=== PATIENT | male | born 1950 | race Two or more races ===

== ENCOUNTER → 2022-12-27 | Outpatient (CLI) | payer OTHER ==
[2022-12-27 08:06] LABS: Albumin 3.9 g/dL (3.4-5.0); Potassium 4.4 mmol/L (3.5-5.1)
[2022-12-27 08:13] LABS: BUN/Creatinine Ratio 20.1 (10.0-20.0); Bilirubin, Total 0.5 mg/dL (0.2-1.0); Calcium 9.5 mg/dL (8.5-10.1); Total Protein 7.1 g/dL (6.4-8.2)
== END | disposition home or self-care (01) ==
LOC: LAB 06:37
PROVIDERS: ATTEND Student in an Organized Health Care Education/Training Program
DX: Z12.11 Encounter for screening for malignant neoplasm of colon (principal); E78.5 Hyperlipidemia, unspecified; I25.810 Atherosclerosis of coronary artery bypass graft(s) without angina pectoris
CPT/HCPCS: 36415; 80053; 80061

== ENCOUNTER → 2023-02-28 | Outpatient (CLI) | payer OTHER | END | disposition home or self-care (01) | LOC: XYW 10:49 | PROVIDERS: ATTEND Internal Medicine | DX: R07.89 Other chest pain (principal); I25.810 Atherosclerosis of coronary artery bypass graft(s) without angina pectoris | CPT/HCPCS: 93017; 93350 ==

== ENCOUNTER → 2024-02-18 | Outpatient (CLI) | payer OTHER ==
[~2024-02-18] MED LIST: ASPI-543 PO; CHOL100079 OR; ECHICAP PO; EZET10TA22 PO; METO25TA5 PO; SIMV20TA20 PO
[2024-02-18 08:27] LABS: Triglycerides 73 mg/dL (< 150)
[2024-02-18 08:28] LABS: LDL Cholesterol 74 mg/dL (< 100)
[2024-02-18 08:29] LABS: HDL Cholesterol 47 mg/dL (40-59)
[2024-02-18 08:30] LABS: Cholesterol 135 mg/dL (< 200)
== END | disposition home or self-care (01) ==
LOC: LAB 06:30
PROVIDERS: ATTEND Student in an Organized Health Care Education/Training Program
DX: Z12.11 Encounter for screening for malignant neoplasm of colon (principal); E78.5 Hyperlipidemia, unspecified
CPT/HCPCS: 36415; 80061; 82274

== ENCOUNTER → 2024-06-12 | Outpatient (CLI) | payer OTHER ==
[2024-06-13 11:07] LABS: PSA Free 1.49 ng/mL; Prostate Specific Antigen 4.1 ng/mL (0.0-4.0)
== END | disposition home or self-care (01) ==
LOC: LAB 05:56
PROVIDERS: ATTEND Urology
DX: R30.0 Dysuria (principal); N40.0 Benign prostatic hyperplasia without lower urinary tract symptoms
CPT/HCPCS: 84153; 84154

== ENCOUNTER 2024-09-09 01:03 | Inpatient (IN) | payer OTHER ==
[~2024-09-09] VITALS: Ht 182.9 cm; Wt 98.7 kg
--- NOTE | 2024-09-09 01:33 | ED.PDOC ---
History of Present Illness HPI Comments 73 y/o M, with a Hx of ASA use, BPH, 2CABG, CAD, HLD, HTN, and kidney stones, is BIBA for c/o non-radiating, mid-abdominal pain, nausea, vomiting, and constipation, today. Per EMS report, patient endorses on sudden and unprovoked onset of symptoms 2x hours prior to ED arrival, this morning. He comments on pa in being an 8/10 in severity and felling similar to when he had kidney stones in the past, producing "yellow" bile vomitus, and having a "constant urge" to defecate and requiring to strain to produce small stool amounts and is unable to pass gas, currently. Patient was noted to have been found with a blood glucose of 182, with all remaining vitals stable and within normal limits, and was given 1g Tylenol and 4mg Zofran en route, with positive improvement. Upon arrival to ED, patient's pain is stated to have improved to a 4/10 severity and his nauseousness subsiding. Patient reports no further relevant or pertinent information, such as recent spoiled food intake or injuries, at time of assessment. He denies having any hematemesis, diarrhea, urinary symptoms, fever, chills, or other associated symptoms or modifiers at this time. Chief Complaint: Abdominal Pain Time Seen by MD: 01:20 Primary Care Provider: Unk Reviewed Notes: Nurses Notes, Heater Installer Notes, Medications, Allergies Allergies: Uncoded Allergies: Atrovastatin (Allergy, Unknown, 09/09/24) Home Meds Reported Medications Echinacea-Goldenseal (Echinacea/Rogers Seal) Gld Seal Cap, 1 SEAL PO DAILY for SUPPLEMENT, CAP 11/19/23 Cholecalciferol (VITAMIN D3) 1,000 Unit Chw, 1000 UNIT OR DAILY, TAB.CHEW 11/19/23 Simvastatin (Simvastatin) 20 Mg Tab, 20 MG PO DAILY for dyslipidemia for 30 Days 11/19/23 Metoprolol Tartrate (Metoprolol Tartrate) 25 Mg Tab, 25 MG PO BID for htn for 30 Days, MG 11/19/23 Ezetimibe (Zetia) 10 Mg Tab, 1 TAB PO DAILY for HIGH CHOLESTEROL, #30 TAB 5 Refills 11/19/23 Aspirin (Aspir-Low) 81 Mg Tab, 81 MG PO DAILY for S/P CABG X2, MG 11/19/23 Information Source: Patient, Emergency Med Personnel Mode of Arrival: EMS Severity: Moderate Timing: Hours Duration: Since onset Prehospital treatment: 12 Lead EKG, [employer] 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, Other (1g Tylenol, 4mg Zofran) Past Medical History PAST MEDICAL HISTORY: CAD, High Lipids, HTN, Kidney Stones Past Medical History (Other): ASA use, BPH Surgical History: CABG (2x) Family History Family History: Unknown Social History Smoker: Non-Smoker Alcohol: Denies ETOH Use Drugs: Denies Drug Use Lives In: Home Gastrointestinal: reports: abdominal pain, constipated, nausea, vomiting All Other Systems: Reviewed and Negative (negative unless otherwise stated above or in HPI) Physical Exam General Appearance: No Apparent Distress, Normal HEENT: Normal ENT Inspection, Pharynx Normal, TMs Normal Neck: Full Range of Motion, Non-Tender, Normal, Normal Inspection Respiratory: Chest Non-Tender, Lungs Clear, No Accessory Muscle Use, No Respiratory Distress, Normal Breath Sounds Cardiovascular: No Edema, No JVD, No Murmur, No Gallop, Normal Peripheral Pulses, Regular Rate/Rhythm Breast Exam: Deferred Gastrointestinal: No Organomegaly, No Pulsatile Mass, Normal Bowel Sounds, Soft, Tenderness (abdomen diffusely firm and tender ) Genitalia: Deferred Pelvic: Deferred Rectal: Deferred Extremities: No calf tenderness, Normal capillary refill, Normal inspection, Normal range of motion, Non-tender, No pedal edema Musculoskeletal : Apperance: Normal Neurologic: Alert, nicu rn II-XII nml as Tested, No Motor Deficits, Normal Affect, Normal Mood, No Sensory Deficits Cerebellar Function: Normal Reflexes: Normal Skin: Dry, Normal Color, Warm Lymphatic: No Adenopathy Was a procedure done? Was a procedure done?: No EKG EKG : Pulse Rate (adult): 63 [place]: Normal Cardiac Rhythm: NSR Block: None Hypertrophy: None ST: Normal Differential Dx Considerations may include: gastritis, gastroenteritis, constipation, bowel obstruction, spoiled food, viral syndrome, nephrolithiasis, acute abdomen X-Ray, Labs, Meds, VS Vital Signs Date Time Temp Pulse Resp B/P (MAP) Pulse Ox O2 Delivery O2 Flow Rate FiO2 09/09/24 04:41 73 16 158/79 09/09/24 04:29 Nasal Cannula* 2 28 09/09/24 04:27 98.9 73 16 158/79 (105) 94 98.9 09/09/24 01:33 63 09/09/24 01:16 63 09/09/24 01:13 98.0 67 20 163/80 (107) 98 Lab Test 09/09/24 01:45 Range/Units White Blood Count 13.7 H 4.4-10.8 10^3/uL Red Blood Count 5.01 4.5-5.90 10^6/uL Hemoglobin 15.0 13.5-17.5 g/dL Hematocrit 44.9 41.0-53.0 % Mean Corpuscular Volume 89.6 80.0-100.0 fL Mean Corpuscular Hemoglobin 29.9 28.0-32.0 pg Mean Corpuscular Hemoglobin Concent 33.4 32.0-36.0 g/dL Red Cell Distribution Width 13.8 11.8-14.3 % Platelet Count 207 140-450 10^3/uL Mean Platelet Volume 7.8 6.9-10.8 fL Neutrophils (%) (Auto) 79.9 37.0-80.0 % Lymphocytes (%) (Auto) 14.8 10.0-50.0 % Monocytes (%) (Auto) 4.7 0.0-12.0 % Eosinophils (%) (Auto) 0.2 0.0-7.0 % Basophils (%) (Auto) 0.4 0.0-2.0 % Neutrophils # (Auto) 11.0 H 1.6-8.6 10 ^3/uL Lymphocytes # (Auto) 2.0 0.4-5.4 10 ^3/uL Monocytes # (Auto) 0.6 0-1.3 10 ^3/uL Eosinophils # (Auto) 0 0-0.8 10 ^3/uL Basophils # (Auto) 0.1 0-0.2 10 ^3/uL Nucleated Red Blood Cells 0.1 % Sodium Level 142 136-145 mmol/L Potassium Level 3.9 3.5-5.1 mmol/L Chloride Level 109 H 98-107 mmol/L Carbon Dioxide Level 24 20-31 mmol/L Anion Gap 9 5-15 Blood Urea Nitrogen 26 H 9-23 mg/dL Creatinine 1.82 H 0.700-1.30 mg/dL Glomerular Filtration Rate Calc 38 >90 mL/min BUN/Creatinine Ratio 14.3 10.0-20.0 Serum Glucose 153 H 74-106 mg/dL Calcium Level 10.1 8.7-10.4 mg/dL Total Bilirubin 0.4 0.2-1.0 mg/dL Aspartate Amino Transferase (AST) 24 13-40 U/L Alanine Aminotransferase (ALT) 26 7-40 U/L Alkaline Phosphatase 64 46-116 U/L Troponin I High Sensitivity 3 L </=54 ng/L Total Protein 6.5 5.7-8.2 g/dL Albumin 4.2 3.2-4.8 g/dL Current Medications Medications (Trade) Dose Ordered Sig/Dionte Route Start Time Stop Time Status Last Admin Sodium Chloride 1,000 ml @ 1,000 mls/hr Q1H ONCE IV 09/09/24 01:30 09/09/24 02:29 DC 09/09/24 04:28 Ondansetron HCl (Zofran) 4 mg ONCE ONCE IV 09/09/24 01:30 09/09/24 01:31 DC 09/09/24 04:35 Morphine Sulfate 4 mg ONCE ONCE IV 09/09/24 01:30 09/09/24 01:31 DC 09/09/24 04:41 [place] [id number] Ph: [phone] DIAGNOSTIC IMAGING Diagnostic Imaging Report : [id number] Signed PATIENT: ABBY HOLT ACCT: [id number] UNIT: [id number] : 1950 LOC: ER ROOM / BED: / AGE / SEX: 73 / M ADM STATUS: REG ER SERVICE 0 ORDERING PHYSICIAN: LAKSHMI SAM MD PROCEDURE(s): CXRP - CHEST PORTABLE REASON: abdominal pain ORDER NUMBER(s): [id number], ACCESSION NUMBER(s): [id number] CHEST RADIOGRAPH Indication: abdominal pain Technique: Single frontal view of the chest was obtained Comparison: None FINDINGS: Lines and Tubes: None Lungs: There is an opacity in the periphery of the right upper lung zone. Pleura: No effusion. No pneumothorax. Cardiomediastinal contours: Unremarkable Bones: No acute osseous abnormality. IMPRESSION: 1. Peripheral opacity in the right upper lung zone may represent atelectasis or could be infectious or inflammatory in etiology. Noncontrast chest CT alena mmended for further evaluation and to exclude other etiologies such as mass. ATED BY: DEE ROBERTS MD DICTATED DATE/TIME: 09/09/24432 SIGNED BY: DEE ROBERTS MD SIGNED DATE/TIME: 09/09/24432 CC: Time of 1ST Reevaluation: 01:50 Reevaluation 1ST: Unchanged Patient Education/Counseling: Diagnosis, Treatment Family Education/Counseling: No Family Present Additional Information The following tests were ordered, and results were reviewed by me: CT abdomen and pelvis w/o contrast, CXR, troponin, CBC, CMP Additional Information was gathered from interviewing the following independent historians: EMT I reviewed and agreed with the following test results read by other providers: CT abdomen and pelvis w/o contrast, CXR I discussed treatment and results with medical personnel Departure 1 Departure Time of Disposition: 05:13 (Patient presented with abdominal pain that was concerning for possible appendicits, gastritis, cholecystitis, colitis, gastroenteritis, sbo, or orther possible surgical emergency. Data: 1. I ordered and reviewed the result of at least 3 labs including a CBC, BMP, and Urinalysis. 2. I independently interpreted the following tests: CT Abdoment and Pelvis is concerning for larger obstructing right ureteral stone .Risk:This patient has a high risk of morbidity due to further diagnostic testing or treatment and may suffer from an acute abdominal process disorder. Workup reveals large obstructing right ureteral stone and patient should be admitted for further workup. and possible expert consultation. Patient also has what may be concerning for a mass on his chest x-ray. We will the patient and they workup.) Impression: Primary Impression: Ureteral stone with hydronephrosis Additional Impressions: Lung field abnormal finding on examination Abdominal pain Qualified Codes: R10.31 - Right lower quadrant pain Disposition: ADMITTED INPATIENT Admit to: Med Surg Condition: Serious Critical Care Note Critical Care Time?: Yes Critical care comment: Intractable abdominal pain Authorized and Performed by: Lakshmi Sam MD Total critical care time: Approximately 35 minutes Due to a high probability of clinically significant, life threatening deterioration, the patient required my highest level of preparedness to intervene emergently and I personally spent this critical care time directly and personally managing the patient. This critical care time included obtaining a history; examining the patient; pulse oximetry; ordering and review of studies; arranging urgent treatment with development of a management plan; evaluation of patient's response to treatment; frequent reassessment; and, discussions with other providers. This critical care time was performed to assess and manage the high probability of imminent, life-threatening deterioration that could result in multi-organ failure. It was exclusive of separately billable procedures and treating other patients and teaching time. Please see my other sections and the rest of the note for further information on patient assessment and treatment. Stability Stability form required: No Heart Score Heart Score: Heart Score Response (Comments) Value History N/A 0 EKG N/A 0 Age N/A 0 Risk Factors N/A 0 Troponin N/A 0 Total 0 I personally scribed for LAKSHMI SAM MD ([email or web address]) on 09/09/24 at 01:33. Electronically submitted by Joey Palafox ([email or web address]). I personally scribed for LAKSHMI SAM MD ([email or web address]) on 09/09/24 at 01:35. Electronically submitted by Joey Palafox ([email or web address]). I personally scribed for LAKSHMI SAM MD ([email or web address]) on 09/09/24 at 04:50. Electronically submitted by Joey Palafox ([email or web address]). LAKSHMI SAM MD Sep 09, 2024 01:33
[2024-09-09 02:01] LABS: Basophils # (auto) 0.1 10 ^3/uL (0-0.2); Basophils % (auto) 0.4 % (0.0-2.0); Eosinophils # (auto) 0 10 ^3/uL (0-0.8); Eosinophils % (auto) 0.2 % (0.0-7.0); Hematocrit 44.9 % (41.0-53.0); Lymphocytes % (auto) 14.8 % (10.0-50.0); Mean Corpuscular Hemoglobin 29.9 pg (28.0-32.0); Mean Corpuscular Hgb Conc. 33.4 g/dL (32.0-36.0); Mean Corpuscular Volume 89.6 fL (80.0-100.0); Monocytes # (auto) 0.6 10 ^3/uL (0-1.3); Monocytes % (auto) 4.7 % (0.0-12.0); Neutrophils % (auto) 79.9 % (37.0-80.0); Nucleated Red Blood Cells % 0.1 %; Platelet Count (auto) 207 10^3/uL (140-450); Red Blood Cells 5.01 10^6/uL (4.5-5.90); Red Cell Distribution Width 13.8 % (11.8-14.3); White Blood Cell 13.7 10^3/uL (4.4-10.8)
[2024-09-09 02:18] LABS: Alanine Aminotransferase 26 U/L (7-40); Albumin 4.2 g/dL (3.2-4.8); Alkaline Phosphatase 64 U/L (46-116); Anion Gap 9 (5-15); Aspartate Aminotransferase 24 U/L (13-40); BUN/Creatinine Ratio 14.3 (10.0-20.0); Calcium 10.1 mg/dL (8.7-10.4); Carbon Dioxide 24 mmol/L (20-31); Potassium 3.9 mmol/L (3.5-5.1); Sodium 142 mmol/L (136-145)
[2024-09-09 02:19] LABS: Bilirubin, Total 0.4 mg/dL (0.2-1.0); Total Protein 6.5 g/dL (5.7-8.2)
[2024-09-09 02:42] LABS: Blood Urea Nitrogen 26 mg/dL (9-23); Chloride 109 mmol/L (98-107); Glucose 153 mg/dL (74-106)
[2024-09-09] MEDS: IOHEXOL 300 MG/ML 100ML BOTTLE IJ ONE (03:05)
[2024-09-09] MEDS: SODIUM CHLORIDE 0.9% 1,000 ML IV ONE (04:28)
[2024-09-09] MEDS: ONDANSETRON HCL 4 MG/2 ML VIAL IV ONE (04:35)
--- NOTE | 2024-09-09 04:35 | DVH ---
CHEST RADIOGRAPH Indication: abdominal pain Technique: Single frontal view of the chest was obtained Comparison: None FINDINGS: Lines and Tubes: None Lungs: There is an opacity in the periphery of the right upper lung zone. Pleura: No effusion. No pneumothorax. Cardiomediastinal contours: Unremarkable Bones: No acute osseous abnormality. IMPRESSION: 1. Peripheral opacity in the right upper lung zone may represent atelectasis or could be infectious o r inflammatory in etiology. Noncontrast chest CT recommended for further evaluation and to exclude ot her etiologies such as mass.
[2024-09-09] MEDS: MORPHINE SULFATE 4 MG/ML SYR/VIAL IV ONE (04:41)
--- NOTE | 2024-09-09 05:00 | DVH ---
Exam: CT CT AB PEL WITH IV CON ONLY History: abdominal pain Comparison Study: None available at time of dictation. Technique: Multidetector spiral CT of the abdomen was performed from lung bases to pubic symphysis. Axial imaging was performed with intravenous contrast following the uneventful administration of 100 ml Omnipaque 350. Coronal and sagittal multiplanar reformats were obtained from the axial data set b y the technologist. Radiation Dose : 1. Abdomen/Pelvis: CTDIvol 18.6 mGy, DLP 969.3 mGy*cm. Findings: Lung Bases: Lung bases are clear. Visualized portions of the heart and pericardium are unremarkable. Liver: The liver is normal in size. There is a 1.5 cm heterogeneously enhancing mass in the inferior right hepatic lobe. Gallbladder and Biliary Tree: The gallbladder is unremarkable. No intrahepatic or extrahepatic bilia ry ductal dilatation. Spleen: Unremarkable Pancreas: The pancreas enhances normally and there are no focal lesions. The main pancreatic duct i s not dilated Adrenal Glands: Unremarkable Kidneys: Mild right hydroureteronephrosis to the level of an obstructive 9 mm calculus at the right u reterovesical junction. There is right perinephric fat stranding. There is a right cortical renal cys t measuring 2.2 cm. The left kidney is unremarkable. GI tract: There is a cystic lesion in the gastric antrum measuring 2.5 cm. There is a hiatal hernia. No evidence of small bowel wall thickening or abnormal dilatation to suggest bowel obstruction. Sigmo id diverticulosis without acute diverticulitis. No findings to suggest acute appendicitis in the righ t lower quadrant. Peritoneum/mesentery/retroperitoneum. No evidence of free intraperitoneal air. No ascites. No evidenc e of suspicious lymphadenopathy. Abdominal Wall: Unremarkable. Vasculature: Abdominal aorta and main branches are unremarkable. Normal vascular enhancement. Urinary Bladder: Grossly unremarkable for degree of distention. Pelvic Organs: Enlarged prostate measuring 6.4 cm in maximum transverse dimension. Musculoskeletal: No aggressive focal bony lesions, acute fractures or dislocation. IMPRESSION: 1. Right hydroureteronephrosis to the level of an obstructive 9 mm calculus at the right ureterovesic al junction. 2. 2.5 cm cystic lesion in the gastric antrum. Endoscopy is recommended for further evaluation. 3. Prostatomegaly. 4. Sigmoid diverticulosis without acute diverticulitis.
[2024-09-09] MEDS: KETOROLAC TROMETH 30 MG/ML 1ML VIAL IV ONE (05:26)
[2024-09-09] MEDS: TAMSULOSIN HYDROCHLORIDE 0.4 MG CAP PO ONE (05:31)
--- NOTE | 2024-09-09 06:40 | ECG ---
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
[2024-09-09] MEDS ORDERED: NITROGLYCERIN 0.4 MG SL TAB SL PRN (06:45)
[2024-09-09] MEDS ORDERED: MORPHINE SULFATE INJ 2 MG/ml SYRG IV PRN ×2 (06:45)
[2024-09-09] MEDS ORDERED: ONDANSETRON HCL 4 MG/2 ML VIAL IV PRN (06:45)
[2024-09-09] MEDS ORDERED: ACETAMINOPHEN 325 MG TAB PO PRN (06:45)
[2024-09-09] MEDS ORDERED: HYDROcodone-ACET 5/325MG TAB PO PRN (06:45)
[2024-09-09] MEDS: SODIUM CHLORIDE 0.9% 1,000 ML IV SCH (06:45)
--- NOTE | 2024-09-09 06:55 | DVHHP2 ---
History of Present Illness Reason for Visit: Right lower quadrant abdominal pain History of Present Illness Bridger Boykin is a 73-year-old male with past medical history of tonsillectomy, CAD status post CABG x2 couple years back in [facility] (2 grafts 1 cortes to LAD and 2nd saphenous vein graft to obtuse marginal branch) and hyperlipidemia who presents to the ED with nausea, vomiting, and abdominal pain intermittent his 6/10 pain. Patient reported bile like color emesis. Patient states that he saw his urologist and was supposed to have a cystoscopy but was supposed to get a risk stratification score from Cardiology. Patient denies any ingestion of spoiled food, recent sick contacts, chest pain, shortness of breath, diarrhea, fever, chills, lightheadedness, weakness, dizziness, dysuria, hematuria, and back pain. Cardiovascular: CAD, hyperipidemia Past Surgical History: CABG, Tonsillectomy Family History: Cancer, Other (Both parents father had heart disease and mom had maxillofacial cancer) Smoke: No ALCOHOL: none Drugs: None Lives: with Family Domestic Violence: Neg Review of Systems Constitutional: No: Fever, Chills, Sweats, Weakness, Malaise, Other Eyes: No: Pain, Vision change, Conjunctivae inflammation, Eyelid inflammation, Other, Redness ENT: No: Ear pain, Ear discharge, Nose pain, Nose discharge, Nose congestion, Mouth pain, Mouth swelling, Throat pain, Throat swelling, Other Respiratory: No: Cough, Dry, Shortness of breath, SOB with excertion, Wheezing, Hemoptysis, Pleuritic Pain, Sputum, Wheezing, Other Cardiovascular: No: Chest Pain, Palpitations, Orthopnea, Paroxysmal Noc. Dyspnea, Edema, Lt Headedness, Other Gastrointestinal: Nausea, Vomiting, Abdominal Pain; No: Diarrhea, Constipation, Melena, Hematochezia, Other Genitourinary: No Dysuria, No Frequency, No Incontinence, No Hematuria, No Retention, No Other Musculoskeletal: No: other, neck pain, shoulder pain, arm pain, back pain, hand pain, leg pain, foot pain Skin: No: Rash, Lesions, Jaundice, Bruising, Other Neurological: No: Weakness, Numbness, Incoordination, Change in speech, Confusion, Seizures, Other Allergies: Uncoded Allergies: Atrovastatin (Allergy, Unknown, 09/09/24) Medications Current Medications Medications Dose Ordered Sig/Dionte Route Start Time Stop Time Status Last Admin Dose Admin Ceftriaxone Sodium 50 ml @ 100 mls/hr DAILY@09 IV 09/09/24 09:00 UNV Sodium Chloride 1,000 ml @ 100 mls/hr Q10H IV 09/09/24 06:45 UNV Acetaminophen/ Hydrocodone Bitart 1 tab Q4HP PRN PO 09/09/24 06:45 UNV Ondansetron HCl 4 mg Q4HP PRN IV 09/09/24 06:45 UNV Acetaminophen 650 mg Q6HP PRN PO 09/09/24 06:45 UNV Morphine Sulfate 2 mg Q4HPRN PRN IV 09/09/24 06:45 UNV Nitroglycerin 0.4 mg Q5MINP PRN SL 09/09/24 06:45 UNV Morphine Sulfate 2 mg Q30M PRN IV 09/09/24 06:45 UNV Finasteride 5 mg DAILY PO 09/09/24 10:00 UNV Tamsulosin HCl 0.4 mg QPM PO 09/09/24 18:00 UNV Exam Vital Signs Vital Signs Date Time Temp Pulse Resp B/P (MAP) Pulse Ox O2 Delivery O2 Flow Rate FiO2 09/09/24 05:26 69 18 144/72 09/09/24 05:25 98.1 98 98.1 09/09/24 04:29 Nasal Cannula* 2 28 General Appearance: Alert, Oriented X3, Cooperative, No acute distress HEENT: Atraumatic, PERRLA, EOMI, Mucous membr. moist/pink Respiratory: Clear to auscultation, Normal air movement Cardiovascular: Regular rate, Normal S1, Normal S2 Abdominal: Soft, No hepatospenomegaly, No masses Extremities: No clubbing, No cyanosis, No edema, Normal pulses, No tenderness/swelling Skin: No rashes, No breakdown, No significant lesion Neuro: Normal gait, Normal speech, Normal tone, Sensation intact Psych/Mental Status: Mental status NL, Mood NL Labs/Xrays Labs Test 09/09/24 04:15 09/09/24 01:45 Range/Units White Blood Count 13.7 H 4.4-10.8 10^3/uL Red Blood Count 5.01 4.5-5.90 10^6/uL Hemoglobin 15.0 13.5-17.5 g/dL Hematocrit 44.9 41.0-53.0 % Mean Corpuscular Volume 89.6 80.0-100.0 fL Mean Corpuscular Hemoglobin 29.9 28.0-32.0 pg Mean Corpuscular Hemoglobin Concent 33.4 32.0-36.0 g/dL Red Cell Distribution Width 13.8 11.8-14.3 % Platelet Count 207 140-450 10^3/uL Mean Platelet Volume 7.8 6.9-10.8 fL Neutrophils (%) (Auto) 79.9 37.0-80.0 % Lymphocytes (%) (Auto) 14.8 10.0-50.0 % Monocytes (%) (Auto) 4.7 0.0-12.0 % Eosinophils (%) (Auto) 0.2 0.0-7.0 % Basophils (%) (Auto) 0.4 0.0-2.0 % Neutrophils # (Auto) 11.0 H 1.6-8.6 10 ^3/uL Lymphocytes # (Auto) 2.0 0.4-5.4 10 ^3/uL Monocytes # (Auto) 0.6 0-1.3 10 ^3/uL Eosinophils # (Auto) 0 0-0.8 10 ^3/uL Basophils # (Auto) 0.1 0-0.2 10 ^3/uL Nucleated Red Blood Cells 0.1 % Sodium Level 142 136-145 mmol/L Potassium Level 3.9 3.5-5.1 mmol/L Chloride Level 109 H 98-107 mmol/L Carbon Dioxide Level 24 20-31 mmol/L Anion Gap 9 5-15 Blood Urea Nitrogen 26 H 9-23 mg/dL Creatinine 1.82 H 0.700-1.30 mg/dL Glomerular Filtration Rate Calc 38 >90 mL/min BUN/Creatinine Ratio 14.3 10.0-20.0 Serum Glucose 153 H 74-106 mg/dL Calcium Level 10.1 8.7-10.4 mg/dL Total Bilirubin 0.4 0.2-1.0 mg/dL Aspartate Amino Transferase (AST) 24 13-40 U/L Alanine Aminotransferase (ALT) 26 7-40 U/L Alkaline Phosphatase 64 46-116 U/L Troponin I High Sensitivity 3 L </=54 ng/L Total Protein 6.5 5.7-8.2 g/dL Albumin 4.2 3.2-4.8 g/dL CHEST RADIOGRAPH Indication: abdominal pain Technique: Single frontal view of the chest was obtained Comparison: None FINDINGS: Lines and Tubes: None Lungs: There is an opacity in the periphery of the right upper lung zone. Pleura: No effusion. No pneumothorax. Cardiomediastinal contours: Unremarkable Bones: No acute osseous abnormality. IMPRESSION: 1. Peripheral opacity in the right upper lung zone may represent atelectasis or could be infectious or inflammatory in etiology. Noncontrast chest CT recommended for further evaluation and to exclude other etiologies such as mass. Exam: CT CT AB PEL WITH IV CON ONLY History: abdominal pain Comparison Study: None available at time of dictation. Technique: Multidetector spiral CT of the abdomen was performed from lung bases to pubic symphysis. Axial imaging was performed with intravenous contrast following the uneventful administration of 100 ml Omnipaque 350. Coronal and sagittal multiplanar reformats were obtained from the axial data set by the technologist. Radiation Dose : 1. Abdomen/Pelvis: CTDIvol 18.6 mGy, DLP 969.3 mGy*cm. Findings: Lung Bases: Lung bases are clear. Visualized portions of the heart and pericardium are unremarkable. Liver: The liver is normal in size. There is a 1.5 cm heterogeneously enhancing mass in the inferior right hepatic lobe. Gallbladder and Biliary Tree: The gallbladder is unremarkable. No intrahepatic or extrahepatic biliary ductal dilatation. Spleen: Unremarkable Pancreas: The pancreas enhances normally and there are no focal lesions. The main pancreatic duct is not dilated Adrenal Glands: Unremarkable Kidneys: Mild right hydroureteronephrosis to the level of an obstructive 9 mm calculus at the right ureterovesical junction. There is right perinephric fat stranding. There is a right cortical renal cyst measuring 2.2 cm. The left kidney is unremarkable. GI tract: There is a cystic lesion in the gastric antrum measuring 2.5 cm. There is a hiatal hernia. No evidence of small bowel wall thickening or abnormal dilatation to suggest bowel obstruction. Sigmoid diverticulosis without acute diverticulitis. No findings to suggest acute appendicitis in the right lower quadrant. Peritoneum/mesentery/retroperitoneum. No evidence of free intraperitoneal air. No ascites. No evidence of suspicious lymphadenopathy. Abdominal Wall: Unremarkable. Vasculature: Abdominal aorta and main branches are unremarkable. Normal vascular enhancement. Urinary Bladder: Grossly unremarkable for degree of distention. Pelvic Organs: Enlarged prostate measuring 6.4 cm in maximum transverse dimen goran. Musculoskeletal: No aggressive focal bony lesions, acute fractures or dislocation. IMPRESSION: 1. Right hydroureteronephrosis to the level of an obstructive 9 mm calculus at the right ureterovesical junction. 2. 2.5 cm cystic lesion in the gastric antrum. Endoscopy is recommended for further evaluation. 3. Prostatomegaly. 4. Sigmoid diverticulosis without acute diverticulitis. Assessment/Plan Assessment/Plan Assessment/Plan: Intractable abdominal pain Right hydroureteral nephrosis to the level of an obstructive 9 mm calculus at the right ureterovesical junction Leukocytosis likely due to right hydro ureteral nephrosis ALEXUS Prostatomegaly Flomax given ED Pain management NS 1 L given ED Urology consult EKG Antiemetics Chest x-ray Labs CT abdomen and pelvis Troponin negative CT chest Finasteride IV antibiotics-ceftriaxone A.m. labs Rounding team to Consider Nephro consult if creatinine does not improve UA Antiemetics Pain management Hyperglycemia Hemoglobin A1c ISS and Accu-Cheks Sigmoid diverticulosis without acute diverticulitis 2.5 cm cystic lesion in the gastric antrum Follow up outpatient with PCP FEN/PPX NPO IV fluids DVT prophylaxis not indicated patient ambulating PUD prophylaxis-Protonix Home medications reconciled Discussed plan of care with patient and nurse Admit to med surge Plan discussed with: Patient My Orders Orders - GADIEL LIEBERMAN APPRAISAL TECHNICIAN Procedure Category Date Status Time Ceftriaxone 1gm/50ml PHA 09/09/24 Logged D5w (Rocephin) 09:00 Ceftriaxone 1gm/50ml PHA 09/09/24 Logged D5w (Rocephin) 06:45 Admit ADMIT 09/09/24 Transmitted 06:43 Allergies SHAYY 09/09/24 In Process 06:43 Code Status CODE 09/09/24 Transmitted 06:43 Sodium Chloride 0.9% PHA 09/09/24 Logged 06:45 Hydrocodone-Acet PHA 09/09/24 Logged 5/325mg Tab (Chavies 06:45 Ondansetron Hcl PHA 09/09/24 Logged (Zofran) 06:45 Complete Blood Count LAB 09/10/24 Verified 04:00 Comprehensive LAB 09/10/24 Verified Metabolic Panel 04:00 Cardiac DIET 09/09/24 Transmitted Diet-2gna,Lofat,Lochol Breakfast Acetaminophen Tablet PHA 09/09/24 Logged (Tylenol Tablet) 06:45 Morphine Sulfate [facility] 09/09/24 Logged Injection 06:45 Nitroglycerin [facility] 09/09/24 Logged Sublingual (Ntrostat 06:45 Morphine Sulfate PHA 09/09/24 Logged Injection 06:45 Stat Ekg For Chest [facility] 09/09/24 In Process Pain 06:43 Notify Of Changes [facility] 09/09/24 In Process From Base 06:43 Physician Practice Administrator For [facility] 09/09/24 In Process 24 Hours 06:43 Emergency Dysrhythmia [facility] 09/09/24 In Process Protocol 06:43 Rhythm Strips Once [facility] 09/09/24 In Process Every Shift 06:43 Oxygen By Nasal RT 09/09/24 Transmitted Cannula 06:43 Finasteride Tablet [facility] 09/09/24 Logged (Proscar Tablet) 10:00 Tamsulosin [facility] 09/09/24 Logged Hydrochloride (Flomax) 18:00 Hemoglobin A1c LAB 09/09/24 In Process 06:48 Date of Service: Sep 09, 2024 Billing Provider: GADIEL LIEBERMAN Common Visit Codes: [id number] INP/OBS CARE (HIGH) GADIEL LIEBERMAN Sep 09, 2024 06:55
[2024-09-09 07:40] VITALS: RESP 16; O2SAT 94
[2024-09-09] MEDS: cefTRIAXone 1GM/50ML D5W 50 ML IV ONE (07:58)
[2024-09-09] MEDS ORDERED: DEXTROSE (50%) 50ML SYRG IV PRN (08:45)
--- NOTE | 2024-09-09 09:39 | DVH ---
Procedure: CT CHEST WITHOUT CONTRAST Reason for study/Clinical History: r/o mass Comparison Study: Chest radiograph performed earlier same date. Exam Date: 09/09/2024 08:48 AM TECHNIQUE: Multidetector CT of the chest was performed from the lung apices to the upper abdomen with out the use of intravenous contract. Axial, coronal and sagittal multiplanar reformats were performed . Radiation Dose Information: CT Dose: CTDI volume is 10.28 mGy. Dose-length product is 402.83 mGy*cm The dose indicators for CT are the volume Computed Tomography (CT) Dose Index (CTDIvol) and the Dose Length Product (DLP), and are measured in units of mGy and mGy-cm, respectively. These indicators are not patient dose, but values generated from the CT scanner acquisition factors. The report includes radiation exposure data for exposures received during this examination. FINDINGS: Lower neck: Normal thyroid. Lungs: Ill-defined infiltrates in the periphery of the right upper lobe corresponding to the opacity on chest radiograph performed earlier same date. There is another focal opacity in the posterior righ t upper lobe. Opacities noted in the right middle lobe. No suspicious pulmonary nodule or mass. Trachea and central airways: Patent. Pleura: No pericardial effusion. No pneumothorax. Mediastinum: Hiatal hernia. No suspicious lymphadenopathy. Heart/Vascular Structures: Normal heart size. Coronary artery calcifications. No pericardial effusion . Normal caliber thoracic aorta and main pulmonary artery. Musculoskeletal: No acute osseous abnormality. Soft tissues: Normal. Upper abdomen: Limited portions of the upper abdomen are unremarkable. IMPRESSION: 1. Right upper, middle and lower lobe opacities which may be infectious or inflammatory in etiology. 2. Coronary artery calcifications. 3. Hiatal hernia. Radiation optimization: All CT scans at this facility use at least one of these dose optimization kyree hniques: automated exposure control mA and/or kV adjustment per patient size (includes targeted exam s where dose is matched to clinical indication) or iterative reconstruction.
[2024-09-09] MEDS: FINASTERIDE 5 MG TAB PO SCH (10:31)
[2024-09-09] MEDS: InsuLIN REG 1unit/0.01ml Soln (100units/ml) SC SCH (12:00)
[2024-09-09] MEDS: ACCU-CHEK COMFORT CURVE STRIP VI SCH (12:05)
--- NOTE | 2024-09-09 15:18 | DVHINCON2 ---
Date of service: Sep 09, 2024 Referring Physician ER/Hospitalist History of Present Illness 73-year-old male known to urology clinic for history of BPH and bladder stone. He underwent a office cystoscopy on 06/26/2024 with findings of trilobar hyperplasia and bladder calculi. He was to undergo cystoscopy with laser lithotripsy of the bladder stone which is currently pending scheduling. He is admitted to [facility] with abdominal pain and moderate to severe right hydronephrosis secondary to a 9 mm right distal UVJ stone. His creatinine is elevated at 1.8. He is latest PSA was 4.1. He remains on Flomax and finasteride therapy for his BPH Patient has significant past medical/surgical history of tonsillectomy, CAD status post CABG x2 couple years back in [facility] (2 grafts 1 cortes to LAD and 2nd saphenous vein graft to obtuse marginal branch) and hyperlipidemia who presents to the ED with nausea, vomiting, and abdominal pain intermittent his 6/10 pain. Patient reported bile like color emesis. Patient states that he saw his urologist and was supposed to have a cystoscopy but was supposed to get a risk stratification score from Cardiology. Patient denies any ingestion of sp oiled food, recent sick contacts, chest pain, shortness of breath, diarrhea, fever, chills, lightheadedness, weakness, dizziness, dysuria, hematuria, and back pain. Past Medical History CAD, hyperipidemia Past Surgical History CABG, Tonsillectomy Cystoscopy Allergies: Uncoded Allergies: Atrovastatin (Allergy, Unknown, 09/09/24) Home Meds Reported Medications Echinacea-Goldenseal (Echinacea/Rogers Seal) Gld Seal Cap, 1 SEAL PO DAILY for SUPPLEMENT, CAP 11/19/23 Cholecalciferol (VITAMIN D3) 1,000 Unit Chw, 1000 UNIT OR DAILY, TAB.CHEW 11/19/23 Simvastatin (Simvastatin) 20 Mg Tab, 20 MG PO DAILY for dyslipidemia for 30 Days 11/19/23 Metoprolol Tartrate (Metoprolol Tartrate) 25 Mg Tab, 25 MG PO BID for htn for 30 Days, MG 11/19/23 Ezetimibe (Zetia) 10 Mg Tab, 1 TAB PO DAILY for HIGH CHOLESTEROL, #30 TAB 5 Refills 11/19/23 Aspirin (Aspir-Low) 81 Mg Tab, 81 MG PO DAILY for S/P CABG X2, MG 4/1/24 Current Medications Current Medications Medications (Trade) Dose Ordered Sig/Dionte Route PRN Reason Start Time Stop Time Status Last Admin Ceftriaxone Sodium 50 ml @ 100 mls/hr DAILY@09 IV 09/10/24 09:00 Sodium Chloride 1,000 ml @ 100 mls/hr Q10H IV 09/09/24 06:45 Acetaminophen/ Hydrocodone Bitart ([place] 5/325MG Tab) 1 tab Q4HP PRN PO MODERATE PAIN (4-6 PAIN SCALE) 09/09/24 06:45 Ondansetron HCl (Zofran) 4 mg Q4HP PRN IV NAUSEA / VOMITING 09/09/24 06:45 Acetaminophen (Tylenol Tablet) 650 mg Q6HP PRN PO PAIN SCALE 1-3 OR TEMP>100.4 09/09/24 06:45 Morphine Sulfate 2 mg Q4HPRN PRN IV SEVERE PAIN (7-10 PAIN SCALE) 09/09/24 06:45 Nitroglycerin (Ntrostat Sublingual) 0.4 mg Q5MINP PRN SL FOR CHEST PAIN 09/09/24 06:45 Morphine Sulfate 2 mg Q30M PRN IV FOR CHEST PAIN 09/09/24 06:45 Finasteride (Proscar Tablet) 5 mg DAILY PO 09/09/24 10:00 09/09/24 10:31 Tamsulosin HCl (Flomax) 0.4 mg QPM PO 09/09/24 18:00 Diagnostic Test (Pha) (Accu-Chek Comfort Curve T) 1 strip Q6HR 09/09/24 12:00 09/09/24 12:05 Insulin Human Regular (InsuLIN R) Q6HR SC 09/09/24 12:00 Dextrose 50 ml UD PRN IV Blood Sugar LESS THAN 60 09/09/24 08:45 Review of Systems Constitutional: No: Fever, Chills, Sweats, Weakness, Malaise, Other Eyes: No: Pain, Vision change, Conjunctivae inflammation, Eyelid inflammation, Other, Redness ENT: No: Ear pain, Ear discharge, Nose pain, Nose discharge, Nose congestion, Mouth pain, Mouth swelling, Throat pain, Throat swelling, Other Respiratory: No: Cough, Dry, Shortness of breath, SOB with excertion, Wheezing, Hemoptysis, Pleuritic Pain, Sputum, Wheezing, Other Cardiovascular: No: Chest Pain, Palpitations, Orthopnea, Paroxysmal Noc. Dyspnea, Edema, Lt Headedness, Other Gastrointestinal: Nausea, Vomiting, Abdominal Pain; No: Diarrhea, Constipation, Melena, Hematochezia, Other Genitourinary: No Dysuria, No Frequency, No Incontinence, No Hematuria, No Retention, No Other Musculoskeletal: No: other, neck pain, shoulder pain, arm pain, back pain, hand pain, leg pain, foot pain Skin: No: Rash, Lesions, Jaundice, Bruising, Other Neurological: No: Weakness, Numbness, Incoordination, Change in speech, Confusion, Seizures, Other Allergies: Uncoded Allergies: Atrovastatin (Allergy, Unknown, 09/09/24) Medications Current Medications Medications Dose Ordered Sig/Dionte Route Start Time Stop Time Status Last Admin Dose Admin Ceftriaxone Sodium 50 ml @ 100 mls/hr DAILY@09 IV 09/09/24 09:00 UNV Sodium Chloride 1,000 ml @ 100 mls/hr Q10H IV 09/09/24 06:45 UNV Acetaminophen/ Hydrocodone Bitart 1 tab Q4HP PRN PO 09/09/24 06:45 UNV Ondansetron HCl 4 mg Q4HP PRN IV 09/09/24 06:45 UNV Acetaminophen 650 mg Q6HP PRN PO 09/09/24 06:45 UNV Morphine Sulfate 2 mg Q4HPRN PRN IV 09/09/24 06:45 UNV Nitroglycerin 0.4 mg Q5MINP PRN SL 09/09/24 06:45 UNV Morphine Sulfate 2 mg Q30M PRN IV 09/09/24 06:45 UNV Finasteride 5 mg DAILY PO 09/09/24 10:00 UNV Tamsulosin HCl 0.4 mg QPM PO 09/09/24 18:00 UNV Vital Signs Vital Signs Date Time Temp Pulse Resp B/P (MAP) Pulse Ox O2 Delivery O2 Flow Rate FiO2 09/09/24 12:10 97.9 85 15 124/71 (88) 97 97.9 09/09/24 07:40 Room Air* 0 21 Physical Exam Vital Signs Date Time Temp Pulse Resp B/P (MAP) Pulse Ox O2 Delivery O2 Flow Rate FiO2 09/09/24 05:26 69 18 144/72 09/09/24 05:25 98.1 98 98.1 09/09/24 04:29 Nasal Cannula* 2 28 General Appearance: Alert, Oriented X3, Cooperative, No acute distress HEENT: Atraumatic, PERRLA, EOMI, Mucous membr. moist/pink Respiratory: Clear to auscultation, Normal air movement Cardiovascular: Regular rate, Normal S1, Normal S2 Abdominal: Soft, No hepatospenomegaly, No masses Extremities: No clubbing, No cyanosis, No edema, Normal pulses, No tenderness/swelling Skin: No rashes, No breakdown, No significant lesion Neuro: Normal gait, Normal speech, Normal tone, Sensation intact Psych/Mental Status: Mental status NL, Mood NL Labs/Diagnostic Data Labs Test 09/09/24 12:04 09/09/24 04:15 09/09/24 01:45 Range/Units POC Glucose 119 H 70-106 mg/dl Hemoglobin A1c 6.2 H <5.7 % A1C White Blood Count 13.7 H 4.4-10.8 10^3/uL Red Blood Count 5.01 4.5-5.90 10^6/uL Hemoglobin 15.0 13.5-17.5 g/dL Hematocrit 44.9 41.0-53.0 % Mean Corpuscular Volume 89.6 80.0-100.0 fL Mean Corpuscular Hemoglobin 29.9 28.0-32.0 pg Mean Corpuscular Hemoglobin Concent 33.4 32.0-36.0 g/dL Red Cell Distribution Width 13.8 11.8-14.3 % Platelet Count 207 140-450 10^3/uL Mean Platelet Volume 7.8 6.9-10.8 fL Neutrophils (%) (Auto) 79.9 37.0-80.0 % Lymphocytes (%) (Auto) 14.8 10.0-50.0 % Monocytes (%) (Auto) 4.7 0.0-12.0 % Eosinophils (%) (Auto) 0.2 0.0-7.0 % Basophils (%) (Auto) 0.4 0.0-2.0 % Neutrophils # (Auto) 11.0 H 1.6-8.6 10 ^3/uL Lymphocytes # (Auto) 2.0 0.4-5.4 10 ^3/uL Monocytes # (Auto) 0.6 0-1.3 10 ^3/uL Eosinophils # (Auto) 0 0-0.8 10 ^3/uL Basophils # (Auto) 0.1 0-0.2 10 ^3/uL Nucleated Red Blood Cells 0.1 % Sodium Level 142 136-145 mmol/L Potassium Level 3.9 3.5-5.1 mmol/L Chloride Level 109 H 98-107 mmol/L Carbon Dioxide Level 24 20-31 mmol/L Anion Gap 9 5-15 Blood Urea Nitrogen 26 H 9-23 mg/dL Creatinine 1.82 H 0.700-1.30 mg/dL Glomerular Filtration Rate Calc 38 >90 mL/min BUN/Creatinine Ratio 14.3 10.0-20.0 Serum Glucose 153 H 74-106 mg/dL Calcium Level 10.1 8.7-10.4 mg/dL Total Bilirubin 0.4 0.2-1.0 mg/dL Aspartate Amino Transferase (AST) 24 13-40 U/L Alanine Aminotransferase (ALT) 26 7-40 U/L Alkaline Phosphatase 64 46-116 U/L Troponin I High Sensitivity 3 L </=54 ng/L Total Protein 6.5 5.7-8.2 g/dL Albumin 4.2 3.2-4.8 g/dL PATIENT: ABBY HOLT ACCT: [id number] UNIT: [id number] : 1950 LOC: ER ROOM / BED: / AGE / SEX: 73 / M ADM STATUS: REG ER SERVICE 0121 ORDERING PHYSICIAN: LAKSHMI SAM MD PROCEDURE(s): ABPLIV - CT AB PEL WITH IV CON ONLY REASON: abdominal pain ORDER NUMBER(s): [id number], ACCESSION NUMBER(s): [id number] Exam: CT CT AB PEL WITH IV CON ONLY History: abdominal pain Comparison Study: None available at time of dictation. Technique: Multidetector spiral CT of the abdomen was performed from lung bases to pubic symphysis. Axial imaging was performed with intravenous contrast following the uneventful administration of 100 ml Omnipaque 350. Coronal and sagittal multiplanar reformats were obtained from the axial data set by the technologist. Radiation Dose : 1. Abdomen/Pelvis: CTDIvol 18.6 mGy, DLP 969.3 mGy*cm. Findings: Lung Bases: Lung bases are clear. Visualized portions of the heart and pericardium are unremarkable. Liver: The liver is normal in size. There is a 1.5 cm heterogeneously enhancing mass in the inferior right hepatic lobe. Gallbladder and Biliary Tree: The gallbladder is unremarkable. No intrahepatic or extrahepatic biliary ductal dilatation. Spleen: Unremarkable Pancreas: The pancreas enhances normally and there are no focal lesions. The main pancreatic duct is not dilated Adrenal Glands: Unremarkable Kidneys: Mild right hydroureteronephrosis to the level of an obstructive 9 mm calculus at the right ureterovesical junction. There is right perinephric fat stranding. There is a right cortical renal cyst measuring 2.2 cm. The left kidney is unremarkable. GI tract: There is a cystic lesion in the gastric antrum measuring 2.5 cm. There is a hiatal hernia. No evidence of small bowel wall thickening or abnormal dilatation to suggest bowel obstruction. Sigmoid diverticulosis without acute diverticulitis. No findings to suggest acute appendicitis in the right lower quadrant. Peritoneum/mesentery/retroperitoneum. No evidence of free intraperitoneal air. No ascites. No evidence of suspicious lymphadenopathy. Abdominal Wall: Unremarkable. Vasculature: Abdominal aorta and main branches are unremarkable. Normal vascular enhancement. Urinary Bladder: Grossly unremarkable for degree of distention. Pelvic Organs: Enlarged prostate measuring 6.4 cm in maximum transverse dimension. Musculoskeletal: No aggressive focal bony lesions, acute fractures or dislocation. IMPRESSION: 1. Right hydroureteronephrosis to the level of an obstructive 9 mm calculus at the right ureterovesical junction. 2. 2.5 cm cystic lesion in the gastric antrum. Endoscopy is recommended for further evaluation. 3. Prostatomegaly. 4. Sigmoid diverticulosis without acute diverticulitis. ATED BY: DEE ROBERTS MD DICTATED DATE/TIME: 09/09/24456 SIGNED BY: DEE ROBERTS MD SIGNED DATE/TIME: 09/09/24456 CC: Assessment Right hydronephrosis Right distal UVJ stone, 9 mm Prostatomegaly History of bladder stone Plan/Recommendation Right PNT placement per IR on this admission Patient also known to have bladder stone on prior cystoscopy on 06/26/24 Outpatient cystoscopy with laser lithotripsy of bladder stone and right URSLL TBA pending cardiac clearance Plan discussed with: Patient, Spouse, Other SUSANNAH ORONA MD Sep 09, 2024 15:18
[2024-09-09 15:29] VITALS: BP 113/74; PULSE 73; RESP 18; TEMP 97.4; O2SAT 94; O2SAT 95
[2024-09-09 17:00] VITALS: BP 113/74; PULSE 73; RESP 18; TEMP 97.4; O2SAT 94
[2024-09-09 17:51] LABS: Urine Bacteria None Seen /hpf (None Seen)
[2024-09-09] MEDS: TAMSULOSIN HYDROCHLORIDE 0.4 MG CAP PO SCH (18:00)
[2024-09-09 18:22] LABS: Creatinine, Urine 170.16 mg/dL (30.0-125.0)
[2024-09-09 18:26] LABS: Urine Blood 2+ /uL (Negative); Urine Clarity Clear (Clear); Urine Color Light-Yellow (Yellow); Urine Mucus FEW (None Seen); Urine Protein, UAD TRACE (Negative); Urine Specific Gravity 1.034 (1.001-1.035); Urine Squamous Epithelial Cell None Seen /hpf (<5); Urine Urobilinogen Normal (Negative); Urine WBC 3 /HPF (0-3); Urine pH 5.5 (5.0-9.0)
[2024-09-09 20:00] VITALS: PULSE 73; RESP 18; O2SAT 93
[2024-09-09 21:00] VITALS: BP 132/60; PULSE 73; RESP 17; TEMP 97.2; O2SAT 93
[2024-09-10 05:00] VITALS: BP 138/72; PULSE 68; RESP 18; TEMP 98.2; O2SAT 95
[2024-09-10 06:52] LABS: Alanine Aminotransferase 20 U/L (7-40); Albumin 3.9 g/dL (3.2-4.8); Alkaline Phosphatase 55 U/L (46-116); Anion Gap 8 (5-15); Aspartate Aminotransferase 21 U/L (13-40); BUN/Creatinine Ratio 11.4 (10.0-20.0); Blood Urea Nitrogen 15 mg/dL (9-23); Calcium 9.6 mg/dL (8.7-10.4); Carbon Dioxide 26 mmol/L (20-31); Glucose 102 mg/dL (74-106); Potassium 3.7 mmol/L (3.5-5.1); Sodium 144 mmol/L (136-145)
[2024-09-10 06:53] LABS: Bilirubin, Total 0.6 mg/dL (0.2-1.0); Partial Thromboplastin Time 30.8 SEC (24.5-34.5); Prothrombin Time 10.6 sec (9.3-11.8); Total Protein 6.3 g/dL (5.7-8.2)
[2024-09-10 06:58] LABS: Basophils # (auto) 0 10 ^3/uL (0-0.2); Basophils % (auto) 0.3 % (0.0-2.0); Eosinophils # (auto) 0 10 ^3/uL (0-0.8); Eosinophils % (auto) 0.5 % (0.0-7.0); Hematocrit 45.2 % (41.0-53.0); Hemoglobin 14.9 g/dL (13.5-17.5); Lymphocytes # (auto) 1.5 10 ^3/uL (0.4-5.4); Lymphocytes % (auto) 21.6 % (10.0-50.0); Mean Corpuscular Hemoglobin 29.4 pg (28.0-32.0); Mean Corpuscular Hgb Conc. 32.9 g/dL (32.0-36.0); Mean Corpuscular Volume 89.4 fL (80.0-100.0); Monocytes # (auto) 0.5 10 ^3/uL (0-1.3); Monocytes % (auto) 7.1 % (0.0-12.0); Neutrophils # (auto) 4.8 10 ^3/uL (1.6-8.6); Neutrophils % (auto) 70.5 % (37.0-80.0); Nucleated Red Blood Cells % 0.2 %; Platelet Count (auto) 189 10^3/uL (140-450); Red Blood Cells 5.06 10^6/uL (4.5-5.90); White Blood Cell 6.8 10^3/uL (4.4-10.8)
[2024-09-10 07:04] LABS: Chloride 110 mmol/L (98-107)
[2024-09-10] MEDS: cefTRIAXone 1GM/50ML D5W 50 ML IV SCH (08:25)
[2024-09-10 09:00] VITALS: BP 161/79; PULSE 73; RESP 18; TEMP 98.1; O2SAT 93
[2024-09-10] MEDS ORDERED: ISOS1TAB28 PO (10:13)
[2024-09-10] MEDS ORDERED: TAMS0.4C39 PO (10:15)
[2024-09-10 13:00] VITALS: BP 144/68; PULSE 75; RESP 18; TEMP 97.6; O2SAT 95
--- NOTE | 2024-09-10 14:32 | DVHPN2 ---
Subjective Seen and examined at bedside, spouse at bedside. Cardiac clearance. Changes from previous H/P or p: No Changes Eyes: No Pain, No Vision change, No Conjunctivae inflammation, No Eyelid inflammation, No Other, No Redness ENT: No Ear pain, No Ear discharge, No Nose pain, No Nose discharge, No Nose congestion, No Mouth pain, No Mouth swelling, No Throat pain, No Throat swelling, No Other Cardiovascular: No Chest Pain, No Palpitations, No Orthopnea, No Paroxysmal Noc. Dyspnea, No Edema, No Lt Headedness, No Other Respiratory: No Cough, No Dry, No Shortness of breath, No SOB with excertion, No Wheezing, No Hemoptysis, No Pleuritic Pain, No Sputum, No Other Gastrointestinal: No Nausea, No Vomiting, No Abdominal Pain, No Diarrhea, No Constipation, No Melena, No Hematochezia, No Other Genitourinary: No Dysuria, No Frequency, No Incontinence, No Hematuria, No Retention, No Other Musculoskeletal: No other, No neck pain, No shoulder pain, No arm pain, No back pain, No hand pain, No leg pain, No foot pain Skin: No Rash, No Lesions, No Jaundice, No Bruising, No Other Objective Vitals Vital Signs Date Time Temp Pulse Resp B/P (MAP) Pulse Ox O2 Delivery O2 Flow Rate FiO2 09/10/24 13:00 97.6 75 18 144/68 (93) 95 97.6 09/10/24 08:20 Room Air* 0 21 Intake/Output Intake and Output 09/10/24 07:00 Intake Total 150 ml Output Total 380 ml Balance -230 ml Intake Oral 100 ml IV Total 50 ml Output Urine Total 380 ml # Voids 1 Exam Gen: in bed NAD Cvs: N S1/S2, RRR Resp: BLAE Abd: Soft, NT, BS+ Eligibility Technician: AAO x 4 Medications Current Medications Medications Dose Ordered Sig/Dionte Route Start Time Stop Time Status Last Admin Dose Admin Ceftriaxone Sodium 50 ml @ 100 mls/hr DAILY@09 IV 09/10/24 09:00 09/10/24 08:25 100 MLS/HR Sodium Chloride 1,000 ml @ 100 mls/hr Q10H IV 09/09/24 06:45 09/10/24 14:00 100 MLS/HR Acetaminophen/ Hydrocodone Bitart 1 tab Q4HP PRN PO 09/09/24 06:45 Ondansetron HCl 4 mg Q4HP PRN IV 09/09/24 06:45 Acetaminophen 650 mg Q6HP PRN PO 09/09/24 06:45 Morphine Sulfate 2 mg Q4HPRN PRN IV 09/09/24 06:45 Nitroglycerin 0.4 mg Q5MINP PRN SL 09/09/24 06:45 Morphine Sulfate 2 mg Q30M PRN IV 09/09/24 06:45 Finasteride 5 mg DAILY PO 09/09/24 10:00 09/10/24 10:08 5 MG Tamsulosin HCl 0.4 mg QPM PO 09/09/24 18:00 Diagnostic Test (Pha) 1 strip Q6HR 09/09/24 12:00 09/10/24 12:00 1 STRIP Insulin Human Regular Q6HR SC 09/09/24 12:00 Dextrose 50 ml UD PRN IV 09/09/24 08:45 Laboratory Results Laboratory Tests 09/10/24 06:00 Chemistry Test 09/10/24 06:00 Albumin 3.9 g/dL (3.2-4.8) Calcium Level 9.6 mg/dL (8.7-10.4) Total Protein 6.3 g/dL (5.7-8.2) Coagulation Test 09/10/24 06:00 Prothrombin Time 10.6 sec (9.3-11.8) Prothrombin Time INR 1.00 (0.9-1.15) Activated Partial Thromboplast Time 30.8 SEC (24.5-34.5) LFT Test 09/10/24 06:00 Alanine Aminotransferase (ALT) 20 U/L (7-40) Alkaline Phosphatase 55 U/L (46-116) Aspartate Amino Transferase (AST) 21 U/L (13-40) Total Bilirubin 0.6 mg/dL (0.2-1.0) Urinalysis Test 09/09/24 17:30 Urine Color Light-yellow (Yellow) Urine Clarity Clear (Clear) Urine pH 5.5 (5.0-9.0) Urine Specific [place] 1.034 (1.001-1.035) Urine Protein Trace (Negative) H Urine Ketones Trace (Negative) Urine Blood 2+ /uL (Negative) H Urine Nitrite Negative (Negative) Urine Bilirubin Negative (Negative) Urine Urobilinogen Normal mg/dL (Negative) Urine Leukocyte Esterase Negative /uL (Negative) Urine RBC 20 /hpf (0 - 3) Urine Microscopic WBC 3 /HPF (0-3) Urine Squamous Epithelial Cells None seen /hpf (<5) Urine Bacteria None seen /hpf (None Seen) Urine Mucus Few (None Seen) Urine Osmolality 688 mOsm/kg Urine Creatinine 170.16 mg/dL (30.0-125.0) H Urine Sodium 72 mmol/L (40-220) Urine Glucose Normal mg/dL (Normal) Assessment/Plan Assessment/Plan # ALEXUS due to Obstructive Uropathy? - IVF - Monitor # Right hydroureteral nephrosis to the level of an obstructive 9 mm calculus at the right ureterovesical junction Leukocytosis likely due to right hydro ureteral nephrosis - Abx # Sigmoid diverticulosis without acute diverticulitis # 2.5 cm cystic lesion in the gastric antrum - GI Consult for EGD FEN/PPX NPO IV fluids DVT prophylaxis not indicated patient ambulating PUD prophylaxis-Protonix Plan discussed with: Patient My Orders Orders - CADENCE TSAI MD Procedure Category Date Status Time * Gi Dvh Cloth Presser CONS 09/09/24 Transmitted 17:14 Cardiac DIET 09/10/24 Transmitted Diet-2gna,Lofat,Lochol Breakfast Date of Service: Sep 10, 2024 Billing Provider: CADENCE TSAI MD Common Visit Codes: [id number] INP/OBS CARE(HIGH) CADENCE TSAI MD Sep 10, 2024 14:32
--- NOTE | 2024-09-10 16:21 | DVHINCON2 ---
Date Seen: Sep 10, 2024 Referring Physician MD Jackie Reason for Consultation Cardiac risk stratification History of Present Illness This is a pleasant 73-year-old man who presented to the emergency room via EMS with a chief complaint of abdominal pain. Localizes his abdominal pain to the mid-umbilical area and associated with nausea, vomiting, and constipation. He has been diagnosed with right hydronephrosis associated with a right distal UVJ stone of 9 mm. Cardiology consulted for cardiac risk stratification prior to surgical intervention. The patient denies any chest pain, palpitations, diaphoresis, dizziness, or syncopal events. Reports mild shortness of breath secondary to congestion he developed a couple of weeks ago. Denies exertional angina or dyspnea on exertion. He is able to ambulate without restrictions. A 12 lead electrocardiogram revealed a sinus rhythm with an associated first- degree AV block. Troponin level is negative. Significant medical history includes coronary artery disease status post double-vessel CABG including 2 grafts: 1st HOGAN to the LAD and 2nd SVG to obtuse marginal branch on ASA at [facility] in [place] [facility] on 2019, hypertension, dyslipidemia, and benign prostatic hyperplasia. Past Medical History Past medical history reviewed. No other significant than mentioned above. Past Surgical History Double vessel CABG, 2019 Tonsillectomy Family History: FH: bladder cancer G8 FATHER, Onset:Unknown FH: throat cancer G8 MOTHER, Onset:60 years & older Pacemaker G8 FATHER Family History Family history reviewed. Social History Denies the use of illicit drugs, alcohol, or tobacco use. Allergies: Uncoded Allergies: Atrovastatin (Allergy, Unknown, 09/09/24) Home Meds Reported Medications Tamsulosin Hcl (Tamsulosin Hcl) 0.4 Mg Cap, 0.4 MG PO QPM for 30 Days, MG 09/10/24 Isosorbide Mononitrate (Isosorbide Mononitrate Er) 30 Mg Tab, 30 MG PO DAILY for 30 Days, MG 09/10/24 Echinacea-Goldenseal (Echinacea/Rogers Seal) Gld Seal Cap, 1 SEAL PO DAILY for SUPPLEMENT, CAP 11/19/23 Cholecalciferol (VITAMIN D3) 1,000 Unit Chw, 1000 UNIT OR DAILY, TAB.CHEW 11/19/23 Simvastatin (Simvastatin) 20 Mg Tab, 20 MG PO DAILY for dyslipidemia for 30 Days 11/19/23 Metoprolol Tartrate (Metoprolol Tartrate) 25 Mg Tab, 25 MG PO BID for htn for 30 Days, MG 11/19/23 Ezetimibe (Zetia) 10 Mg Tab, 1 TAB PO DAILY for HIGH CHOLESTEROL, #30 TAB 5 Refills 11/19/23 Aspirin (Aspir-Low) 81 Mg Tab, 81 MG PO DAILY for S/P CABG X2, MG 11/19/23 Home Meds Home medications reviewed. Current Medications Current Medications Medications (Trade) Dose Ordered Sig/Dionte Route PRN Reason Start Time Stop Time Status Last Admin Ceftriaxone Sodium 50 ml @ 100 mls/hr DAILY@09 IV 09/10/24 09:00 09/10/24 08:25 Tamsulosin HCl (Flomax) 0.4 mg QPM PO 09/09/24 18:00 Review of Systems Constitutional: No symptom reported Ears, Nose, & Throat: No symptom reported Eyes: No symptom reported Neurological: No symptoms reported Pulmonary/Respiratory: No symptom reported Cardiovascular: No symptom reported Gastrointestinal: Abdominal pain Genitourinary: No symptom reported Musculoskeletal: No symptom reported Skin: No symptom reported Psychiatric: No symptom reported Endocrine: No symptom reported Hemotologic/Lymphatic: No symptom reported Vital Signs Vital Signs Date Time Temp Pulse Resp B/P (MAP) Pulse Ox O2 Delivery O2 Flow Rate FiO2 09/10/24 13:00 97.6 75 18 144/68 (93) 95 97.6 09/10/24 08:20 Room Air* 0 21 Physical Exam General Appearance: Cooperative. Well developed. Well nourished. In no acute distress Head Exam: Normal inspection Neck Exam: Normal inspection. Non-tender. Normal alignment Pulmonary/Respiratory: Chest non-tender. Clear bilateral breath sounds Cardiovascular/Chest: Regular rate and rhythm. S1, S2. Sinus rhythm with a associated first-degree AV block. No murmurs. No JVD. Peripheral Pulses: 2+ Radial (R). 2+ Radial (L). 2+ Pedal (R). 2+ Pedal (L) Abdominal Exam: Normal bowel sounds. Soft. Tender. Ankle Exam: Negative ankle edema Lower extremities: Negative lower extremity edema Neuro/Mental Status: A&O x4. Coherent Thoughts/Psych: Normal thought pattern. Appropriate mood and affect. Good judgement and insight Appearance: In no acute distress Skin Exam: Normal inspection. Normal color. Warm. Dry Labs/Diagnostic Data Labs Test 09/10/24 06:00 09/09/24 18:47 09/09/24 17:30 09/09/24 04:15 Range/Units White Blood Count 6.8 # 4.4-10.8 10^3/uL Red Blood Count 5.06 4.5-5.90 10^6/uL Hemoglobin 14.9 13.5-17.5 g/dL Hematocrit 45.2 41.0-53.0 % Mean Corpuscular Volume 89.4 80.0-100.0 fL Mean Corpuscular Hemoglobin 29.4 28.0-32.0 pg Mean Corpuscular Hemoglobin Concent 32.9 32.0-36.0 g/dL Red Cell Distribution Width 14.0 11.8-14.3 % Platelet Count 189 140-450 10^3/uL Mean Platelet Volume 8.0 6.9-10.8 fL Neutrophils (%) (Auto) 70.5 37.0-80.0 % Lymphocytes (%) (Auto) 21.6 10.0-50.0 % Monocytes (%) (Auto) 7.1 0.0-12.0 % Eosinophils (%) (Auto) 0.5 0.0-7.0 % Basophils (%) (Auto) 0.3 0.0-2.0 % Neutrophils # (Auto) 4.8 1.6-8.6 10 ^3/uL Lymphocytes # (Auto) 1.5 0.4-5.4 10 ^3/uL Monocytes # (Auto) 0.5 0-1.3 10 ^3/uL Eosinophils # (Auto) 0 0-0.8 10 ^3/uL Basophils # (Auto) 0 0-0.2 10 ^3/uL Nucleated Red Blood Cells 0.2 % Prothrombin Time 10.6 9.3-11.8 sec Prothrombin Time INR 1.00 0.9-1.15 Activated Partial Thromboplast Time 30.8 24.5-34.5 SEC Sodium Level 144 136-145 mmol/L Potassium Level 3.7 3.5-5.1 mmol/L Chloride Level 110 H 98-107 mmol/L Carbon Dioxide Level 26 20-31 mmol/L Anion Gap 8 5-15 Blood Urea Nitrogen 15 # 9-23 mg/dL Creatinine 1.32 H 0.700-1.30 mg/dL Glomerular Filtration Rate Calc 56 >90 mL/min BUN/Creatinine Ratio 11.4 10.0-20.0 Serum Glucose 102 74-106 mg/dL Calcium Level 9.6 8.7-10.4 mg/dL Total Bilirubin 0.6 0.2-1.0 mg/dL Aspartate Amino Transferase (AST) 21 13-40 U/L Alanine Aminotransferase (ALT) 20 7-40 U/L Alkaline Phosphatase 55 46-116 U/L Total Protein 6.3 5.7-8.2 g/dL Albumin 3.9 3.2-4.8 g/dL POC Glucose 100 70-106 mg/dl Urine Color Light-yellow Yellow Urine Clarity Clear Clear Urine pH 5.5 5.0-9.0 Urine Specific [place] 1.034 1.001-1.035 Urine Protein Trace H Negative Urine Ketones Trace Negative Urine Blood 2+ H Negative /uL Urine Nitrite Negative Negative Urine Bilirubin Negative Negative Urine Urobilinogen Normal Negative mg/dL Urine Leukocyte Esterase Negative Negative /uL Urine RBC 20 0 - 3 /hpf Urine Microscopic WBC 3 0-3 /HPF Urine Squamous Epithelial Cells None seen <5 /hpf Urine Bacteria None seen None Seen /hpf Urine Mucus Few None Seen Urine Osmolality 688 mOsm/kg Urine Creatinine 170.16 H 30.0-125.0 mg/dL Urine Sodium 72 40-220 mmol/L Urine Glucose Normal Normal mg/dL Hemoglobin A1c 6.2 H <5.7 % A1C Test 09/09/24 01:45 Range/Units Troponin I High Sensitivity 3 L </=54 ng/L Assessment Preprocedural cardiovascular examination Right hydronephrosis with distal UVJ stone of 9 mm Coronary artery disease status post double-vessel CABG (2019) on ASA Hypertension Dyslipidemia BPH Plan/Recommendation (Dr. Lassiter) Revised cardiac risk index (Guilherme criteria): 6.0% 30-day risk of , CT or cardiac arrest. Patient has no underlying history of congestive heart failure and has an optimal functional capacity. He has a history of CAD with no active symptoms and a 12-lead electrocardiogram without evidence of ischemia. In the setting of an unremarkable transthoracic echocardiogram, per Cardiology standpoint, the patient is at an acceptable-risk for moderate-risk surgery. Resume ASA therapy within 24 hours if low postprocedural bleeding risk. Follow- up with Dr. Mckeon as scheduled in the outpatient setting. There is no additional cardiac workup indicated prior to surgery. Thank you for allowing us to care for this patient. This medical document was created using an electronic medical record system with voice recognition software and computerized dictation system. Although this document has been carefully reviewed, there might still be some phonetic and typographical errors. Occasional wrong-word or ``sound-alike substitutions may have occurred due to the inherent limitations of voice recognition software. These areas are purely typographical due to imperfections of the software programs and do not reflect any compromise in the patient's medical care. Please read the chart carefully and recognize, using context, where these substitutions have occurred. Plan discussed with: Patient, Other NYHA Physical activity limitations: NA Date of Service: Sep 10, 2024 Billing Provider: SHILA LASSITER MD Cardiology Common Codes: [id number] INP/OBS CARE (High) ADAM STOVER MILK DRIVER Sep 10, 2024 16:21
[2024-09-10 16:37] VITALS: BP 156/80; PULSE 74; RESP 18; TEMP 98.1; O2SAT 95
--- NOTE | 2024-09-10 19:13 | DVHSR ---
APPROVED REPORT EXAM: Two-dimensional and M-mode echocardiogram with Doppler and color Doppler. Blood Pressure: 144/68 mmHg INDICATION Pre-Op Surgery/Intervention CABG: RISK FACTORS Height: 6', Weight: 191 DIMENSIONS LVDd4.6 (3.8-5.7cm)LA (2D)4.1 (1.9-4.0cm)Aortic Root3.8 (2.0-3.7cm) LVDs3.2 (2.5-4.0cm)LA (MM) (1.9-4.0cm)Aortic Cusp Exc1.8 (1.5-2.0cm) EF (%) 58.0 (55-70%)Rt. Atrium4.1 (1.9-4.0cm)Asc. Aorta cm IVSd1.1 (0.7-1.1cm)RV (D) (1.8-2.4cm) PWd1.1 (0.7-1.1cm) Mitral Valve MitralMitral Stenosis E wave1.00m/sMV Mean GR.mmHg A wave0.60m/sMV Peak GR.mmHg E/A ratio1.72D MVAcm2 Aortic Valve Aortic ValveAortic Stenosis V10.90m/Reynaldo Mean GR.3mmHg V21.10m/Reynaldo Peak GR.5mmHg LVOT Diameter2.2 (1.8-2.4cm)Doppler AVA3.11cm2 AI P 1/2 Fzsa381.57ms Pulmonic Valve V20.50m/s Tricuspid Valve TR Velocity2.30m/s [id number] LEFT VENTRICLE The left ventricle is of normal size. Wall thickness is normal. Ejection fraction is normal and is estimated at 60%. There is no regional wall motion abnormalities. There is grade 2 diastolic dysfun ction. E to E prime ratio is in the indeterminate range. RIGHT VENTRICLE The right ventricle is of normal size. Systolic function is normal. ATRIA Both atria are mildly dilated in size. Intra-atrial septum is not well visualized. MITRAL VALVE There is mild prolapse of the posterior mitral valve leaflet. There is mild mitral regurgitation. PULMONIC VALVE Likely normal. TRICUSPID VALVE Normal structure and function. There is mild tricuspid regurgitation. PA systolic pressure is estim ated at 30-35 mm Hg. AORTIC VALVE The valve is trileaflet in morphology. Leaflets are sclerotic. No significant stenosis. There is t race regurgitation. GREAT VESSELS The aortic root measures 3.8 cm at the sinuses of Valsalva. Proximal ascending aorta is not visualiz ed. PERICARDIAL EFFUSION No significant pericardial effusion. IVC is not visualized. Conclusion Normal left ventricular size and systolic function. Ejection fraction is estimated at 60%. Normal right ventricular size and systolic function. Grade II diastolic dysfunction. Mild biatrial enlargement. No hemodynamically significant valvular disease. PA systolic pressure is estimated at 30-35 mm Hg.
[2024-09-10 20:00] VITALS: PULSE 74; RESP 18; O2SAT 92
[2024-09-10 21:00] VITALS: BP 139/66; PULSE 74; RESP 18; TEMP 98.2; O2SAT 92
--- NOTE | 2024-09-10 22:45 | DVHINCON2 ---
Date of service: Sep 10, [address] Mejia Reason for Consultation Abnormal finding GI tract imaging possible gastric mass History of Present Illness Bridger Boykin is a 73-year-old male with past medical history of tonsillectomy, CAD status post CABG x2 couple years back in [facility] (2 grafts 1 cortes to LAD and 2nd saphenous vein graft to obtuse marginal branch) and hyperlipidemia who presents to the ED with nausea, vomiting, and abdominal pain intermittent his 6/10 pain. Patient reported bile like color emesis. Patient states that he saw his urologist and was supposed to have a cystoscopy but was supposed to get a risk stratification score from Cardiology. Patient denies any ingestion of spoiled food, recent sick contacts, chest pain, shortness of breath, diarrhea, fever, chills, lightheadedness, weakness, dizziness, dysuria, hematuria, and back pain. Past Medical History Cardiovascular: CAD, hyperipidemia Past Surgical History Past Surgical History: CABG, Tonsillectomy Family History: FH: bladder cancer G8 FATHER, Onset:Unknown FH: throat cancer G8 MOTHER, Onset:60 years & older Pacemaker G8 FATHER Allergies: Uncoded Allergies: Atrovastatin (Allergy, Unknown, 09/09/24) Home Meds Reported Medications Tamsulosin Hcl (Tamsulosin Hcl) 0.4 Mg Cap, 0.4 MG PO QPM for 30 Days, MG 09/10/24 Isosorbide Mononitrate (Isosorbide Mononitrate Er) 30 Mg Tab, 30 MG PO DAILY for 30 Days, MG 09/10/24 Echinacea-Goldenseal (Echinacea/Rogers Seal) Gld Seal Cap, 1 SEAL PO DAILY for SUPPLEMENT, CAP 11/19/23 Cholecalciferol (VITAMIN D3) 1,000 Unit Chw, 1000 UNIT OR DAILY, TAB.CHEW 11/19/23 Simvastatin (Simvastatin) 20 Mg Tab, 20 MG PO DAILY for dyslipidemia for 30 Days 11/19/23 Metoprolol Tartrate (Metoprolol Tartrate) 25 Mg Tab, 25 MG PO BID for htn for 30 Days, MG 11/19/23 Ezetimibe (Zetia) 10 Mg Tab, 1 TAB PO DAILY for HIGH CHOLESTEROL, #30 TAB 5 Refills 11/19/23 Aspirin (Aspir-Low) 81 Mg Tab, 81 MG PO DAILY for S/P CABG X2, MG 11/19/23 Current Medications Current Medications Medications (Trade) Dose Ordered Sig/Dionte Route PRN Reason Start Time Stop Time Status Last Admin Ceftriaxone Sodium 50 ml @ 100 mls/hr DAILY@09 IV 09/10/24 09:00 09/10/24 08:25 Vital Signs Vital Signs Date Time Temp Pulse Resp B/P (MAP) Pulse Ox O2 Delivery O2 Flow Rate FiO2 09/10/24 16:37 98.1 74 18 156/80 (105) 95 98.1 09/10/24 08:20 Room Air* 0 21 Physical Exam General Appearance: Alert, Oriented X3, Cooperative, No acute distress HEENT: Atraumatic, PERRLA, EOMI, Mucous membr. moist/pink Respiratory: Clear to auscultation, Normal air movement Cardiovascular: Regular rate, Normal S1, Normal S2 Abdominal: Soft, No hepatospenomegaly, No masses Extremities: No clubbing, No cyanosis, No edema, Normal pulses, No tenderness/swelling Skin: No rashes, No breakdown, No significant lesion Neuro: Normal gait, Normal speech, Normal tone, Sensation intact Psych/Mental Status: Mental status NL, Mood NL Labs/Diagnostic Data Labs Test 09/10/24 06:00 09/09/24 18:47 09/09/24 17:30 09/09/24 04:15 Range/Units White Blood Count 6.8 # 4.4-10.8 10^3/uL Red Blood Count 5.06 4.5-5.90 10^6/uL Hemoglobin 14.9 13.5-17.5 g/dL Hematocrit 45.2 41.0-53.0 % Mean Corpuscular Volume 89.4 80.0-100.0 fL Mean Corpuscular Hemoglobin 29.4 28.0-32.0 pg Mean Corpuscular Hemoglobin Concent 32.9 32.0-36.0 g/dL Red Cell Distribution Width 14.0 11.8-14.3 % Platelet Count 189 140-450 10^3/uL Mean Platelet Volume 8.0 6.9-10.8 fL Neutrophils (%) (Auto) 70.5 37.0-80.0 % Lymphocytes (%) (Auto) 21.6 10.0-50.0 % Monocytes (%) (Auto) 7.1 0.0-12.0 % Eosinophils (%) (Auto) 0.5 0.0-7.0 % Basophils (%) (Auto) 0.3 0.0-2.0 % Neutrophils # (Auto) 4.8 1.6-8.6 10 ^3/uL Lymphocytes # (Auto) 1.5 0.4-5.4 10 ^3/uL Monocytes # (Auto) 0.5 0-1.3 10 ^3/uL Eosinophils # (Auto) 0 0-0.8 10 ^3/uL Basophils # (Auto) 0 0-0.2 10 ^3/uL Nucleated Red Blood Cells 0.2 % Prothrombin Time 10.6 9.3-11.8 sec Prothrombin Time INR 1.00 0.9-1.15 Activated Partial Thromboplast Time 30.8 24.5-34.5 SEC Sodium Level 144 136-145 mmol/L Potassium Level 3.7 3.5-5.1 mmol/L Chloride Level 110 H 98-107 mmol/L Carbon Dioxide Level 26 20-31 mmol/L Anion Gap 8 5-15 Blood Urea Nitrogen 15 # 9-23 mg/dL Creatinine 1.32 H 0.700-1.30 mg/dL Glomerular Filtration Rate Calc 56 >90 mL/min BUN/Creatinine Ratio 11.4 10.0-20.0 Serum Glucose 102 74-106 mg/dL Calcium Level 9.6 8.7-10.4 mg/dL Total Bilirubin 0.6 0.2-1.0 mg/dL Aspartate Amino Transferase (AST) 21 13-40 U/L Alanine Aminotransferase (ALT) 20 7-40 U/L Alkaline Phosphatase 55 46-116 U/L Total Protein 6.3 5.7-8.2 g/dL Albumin 3.9 3.2-4.8 g/dL POC Glucose 100 70-106 mg/dl Urine Color Light-yellow Yellow Urine Clarity Clear Clear Urine pH 5.5 5.0-9.0 Urine Specific [place] 1.034 1.001-1.035 Urine Protein Trace H Negative Urine Ketones Trace Negative Urine Blood 2+ H Negative /uL Urine Nitrite Negative Negative Urine Bilirubin Negative Negative Urine Urobilinogen Normal Negative mg/dL Urine Leukocyte Esterase Negative Negative /uL Urine RBC 20 0 - 3 /hpf Urine Microscopic WBC 3 0-3 /HPF Urine Squamous Epithelial Cells None seen <5 /hpf Urine Bacteria None seen None Seen /hpf Urine Mucus Few None Seen Urine Osmolality 688 mOsm/kg Urine Creatinine 170.16 H 30.0-125.0 mg/dL Urine Sodium 72 40-220 mmol/L Urine Glucose Normal Normal mg/dL Hemoglobin A1c 6.2 H <5.7 % A1C Test 09/09/24 01:45 Range/Units Troponin I High Sensitivity 3 L </=54 ng/L CT SCAN ABD PELVIS IMPRESSION: 1. Right hydroureteronephrosis to the level of an obstructive 9 mm calculus at the right ureterovesical junction. 2. 2.5 cm cystic lesion in the gastric antrum. Endoscopy is recommended for fur ther evaluation. 3. Prostatomegaly. 4. Sigmoid diverticulosis without acute diverticulitis. Problems(with codes): (1) Nausea & vomiting (2) Abnormal finding on GI tract imaging (3) Abdominal pain Plan/Recommendation Plan Upon my initial discussion the patient stated that he had a bad heart and should not get any surgical procedure He refused an endoscopy and stated he did not need it He was waiting for cardiac clearance so he could proceed with a his cystoscopy w/u However after being explained that there was an abnormal finding in the CT abdomen suggestive possible cystic mass in the stomach antrum Therefore the patient will be scheduled for an EGD on 09/12/2024 after obtaining cardiac clearance In the meantime continue diet as tolerated I will follow this patient with you closely Protonix 40 mg p.o. daily Zofran as needed for nausea vomiting Plan discussed with: Patient, Other (Dr. Mejia) MAX DANIEL MD Sep 10, 2024 22:45
[2024-09-11] VITALS (10 sets, daily range): BP systolic 117–157; BP diastolic 58–82; PULSE 55–75; RESP 12–18; TEMP 97.2–97.9; O2SAT 92–97
[2024-09-11] MEDS: ISOSORBIDE MONONITRATE ER 60 MG TAB PO SCH (09:39)
[2024-09-11] MEDS: EZETIMIBE 10 MG TAB PO SCH (09:40)
[2024-09-11] MEDS: METOPROLOL TARTRATE 25 MG TAB PO SCH (09:40)
[2024-09-11] MEDS: fentaNYL CITRATE 100 MCG/2 ML VL ONE (13:02)
[2024-09-11] MEDS: LIDOCAINE 2%HCL (LOCAL ANESTH.) INJ 20ML MDV ONE (13:02)
[2024-09-11] MEDS: MIDAZOLAM HCL 2MG/2ML 2ml VIAL (1mg/ml) ONE (13:02)
--- NOTE | 2024-09-11 13:07 | DVHPN2 ---
Progress Note Objective vital signs Vital Sign Date Time Temp Pulse Resp B/P (MAP) Pulse Ox O2 Delivery O2 Flow Rate FiO2 09/11/24 09:40 67 143/75 09/11/24 09:00 97.9 18 93 97.9 09/11/24 08:13 Room Air* 0 21 Total Intake and Output 09/10/24 09/10/24 09/11/24 15:00 23:00 07:00 Intake Total 1550 ml 1200 ml Output Total 850 ml Balance 1550 ml 350 ml medications Current Medications Medications Dose Ordered Sig/Dionte Route Start Time Stop Time Status Last Admin Dose Admin Ceftriaxone Sodium 50 ml @ 100 mls/hr DAILY@09 IV 09/10/24 09:00 09/11/24 08:17 100 MLS/HR Sodium Chloride 1,000 ml @ 100 mls/hr Q10H IV 09/09/24 06:45 09/11/24 07:39 100 MLS/HR Acetaminophen/ Hydrocodone Bitart 1 tab Q4HP PRN PO 09/09/24 06:45 Ondansetron HCl 4 mg Q4HP PRN IV 09/09/24 06:45 Acetaminophen 650 mg Q6HP PRN PO 09/09/24 06:45 Morphine Sulfate 2 mg Q4HPRN PRN IV 09/09/24 06:45 Nitroglycerin 0.4 mg Q5MINP PRN SL 09/09/24 06:45 Morphine Sulfate 2 mg Q30M PRN IV 09/09/24 06:45 Finasteride 5 mg DAILY PO 09/09/24 10:00 09/11/24 09:41 5 MG Tamsulosin HCl 0.4 mg QPM PO 09/09/24 18:00 09/10/24 17:40 0.4 MG Diagnostic Test (Pha) 1 strip Q6HR 09/09/24 12:00 09/10/24 12:00 1 STRIP Insulin Human Regular Q6HR SC 09/09/24 12:00 Dextrose 50 ml UD PRN IV 09/09/24 08:45 EZETIMIBE 10 mg DAILY PO 09/11/24 10:00 09/11/24 09:40 10 MG Isosorbide Mononitrate 30 mg DAILY PO 09/11/24 10:00 09/11/24 09:39 30 MG Metoprolol Tartrate 25 mg BID PO 09/11/24 10:00 09/11/24 09:40 25 MG laboratory and microbiology Laboratory Tests 09/10/24 06:00 Test 09/10/24 06:00 Range/Units Serum Glucose 102 74-106 mg/dL RAEANN IBARRA RESIDENT Sep 11, 2024 13:06
--- NOTE | 2024-09-11 14:17 | DVH ---
XY PERCUTANEOUS NEPHROSTOMY, HISTORY: Obstructive right ureteral kidney stone. PROCEDURE: Informed consent was obtained. The patient was placed on the fluoroscopic table in a prone position and IV sedation administered. The right flank was prepped with chlorhexidine which was allo wed to dry and draped in the usual sterile fashion. Time out was performed. and the soft tissues infi ltrated with 1% lidocaine local anesthetic. Utilizing ultrasound guidance, a 21 gauge Accu Stick need le was advanced from a posterolateral approach into an lower pole calyx, and a small amount of contra st was injected under fluoroscopy to confirm positioning. Over a mandril wire, exchange was made to a non-vascular access set, through which was advanced an 0.035 wire. Following serial dilation, an 8.5 [place] multipurpose nephrostomy catheter was placed with tip pigtailed within the renal pelvis. Posi tion was confirmed with antegrade nephrostogram. The catheter was secured in place and connected to g ravity drainage. A sterile dressing was applied. No immediate complication was identified. DAP 223 FLUOROSCOPY TIME: 2.9 minutes. CONTRAST USED: 15 mL . SEDATION: Dr. Renny Arndt was personally responsible for the administration of moderate sedation during the procedure performed, including the use of an independent trained observer who had no other duties during the procedure. The drugs utilized were IV fentanyl and versed (see nursing log for details). The total time of supervision by the attending physician was approximately 45 minutes. FINDINGS: Mildly dilated right renal collecting system involving the calyces/renal pelvis/ureter to t he level of the distal ureter . New 8.5 [place]ian nephrostomy tube via a posterior lower pole calyceal access, with loop coiled within the renal pelvis. IMPRESSION: Mild right hydronephrosis due to obstructive distal ureter stone, status post placement of 8.5 Fren[place] h right percutaneous nephrostomy catheter. PLAN: Routine catheter care.
--- NOTE | 2024-09-11 14:25 | DVH ---
XY PERCUTANEOUS NEPHROSTOMY, HISTORY: Obstructive right ureteral kidney stone. PROCEDURE: Informed consent was obtained. The patient was placed on the fluoroscopic table in a prone position and IV sedation administered. The right flank was prepped with chlorhexidine which was allo wed to dry and draped in the usual sterile fashion. Time out was performed. and the soft tissues infi ltrated with 1% lidocaine local anesthetic. Utilizing ultrasound guidance, a 21 gauge Accu Stick need le was advanced from a posterolateral approach into an lower pole calyx, and a small amount of contra st was injected under fluoroscopy to confirm positioning. Over a mandril wire, exchange was made to a non-vascular access set, through which was advanced an 0.035 wire. Following serial dilation, an 8.5 [place] multipurpose nephrostomy catheter was placed with tip pigtailed within the renal pelvis. Posi tion was confirmed with antegrade nephrostogram. The catheter was secured in place and connected to g ravity drainage. A sterile dressing was applied. No immediate complication was identified. DAP 223 FLUOROSCOPY TIME: 2.9 minutes. CONTRAST USED: 15 mL . SEDATION: Dr. Renny Arndt was personally responsible for the administration of moderate sedation during the procedure performed, including the use of an independent trained observer who had no other duties during the procedure. The drugs utilized were IV fentanyl and versed (see nursing log for details). The total time of supervision by the attending physician was approximately 45 minutes. FINDINGS: Mildly dilated right renal collecting system involving the calyces/renal pelvis/ureter to t he level of the distal ureter . New 8.5 [place] nephrostomy tube via a posterior lower pole calyceal a ccess, with loop coiled within the renal pelvis. IMPRESSION: Mild right hydronephrosis due to obstructive distal ureter stone, status post placement of 8.5 [place] right percutaneous nephrostomy catheter. PLAN: Routine catheter care.
--- NOTE | 2024-09-11 15:08 | DVHPN2 ---
Subjective s/p Nephrostomy tube. For EGD in AM. Keep NPO after midnight Changes from previous H/P or p: No Changes Eyes: No Pain, No Vision change, No Conjunctivae inflammation, No Eyelid inflammation, No Other, No Redness ENT: No Ear pain, No Ear discharge, No Nose pain, No Nose discharge, No Nose congestion, No Mouth pain, No Mouth swelling, No Throat pain, No Throat swelling, No Other Cardiovascular: No Chest Pain, No Palpitations, No Orthopnea, No Paroxysmal Noc. Dyspnea, No Edema, No Lt Headedness, No Other Respiratory: No Cough, No Dry, No Shortness of breath, No SOB with excertion, No Wheezing, No Hemoptysis, No Pleuritic Pain, No Sputum, No Other Gastrointestinal: No Nausea, No Vomiting, No Abdominal Pain, No Diarrhea, No Constipation, No Melena, No Hematochezia, No Other Genitourinary: No Dysuria, No Frequency, No Incontinence, No Hematuria, No Retention, No Other Musculoskeletal: No other, No neck pain, No shoulder pain, No arm pain, No back pain, No hand pain, No leg pain, No foot pain Skin: No Rash, No Lesions, No Jaundice, No Bruising, No Other Objective Vitals Vital Signs Date Time Temp Pulse Resp B/P (MAP) Pulse Ox O2 Delivery O2 Flow Rate FiO2 09/11/24 14:23 60 14 125/66 (85) 92 09/11/24 09:00 97.9 97.9 09/11/24 08:13 Room Air* 0 21 Intake/Output Intake and Output 09/11/24 07:00 Intake Total 2750 ml Output Total 850 ml Balance 1900 ml Intake Oral 800 ml IV Total 1950 ml Output Urine Total 850 ml # Voids 3 Exam Gen: in bed NAD Cvs: N S1/S2, RRR Resp: BLAE Abd: Soft, NT, BS+ Beef Killer: AAO x 4 Medications Current Medications Medications Dose Ordered Sig/Dionte Route Start Time Stop Time Status Last Admin Dose Admin Ceftriaxone Sodium 50 ml @ 100 mls/hr DAILY@09 IV 09/10/24 09:00 09/11/24 08:17 100 MLS/HR Sodium Chloride 1,000 ml @ 100 mls/hr Q10H IV 09/09/24 06:45 09/11/24 07:39 100 MLS/HR Acetaminophen/ Hydrocodone Bitart 1 tab Q4HP PRN PO 09/09/24 06:45 Ondansetron HCl 4 mg Q4HP PRN IV 09/09/24 06:45 Acetaminophen 650 mg Q6HP PRN PO 09/09/24 06:45 Morphine Sulfate 2 mg Q4HPRN PRN IV 09/09/24 06:45 Nitroglycerin 0.4 mg Q5MINP PRN SL 09/09/24 06:45 Morphine Sulfate 2 mg Q30M PRN IV 09/09/24 06:45 Finasteride 5 mg DAILY PO 09/09/24 10:00 09/11/24 09:41 5 MG Tamsulosin HCl 0.4 mg QPM PO 09/09/24 18:00 09/10/24 17:40 0.4 MG Diagnostic Test (Pha) 1 strip Q6HR 09/09/24 12:00 09/10/24 12:00 1 STRIP Insulin Human Regular Q6HR SC 09/09/24 12:00 Dextrose 50 ml UD PRN IV 09/09/24 08:45 EZETIMIBE 10 mg DAILY PO 09/11/24 10:00 09/11/24 09:40 10 MG Isosorbide Mononitrate 30 mg DAILY PO 09/11/24 10:00 09/11/24 09:39 30 MG Metoprolol Tartrate 25 mg BID PO 09/11/24 10:00 09/11/24 09:40 25 MG Laboratory Results Laboratory Tests 09/10/24 06:00 Urinalysis Test 09/09/24 17:30 Urine Color Light-yellow (Yellow) Urine Clarity Clear (Clear) Urine pH 5.5 (5.0-9.0) Urine Specific [place] 1.034 (1.001-1.035) Urine Protein Trace (Negative) H Urine Ketones Trace (Negative) Urine Blood 2+ /uL (Negative) H Urine Nitrite Negative (Negative) Urine Bilirubin Negative (Negative) Urine Urobilinogen Normal mg/dL (Negative) Urine Leukocyte Esterase Negative /uL (Negative) Urine RBC 20 /hpf (0 - 3) Urine Microscopic WBC 3 /HPF (0-3) Urine Squamous Epithelial Cells None seen /hpf (<5) Urine Bacteria None seen /hpf (None Seen) Urine Mucus Few (None Seen) Urine Osmolality 688 mOsm/kg Urine Creatinine 170.16 mg/dL (30.0-125.0) H Urine Sodium 72 mmol/L (40-220) Urine Glucose Normal mg/dL (Normal) Assessment/Plan Assessment/Plan # ALEXUS due to Obstructive Uropathy? - IVF - Monitor # Right hydroureteral nephrosis to the level of an obstructive 9 mm calculus at the right ureterovesical junction Leukocytosis likely due to right hydro ureteral nephrosis - Abx - s/p Nephrostomy # Sigmoid diverticulosis without acute diverticulitis # 2.5 cm cystic lesion in the gastric antrum - GI Consult for EGD tomorrow SUNDAY FEN/PPX NPO IV fluids DVT prophylaxis not indicated patient ambulating PUD prophylaxis-Protonix Plan discussed with: Other My Orders Orders - CADENCE TSAI MD Procedure Category Date Status Time Ezetimibe (Zetia) PHA 09/11/24 In Process 10:00 Isosorbide PHA 09/11/24 In Process Mononitrate Tablet 10:00 Metoprolol Tartrate PHA 09/11/24 In Process Tablet (Lopressor Ta 10:00 Basic Metabolic Panel LAB 09/12/24 Verified 04:00 Complete Blood Count LAB 09/12/24 Verified 04:00 Partial LAB 09/12/24 Verified Thromboplastin Time 04:00 Prothrombin Time W/ LAB 09/12/24 Verified INR 04:00 Date of Service: Sep 11, 2024 Billing Provider: CADENCE TSAI MD Common Visit Codes: [id number] INP/OBS CARE(LOW) CADENCE TSAI MD Sep 11, 2024 15:08
[2024-09-11] MEDS: LACTULOSE 20Gm/30ML SOLN PO ONE (17:23)
--- NOTE | 2024-09-11 21:40 | DVHPN2 ---
Progress Note - Dictate Date Seen: Sep 11, 2024 Medical Necessity Reason Pt with a Central, PICC or Fol: No Subjective No new complaints Pt underwent R nephrostomy tube placement today Patient is acceptable moderate risk as per Cardiology vital signs Vital Sign Date Time Temp Pulse Resp B/P (MAP) Pulse Ox O2 Delivery O2 Flow Rate FiO2 09/11/24 16:44 97.2 57 18 125/63 (83) 97 97.2 09/11/24 08:13 Room Air* 0 21 Total Intake and Output 09/10/24 09/10/24 09/11/24 14:59 22:59 06:59 Intake Total 1550 ml 1200 ml Output Total 850 ml Balance 1550 ml 350 ml medications Current Medications Medications Dose Ordered Sig/Dionte Route Start Time Stop Time Status Last Admin Dose Admin Ceftriaxone Sodium 50 ml @ 100 mls/hr DAILY@09 IV 09/10/24 09:00 09/11/24 08:17 100 MLS/HR Sodium Chloride 1,000 ml @ 100 mls/hr Q10H IV 09/09/24 06:45 09/11/24 07:39 100 MLS/HR Acetaminophen/ Hydrocodone Bitart 1 tab Q4HP PRN PO 09/09/24 06:45 Ondansetron HCl 4 mg Q4HP PRN IV 09/09/24 06:45 Acetaminophen 650 mg Q6HP PRN PO 09/09/24 06:45 Morphine Sulfate 2 mg Q4HPRN PRN IV 09/09/24 06:45 Nitroglycerin 0.4 mg Q5MINP PRN SL 09/09/24 06:45 Morphine Sulfate 2 mg Q30M PRN IV 09/09/24 06:45 Finasteride 5 mg DAILY PO 09/09/24 10:00 09/11/24 09:41 5 MG Tamsulosin HCl 0.4 mg QPM PO 09/09/24 18:00 09/11/24 17:22 0.4 MG Diagnostic Test (Pha) 1 strip Q6HR 09/09/24 12:00 09/10/24 12:00 1 STRIP Insulin Human Regular Q6HR SC 09/09/24 12:00 Dextrose 50 ml UD PRN IV 09/09/24 08:45 EZETIMIBE 10 mg DAILY PO 09/11/24 10:00 09/11/24 09:40 10 MG Isosorbide Mononitrate 30 mg DAILY PO 09/11/24 10:00 09/11/24 09:39 30 MG Metoprolol Tartrate 25 mg BID PO 09/11/24 10:00 09/11/24 09:40 25 MG objective General Appearance: Alert, Oriented X3, Cooperative, No acute distress HEENT: Atraumatic, PERRLA, EOMI, Mucous membr. moist/pink Respiratory: Clear to auscultation, Normal air movement Cardiovascular: Regular rate, Normal S1, Normal S2 Abdominal: Soft, No hepatospenomegaly, No masses Extremities: No clubbing, No cyanosis, No edema, Normal pulses, No tenderness/swelling Skin: No rashes, No breakdown, No significant lesion Neuro: Normal gait, Normal speech, Normal tone, Sensation intact Psych/Mental Status: Mental status NL, Mood NL laboratory and microbiology Laboratory Tests 09/10/24 06:00 Test 09/10/24 06:00 Range/Units Serum Glucose 102 74-106 mg/dL Problems(with codes): (1) Nausea & vomiting (2) Abnormal finding on GI tract imaging (3) Ureteral stone with hydronephrosis (4) Abdominal pain Prognosis Plan Patient will be kept NPO after midnight Get consent for upper endoscopy with possible biopsy and I will tentatively plan for 09/12/2024 Plan discussed with: Patient, Other (Dr Mejia) MAX DANIEL MD Sep 11, 2024 21:40
[2024-09-12] VITALS (9 sets, daily range): BP systolic 117–152; BP diastolic 58–73; PULSE 55–70; RESP 14–20; TEMP 97.3–98; O2SAT 92–100
[2024-09-12 06:20] LABS: Basophils # (auto) 0 10 ^3/uL (0-0.2); Basophils % (auto) 0.5 % (0.0-2.0); Eosinophils # (auto) 0 10 ^3/uL (0-0.8); Eosinophils % (auto) 0.6 % (0.0-7.0); Hematocrit 42.8 % (41.0-53.0); Hemoglobin 14.6 g/dL (13.5-17.5); Lymphocytes # (auto) 1.6 10 ^3/uL (0.4-5.4); Lymphocytes % (auto) 21.8 % (10.0-50.0); Mean Corpuscular Hemoglobin 30.4 pg (28.0-32.0); Mean Corpuscular Hgb Conc. 34.1 g/dL (32.0-36.0); Monocytes # (auto) 0.5 10 ^3/uL (0-1.3); Monocytes % (auto) 6.3 % (0.0-12.0); Neutrophils # (auto) 5.4 10 ^3/uL (1.6-8.6); Neutrophils % (auto) 70.8 % (37.0-80.0); Nucleated Red Blood Cells % 0.2 %; Platelet Count (auto) 197 10^3/uL (140-450); Red Blood Cells 4.81 10^6/uL (4.5-5.90); Red Cell Distribution Width 13.5 % (11.8-14.3); White Blood Cell 7.6 10^3/uL (4.4-10.8)
[2024-09-12 06:37] LABS: Anion Gap 7 (5-15); Carbon Dioxide 24 mmol/L (20-31); Potassium 4.1 mmol/L (3.5-5.1); Sodium 141 mmol/L (136-145)
[2024-09-12 06:38] LABS: Calcium 9.6 mg/dL (8.7-10.4); INR 1.02 (0.9-1.15); Partial Thromboplastin Time 30.9 SEC (24.5-34.5); Prothrombin Time 10.8 sec (9.3-11.8)
[2024-09-12 06:40] LABS: Chloride 110 mmol/L (98-107)
[2024-09-12 06:43] LABS: BUN/Creatinine Ratio 12.6 (10.0-20.0); Blood Urea Nitrogen 15 mg/dL (9-23); Glucose 92 mg/dL (74-106)
[2024-09-12] MEDS ORDERED: PHENYLEPHRINE HCL 10 MG/ML VL ONE (09:07)
[2024-09-12] MEDS ORDERED: EPINEPHrine HCL 1 MG/1 ML AMP ONE (09:07)
[2024-09-12] MEDS ORDERED: PROPOFOL 10 MG/ML 20 ML IV ONE (09:07)
[2024-09-12] MEDS ORDERED: LIDOCAINE 1% INJ PF 5ML AMP ONE (09:17)
[2024-09-12] MEDS ORDERED: ONDANSETRON HCL 4 MG/2 ML VIAL ONE (09:26)
--- NOTE | 2024-09-12 10:23 | DVHOP2 ---
Operative Report DATE OF OPERATION: 09/12/24 PROCEDURE: Upper Endoscopy with biopsy. PREOPERATIVE INDICATION: The patient is a 73 -year-old male undergoing endoscopy for abnormal finding GI tract imaging nausea vomiting POSTOPERATIVE DIAGNOSES: 1. 2 cm sliding-type hiatal hernia with slightly irregular squamocolumnar ju nction minimal grade a erosive esophagitis 2. Mild antral gastritis and duodenitis of the duodenal bulb 3. There was no evidence of a gastric antral mass and it was otherwise normal examination up to the 3rd part of the duodenum PROCEDURE PERFORMED BY: Max Phillips GI NURSE: Nick SCOPE: Olympus videoendoscope. ASA CLASS: 3. PREOPERATIVE MEDICATIONS: Mac sedation, Dr. Tristan PROCEDURE IN DETAIL: After obtaining an informed consent, the patient was placed on left lateral decubitus position. The patient was then sedated with the above medications. A bite block was placed between his teeth. The endoscope was then passed through the oropharynx, into the esophagus, and through the stomach and pylorus up to the second and third part of the duodenum. The endoscope was then withdrawn. The 2nd and 3rd part of the duodenum were normal. The duodenal bulb showed mild duodenitis. Duodenal biopsies were obtained The pre-pyloric area antrum and distal body showed minimal gastritis with some hyperemia erythema. After careful evaluation there was no evidence of gastric mass or cystic lesion On retroflexion the fundus cardia and angularis were normal. Gastric biopsies were obtained The endoscope was then withdrawn into the distal esophagus. Patient had a 2 cm sliding-type hiatal hernia He had a slightly irregular squamocolumnar junction minimal grade a erosive esophagitis. The remaining distal and proximal esophagus and oropharynx were unremarkable The patient tolerated the procedure well without difficulty. COMPLICATIONS : None SPECIMENS: Duodenal biopsies Gastric biopsies DISPOSITION: Transfer back to the floor Stable PLAN: 1. Await for biopsy result 2. Will place pt on Protonix 40 mg p.o. daily 3. Carafate 1 g p.o. q.h.s. 4. Resume GI soft diet advance as tolerated 5. Outpatient follow up with me in 4-6 weeks or as needed MAX PHILLIPS MD Sep 12, 2024 10:23
--- NOTE | 2024-09-12 13:15 | DVHPN2 ---
Reviewed: Care Plan, H&P, Labs, Medications, Previous Orders, Radiology Changes from previous H/P or p: No Changes Eyes: No Pain, No Vision change, No Conjunctivae inflammation, No Eyelid inflammation, No Other, No Redness ENT: No Ear pain, No Ear discharge, No Nose pain, No Nose discharge, No Nose congestion, No Mouth pain, No Mouth swelling, No Throat pain, No Throat swelling, No Other Cardiovascular: No Chest Pain, No Palpitations, No Orthopnea, No Paroxysmal Noc. Dyspnea, No Edema, No Lt Headedness, No Other Respiratory: No Cough, No Dry, No Shortness of breath, No SOB with excertion, No Wheezing, No Hemoptysis, No Pleuritic Pain, No Sputum, No Other Gastrointestinal: No Nausea, No Vomiting, No Abdominal Pain, No Diarrhea, No Constipation, No Melena, No Hematochezia, No Other Genitourinary: No Dysuria, No Frequency, No Incontinence, No Hematuria, No Retention, No Other Musculoskeletal: No other, No neck pain, No shoulder pain, No arm pain, No back pain, No hand pain, No leg pain, No foot pain Skin: No Rash, No Lesions, No Jaundice, No Bruising, No Other Objective Vitals Vital Signs Date Time Temp Pulse Resp B/P (MAP) Pulse Ox O2 Delivery O2 Flow Rate FiO2 09/12/24 11:10 61 152/71 09/12/24 11:02 97.3 18 93 97.3 09/12/24 09:28 Mask 6.0 98 Intake/Output Intake and Output 09/12/24 07:00 Intake Total 650 ml Output Total 325 ml Balance 325 ml Intake Oral 150 ml IV Total 500 ml Output Urine Total 300 ml Drainage Total 25 ml # Voids 5 # Bowel Movements 2 Medications Current Medications Medications Dose Ordered Sig/Dionte Route Start Time Stop Time Status Last Admin Dose Admin Ceftriaxone Sodium 50 ml @ 100 mls/hr DAILY@09 IV 09/10/24 09:00 09/11/24 08:17 100 MLS/HR Sodium Chloride 1,000 ml @ 100 mls/hr Q10H IV 09/09/24 06:45 09/12/24 00:09 100 MLS/HR Acetaminophen/ Hydrocodone Bitart 1 tab Q4HP PRN PO 09/09/24 06:45 Ondansetron HCl 4 mg Q4HP PRN IV 09/09/24 06:45 Acetaminophen 650 mg Q6HP PRN PO 09/09/24 06:45 Morphine Sulfate 2 mg Q4HPRN PRN IV 09/09/24 06:45 Nitroglycerin 0.4 mg Q5MINP PRN SL 09/09/24 06:45 Morphine Sulfate 2 mg Q30M PRN IV 09/09/24 06:45 Finasteride 5 mg DAILY PO 09/09/24 10:00 09/12/24 11:12 5 MG Tamsulosin HCl 0.4 mg QPM PO 09/09/24 18:00 09/11/24 17:22 0.4 MG Diagnostic Test (Pha) 1 strip Q6HR 09/09/24 12:00 09/10/24 12:00 1 STRIP Insulin Human Regular Q6HR SC 09/09/24 12:00 Dextrose 50 ml UD PRN IV 09/09/24 08:45 EZETIMIBE 10 mg DAILY PO 09/11/24 10:00 09/12/24 11:08 10 MG Isosorbide Mononitrate 30 mg DAILY PO 09/11/24 10:00 09/12/24 11:10 30 MG Metoprolol Tartrate 25 mg BID PO 09/11/24 10:00 09/12/24 11:10 25 MG Laboratory Results Laboratory Tests 09/12/24 05:29 Chemistry Test 09/12/24 05:29 Calcium Level 9.6 mg/dL (8.7-10.4) Coagulation Test 09/12/24 05:29 Prothrombin Time 10.8 sec (9.3-11.8) Prothrombin Time INR 1.02 (0.9-1.15) Activated Partial Thromboplast Time 30.9 SEC (24.5-34.5) Urinalysis Test 09/09/24 17:30 Urine Color Light-yellow (Yellow) Urine Clarity Clear (Clear) Urine pH 5.5 (5.0-9.0) Urine Specific [place] 1.034 (1.001-1.035) Urine Protein Trace (Negative) H Urine Ketones Trace (Negative) Urine Blood 2+ /uL (Negative) H Urine Nitrite Negative (Negative) Urine Bilirubin Negative (Negative) Urine Urobilinogen Normal mg/dL (Negative) Urine Leukocyte Esterase Negative /uL (Negative) Urine RBC 20 /hpf (0 - 3) Urine Microscopic WBC 3 /HPF (0-3) Urine Squamous Epithelial Cells None seen /hpf (<5) Urine Bacteria None seen /hpf (None Seen) Urine Mucus Few (None Seen) Urine Osmolality 688 mOsm/kg Urine Creatinine 170.16 mg/dL (30.0-125.0) H Urine Sodium 72 mmol/L (40-220) Urine Glucose Normal mg/dL (Normal) Labs and/or images reviewed: Labs reviewed by me, Image(s) reviewed by me Assessment/Plan Assessment/Plan ALEXUS Obstructive uropathy Hypotension Right hydroureteronephrosis secondary to 9 mm calculus at right UVJ status post nephrostomy Sigmoid diverticulosis without diverticulitis: Rocephin Mild Gastritis and duodenitis in the antrum by EGD by Dr. Simone Phillips Right Nephrostomy tube not draining we will have Radiology review Plan discussed with: Patient Date of Service: Sep 12, 2024 Billing Provider: KESHA ROSENTHAL MD Common Visit Codes: [id number] INP/OBS CARE(HIGH) KESHA ROSENTHAL MD Sep 12, 2024 13:15
--- NOTE | 2024-09-12 14:18 | DVH ---
CT CT AB PEL WO CON-NO ORAL OR IV INDICATION: NEPHROSTOMY TUBE PLACEMENT EXAM DATE: 09/12/2024 01:23 PM COMPARISON: 09/09 RADIATION DOSE: CTDIvol: 11 mGy, DLP: 526 mGy*cm PROCEDURE: Helical CT images were obtained of the abdomen and pelvis without IV contrast Sagittal an d coronal reconstructions are provided. ORAL CONTRAST: None. ADDITIONAL IMAGES / REFORMATS: None All CT scans at this medical facility are performed using dose modulation techniques as appropriate t o a performed exam including the following: Automated exposure control was utilized; adjustment of th e MA and/or KV according to patient size; and use of iterative reconstruction technique. FINDINGS: LUNG BASE: Normal. LIVER: Normal. GALLBLADDER AND BILIARY TREE: No calcified gallstones. Normal caliber wall. No intra- or extrahepatic biliary ductal dilation. PANCREAS: Normal. SPLEEN: Normal. BOWEL: Moderate colonic diverticulosis. Normal appendix. ADRENALS: Normal. KIDNEYS AND URETER: Right percutaneous nephrostomy tube in appropriate position. Contrast retained in a cyst which was injected during the procedure. No hydronephrosis or hematoma seen. Stable 1.1 [address] di stal right ureteral kidney stone. BLADDER: Normal. REPRODUCTIVE ORGANS: Normal. LYMPH NODES:No lymphadenopathy. PERITONEUM: No ascites or free air. No other fluid collection. VESSELS: Scattered atherosclerotic calcifications are noted. RETROPERITONEUM: Normal. ABDOMINAL WALL: Normal. BONES: Scattered osseous degenerative changes are noted. IMPRESSION: Right percutaneous nephrostomy tube in appropriate position. Contrast retained in a cyst which was in jected during the procedure. No hydronephrosis or hematoma seen. Stable 1.1 cm distal right ureteral kidney stone. Moderate colonic diverticulosis. Normal appendix.
[2024-09-13] VITALS (8 sets, daily range): BP systolic 108–153; BP diastolic 59–84; PULSE 60–70; RESP 17–19; TEMP 97.7–98.1; O2SAT 92–95
--- NOTE | 2024-09-13 10:02 | DVHPN2 ---
Reviewed: Care Plan, H&P, Labs, Medications, Previous Orders, Radiology Changes from previous H/P or p: No Changes Eyes: No Pain, No Vision change, No Conjunctivae inflammation, No Eyelid inflammation, No Other, No Redness ENT: No Ear pain, No Ear discharge, No Nose pain, No Nose discharge, No Nose congestion, No Mouth pain, No Mouth swelling, No Throat pain, No Throat swelling, No Other Cardiovascular: No Chest Pain, No Palpitations, No Orthopnea, No Paroxysmal Noc. Dyspnea, No Edema, No Lt Headedness, No Other Respiratory: No Cough, No Dry, No Shortness of breath, No SOB with excertion, No Wheezing, No Hemoptysis, No Pleuritic Pain, No Sputum, No Other Gastrointestinal: No Nausea, No Vomiting, No Abdominal Pain, No Diarrhea, No Constipation, No Melena, No Hematochezia, No Other Genitourinary: No Dysuria, No Frequency, No Incontinence, No Hematuria, No Retention, No Other Musculoskeletal: No other, No neck pain, No shoulder pain, No arm pain, No back pain, No hand pain, No leg pain, No foot pain Skin: No Rash, No Lesions, No Jaundice, No Bruising, No Other Objective Vitals Vital Signs Date Time Temp Pulse Resp B/P (MAP) Pulse Ox O2 Delivery O2 Flow Rate FiO2 09/13/24 08:56 70 148/78 09/13/24 08:20 98.1 19 95 98.1 09/12/24 20:00 Nasal Cannula* 2 28 Intake/Output Intake and Output 09/13/24 07:00 Intake Total 1550 ml Output Total 880 ml Balance 670 ml Intake Oral 500 ml IV Total 1050 ml Output Urine Total 755 ml Drainage Total 125 ml # Bowel Movements 3 Medications Current Medications Medications Dose Ordered Sig/Dionte Route Start Time Stop Time Status Last Admin Dose Admin Ceftriaxone Sodium 50 ml @ 100 mls/hr DAILY@09 IV 09/10/24 09:00 09/13/24 08:55 100 MLS/HR Sodium Chloride 1,000 ml @ 100 mls/hr Q10H IV 09/09/24 06:45 09/13/24 03:53 100 MLS/HR Acetaminophen/ Hydrocodone Bitart 1 tab Q4HP PRN PO 09/09/24 06:45 Ondansetron HCl 4 mg Q4HP PRN IV 09/09/24 06:45 Acetaminophen 650 mg Q6HP PRN PO 09/09/24 06:45 Morphine Sulfate 2 mg Q4HPRN PRN IV 09/09/24 06:45 Nitroglycerin 0.4 mg Q5MINP PRN SL 09/09/24 06:45 Morphine Sulfate 2 mg Q30M PRN IV 09/09/24 06:45 Finasteride 5 mg DAILY PO 09/09/24 10:00 09/13/24 08:56 5 MG Tamsulosin HCl 0.4 mg QPM PO 09/09/24 18:00 09/12/24 17:48 0.4 MG Diagnostic Test (Pha) 1 strip Q6HR 09/09/24 12:00 09/10/24 12:00 1 STRIP Insulin Human Regular Q6HR SC 09/09/24 12:00 Dextrose 50 ml UD PRN IV 09/09/24 08:45 EZETIMIBE 10 mg DAILY PO 09/11/24 10:00 09/13/24 08:57 10 MG Isosorbide Mononitrate 30 mg DAILY PO 09/11/24 10:00 09/13/24 08:56 30 MG Metoprolol Tartrate 25 mg BID PO 09/11/24 10:00 09/13/24 08:56 25 MG Laboratory Results Laboratory Tests 09/12/24 05:29 Urinalysis Test 09/09/24 17:30 Urine Color Light-yellow (Yellow) Urine Clarity Clear (Clear) Urine pH 5.5 (5.0-9.0) Urine Specific [place] 1.034 (1.001-1.035) Urine Protein Trace (Negative) H Urine Ketones Trace (Negative) Urine Blood 2+ /uL (Negative) H Urine Nitrite Negative (Negative) Urine Bilirubin Negative (Negative) Urine Urobilinogen Normal mg/dL (Negative) Urine Leukocyte Esterase Negative /uL (Negative) Urine RBC 20 /hpf (0 - 3) Urine Microscopic WBC 3 /HPF (0-3) Urine Squamous Epithelial Cells None seen /hpf (<5) Urine Bacteria None seen /hpf (None Seen) Urine Mucus Few (None Seen) Urine Osmolality 688 mOsm/kg Urine Creatinine 170.16 mg/dL (30.0-125.0) H Urine Sodium 72 mmol/L (40-220) Urine Glucose Normal mg/dL (Normal) Labs and/or images reviewed: Labs reviewed by me, Image(s) reviewed by me Assessment/Plan Assessment/Plan ALEXUS Obstructive uropathy Hypotension Right hydroureteronephrosis secondary to 9 mm calculus at right UVJ , right nephrostomy tube in place and urine draining; per patient has appointment with Urology Dr. Vanegas next Sunday for ESWL Sigmoid diverticulosis without diverticulitis: Rocephin Mild Gastritis and duodenitis in the antrum by EGD by Dr. Simone Phillips Right Nephrostomy tube not draining we will have Radiology review Plan discussed with: Patient Date of Service: Sep 13, 2024 Billing Provider: KESHA ROSENTHAL MD Common Visit Codes: [id number] INP/OBS CARE(HIGH) KESHA ROSENTHAL MD Sep 13, 2024 10:02
[2024-09-14 01:00] VITALS: BP 126/72; PULSE 72; RESP 17; TEMP 98.2; O2SAT 92
[2024-09-14 05:00] VITALS: BP 111/66; PULSE 66; RESP 17; TEMP 97.7; O2SAT 96
[2024-09-14 08:00] VITALS: PULSE 72; RESP 18; O2SAT 93
--- NOTE | 2024-09-14 11:33 | DVHPN2 ---
Reviewed: Care Plan, H&P, Labs, Medications, Previous Orders, Radiology Changes from previous H/P or p: No Changes Eyes: No Pain, No Vision change, No Conjunctivae inflammation, No Eyelid inflammation, No Other, No Redness ENT: No Ear pain, No Ear discharge, No Nose pain, No Nose discharge, No Nose congestion, No Mouth pain, No Mouth swelling, No Throat pain, No Throat swelling, No Other Cardiovascular: No Chest Pain, No Palpitations, No Orthopnea, No Paroxysmal Noc. Dyspnea, No Edema, No Lt Headedness, No Other Respiratory: No Cough, No Dry, No Shortness of breath, No SOB with excertion, No Wheezing, No Hemoptysis, No Pleuritic Pain, No Sputum, No Other Gastrointestinal: No Nausea, No Vomiting, No Abdominal Pain, No Diarrhea, No Constipation, No Melena, No Hematochezia, No Other Genitourinary: No Dysuria, No Frequency, No Incontinence, No Hematuria, No Retention, No Other Musculoskeletal: No other, No neck pain, No shoulder pain, No arm pain, No back pain, No hand pain, No leg pain, No foot pain Skin: No Rash, No Lesions, No Jaundice, No Bruising, No Other Objective Vitals Vital Signs Date Time Temp Pulse Resp B/P (MAP) Pulse Ox O2 Delivery O2 Flow Rate FiO2 09/14/24 09:02 72 140/69 09/14/24 08:00 18 93 Room Air* 0 21 09/14/24 05:00 97.7 97.7 Intake/Output Intake and Output 09/14/24 07:00 Intake Total 1276 ml Output Total 1410 ml Balance -134 ml Intake Oral 1226 ml IV Total 50 ml Output Urine Total 1410 ml # Bowel Movements 2 Medications Current Medications Medications Dose Ordered Sig/Dionte Route Start Time Stop Time Status Last Admin Dose Admin Ceftriaxone Sodium 50 ml @ 100 mls/hr DAILY@09 IV 09/10/24 09:00 09/13/24 08:55 100 MLS/HR Sodium Chloride 1,000 ml @ 100 mls/hr Q10H IV 09/09/24 06:45 09/13/24 17:05 100 MLS/HR Acetaminophen/ Hydrocodone Bitart 1 tab Q4HP PRN PO 09/09/24 06:45 Ondansetron HCl 4 mg Q4HP PRN IV 09/09/24 06:45 Acetaminophen 650 mg Q6HP PRN PO 09/09/24 06:45 Morphine Sulfate 2 mg Q4HPRN PRN IV 09/09/24 06:45 Nitroglycerin 0.4 mg Q5MINP PRN SL 09/09/24 06:45 Morphine Sulfate 2 mg Q30M PRN IV 09/09/24 06:45 Finasteride 5 mg DAILY PO 09/09/24 10:00 09/14/24 09:01 5 MG Tamsulosin HCl 0.4 mg QPM PO 09/09/24 18:00 09/13/24 17:04 0.4 MG Diagnostic Test (Pha) 1 strip Q6HR 09/09/24 12:00 09/10/24 12:00 1 STRIP Insulin Human Regular Q6HR SC 09/09/24 12:00 Dextrose 50 ml UD PRN IV 09/09/24 08:45 EZETIMIBE 10 mg DAILY PO 09/11/24 10:00 09/14/24 09:01 10 MG Isosorbide Mononitrate 30 mg DAILY PO 09/11/24 10:00 09/14/24 09:01 30 MG Metoprolol Tartrate 25 mg BID PO 09/11/24 10:00 09/14/24 09:02 25 MG Laboratory Results Laboratory Tests 09/12/24 05:29 Urinalysis Test 09/09/24 17:30 Urine Color Light-yellow (Yellow) Urine Clarity Clear (Clear) Urine pH 5.5 (5.0-9.0) Urine Specific [place] 1.034 (1.001-1.035) Urine Protein Trace (Negative) H Urine Ketones Trace (Negative) Urine Blood 2+ /uL (Negative) H Urine Nitrite Negative (Negative) Urine Bilirubin Negative (Negative) Urine Urobilinogen Normal mg/dL (Negative) Urine Leukocyte Esterase Negative /uL (Negative) Urine RBC 20 /hpf (0 - 3) Urine Microscopic WBC 3 /HPF (0-3) Urine Squamous Epithelial Cells None seen /hpf (<5) Urine Bacteria None seen /hpf (None Seen) Urine Mucus Few (None Seen) Urine Osmolality 688 mOsm/kg Urine Creatinine 170.16 mg/dL (30.0-125.0) H Urine Sodium 72 mmol/L (40-220) Urine Glucose Normal mg/dL (Normal) Labs and/or images reviewed: Labs reviewed by me, Image(s) reviewed by me Assessment/Plan Assessment/Plan ALEXUS Obstructive uropathy Hypotension Right hydroureteronephrosis secondary to 9 mm calculus at right UVJ , right nephrostomy tube in place and urine draining; per patient has appointment with Urology Dr. Vanegas next Sunday for ESWL Sigmoid diverticulosis without diverticulitis: Rocephin Mild Gastritis and duodenitis in the antrum by EGD by Dr. Simone Phillips Plan discussed with: Patient Date of Service: Sep 14, 2024 Billing Provider: KESHA ROSENTHAL MD Common Visit Codes: [id number] INP/OBS CARE(HIGH) KESHA ROSENTHAL MD Sep 14, 2024 11:33
[2024-09-14] MEDS ORDERED: HYDR-4902 PO (11:34)
[2024-09-14] MEDS ORDERED: CIPR-173 PO (11:34)
--- NOTE | 2024-09-14 11:39 | DVHDS2 ---
Discharge Summary Date of Admission Sep 09, 2024 at 06:43 Date of Discharge: Sep 14, 2024 Admitting Diagnosis Right flank pain Wounds: Nephrostomy tube placement Labs/Diagnostic Data: Laboratory Results Test 09/12/24 05:29 09/10/24 06:00 09/09/24 18:47 09/09/24 17:30 White Blood Count 7.6 10^3/uL (4.4-10.8) Red Blood Count 4.81 10^6/uL (4.5-5.90) Hemoglobin 14.6 g/dL (13.5-17.5) Hematocrit 42.8 % (41.0-53.0) Mean Corpuscular Volume 89.0 fL (80.0-100.0) Mean Corpuscular Hemoglobin 30.4 pg (28.0-32.0) Mean Corpuscular Hemoglobin Concent 34.1 g/dL (32.0-36.0) Red Cell Distribution Width 13.5 % (11.8-14.3) Platelet Count 197 10^3/uL (140-450) Mean Platelet Volume 7.9 fL (6.9-10.8) Neutrophils (%) (Auto) 70.8 % (37.0-80.0) Lymphocytes (%) (Auto) 21.8 % (10.0-50.0) Monocytes (%) (Auto) 6.3 % (0.0-12.0) Eosinophils (%) (Auto) 0.6 % (0.0-7.0) Basophils (%) (Auto) 0.5 % (0.0-2.0) Neutrophils # (Auto) 5.4 10 ^3/uL (1.6-8.6) Lymphocytes # (Auto) 1.6 10 ^3/uL (0.4-5.4) Monocytes # (Auto) 0.5 10 ^3/uL (0-1.3) Eosinophils # (Auto) 0 10 ^3/uL (0-0.8) Basophils # (Auto) 0 10 ^3/uL (0-0.2) Nucleated Red Blood Cells 0.2 % Prothrombin Time 10.8 sec (9.3-11.8) Prothrombin Time INR 1.02 (0.9-1.15) Activated Partial Thromboplast Time 30.9 SEC (24.5-34.5) Sodium Level 141 mmol/L (136-145) Potassium Level 4.1 mmol/L (3.5-5.1) Chloride Level 110 mmol/L (98-107) Carbon Dioxide Level 24 mmol/L (20-31) Anion Gap 7 (5-15) Blood Urea Nitrogen 15 mg/dL (9-23) Creatinine 1.19 mg/dL (0.700-1.30) Glomerular Filtration Rate Calc 64 mL/min (>90) BUN/Creatinine Ratio 12.6 (10.0-20.0) Serum Glucose 92 mg/dL (74-106) Calcium Level 9.6 mg/dL (8.7-10.4) Total Bilirubin 0.6 mg/dL (0.2-1.0) Aspartate Amino Transferase (AST) 21 U/L (13-40) Alanine Aminotransferase (ALT) 20 U/L (7-40) Alkaline Phosphatase 55 U/L (46-116) Total Protein 6.3 g/dL (5.7-8.2) Albumin 3.9 g/dL (3.2-4.8) POC Glucose 100 mg/dl (70-106) Urine Color Light-yellow (Yellow) Urine Clarity Clear (Clear) Urine pH 5.5 (5.0-9.0) Urine Specific [place] 1.034 (1.001-1.035) Urine Protein Trace (Negative) Urine Ketones Trace (Negative) Urine Blood 2+ /uL (Negative) Urine Nitrite Negative (Negative) Urine Bilirubin Negative (Negative) Urine Urobilinogen Normal mg/dL (Negative) Urine Leukocyte Esterase Negative /uL (Negative) Urine RBC 20 /hpf (0 - 3) Urine Microscopic WBC 3 /HPF (0-3) Urine Squamous Epithelial Cells None seen /hpf (<5) Urine Bacteria None seen /hpf (None Seen) Urine Mucus Few (None Seen) Urine Osmolality 688 mOsm/kg Urine Creatinine 170.16 mg/dL (30.0-125.0) Urine Sodium 72 mmol/L (40-220) Urine Glucose Normal mg/dL (Normal) Test 09/09/24 04:15 09/09/24 01:45 Hemoglobin A1c 6.2 % A1C (<5.7) Troponin I High Sensitivity 3 ng/L (</=54) Other Laboratory Tests 09/12/24 05:29 Brief Hx & Hospital Course: Male with a history of hypertension history of diverticulosis came in for right flank pain found to have 9 mm calculus at right UVJ junction with the hydronephrosis right nephrostomy tube was placed by the Radiology urology Dr. Yun advised outpatient lithotripsy. EGD by Dr. Phillips showed mild duodenitis and gastritis. Discharged home on Cipro and Milo he will follow up with Urology for ESWL. Right nephrostomy tube draining well. With at the bedside at the time of discharge. Consults/Reason for consult Radiology Urology Operations or Procedures Radiology for nephrostomy tube placement Condition at Discharge: Fair Final Diagnosis/Problems List ALEXUS Obstructive uropathy Hypotension Right hydroureteronephrosis secondary to 9 mm calculus at right UVJ , right nephrostomy tube in place and urine draining; per patient has appointment with Urology Dr. Vanegas next Sunday for ESWL Sigmoid diverticulosis without diverticulitis: Rocephin Mild Gastritis and duodenitis in the antrum by EGD by Dr. Simone Phillips Discharge Disposition: Home Discharge Instruct/Medications Diet: Cardiac 2g Na,low cholest Activity: Light activity Follow Up/Referral: Follow up with your Primary DrSoraya In one week Resume all previous home medications Follow up with the Urology Dr. Vanegas for treatment of the kidney stones Medications: Cipro Milo Transmitted to pharmacy 35 (Time Taken For discharge summary 35 minutes) Discharge Statement: "Patient was advised to return to the ER or call 911 if any headaches, dizziness, shortness of breath, chest pain, abdominal pain, bleeding, fevers, or worsening of medical condition. Patient was counseled about treatment plan, medications, possible side effects, patientverbalized understanding. All questions were answered to the best of my ability. This discharge took greater then 30 minutes in planning, reviewing documentation, counseling the patient, and discussing with other team members." ASSESSMENT ASSESSMENT Hospital Course Improved Assessment ALEXUS Obstructive uropathy Hypotension Right hydroureteronephrosis secondary to 9 mm calculus at right UVJ , right nephrostomy tube in place and urine draining; per patient has appointment with Urology Dr. Vanegas next Sunday for ESWL Sigmoid diverticulosis without diverticulitis: Rocephin Mild Gastritis and duodenitis in the antrum by EGD by Dr. Simone Phillips Date of Service: Sep 14, 2024 Billing Provider: KESHA ROSENTHAL MD Common Visit Codes: [id number]/[id number] DISCH DAY >30min KESHA ROSENTHAL MD Sep 14, 2024 11:39
[2024-09-14 13:00] VITALS: BP 122/72; PULSE 67; RESP 18; TEMP 97.8; O2SAT 96
--- NOTE | 2024-09-14 21:53 | DVHPN2 ---
Progress Note - Dictate Date Seen: Sep 14, 2024 (Late entryTime of visit 2:00 p.m.) Medical Necessity Reason Pt with a Central, PICC or Fol: No Subjective No new complaints, patient tolerating a carb controlled diet Endoscopy had shown small hiatal hernia mild gastritis and there was no gastric mass Pt underwent R nephrostomy tube placement and it is draining 50 mL of some dark- colored fluid vital signs Vital Sign Date Time Temp Pulse Resp B/P (MAP) Pulse Ox O2 Delivery O2 Flow Rate FiO2 09/14/24 13:00 97.8 67 18 122/72 (89) 96 97.8 09/14/24 08:00 Room Air* 0 21 Total Intake and Output 09/13/24 09/13/24 09/14/24 15:00 23:00 07:00 Intake Total 50 ml 526 ml 700 ml Output Total 310 ml 1100 ml Balance 50 ml 216 ml -400 ml objective General Appearance: Alert, Oriented X3, Cooperative, No acute distress HEENT: Atraumatic, PERRLA, EOMI, Mucous membr. moist/pink Respiratory: Clear to auscultation, Normal air movement Cardiovascular: Regular rate, Normal S1, Normal S2 Abdominal: Soft, No hepatospenomegaly, No masses Extremities: No clubbing, No cyanosis, No edema, Normal pulses, No tenderness/swelling Skin: No rashes, No breakdown, No significant lesion Neuro: Normal gait, Normal speech, Normal tone, Sensation intact Psych/Mental Status: Mental status NL, Mood NL laboratory and microbiology Laboratory Tests 09/12/24 05:29 Test 09/12/24 05:29 Range/Units Serum Glucose 92 74-106 mg/dL Problems(with codes): (1) Abnormal finding on GI tract imaging (2) Nausea & vomiting (3) Ureteral stone with hydronephrosis (4) Abdominal pain Prognosis Plan Discharge planning is in progress Continue Protonix 40 mg p.o. daily Carafate 1 g p.o. q.h.s. Outpatient follow up with GI Services for ongoing management and Consider elective colonoscopy once he is medically stabilized and is Urological issues are resolved Once again thank you for allowing me to participate in the care of this patient Plan discussed with: Patient MAX DANIEL MD Sep 14, 2024 21:53
[2024-09-18] MEDS ORDERED: FINA5TAB4 PO (08:51)
== END 2024-09-14 14:35 | disposition home or self-care (01) | DRG 380 ==
LOC: EDBD 01:03 → ER 01:03 → OVERFLOW 06:43 → WEST WING 15:15
PROVIDERS: ADMIT Family Medicine; ATTEND Family Medicine
PROC: 0T9330Z Drainage of Right Kidney Pelvis with Drainage Device, Percutaneous Approach (ICD-10-PCS; 2024-09-11)
PROC: 0DB68ZX Excision of Stomach, Via Natural or Artificial Opening Endoscopic, Diagnostic (ICD-10-PCS; 2024-09-12)
PROC: 0DB98ZX Excision of Duodenum, Via Natural or Artificial Opening Endoscopic, Diagnostic (ICD-10-PCS; principal; 2024-09-12 09:13)
DX: K22.10 Ulcer of esophagus without bleeding (principal); N17.0 Acute kidney failure with tubular necrosis; N13.2 Hydronephrosis with renal and ureteral calculous obstruction; K29.70 Gastritis, unspecified, without bleeding; K29.80 Duodenitis without bleeding; K57.30 Diverticulosis of large intestine without perforation or abscess without bleeding; N40.0 Benign prostatic hyperplasia without lower urinary tract symptoms; D72.829 Elevated white blood cell count, unspecified; I10 Essential (primary) hypertension; K44.9 Diaphragmatic hernia without obstruction or gangrene; I44.0 Atrioventricular block, first degree; I95.9 Hypotension, unspecified; K59.00 Constipation, unspecified; E78.5 Hyperlipidemia, unspecified; I25.10 Atherosclerotic heart disease of native coronary artery without angina pectoris; Z87.442 Personal history of urinary calculi; Z95.1 Presence of aortocoronary bypass graft; Z82.49 Family history of ischemic heart disease and other diseases of the circulatory system; Z80.8 Family history of malignant neoplasm of other organs or systems; Z80.52 Family history of malignant neoplasm of bladder; Z79.82 Long term (current) use of aspirin; Z79.899 Other long term (current) drug therapy; Z88.8 Allergy status to other drugs, medicaments and biological substances
CPT/HCPCS: 36415; 50432; 71045; 71250; 74176; 74177; 74425; 76942; 80048; 80053; 81001; 82570; 82962; 83036; 83935; 84300; 84484; 85025; 85610; 85730; 93005; 93306; 96361; 96374; 96375; 99152; 99291; G0378; J0171; J2250; J2405; J2704

== ENCOUNTER → 2024-09-25 | Day surgery (SDC) | payer OTHER ==
[2024-09-18 10:32] LABS: Basophils # (auto) 0 10 ^3/uL (0-0.2); Basophils % (auto) 0.6 % (0.0-2.0); Eosinophils # (auto) 0.1 10 ^3/uL (0-0.8); Hematocrit 44.1 % (41.0-53.0); Hemoglobin 14.6 g/dL (13.5-17.5); Lymphocytes # (auto) 2.1 10 ^3/uL (0.4-5.4); Lymphocytes % (auto) 33.8 % (10.0-50.0); Mean Corpuscular Hemoglobin 29.8 pg (28.0-32.0); Mean Corpuscular Hgb Conc. 33.1 g/dL (32.0-36.0); Mean Corpuscular Volume 89.8 fL (80.0-100.0); Monocytes # (auto) 0.4 10 ^3/uL (0-1.3); Monocytes % (auto) 6.8 % (0.0-12.0); Neutrophils # (auto) 3.6 10 ^3/uL (1.6-8.6); Neutrophils % (auto) 57.8 % (37.0-80.0); Nucleated Red Blood Cells % 0.1 %; Platelet Count (auto) 250 10^3/uL (140-450); Red Blood Cells 4.91 10^6/uL (4.5-5.90); Red Cell Distribution Width 13.6 % (11.8-14.3); White Blood Cell 6.3 10^3/uL (4.4-10.8)
[2024-09-18 10:46] LABS: INR 1.01 (0.9-1.15); Partial Thromboplastin Time 31.2 SEC (24.5-34.5); Prothrombin Time 10.7 sec (9.3-11.8)
[2024-09-18 10:48] LABS: Alanine Aminotransferase 33 U/L (7-40); Albumin 4.5 g/dL (3.2-4.8); Alkaline Phosphatase 60 U/L (46-116); Anion Gap 6 (5-15); Aspartate Aminotransferase 25 U/L (13-40); BUN/Creatinine Ratio 11.6 (10.0-20.0); Bilirubin, Total 0.7 mg/dL (0.2-1.0); Blood Urea Nitrogen 15 mg/dL (9-23); Calcium 9.5 mg/dL (8.7-10.4); Carbon Dioxide 27 mmol/L (20-31); Chloride 107 mmol/L (98-107); Cholesterol 130 mg/dL (< 200); HDL Cholesterol 44 mg/dL (40-59); LDL Cholesterol 75 mg/dL (< 100); Potassium 4.1 mmol/L (3.5-5.1); Sodium 140 mmol/L (136-145); Total Protein 6.9 g/dL (5.7-8.2); Triglycerides 106 mg/dL (< 150)
[2024-09-18 10:50] LABS: Glucose 109 mg/dL (74-106)
[2024-09-18 10:59] LABS: Urine Bacteria None Seen /hpf (None Seen); Urine Blood 3+ /uL (Negative); Urine Clarity Ex.Turbid (Clear); Urine Color Brown (Yellow); Urine Mucus FEW (None Seen); Urine Protein, UAD 2+ (Negative); Urine Specific Gravity 1.025 (1.001-1.035); Urine Squamous Epithelial Cell None Seen /hpf (<5); Urine Urobilinogen Normal (Negative); Urine WBC 55 /HPF (0-3); Urine pH 5.5 (5.0-9.0)
[~2024-09-25] VITALS: Ht 182.9 cm; Wt 83.9 kg
[~2024-09-25] MED LIST changes: -CHOL100079 OR; +CIPR-173 PO; +DexAMETHasone SOD PHOS 10MG/1ML VIAL INJ ONE; -ECHICAP PO; +ETOMIDATE (2MG/ML) 20ML VIAL IV ONE; +FINA5TAB4 PO; +HYDR-4902 PO; +IOHEXOL 300 MG/ML 100ML BOTTLE IJ ONE; +ISOS1TAB28 PO; +MEPERIDINE HCL (25 MG/ML) 1ML VIAL ONE; +MIDAZOLAM HCL 2MG/2ML 2ml VIAL (1mg/ml) ONE; +PROPOFOL 10 MG/ML 20 ML IV ONE; +TAMS0.4C39 PO; +ceFAZolin 2 GM/D5W100ml 100 ML IV ONE; +fentaNYL CITRATE 100 MCG/2 ML VL ONE
[2024-09-25 12:05] VITALS: PULSE 57; RESP 10; TEMP 97.6; O2SAT 98
--- NOTE | 2024-09-25 12:29 | DVHOP2 ---
Operative Report - 2 Report Details Date: 09/25/24 Preop Diagnosis: Right percutaneous nephrostomy tube in-situ Large right distal ureteral calculus Suspected bladder calculus BPH Postop Diagnosis: Large median lobe prostate obstructing the view of the bilateral ureteric orifices Surgeon: Susannah Orona Anesthesiologist: Cori Anesthesia: General Consent: The patient was informed of the risks and benefits of the procedure. These include but are not limited to complications of anesthesia, postoperative infection, incomplete relief of symptoms, recurrence of symptoms, damage to bl ood vessels, nerves and tendons, deep venous thrombosis, pulmonary embolism and possible need for repeat surgery in the future. Indications for Surgery: Patient was previously seen as an inpatient consultation for right UVJ stone measuring 9-10 mm causing hydronephrosis. He underwent inpatient right percutaneous nephrostomy tube on recent hospitalization. He presents to undergo cysto litholapaxy and right ureteroscopic laser lithotripsy Name of Procedure Performed Cystoscopy Right antegrade nephrostogram Procedure Details Procedure Details: Patient was taken to the operating room and underwent general anesthesia. He was placed in dorsal lithotomy position with the area of the genitalia prepped and draped in usual sterile manner. Twenty-one [place] rigid cystoscope was assembled then used to access the urethra in the bladder. Due to the large median lobe obstruction, I could not identified either of the ureteric orifices. Small bladder calculi were seen but no large bladder stone was noted. On fluoroscopy, right nephrostogram was performed demonstrating a large obstructing distal ureteral calculus. Contrast did not readily flow into the bladder. Procedure was aborted because the ureteric orifice could not be identified. This patient will require a transurethral resection of the median lobe prostate with subsequent ureteroscopic laser lithotripsy. Specimen: None Condition Fair Disposition Home SUSANNAH ORONA MD Sep 25, 2024 12:29
--- NOTE | 2024-09-25 12:30 | DVHDS2 ---
New Physician D'charge PN Admitting Diagnosis Admitting Diagnosis Right percutaneous nephrostomy tube in-situ Large right distal ureteral calculus Suspected bladder calculus BPH Discharge Diagnosis Large median lobe prostate obstructing the view of the bilateral ureteric orifices Operations or Procedures Cystoscopy Right antegrade nephrostogram Reason(s) For Hospitalization Surgery Hospital Course Patient was taken to the operating room and underwent general anesthesia. He was placed in dorsal lithotomy position with the area of the genitalia prepped and draped in usual sterile manner. Twenty-one [place] rigid cystoscope was assembled then used to access the urethra in the bladder. Due to the large median lobe obstruction, I could not identified either of the ureteric orifices. Small bladder calculi were seen but no large bladder stone was noted. On fluoroscopy, right nephrostogram was performed demonstrating a large obstructing distal ureteral calculus. Contrast did not readily flow into the bladder. Procedure was aborted because the ureteric orifice could not be identified. This patient will require a transurethral resection of the median lobe prostate with subsequent ureteroscopic laser lithotripsy. Treatment Plan Discharge Condition of Discharge Fair Disposition Home Discharge Instructions Diet: Regular Activity: Light activity Medications: Given Follow Up Care Follow Up/Referral: Follow up as outpatient to schedule patient for trans urethral resection of the median lobe prostate and right ureteroscopic laser lithotripsy Discharge Statement: "Patient was advised to return to the ER or call 911 if any headaches, dizziness, shortness of breath, chest pain, abdominal pain, bleeding, fevers, or worsening of medical condition. Patient was counseled about treatment plan, medications, possible side effects, patientverbalized understanding. All questions were answered to the best of my ability. This discharge took greater then 30 minutes in planning, reviewing documentation, counseling the patient, and discussing with other team members." SUSANNAH ORONA MD Sep 25, 2024 12:30
[2024-09-25 12:55] VITALS: BP 126/67; PULSE 68; RESP 15; O2SAT 95
--- NOTE | 2024-09-25 13:11 | DVH ---
C-ARM FLUOROSCOPY: PROCEDURE: cysoscopy , right nephrostogram FLUOROSCOPY TIME: 66.2 sec DAP: 16.3 mgy FINDINGS: Spot intraoperative C arm radiographs demonstrating cystoscopy IMPRESSION: Please refer to surgical report for detailed findings.
== END | disposition home or self-care (01) ==
LOC: SUR 08:06
PROVIDERS: ATTEND Urology
DX: N13.2 Hydronephrosis with renal and ureteral calculous obstruction (principal); N21.0 Calculus in bladder; E78.5 Hyperlipidemia, unspecified; N40.1 Benign prostatic hyperplasia with lower urinary tract symptoms; N13.8 Other obstructive and reflux uropathy; I10 Essential (primary) hypertension; I25.10 Atherosclerotic heart disease of native coronary artery without angina pectoris; Z95.1 Presence of aortocoronary bypass graft; Z79.899 Other long term (current) drug therapy; Z98.890 Other specified postprocedural states; Z87.442 Personal history of urinary calculi; Z88.8 Allergy status to other drugs, medicaments and biological substances
CPT/HCPCS: 36415; 50431; 52000; 74018; 80053; 80061; 81001; 85025; 85610; 85730; 87086; C1769; J1100; J2175; J2250; J2371; J2405; J2704; J3010; J7030; 76000

== ENCOUNTER 2024-09-26 10:57 | Inpatient (IN) | payer OTHER ==
[~2024-09-26] VITALS: Ht 182.9 cm; Wt 86.8 kg
[~2024-09-26 10:57] MED LIST changes: -DexAMETHasone SOD PHOS 10MG/1ML VIAL INJ ONE; -ETOMIDATE (2MG/ML) 20ML VIAL IV ONE; -IOHEXOL 300 MG/ML 100ML BOTTLE IJ ONE; -MEPERIDINE HCL (25 MG/ML) 1ML VIAL ONE; -MIDAZOLAM HCL 2MG/2ML 2ml VIAL (1mg/ml) ONE; -PROPOFOL 10 MG/ML 20 ML IV ONE; -ceFAZolin 2 GM/D5W100ml 100 ML IV ONE; -fentaNYL CITRATE 100 MCG/2 ML VL ONE
--- NOTE | 2024-09-26 11:34 | ED.PDOC ---
General HPI Comments 73 year old male presents to the ED with chief complaint of hematuria. Patient reports that he had undergone lithotripsy yesterday by Dr. Zapata, however, the procedure could not be completed and had to be ended early, so he had gone home the same day. Patient relays that after arriving home, he begun to experience hematuria with associated dysuria, Patient states he called Dr. Zapata today regarding the symptoms and was advised to come into the ED for further evaluation. Patient notes that he currently has a nephrostomy tube on the right kidney due to a previous kidney stone. Patient denies any flank pain, fever, chills, inability to void, dizziness, abdominal pain, or N/V. Time Seen by MD: 11:31 Primary Care Provider: Unk Reviewed notes: Nurses Notes, Medications, Allergies Allergies: Uncoded Allergies: Atrovastatin (Allergy, Unknown, 09/09/24) Home Meds Active Scripts Hydrocodone-Acetaminophen (Hydrocodone Bitartrate/AC 5-325 mg) 1 Tab Tab, 1 TAB PO QID PRN, #30 TAB Prov:KESHA ROSENTHAL MD 09/14/24 Ciprofloxacin Hcl (Cipro) 500 Mg Tab, 1 TAB PO BID, #20 TAB Prov:KESHA ROSENTHAL MD 09/14/24 Reported Medications Finasteride (Finasteride) 5 Mg Tab, 5 MG PO DAILY, TAB 09/18/24 Tamsulosin Hcl (Tamsulosin Hcl) 0.4 Mg Cap, 0.4 MG PO QPM for 30 Days, MG 09/10/24 Isosorbide Mononitrate (Isosorbide Mononitrate Er) 30 Mg Tab, 30 MG PO DAILY for 30 Days, MG 09/10/24 Simvastatin (Simvastatin) 20 Mg Tab, 20 MG PO DAILY for dyslipidemia for 30 Days 11/19/23 Metoprolol Tartrate (Metoprolol Tartrate) 25 Mg Tab, 25 MG PO BID for htn for 30 Days, MG 11/19/23 Ezetimibe (Zetia) 10 Mg Tab, 1 TAB PO DAILY for HIGH CHOLESTEROL, #30 TAB 5 Refills 11/19/23 Aspirin (Aspir-Low) 81 Mg Tab, 81 MG PO DAILY for S/P CABG X2, MG 11/19/23 Information Source: Patient Mode of Arrival: Ambulatory Severity: Moderate Inability to void: None Timing: Days Duration: Since onset Prehospital treatment: None Onset: Spontaneous, Other (After surgery) Symptoms: Dysuria, Hematuria History of: BPH, Kidney stone, Recent post-op Location: None Penile discharge: None Modifying factors: None associated signs and symptoms: Dysuria, Hematuria Past Medical History PAST MEDICAL HISTORY: CAD, High Lipids, HTN, Kidney Stones, [place] Past Medical History (Other): BPH Surgical History: CABG, Tonsillectomy Surgical History (Other): Rt nephrostomy Family History Family History: Reviewed,noncontributory to illness, Family hx of Cancer Social History Smoker: Non-Smoker Alcohol: Denies ETOH Use Drugs: Denies Drug Use Lives In: Home Constitutional: denies: chills, diaphoresis, fatigue, fever, malaise, sweats, weakness, others EENTM: denies: blurred vision, double vision, ear bleeding, ear discharge, ear drainage, ear pain, ear ringing, eye pain, eye redness, hearing loss, mouth pain, mouth swelling, nasal discharge, nose bleeding, nose congestion, nose pain, photophobia, tearing, throat pain, throat swelling, voice changes, others Respiratory: denies: cough, hemoptysis, orthopnea, SOB at rest, shortness of breath, SOB with excertion, stridor, wheezing, others Cardiovascular: denies: chest pain, dizzy spells, diaphoresis, Dyspnea on exertion, edema, irregular heart beat, left arm pain, lightheadedness, palpitations, PND, syncope, others Gastrointestinal: denies: abdomen distended, abdominal pain, blood streaked bowels, constipated, diarrhea, dysphagia, difficulty swallowing, hematemesis, melena, nausea, poor appetite, poor fluid intake, rectal bleeding, rectal pain, vomiting, others Genitourinary: reports: dysuria, hematuria; denies: burning, flank pain, frequency, incontinence, penile discharge, penile sore, pain, testicle pain, testicle swelling, urgency, others Neurological: denies: dizziness, fainting, headache, left sided numbness, left sided weakness, numbness, paresthesia, pre-existing deficit, right sided numbness, right sided weakness, seizure, speech problems, tingling, tremors, weakness, others Musculoskeletal: denies: back pain, gout, joint pain, joint swelling, muscle pain, muscle stiffness, neck pain, others Integumetry: denies: bruises, change in color, change in hair/nails, dryness, laceration, lesions, lumps, rash, wounds, others Allergic/Immunocompromised: denies: Difficulty Healing, Frequent Infections, Hives, Itching, others Hematologic/Lymphatic: denies: anemia, blood clots, easy bleeding, easy bruising, swollen glands, others Endocrine: denies: excessive hunger, excessive sweating, excessive thirst, excessive urination, flushing, intolerance to cold, intolerance to heat, unexplained weight gain, unexplained weight loss, others Psychiatric: denies: anxiety, bipolar disorder, depression, hopeless, panic disorder, schizophrenia, sleepless, suicidal, others All Other Systems: Reviewed and Negative Physical Exam General Appearance: Moderate Distress HEENT: Normal ENT Inspection, Pharynx Normal, TMs Normal Neck: Full Range of Motion, Non-Tender, Normal, Normal Inspection Respiratory: Chest Non-Tender, Lungs Clear, No Accessory Muscle Use, No Respiratory Distress, Normal Breath Sounds Cardiovascular: No Edema, No JVD, No Murmur, No Gallop, Normal Peripheral Pulses, Regular Rate/Rhythm Breast Exam: Deferred Gastrointestinal: No Organomegaly, Non Tender, No Pulsatile Mass, Normal Bowel Sounds, Soft Genitalia: Deferred Pelvic: Deferred Rectal: Deferred Extremities: No calf tenderness, Normal capillary refill, Normal inspection, Normal range of motion, Non-tender, No pedal edema Musculoskeletal : Location: Right Extremity Location: Back (Nephrostomy tube in place) Apperance: Normal Neurologic: Alert, 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 Was a procedure done?: No Differential Diagnosis Kidney stone (Female): N/A X-Ray, Labs, Meds, VS Vital Signs Date Time Temp Pulse Resp B/P (MAP) Pulse Ox O2 Delivery O2 Flow Rate FiO2 09/26/24 11:32 98.0 75 23 129/69 (89) 95 CT Abd/Pel indicates: 1. Stable 1.1 cm calculus in the distal right ureter. There is no significant hydroureter. 2. Redemonstration of a right nephrostomy tube appropriately positioned. There is no evidence of nephrolithiasis or hydronephrosis. 3. Sigmoid diverticulosis. 4. Moderate prostatomegaly. IV Hep-Lock was established We spoke with Dr. Vanegas who is the urologist that took care of the patient. The patient was being admitted and will have a procedure tomorrow morning to remove a kidney stone. At this time the patient understands and agrees with the management. Images Reviewed?: Images reviewed and evaluated by me Time of 1ST Reevaluation: 12:01 Reevaluation 1ST: Unchanged Patient Education/Counseling: Diagnosis, Treatment, Prognosis Family Education/Counseling: No Family Present Additional Information - I reviewed the following notes from patient's past medical encounters: 09/09/24 for Rt Kidney Stone - The following tests were ordered, and results were reviewed by me: (Labs, X- Ray, EKG): UA, CT Abd/Pel - Additional information was gathered from interviewing the following independent Historian: (Family, Other Providers, EMT): None - I reviewed and agreed with the following test results read by other provider: (X-ray, CT, US): CT Abd/Pel - I discussed treatments and results with medical personnel. Departure 1 Departure Time of Disposition: 12:00 Impression: Primary Impression: Right kidney stone Additional Impressions: Right flank pain BPH (benign prostatic hyperplasia) Qualified Codes: N40.1 - Benign prostatic hyperplasia with lower urinary tract symptoms Disposition: ADMITTED INPATIENT Admit to: Med Surg Condition: Fair Critical Care Note Critical Care Time?: No Stability Stability form required: Yes Unstable for transfer: ED Physician Assesment (Clinical assesment) Heart Score Heart Score: Heart Score Response (Comments) Value History N/A 0 EKG N/A 0 Age N/A 0 Risk Factors N/A 0 Troponin N/A 0 Total 0 I personally scribed for RUBÉN DELGADO MD ([email or web address]) on 09/26/24 at 11:34. Electronically submitted by Jenaro Streeter ([email or web address]). I personally scribed for RUBÉN DELGADO MD ([email or web address]) on 09/26/24 at 11:58. Electronically submitted by Jenaro Streeter ([email or web address]). I personally scribed for RUBÉN DELGADO MD ([email or web address]) on 2/7/25 at 11:59. Electronically submitted by Jenaro Streeter ([email or web address]). RUBÉN DELGADO MD Sep 26, 2024 11:34
--- NOTE | 2024-09-26 11:55 | DVH ---
CT ABDOMEN AND PELVIS WITHOUT CONTRAST CLINICAL HISTORY: Hematuria, dysuria, status post lithotripsy TECHNIQUE: Multiple contiguous axial images of the abdomen and pelvis without intravenous contrast. The images were reformatted degenerate coronal and sagittal reconstructions. All CT scans at this medical facility are performed using dose modulation techniques as appropriate t o a performed exam including the following:Automated exposure control was utilized; adjustment of the MA and/or KV according to patient size; and use of iterative reconstruction technique. Radiation Dose Information: CT Dose: CTDI volume is 16 mGy. Dose-length product is 894 mGy*cm Comparison: CT CT AB PEL WO CON-NO ORAL OR IV on DOS: 09/12/24 FINDINGS: Evaluation of the abdomen and pelvis is limited without intravenous contrast. There is redemonstration of a right percutaneous nephrostomy tube with the distal loop in the right r enal pelvis. There is no evidence of nephrolithiasis or hydronephrosis. There is a stable 1.1 cm calculus in the distal right ureter. There is no significant hydroureter. The liver, gallbladder, pancreas, delete the adrenal glands, and spleen appear within normal limits . There is no gross evidence of abdominal lymphadenopathy. There is no free fluid or free air. The stomach grossly appears unremarkable. The small and large bowel loops demonstrate normal caliber . There are multiple diverticula in the sigmoid colon without evidence of diverticulitis. The abdominal aorta and IVC appear within normal limits. There is moderate prostatomegaly. The bladder is poorly filled. There are small pockets of air withi n the bladder.. There is no evidence of a bladder calculus. There is no gross evidence of a pelvic ma ss. There is no free fluid collection. Lung bases are clear. There is no acute osseous abnormality. IMPRESSION: 1. Stable 1.1 cm calculus in the distal right ureter. There is no significant hydroureter. 2. Redemonstration of a right nephrostomy tube appropriately positioned. There is no evidence of neph rolithiasis or hydronephrosis. 3. Sigmoid diverticulosis. 4. Moderate prostatomegaly. HS:Y
[2024-09-26 12:06] LABS: Urine Bacteria None Seen /hpf (None Seen)
[2024-09-26 13:22] LABS: Urine Blood 3+ /uL (Negative); Urine Budding Yeast MODERATE /hpf (None Seen); Urine Clarity Turbid (Clear); Urine Color Light-Orange (Yellow); Urine Mucus FEW (None Seen); Urine Protein, UAD 2+ (Negative); Urine Specific Gravity 1.026 (1.001-1.035); Urine Squamous Epithelial Cell None Seen /hpf (<5); Urine Urobilinogen Normal (Negative); Urine WBC 47 /HPF (0-3)
--- NOTE | 2024-09-26 14:28 | DVHINCON2 ---
Date of service: Sep 26, 2024 Referring Physician ER Reason for Consultation Hematuria Right ureteral stone Right PNT BPH, median lobe obstruction History of Present Illness 73 year old male presents to the ED with chief complaint of hematuria. He was to undergo right URSLL yesterday, but right ureteral access was not possible due to large median lobe prostate. He was to undergo TURP with URSLL as outpatient at later time. He is now admitted for hematuria, pain and has agreed to undergo surgery tomorrow. Primary Care Provider: Unk Reviewed notes: Nurses Notes, Medications, Allergies Allergies: Uncoded Allergies: Atrovastatin (Allergy, Unknown, 09/09/24) Home Meds Active Scripts Hydrocodone-Acetaminophen (Hydrocodone Bitartrate/AC 5-325 mg) 1 Tab Tab, 1 TAB PO QID PRN, #30 TAB Prov:KESHA ROSENTHAL MD 09/14/24 Ciprofloxacin Hcl (Cipro) 500 Mg Tab, 1 TAB PO BID, #20 TAB Prov:KESHA ROSENTHAL MD 09/14/24 Reported Medications Finasteride (Finasteride) 5 Mg Tab, 5 MG PO DAILY, TAB 09/18/24 Tamsulosin Hcl (Tamsulosin Hcl) 0.4 Mg Cap, 0.4 MG PO QPM for 30 Days, MG 09/10/24 Isosorbide Mononitrate (Isosorbide Mononitrate Er) 30 Mg Tab, 30 MG PO DAILY for 30 Days, MG 09/10/24 Simvastatin (Simvastatin) 20 Mg Tab, 20 MG PO DAILY for dyslipidemia for 30 Days 11/19/23 Metoprolol Tartrate (Metoprolol Tartrate) 25 Mg Tab, 25 MG PO BID for htn for 30 Days, MG 11/19/23 Ezetimibe (Zetia) 10 Mg Tab, 1 TAB PO DAILY for HIGH CHOLESTEROL, #30 TAB 5 Refills 11/19/23 Aspirin (Aspir-Low) 81 Mg Tab, 81 MG PO DAILY for S/P CABG X2, MG 11/19/23 Information Source: Patient Mode of Arrival: Ambulatory Severity: Moderate Inability to void: None Timing: Days Duration: Since onset Prehospital treatment: None Onset: Spontaneous, Other (After surgery) Symptoms: Dysuria, Hematuria History of: BPH, Kidney stone, Recent post-op Location: None Penile discharge: None Modifying factors: None associated signs and symptoms: Dysuria, Hematuria Past Medical History CAD, High Lipids, HTN, Kidney Stones, [place] Past Medical History (Other): BPH Past Surgical History CABG, Tonsillectomy Surgical History (Other): Rt nephrostomy Family History: FH: bladder cancer G8 FATHER, Onset:Unknown FH: throat cancer G8 MOTHER, Onset:60 years & older Pacemaker G8 FATHER Allergies: Uncoded Allergies: Atrovastatin (Allergy, Unknown, 09/09/24) Home Meds Active Scripts Hydrocodone-Acetaminophen (Hydrocodone Bitartrate/AC 5-325 mg) 1 Tab Tab, 1 TAB PO QID PRN, #30 TAB Prov:KESHA ROSENTHAL MD 09/14/24 Ciprofloxacin Hcl (Cipro) 500 Mg Tab, 1 TAB PO BID, #20 TAB Prov:KESHA ROSENTHAL MD 09/14/24 Reported Medications Finasteride (Finasteride) 5 Mg Tab, 5 MG PO DAILY, TAB 09/18/24 Tamsulosin Hcl (Tamsulosin Hcl) 0.4 Mg Cap, 0.4 MG PO QPM for 30 Days, MG 09/10/24 Isosorbide Mononitrate (Isosorbide Mononitrate Er) 30 Mg Tab, 30 MG PO DAILY for 30 Days, MG 09/10/24 Simvastatin (Simvastatin) 20 Mg Tab, 20 MG PO DAILY for dyslipidemia for 30 Days 11/19/23 Metoprolol Tartrate (Metoprolol Tartrate) 25 Mg Tab, 25 MG PO BID for htn for 30 Days, MG 11/19/23 Ezetimibe (Zetia) 10 Mg Tab, 1 TAB PO DAILY for HIGH CHOLESTEROL, #30 TAB 5 Refills 11/19/23 Aspirin (Aspir-Low) 81 Mg Tab, 81 MG PO DAILY for S/P CABG X2, MG 11/19/23 Review of Systems Constitutional: denies: chills, diaphoresis, fatigue, fever, malaise, sweats, weakness, others EENTM: denies: blurred vision, double vision, ear bleeding, ear discharge, ear drainage, ear pain, ear ringing, eye pain, eye redness, hearing loss, mouth pain, mouth swelling, nasal discharge, nose bleeding, nose congestion, nose pain, photophobia, tearing, throat pain, throat swelling, voice changes, others Respiratory: denies: cough, hemoptysis, orthopnea, SOB at rest, shortness of breath, SOB with excertion, stridor, wheezing, others Cardiovascular: denies: chest pain, dizzy spells, diaphoresis, Dyspnea on exertion, edema, irregular heart beat, left arm pain, lightheadedness, palpitations, PND, syncope, others Gastrointestinal: denies: abdomen distended, abdominal pain, blood streaked bowels, constipated, diarrhea, dysphagia, difficulty swallowing, hematemesis, melena, nausea, poor appetite, poor fluid intake, rectal bleeding, rectal pain, vomiting, others Genitourinary: reports: dysuria, hematuria; denies: burning, flank pain, frequency, incontinence, penile discharge, penile sore, pain, testicle pain, testicle swelling, urgency, others Neurological: denies: dizziness, fainting, headache, left sided numbness, left sided weakness, numbness, paresthesia, pre-existing deficit, right sided numbness, right sided weakness, seizure, speech problems, tingling, tremors, weakness, others Musculoskeletal: denies: back pain, gout, joint pain, joint swelling, muscle pain, muscle stiffness, neck pain, others Integumetry: denies: bruises, change in color, change in hair/nails, dryness, laceration, lesions, lumps, rash, wounds, others Allergic/Immunocompromised: denies: Difficulty Healing, Frequent Infections, Hives, Itching, others Hematologic/Lymphatic: denies: anemia, blood clots, easy bleeding, easy bruising, swollen glands, others Endocrine: denies: excessive hunger, excessive sweating, excessive thirst, excessive urination, flushing, intolerance to cold, intolerance to heat, unexplained weight gain, unexplained weight loss, others Psychiatric: denies: anxiety, bipolar disorder, depression, hopeless, panic disorder, schizophrenia, sleepless, suicidal, others All Other Systems: Reviewed and Negative Vital Signs Vital Signs Date Time Temp Pulse Resp B/P (MAP) Pulse Ox O2 Delivery O2 Flow Rate FiO2 09/26/24 11:32 98.0 75 23 129/69 (89) 95 Physical Exam General Appearance: Moderate Distress HEENT: Normal ENT Inspection, Pharynx Normal, TMs Normal Neck: Full Range of Motion, Non-Tender, Normal, Normal Inspection Respiratory: Chest Non-Tender, Lungs Clear, No Accessory Muscle Use, No Respiratory Distress, Normal Breath Sounds Cardiovascular: No Edema, No JVD, No Murmur, No Gallop, Normal Peripheral Pulses, Regular Rate/Rhythm Breast Exam: Deferred Gastrointestinal: No Organomegaly, Non Tender, No Pulsatile Mass, Normal Bowel Sounds, Soft Genitalia: Normal Extremities: No calf tenderness, Normal capillary refill, Normal inspection, Normal range of motion, Non-tender, No pedal edema Musculoskeletal : Location: Right Extremity Location: Back (Nephrostomy tube in place) Apperance: Normal Neurologic: Alert, 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 nml as Tested, No Motor Deficits, Normal Affect, Normal Mood, No Sensory Deficits Cerebellar Function: Normal Reflexes: Normal Skin: Dry, Normal Color, Warm Lymphatic: No Adenopathy Labs/Diagnostic Data Labs Test 09/26/24 12:04 Range/Units Urine Color Light-orange Yellow Urine Clarity Turbid H Clear Urine pH 6.0 5.0-9.0 Urine Specific [place] 1.026 1.001-1.035 Urine Protein 2+ H Negative Urine Ketones Negative Negative Urine Blood 3+ H Negative /uL Urine Nitrite Negative Negative Urine Bilirubin Negative Negative Urine Urobilinogen Normal Negative mg/dL Urine Leukocyte Esterase 1+ Negative /uL Urine RBC 2920 0 - 3 /hpf Urine Microscopic WBC 47 H 0-3 /HPF Urine Squamous Epithelial Cells None seen <5 /hpf Urine Bacteria None seen None Seen /hpf Urine Mucus Few None Seen Urine Yeast (Budding) Moderate None Seen /hpf Urine Glucose Normal Normal mg/dL Assessment Right hydronephrosis Right PNT insitu Right distal ureteral stone, 1 cm BPH, median lobe obstruction Plan/Recommendation Admit to Hospitalist NPO after midnight Hold all/any blood thinners TURP and right URSLL tomorrow Plan discussed with: Patient, Spouse SUSANNAH ORONA MD Sep 26, 2024 14:28
--- NOTE | 2024-09-26 22:57 | DVHHPRES ---
History of Present Illness Resident Creating Document: EDWARD JHAVERI RESDIENT History of Present Illness S 73-year-old male with past medical history of coronary artery disease (status post CABG with 2 bypass), dyslipidemia, hypertension, kidney stone and BPH came to the hospital due to hematuria. Patient was recently admitted at [facility] and was found to have right-sided 9 mm stone at UVJ, which was subsequently put right nephrostomy and recommended outpatient follow up. Yesterday, the patient underwent URSL by Dr. Vanegas, but the procedure could not c ompleted and the patient was sent home. Upon arrival at home the patient has started hematuria and dysuria, upon contacting back Dr. Vanegas he was referred to the hospital. He also reports frequency, urgency and incontinence. He denies fever, chills, cough, shortness of breath, or any bowel habit changes. PMHx: coronary artery disease (status post CABG with 2 bypass), dyslipidemia, hypertension, kidney stone and BPH PSHx: Right-sided nephrostomy, tonsillectomy and CABG Social history: Denies smoking or any other drug use Home medication: Exacerbate mononitrate, simvastatin, tamsulosin, metoprolol, aspirin and ezetimibe Allergic history: Atorvastatin Review of Systems Review of Systems General: patient denies fever, fatigue, weaknes, sweating, any recent changes in appetite and weight HEENT: No headaches, visiual changes, hearing loss, tinnitus, nasal congestion and discharge, and sore throat. Cardiovascular: Denies chest pain, palpitations, dyspnea on exertion, orthopnea, or claudication. Respiratory: No cough, and wheezing. Gastrointestinal: Denies nausea, vomiting, dysphagia, odynophagia, heartburn, abdominal pain, flatulence, bloating, diarrhea, constipation, change in stool, or blood in stool. Genitourinary: Reports hematuria, dysuria, frequency and urgency Endocrine: No heat or cold intolerance, polydipsia, polyuria, and polyphagia. Neurological: No dizziness, extremity weakness and numbness, tremors, gait disturbance, seizures, and memory impairment. Psychiatric: Denies depression, anxiety,or insomnia. Musculoskeletal: Denies neck pain, stiffness and swelling, back pain, muscle weakness, joint pain, stiffness, swelling, or limited range of motion. Skin: No rashes, itching, skin lesion, changes in hair, nail, skin texture and breast. Hematologic/Lymphatic: Denies easy bruising, bleeding tendencies, or lymph node enlargement. Allergies: Uncoded Allergies: Atrovastatin (Allergy, Unknown, 09/09/24) Exam Vital Signs Vital Signs Date Time Temp Pulse Resp B/P (MAP) Pulse Ox O2 Delivery O2 Flow Rate FiO2 09/26/24 11:32 98.0 75 23 129/69 (89) 95 Exam General Appearance: Alert, Oriented X3, Cooperative, No acute distress HEENT: Atraumatic, PERRLA, EOMI, Mucous membrane moist/pink Respiratory: Clear to auscultation, Normal air movement Cardiovascular: Regular rate, Normal S1, Normal S2, No murmurs, no chest wall tenderness Abdominal: Mild suprapubic tenderness Extremities: No clubbing, No cyanosis, No edema, Normal pulses, No tenderness/swelling Skin: No rashes, No breakdown, No significant lesion Neuro: Normal gait, Normal speech, Strength at 5/5 X4 ext, Normal tone, Sensation intact, Cranial nerves 3-12 NL, Reflexes 2+ Psych/Mental Status: Mental status NL, Mood NL Labs/Xrays Labs Test 09/26/24 12:04 Range/Units Urine Color Light-orange Yellow Urine Clarity Turbid H Clear Urine pH 6.0 5.0-9.0 Urine Specific [place] 1.026 1.001-1.035 Urine Protein 2+ H Negative Urine Ketones Negative Negative Urine Blood 3+ H Negative /uL Urine Nitrite Negative Negative Urine Bilirubin Negative Negative Urine Urobilinogen Normal Negative mg/dL Urine Leukocyte Esterase 1+ Negative /uL Urine RBC 2920 0 - 3 /hpf Urine Microscopic WBC 47 H 0-3 /HPF Urine Squamous Epithelial Cells None seen <5 /hpf Urine Bacteria None seen None Seen /hpf Urine Mucus Few None Seen Urine Yeast (Budding) Moderate None Seen /hpf Urine Glucose Normal Normal mg/dL Assessment/Plan Assessment/Plan Ureteral stone Status post nephrostomy tube BPH CT scan shows right side distal ureteral stone 1.1 cm, with no hydronephrosis/hydroureter with proper position of right nephrostomy tube Urology consulted, planned for URSL and TURP term for tomorrow Empiric antibiotic, Rocephin Continue Rocephin History of coronary artery disease (status post CABG) Hypertension Dyslipidemia Continue home medicine DIET: NPO from midnight CODE STATUS: Of care discussed for more than 21 minutes, full code DISPOSITION: Med/surge Patient's status and paln discussed with patient. Case discussed with Dr. Ashley. Plan discussed with: Patient, Other (RN) My Orders Orders - EDWARD JHVAERI Procedure Category Date Status Time Admit ADMIT 09/26/24 Verified 22:57 Date of Service: Sep 27, 2024 Billing Provider: PEG ASHLEY MD Common Visit Codes: [id number] INP/OBS CARE (HIGH) EDWARD JHAVERI RESDIENT Sep 26, 2024 22:57 PEG ASHLEY MD Sep 28, 2024 15:53
[2024-09-27] VITALS (7 sets, daily range): BP systolic 107–140; BP diastolic 54–70; PULSE 55–88; RESP 14–19; TEMP 97.4–98.6; O2SAT 91–97
[2024-09-27] MEDS: EZETIMIBE 10 MG TAB PO ONE (01:45)
[2024-09-27] MEDS ORDERED: ATORVASTATIN 20 MG TAB PO ONE (01:45)
[2024-09-27 02:15] LABS: Benzodiazephine Screen, Urine Pos (NEGATIVE); Opiate Scree,Urine Neg (NEGATIVE)
[2024-09-27 02:16] LABS: Amphetamine Screen, Urine Neg (NEGATIVE); Barbiturate Scree,Urine Neg (NEGATIVE); Cannabinoid Screen, Urine Neg (NEGATIVE); Cocaine Screen, Urine Neg (NEGATIVE); Phencyclidine Screen, Urine Neg (NEGATIVE)
[2024-09-27 02:22] LABS: Basophils # (auto) 0 10 ^3/uL (0-0.2); Basophils % (auto) 0.3 % (0.0-2.0); Eosinophils # (auto) 0 10 ^3/uL (0-0.8); Eosinophils % (auto) 0.1 % (0.0-7.0); Hematocrit 45.5 % (41.0-53.0); Hemoglobin 15.5 g/dL (13.5-17.5); Lymphocytes # (auto) 2.1 10 ^3/uL (0.4-5.4); Lymphocytes % (auto) 20.1 % (10.0-50.0); Mean Corpuscular Volume 88.3 fL (80.0-100.0); Monocytes # (auto) 0.5 10 ^3/uL (0-1.3); Monocytes % (auto) 4.8 % (0.0-12.0); Neutrophils # (auto) 7.9 10 ^3/uL (1.6-8.6); Neutrophils % (auto) 74.7 % (37.0-80.0); Platelet Count (auto) 217 10^3/uL (140-450); Red Blood Cells 5.16 10^6/uL (4.5-5.90); Red Cell Distribution Width 13.9 % (11.8-14.3); White Blood Cell 10.6 10^3/uL (4.4-10.8)
[2024-09-27 02:36] LABS: Prothrombin Time 10.6 sec (9.3-11.8)
[2024-09-27 02:40] LABS: Alanine Aminotransferase 28 U/L (7-40); Albumin 4.7 g/dL (3.2-4.8); Alkaline Phosphatase 54 U/L (46-116); Anion Gap 7 (5-15); Aspartate Aminotransferase 24 U/L (13-40); BUN/Creatinine Ratio 14.4 (10.0-20.0); Bilirubin, Total 0.6 mg/dL (0.2-1.0); Blood Urea Nitrogen 18 mg/dL (9-23); Calcium 10.1 mg/dL (8.7-10.4); Carbon Dioxide 28 mmol/L (20-31); Chloride 106 mmol/L (98-107); Potassium 3.8 mmol/L (3.5-5.1); Sodium 141 mmol/L (136-145); Total Protein 7.2 g/dL (5.7-8.2)
[2024-09-27 03:04] LABS: Glucose 111 mg/dL (74-106)
[2024-09-27] MEDS: cefTRIAXone 1GM/50ML D5W 50 ML IV ONE (03:04)
[2024-09-27] MEDS: METOPROLOL TARTRATE 25 MG TAB PO ONE (03:33)
[2024-09-27] MEDS: TAMSULOSIN HYDROCHLORIDE 0.4 MG CAP PO ONE (03:33)
[2024-09-27] MEDS: ISOSORBIDE MONONITRATE ER 60 MG TAB PO ONE (03:34)
[2024-09-27] MEDS: ISOSORBIDE MONONITRATE ER 60 MG TAB PO SCH (09:54)
[2024-09-27] MEDS ORDERED: fentaNYL CITRATE 100 MCG/2 ML VL ONE (12:00)
[2024-09-27] MEDS ORDERED: MIDAZOLAM HCL 2MG/2ML 2ml VIAL (1mg/ml) ONE (12:00)
[2024-09-27] MEDS ORDERED: PROPOFOL 10 MG/ML 20 ML IV ONE (12:50)
[2024-09-27] MEDS ORDERED: ROCURONIUM 10MG/ML 10ML VIAL IV ONE (12:50)
[2024-09-27] MEDS ORDERED: HYDROmorphone HCL 2 MG/ML VL/or syr IV PRN ×2 (13:00)
[2024-09-27] MEDS ORDERED: LIDOCAINE 2% (LOCAL ANESTH.) PF 5ml SDV ONE (13:11)
[2024-09-27] MEDS ORDERED: ONDANSETRON HCL 4 MG/2 ML VIAL ONE (13:11)
--- NOTE | 2024-09-27 13:28 | POSTOP ---
Post-Operative Note Post-Operative Note Preop Diagnosis BPH Urinary retention Right distal ureteral calculus Right hydronephrosis Right percutaneous nephrostomy tube in Situ Postop Diagnosis: Day Operation performed Transurethral resection of median lobe prostate Right ureteroscopic laser lithotripsy and stone extraction Specimen Prostate tissue Right ureteral calculi fragments Anesthesia: General Anesthesiologist: Corin Surgeon Susannah Orona Additional Remarks After administration of anesthesia, he was positioned in the dorsal lithotomy position. His genitalia was prepped and draped in standard surgical and sterile fashion. The 26 F resectoscope sheath was introduced into the bladder under direct vision. Using a wide loop bipolar cautery, the median lobe prostate gland was resected in systematic fashion using the standard cautery settings from the bladder neck to verumontanum, taking care not to injure the external sphincter. The ureteric orifices were noted and avoided of any thermal injury. Once satisfied with the resection and an open prostatic channel was created, hemostasis was established. Next, the prostatic chips were irrigated with the Elic evacuator and sent for pathology. At this point the inflow was stopped and satisfactory hemostasis was noted. The resectoscope was taken out and rigid ureteroscope was used to access the right ureteral orifice. The 1 cm ureteral stone was indenified and fragmented using 200 micron laser fiber. Next, a 20 Fr 3-way Zhao catheter was placed for postoperative irrigation and drainage of bladder. Patient tolerated the procedure well. He was awoken and taken to RR in stable condition. The right nephrostomy tube will be clamped on POD#1 and removed on POD#2 if patient tolerates without flank pain. Date 09/27/24 Time 13:25 SUSANNAH ORONA MD Sep 27, 2024 13:28
--- NOTE | 2024-09-27 13:59 | DVH ---
C-ARM FLUOROSCOPY: PROCEDURE: Interoperative fluoroscopic studies FLUOROSCOPY TIME: 18 seconds DAP: 3 mgy FINDINGS: Spot intraoperative c arm radiographs , IMPRESSION: 1. Please refer to surgical report for detailed findings.
--- NOTE | 2024-09-27 14:22 | DVH ---
EXAM: XY KUB ABDOMEN SINGLE VIEW HISTORY: LITHOTRIPSY FINDINGS: Fluoroscopy was provided for an intraoperative procedure. 2 images were obtained demonstrating a tub ular structure projecting over right sacral ala. 18 seconds of fluoroscopic time was utilized. Cumul ative radiation dose was reported at 3.2 mGy. IMPRESSION: 1. Fluoroscopy was provided for operative guidance. Please refer to the operative report for detaile d information.
[2024-09-27] MEDS: CIPROFLOXACIN 400MG/200ML 200 ML IV ONE (14:33)
[2024-09-27] MEDS: ONDANSETRON HCL 4 MG/2 ML VIAL IV ONE (14:33)
--- NOTE | 2024-09-27 19:28 | DVHPN2 ---
Subjective in bed resting Changes from previous H/P or p: No Changes Objective Vitals Vital Signs Date Time Temp Pulse Resp B/P (MAP) Pulse Ox O2 Delivery O2 Flow Rate FiO2 09/27/24 16:30 97.6 76 16 136/64 (88) 95 97.6 09/27/24 13:40 Mask 10.0 09/27/24 08:00 21 Intake/Output Intake and Output 09/27/24 05:00 Intake Total 650 ml Balance 650 ml Intake Oral 600 ml IV Total 50 ml General Appearance: Alert, Oriented X3 HEENT: Atraumatic Lungs: Clear to auscultation Cardiovascular: Regular rate, Normal S1, Normal S2 Medications Current Medications Medications Dose Ordered Sig/Dionte Route Start Time Stop Time Status Last Admin Dose Admin Ceftriaxone Sodium 50 ml @ 100 mls/hr Q24H IV 09/28/24 02:00 EZETIMIBE 10 mg DAILY PO 09/28/24 10:00 Tamsulosin HCl 0.4 mg QPM PO 09/28/24 18:00 Metoprolol Tartrate 25 mg BID PO 09/27/24 22:00 Isosorbide Mononitrate 30 mg DAILY PO 09/27/24 10:00 Atorvastatin Calcium 40 mg HS PO 09/27/24 22:00 Future Hold Laboratory Results Laboratory Tests 09/27/24 02:03 Chemistry Test 09/27/24 02:03 Albumin 4.7 g/dL (3.2-4.8) Calcium Level 10.1 mg/dL (8.7-10.4) Total Protein 7.2 g/dL (5.7-8.2) Coagulation Test 09/27/24 02:03 Prothrombin Time 10.6 sec (9.3-11.8) Prothrombin Time INR 1.00 (0.9-1.15) LFT Test 09/27/24 02:03 Alanine Aminotransferase (ALT) 28 U/L (7-40) Alkaline Phosphatase 54 U/L (46-116) Aspartate Amino Transferase (AST) 24 U/L (13-40) Total Bilirubin 0.6 mg/dL (0.2-1.0) Urinalysis Test 09/26/24 12:04 Urine Color Light-orange (Yellow) Urine Clarity Turbid (Clear) H Urine pH 6.0 (5.0-9.0) Urine Specific [place] 1.026 (1.001-1.035) Urine Protein 2+ (Negative) H Urine Ketones Negative (Negative) Urine Blood 3+ /uL (Negative) H Urine Nitrite Negative (Negative) Urine Bilirubin Negative (Negative) Urine Urobilinogen Normal mg/dL (Negative) Urine Leukocyte Esterase 1+ /uL (Negative) Urine RBC 2920 /hpf (0 - 3) Urine Microscopic WBC 47 /HPF (0-3) H Urine Squamous Epithelial Cells None seen /hpf (<5) Urine Bacteria None seen /hpf (None Seen) Urine Mucus Few (None Seen) Urine Yeast (Budding) Moderate /hpf (None Seen) Urine Glucose Normal mg/dL (Normal) Microbiology Microbiology Date/Time Source Procedure Growth Status 09/27/24 04:45 Nose MRSA Screen - Final Complete Assessment/Plan Assessment/Plan Ureteral stone Status post nephrostomy tube BPH CT scan shows right side distal ureteral stone 1.1 cm, with no hydronephrosis/hydroureter with proper position of right nephrostomy tube Urology consulted, planned for URSL and TURP term for tomorrow Empiric antibiotic, Rocephin Continue Rocephin History of coronary artery disease (status post CABG) Hypertension Dyslipidemia Continue home medicine Plan discussed with: Patient Date of Service: Sep 27, 2024 Billing Provider: KAYLA HOYOS MD Common Visit Codes: [id number] INP/OBS CARE(HIGH) KAYLA HOYOS MD Sep 27, 2024 19:28
[2024-09-27] MEDS ORDERED: ATORVASTATIN 20 MG TAB PO SCH (22:00)
[2024-09-27] MEDS: METOPROLOL TARTRATE 25 MG TAB PO SCH (22:06)
[2024-09-28] VITALS (8 sets, daily range): BP systolic 102–156; BP diastolic 53–79; PULSE 71–95; RESP 16–19; TEMP 97.8–98.6; O2SAT 90–97
[2024-09-28] MEDS: cefTRIAXone 1GM/50ML D5W 50 ML IV SCH (01:39)
[2024-09-28] MEDS: EZETIMIBE 10 MG TAB PO SCH (09:21)
[2024-09-28] MEDS: TAMSULOSIN HYDROCHLORIDE 0.4 MG CAP PO SCH (17:07)
--- NOTE | 2024-09-28 20:40 | DVHPN2 ---
Subjective in bed resting Changes from previous H/P or p: No Changes Objective Vitals Vital Signs Date Time Temp Pulse Resp B/P (MAP) Pulse Ox O2 Delivery O2 Flow Rate FiO2 09/28/24 17:00 97.9 73 18 142/70 (94) 92 97.9 09/28/24 08:00 Room Air* 0 21 Intake/Output Intake and Output 09/28/24 05:00 Intake Total 0 ml Output Total 5600 ml Balance -5600 ml Intake Oral 0 ml Output Urine Total 5600 ml General Appearance: Alert, Oriented X3 HEENT: Atraumatic Lungs: Clear to auscultation Cardiovascular: Regular rate, Normal S1, Normal S2 Medications Current Medications Medications Dose Ordered Sig/Dionte Route Start Time Stop Time Status Last Admin Dose Admin Ceftriaxone Sodium 50 ml @ 100 mls/hr Q24H IV 09/28/24 02:00 09/28/24 01:39 100 MLS/HR EZETIMIBE 10 mg DAILY PO 09/28/24 10:00 09/28/24 09:21 10 MG Tamsulosin HCl 0.4 mg QPM PO 09/28/24 18:00 09/28/24 17:07 0.4 MG Metoprolol Tartrate 25 mg BID PO 09/27/24 22:00 09/28/24 09:20 25 MG Isosorbide Mononitrate 30 mg DAILY PO 09/27/24 10:00 09/28/24 09:20 30 MG Atorvastatin Calcium 40 mg HS PO 09/27/24 22:00 Hold Laboratory Results Laboratory Tests 09/27/24 02:03 Urinalysis Test 09/26/24 12:04 Urine Color Light-orange (Yellow) Urine Clarity Turbid (Clear) H Urine pH 6.0 (5.0-9.0) Urine Specific [place] 1.026 (1.001-1.035) Urine Protein 2+ (Negative) H Urine Ketones Negative (Negative) Urine Blood 3+ /uL (Negative) H Urine Nitrite Negative (Negative) Urine Bilirubin Negative (Negative) Urine Urobilinogen Normal mg/dL (Negative) Urine Leukocyte Esterase 1+ /uL (Negative) Urine RBC 2920 /hpf (0 - 3) Urine Microscopic WBC 47 /HPF (0-3) H Urine Squamous Epithelial Cells None seen /hpf (<5) Urine Bacteria None seen /hpf (None Seen) Urine Mucus Few (None Seen) Urine Yeast (Budding) Moderate /hpf (None Seen) Urine Glucose Normal mg/dL (Normal) Microbiology Microbiology Date/Time Source Procedure Growth Status 09/27/24 04:45 Nose MRSA Screen - Final Complete Assessment/Plan Assessment/Plan Ureteral stone Status post nephrostomy tube BPH CT scan shows right side distal ureteral stone 1.1 cm, with no hydronephrosis/hydroureter with proper position of right nephrostomy tube Urology consulted,s/p cystoscopy Continue Rocephin History of coronary artery disease (status post CABG) Hypertension Dyslipidemia Continue home medicine Plan discussed with: Patient Date of Service: Sep 28, 2024 Billing Provider: KAYLA HOYOS MD Common Visit Codes: [id number] INP/OBS CARE(HIGH) KAYLA HOYOS MD Sep 28, 2024 20:40
--- NOTE | 2024-09-28 21:04 | DVHPN2 ---
Progress Note - Dictate Date Seen: Sep 28, 2024 Has the PT tested + for MRSA If YES, has PT been informed?: No Medical Necessity Reason Pt with a Central, PICC or Fol: Yes The following are medically ne: Zhao Catheter Medical Necessity Reason POD#1 s/p right URSLL and TURP Subjective No complaints vital signs Vital Sign Date Time Temp Pulse Resp B/P (MAP) Pulse Ox O2 Delivery O2 Flow Rate FiO2 09/28/24 20:55 98.2 80 17 110/53 (72) 94 98.2 09/28/24 08:00 Room Air* 0 21 Total Intake and Output 09/27/24 09/27/24 09/28/24 15:00 23:00 07:00 Intake Total 0 ml Output Total 2100 ml 3500 ml Balance -2100 ml -3500 ml medications Current Medications Medications Dose Ordered Sig/Dionte Route Start Time Stop Time Status Last Admin Dose Admin Ceftriaxone Sodium 50 ml @ 100 mls/hr Q24H IV 09/28/24 02:00 09/28/24 01:39 100 MLS/HR EZETIMIBE 10 mg DAILY PO 09/28/24 10:00 09/28/24 09:21 10 MG Tamsulosin HCl 0.4 mg QPM PO 09/28/24 18:00 09/28/24 17:07 0.4 MG Metoprolol Tartrate 25 mg BID PO 09/27/24 22:00 09/28/24 09:20 25 MG Isosorbide Mononitrate 30 mg DAILY PO 09/27/24 10:00 09/28/24 09:20 30 MG Atorvastatin Calcium 40 mg HS PO 09/27/24 22:00 Hold objective Right PNT capped. [address] with 3rd port left open after d/c CBI. laboratory and microbiology Laboratory Tests 09/27/24 02:03 Test 09/27/24 02:03 Range/Units Serum Glucose 111 H 74-106 mg/dL Problem List POD#1 s/p TURP and right URSLL Assessment/Plan Nursing staff instructed to plug the 3rd port of the catheter Right PNT capped. Will order nephrostogram prior to removal of nephrostomy Plan discussed with: Patient, Other SUSANNAH ORONA MD Sep 28, 2024 21:04
[2024-09-28] MEDS: SODIUM CHLORIDE 0.9% 1,000 ML IV ONE (21:39)
[2024-09-28] MEDS ORDERED: ATORVASTATIN 20 MG TAB PO SCH (22:00)
[2024-09-29] VITALS (7 sets, daily range): BP systolic 108–149; BP diastolic 61–77; PULSE 62–80; RESP 16–18; TEMP 98–98.3; O2SAT 92–95
[2024-09-29] MEDS: IOHEXOL 300 MG/ML 100ML BOTTLE IJ ONE (11:50)
--- NOTE | 2024-09-29 12:13 | DVH ---
PROCEDURE: RIGHT nephrostomy gram and removal HISTORY: right PNT status DOCUMENTATION: Informed consent was obtained and a procedural time out was performed. TECHNIQUE: The 8fr tube and surrounding skin were prepped, draped, and anesthetized with 1% lidocaine . A platemaker radiograph was obtained. The 8fr tube was injected with dilute contrast and fluoroscopic im ages were obtained. The existing 8fr nephrostomy tube was cut and removed over a wire. Contrast seen opacifying the right renal pelvis right ureter extending into the bladder. Sterile dressings were molly lied. FINDINGS: The existing nephrostomy tube was in good position and patent. Right nephrostomy tube was r emoved. IMPRESSION: Right nephrostomy tube removal. Patent right ureteral system.
--- NOTE | 2024-09-29 15:11 | DVHDS2 ---
Discharge Summary Date of Admission Sep 26, 2024 at 22:57 Date of Discharge: Sep 29, 2024 Labs/Diagnostic Data: Laboratory Results Test 09/29/24 14:06 09/27/24 02:03 09/26/24 12:04 White Blood Count 10.6 10^3/uL (4.4-10.8) Red Blood Count 5.16 10^6/uL (4.5-5.90) Hemoglobin 15.5 g/dL (13.5-17.5) Hematocrit 45.5 % (41.0-53.0) Mean Corpuscular Volume 88.3 fL (80.0-100.0) Mean Corpuscular Hemoglobin 30.0 pg (28.0-32.0) Mean Corpuscular Hemoglobin Concent 34.0 g/dL (32.0-36.0) Red Cell Distribution Width 13.9 % (11.8-14.3) Platelet Count 217 10^3/uL (140-450) Mean Platelet Volume 8.3 fL (6.9-10.8) Neutrophils (%) (Auto) 74.7 % (37.0-80.0) Lymphocytes (%) (Auto) 20.1 % (10.0-50.0) Monocytes (%) (Auto) 4.8 % (0.0-12.0) Eosinophils (%) (Auto) 0.1 % (0.0-7.0) Basophils (%) (Auto) 0.3 % (0.0-2.0) Neutrophils # (Auto) 7.9 10 ^3/uL (1.6-8.6) Lymphocytes # (Auto) 2.1 10 ^3/uL (0.4-5.4) Monocytes # (Auto) 0.5 10 ^3/uL (0-1.3) Eosinophils # (Auto) 0 10 ^3/uL (0-0.8) Basophils # (Auto) 0 10 ^3/uL (0-0.2) Nucleated Red Blood Cells 0.0 % Prothrombin Time 10.6 sec (9.3-11.8) Prothrombin Time INR 1.00 (0.9-1.15) Sodium Level 141 mmol/L (136-145) Potassium Level 3.8 mmol/L (3.5-5.1) Chloride Level 106 mmol/L (98-107) Carbon Dioxide Level 28 mmol/L (20-31) Anion Gap 7 (5-15) Blood Urea Nitrogen 18 mg/dL (9-23) Creatinine 1.25 mg/dL (0.700-1.30) Glomerular Filtration Rate Calc 60 mL/min (>90) BUN/Creatinine Ratio 14.4 (10.0-20.0) Serum Glucose 111 mg/dL (74-106) Calcium Level 10.1 mg/dL (8.7-10.4) Total Bilirubin 0.6 mg/dL (0.2-1.0) Aspartate Amino Transferase (AST) 24 U/L (13-40) Alanine Aminotransferase (ALT) 28 U/L (7-40) Alkaline Phosphatase 54 U/L (46-116) Total Protein 7.2 g/dL (5.7-8.2) Albumin 4.7 g/dL (3.2-4.8) Urine Color Light-orange (Yellow) Urine Clarity Turbid (Clear) Urine pH 6.0 (5.0-9.0) Urine Specific [place] 1.026 (1.001-1.035) Urine Protein 2+ (Negative) Urine Ketones Negative (Negative) Urine Blood 3+ /uL (Negative) Urine Nitrite Negative (Negative) Urine Bilirubin Negative (Negative) Urine Urobilinogen Normal mg/dL (Negative) Urine Leukocyte Esterase 1+ /uL (Negative) Urine RBC 2920 /hpf (0 - 3) Urine Microscopic WBC 47 /HPF (0-3) Urine Squamous Epithelial Cells None seen /hpf (<5) Urine Bacteria None seen /hpf (None Seen) Urine Mucus Few (None Seen) Urine Yeast (Budding) Moderate /hpf (None Seen) Urine Glucose Normal mg/dL (Normal) Urine Opiates Screen Neg (NEGATIVE) Urine Fentanyl Screen Pos (NEGATIVE) Urine Barbiturates Screen Neg (NEGATIVE) Urine Phencyclidine Screen Neg (NEGATIVE) Urine Amphetamines Screen Neg (NEGATIVE) Urine Benzodiazepines Screen Pos (NEGATIVE) Urine Cocaine Screen Neg (NEGATIVE) Urine Cannabinoids Screen Neg (NEGATIVE) Other Laboratory Tests 09/27/24 02:03 Brief Hx & Hospital Course: Final diagnoses: Ureteral stone Status post nephrostomy tube BPH Urinary retention Right distal ureteral calculus status post lithotripsy Right hydronephrosis status post percutaneous nephrostomy tube and removal Status post TURP Coronary artery disease status post CABG Hypertension Dyslipidemia 73-year-old male who was admitted for ureteral stone status post nephrostomy tube and BPH He required TURP He had URSL He is asymptomatic now He is cleared for discharge He has Cipro at home which he will finish and follow up with Dr. Vanegas in 1 week and resume the home medications Hold aspirin until he is seen by the urologist Condition at Discharge: Stable Final Diagnosis/Problems List Ureteral stone Status post nephrostomy tube BPH Discharge Disposition: Home SNF Discharge Will this Physician continue t: No Discharge Statement: "Patient was advised to return to the ER or call 911 if any headaches, dizziness, shortness of breath, chest pain, abdominal pain, bleeding, fevers, or worsening of medical condition. Patient was counseled about treatment plan, medications, possible side effects, patientverbalized understanding. All questions were answered to the best of my ability. This discharge took greater then 30 minutes in planning, reviewing documentation, counseling the patient, and discussing with other team members." ASSESSMENT ASSESSMENT Assessment Day Date of Service: Sep 29, 2024 Billing Provider: ALEXANDER TSANG MD Common Visit Codes: [id number] DISCH DAY >30min ALEXANDER TSANG MD Sep 29, 2024 15:11
== END 2024-09-29 17:05 | disposition home or self-care (01) | DRG 713 ==
LOC: ER 10:57 → OVERFLOW 22:57 → WEST WING 09-27 04:16
PROVIDERS: ATTEND Internal Medicine Geriatric Medicine
PROC: 0TCB8ZZ Extirpation of Matter from Bladder, Via Natural or Artificial Opening Endoscopic (ICD-10-PCS; 2024-09-27)
PROC: 0VT08ZZ Resection of Prostate, Via Natural or Artificial Opening Endoscopic (ICD-10-PCS; principal; 2024-09-27 11:55)
PROC: 0TP5X0Z Removal of Drainage Device from Kidney, External Approach (ICD-10-PCS; 2024-09-29)
DX: N40.1 Benign prostatic hyperplasia with lower urinary tract symptoms (principal); N13.2 Hydronephrosis with renal and ureteral calculous obstruction; R33.8 Other retention of urine; I25.10 Atherosclerotic heart disease of native coronary artery without angina pectoris; I10 Essential (primary) hypertension; E78.5 Hyperlipidemia, unspecified; Z95.1 Presence of aortocoronary bypass graft; Z93.6 Other artificial openings of urinary tract status; Z80.52 Family history of malignant neoplasm of bladder; Z80.8 Family history of malignant neoplasm of other organs or systems
CPT/HCPCS: 36415; 50389; 74018; 74176; 74425; 76000; 80053; 80307; 81001; 82360; 85025; 85610; 87081; 96365; G0378; J2003; J2250; J2405; J2704

== ENCOUNTER 2024-10-04 09:42 | Inpatient (IN) | payer OTHER ==
[~2024-10-04] VITALS: Ht 182.9 cm; Wt 85.3 kg
[~2024-10-04 09:42] MED LIST changes: -ASPI-543 PO; -CIPR-173 PO
--- NOTE | 2024-10-04 10:34 | ED.PDOC ---
Musculoskeletal HPI Comments A 73 YEAR OLD MALE PRESENTS TO THE ED WITH COMPLAINT OF LEFT LOWER LEG PAIN AND SWELLING. PATIENT STATES HE HAS BEEN EXPERIENCING LEFT LOWER LEG SWELLING AND PAIN THAT HE NOTICED TODAY WHILE HE WAS IN THE SHOWER. PATIENT NOTES HE HAS A HISTORY OF A DVT ABOUT 5 YEARS AGO, BUT NOTES HE HAS NOT BEEN TAKING ELIQUIS FOR A WHILE. PATIENT WAS ADMITTED TO THIS HOSPITAL 1 WEEK AGO FOR A LARGE RENAL STONE. PATIENT DENIES FEVER, CHILLS, SHORTNESS OF BREATH, CHEST PAIN, ABDOMINAL PAIN, NAUSEA, VOMITING, HEADACHE, OR OTHER COMPLAINTS. NO OTHER SYMPTOMS OR MODIFYING FACTORS AT THIS TIME. PATIENT IS ALERT, ORIENTED X 4, AND HAS STEADY GAIT. Chief Complaint: Extremity Swelling Time Seen by MD: 10:18 Primary Care Provider: Unk Reviewed Notes: Nurses Notes, Medications, Allergies Allergies: Uncoded Allergies: Atrovastatin (Allergy, Unknown, 09/09/24) Home Meds Active Scripts Hydrocodone-Acetaminophen (Hydrocodone Bitartrate/AC 5-325 mg) 1 Tab Tab, 1 TAB PO QID PRN, #30 TAB Prov:KESHA ROSENTHAL MD 09/14/24 Reported Medications Finasteride (Finasteride) 5 Mg Tab, 5 MG PO DAILY, TAB 09/18/24 Tamsulosin Hcl (Tamsulosin Hcl) 0.4 Mg Cap, 0.4 MG PO QPM for 30 Days, MG 09/10/24 Isosorbide Mononitrate (Isosorbide Mononitrate Er) 30 Mg Tab, 30 MG PO DAILY for 30 Days, MG 09/10/24 Simvastatin (Simvastatin) 20 Mg Tab, 20 MG PO DAILY for dyslipidemia for 30 Days 11/19/23 Metoprolol Tartrate (Metoprolol Tartrate) 25 Mg Tab, 25 MG PO BID for htn for 30 Days, MG 11/19/23 Ezetimibe (Zetia) 10 Mg Tab, 1 TAB PO DAILY for HIGH CHOLESTEROL, #30 TAB 5 Refills 11/19/23 Discontinued Reported Medications Aspirin (Aspir-Low) 81 Mg Tab, 81 MG PO DAILY for S/P CABG X2, MG 11/19/23 Information Source: Patient Mode of Arrival: Ambulatory Location: Left Extremity Location: Leg (LOWER LEG) Timing: Hours Prehospital treatment: None Severity: Moderate Able to Move Extremity: Yes Bear Weight: Fully Pain: Moderate Mechanism: No Trauma, Spontaneous Circumstances: Spontaneous Onset of Symptoms: Spontaneous Symptoms: Swelling, Pain DVT Risk Factors: NONE Last Tetanus: Unknown Associated signs and symptoms: Leg pain, None Past Medical History PAST MEDICAL HISTORY: CAD, High Lipids, HTN, Kidney Stones, [place] Past Medical History (Other): DVT Surgical History: CABG, Tonsillectomy Family History Family History: Reviewed,noncontributory to illness, Family hx of Cancer Social History Smoker: Non-Smoker Alcohol: Denies ETOH Use Drugs: Denies Drug Use Lives In: Home Constitutional: denies: chills, diaphoresis, fatigue, fever, malaise, sweats, weakness, others EENTM: denies: blurred vision, double vision, ear bleeding, ear discharge, ear drainage, ear pain, ear ringing, eye pain, eye redness, hearing loss, mouth pain, mouth swelling, nasal discharge, nose bleeding, nose congestion, nose pain, photophobia, tearing, throat pain, throat swelling, voice changes, others Respiratory: denies: cough, hemoptysis, orthopnea, SOB at rest, shortness of breath, SOB with excertion, stridor, wheezing, others Cardiovascular: denies: chest pain, dizzy spells, diaphoresis, Dyspnea on exertion, edema, irregular heart beat, left arm pain, lightheadedness, palpitations, PND, syncope, others Gastrointestinal: denies: abdomen distended, abdominal pain, blood streaked bowels, constipated, diarrhea, dysphagia, difficulty swallowing, hematemesis, melena, nausea, poor appetite, poor fluid intake, rectal bleeding, rectal pain, vomiting, others Genitourinary: denies: burning, dysuria, flank pain, frequency, hematuria, incontinence, penile discharge, penile sore, pain, testicle pain, testicle swelling, urgency, others Neurological: denies: dizziness, fainting, headache, left sided numbness, left sided weakness, numbness, paresthesia, pre-existing deficit, right sided numbness, right sided weakness, seizure, speech problems, tingling, tremors, weakness, others Musculoskeletal: reports: joint pain, joint swelling, others (LEFT LOWER LEG PAIN AND SWELLING); denies: back pain, gout, muscle pain, muscle stiffness, neck pain Integumetry: denies: bruises, change in color, change in hair/nails, dryness, laceration, lesions, lumps, rash, wounds, others Allergic/Immunocompromised: denies: Difficulty Healing, Frequent Infections, Hives, Itching, others Hematologic/Lymphatic: denies: anemia, blood clots, easy bleeding, easy bruising, swollen glands, others Endocrine: denies: excessive hunger, excessive sweating, excessive thirst, excessive urination, flushing, intolerance to cold, intolerance to heat, unexplained weight gain, unexplained weight loss, others Psychiatric: denies: anxiety, bipolar disorder, depression, hopeless, panic disorder, schizophrenia, sleepless, suicidal, others All Other Systems: Reviewed and Negative Physical Exam General Appearance: No Apparent Distress, Normal HEENT: Normal ENT Inspection, PERRL/EOMI, Pharynx Normal, TMs Normal Neck: Full Range of Motion, Non-Tender, Normal, Normal Inspection Respiratory: Chest Non-Tender, Lungs Clear, No Accessory Muscle Use, No Respiratory Distress, Normal Breath Sounds Cardiovascular: No Edema, No JVD, No Murmur, No Gallop, Normal Peripheral Pulses, Regular Rate/Rhythm Breast Exam: Deferred Gastrointestinal: No Organomegaly, Non Tender, No Pulsatile Mass, Normal Bowel Sounds, Soft Genitalia: Deferred Pelvic: Deferred Rectal: Deferred Extremities: Calf tenderness, Leg edema, No calf tenderness, Normal capillary refill, Normal range of motion, Pedal edema (2+PEDAL EDEMA ON LEFT ANKLE AND FOOT. ), Swelling (TENDERNESS AND SWELLING ON LEFT LOWER LEG WITH MILD REDNESS, NO OPEN WOUND SEEN. ), Tender (AND SWELLING ON LEFT LOWER LEG. +DVT SIGNS. 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 Was a procedure done?: No Differential Diagnosis EXT Differential Diagnosis: Deep Vein Thrombosis, DJD, Strain, Arthritis Other Differential Diagnosis SUPERFICIAL THROMBOSIS X-Ray, Labs, Meds, VS Vital Signs Date Time Temp Pulse Resp B/P (MAP) Pulse Ox O2 Delivery O2 Flow Rate FiO2 10/04/24 10:29 66 20 99 Room Air 10/04/24 10:29 97.8 66 20 111/61 (78) 99 97.8 10/04/24 10:01 97.8 66 20 111/61 (78) 99 Lab Test 10/04/24 10:35 Range/Units White Blood Count 6.0 4.4-10.8 10^3/uL Red Blood Count 4.62 4.5-5.90 10^6/uL Hemoglobin 13.6 13.5-17.5 g/dL Hematocrit 40.7 L 41.0-53.0 % Mean Corpuscular Volume 88.1 80.0-100.0 fL Mean Corpuscular Hemoglobin 29.4 28.0-32.0 pg Mean Corpuscular Hemoglobin Concent 33.3 32.0-36.0 g/dL Red Cell Distribution Width 13.5 11.8-14.3 % Platelet Count 137 L 140-450 10^3/uL Mean Platelet Volume 8.5 6.9-10.8 fL Neutrophils (%) (Auto) 61.6 37.0-80.0 % Lymphocytes (%) (Auto) 26.9 10.0-50.0 % Monocytes (%) (Auto) 8.5 0.0-12.0 % Eosinophils (%) (Auto) 2.2 0.0-7.0 % Basophils (%) (Auto) 0.8 0.0-2.0 % Neutrophils # (Auto) 3.7 1.6-8.6 10 ^3/uL Lymphocytes # (Auto) 1.6 0.4-5.4 10 ^3/uL Monocytes # (Auto) 0.5 0-1.3 10 ^3/uL Eosinophils # (Auto) 0.1 0-0.8 10 ^3/uL Basophils # (Auto) 0 0-0.2 10 ^3/uL Nucleated Red Blood Cells 0.0 % Prothrombin Time 10.8 9.3-11.8 sec Prothrombin Time INR 1.02 0.9-1.15 Sodium Level 141 136-145 mmol/L Potassium Level 4.2 3.5-5.1 mmol/L Chloride Level 108 H 98-107 mmol/L Carbon Dioxide Level 27 20-31 mmol/L Anion Gap 6 5-15 Blood Urea Nitrogen 19 9-23 mg/dL Creatinine 1.20 0.700-1.30 mg/dL Glomerular Filtration Rate Calc 63 >90 mL/min BUN/Creatinine Ratio 15.8 10.0-20.0 Serum Glucose 112 H 74-106 mg/dL Calcium Level 9.4 8.7-10.4 mg/dL Total Bilirubin 0.7 0.2-1.0 mg/dL Aspartate Amino Transferase (AST) 26 13-40 U/L Alanine Aminotransferase (ALT) 29 7-40 U/L Alkaline Phosphatase 45 L 46-116 U/L Total Protein 6.5 5.7-8.2 g/dL Albumin 4.3 3.2-4.8 g/dL Current Medications Medications (Trade) Dose Ordered Sig/Dionte Route Start Time Stop Time Status Last Admin Enoxaparin Sodium (Lovenox) 80 mg ONCE ONCE SC 10/04/24 11:45 10/04/24 11:46 DC 10/04/24 13:27 EXAM: US Duplex Left Lower Extremity Veins CLINICAL INDICATION: LEFT LOWER LEG SWELLING TECHNIQUE: Real-time duplex ultrasound scan of the left lower extremity veins integrating B-mode two-dimensional vascular structure, Doppler spectral analysis, color flow Doppler imaging and compression. COMPARISON: None FINDINGS: DEEP VEINS: Thrombus in the left common femoral vein, left posterior tibial vein, and great saphenous vein. SUPERFICIAL VEINS: See above. SOFT TISSUES: No acute findings. No popliteal cyst. OTHER FINDINGS: . . . .. IMPRESSION: Thrombus in the left common femoral vein, left posterior tibial vein, and great saphenous vein. ATED BY: MABLE WINTER MD DICTATED DATE/TIME: 10/04/241116 SIGNED BY: MABLE WINTER MD SIGNED DATE/TIME: 10/04/241116 CC: X-Ray, Labs, Meds, VS Comment EXTERNAL MEDICAL RECORDS REVIEWED: [NONE] INDEPENDENT HISTORIANS: [NONE] SOCIAL DETERMINANTS OF HEALTH: [NONE] LABS ORDERED: NONE REVIEWED AND INTERPRETED RESULTS: NONE IMAGING ORDERED: CV VENOUS DOPPLER LOW EXT LT TREATMENTS ORDERED: LOVENOX 80MG SC PROCEDURES PERFORMED: NONE CRITICAL CARE TIME: NONE I HAVE DISCUSSED THE PATIENT WITH THE ATTENDING PHYSICIAN DR. SOTELO AND HE AGREES WITH THE PATIENT'S PLAN OF CARE. DUE TO THE PATIENT'S ULTRASOUND REVEALING A DVT OF HIS LEFT LOWER EXTREMITY, I HAVE DETERMINED THE PATIENT SHOULD BE ADMITTED FOR FURTHER TREATMENT AND EVALUATION. THE ON-CALL ADMITTING PHYSICIAN WILL BE CONTACTED FOR ADMISSION OF THIS PATIENT. Images Reviewed?: Images reviewed and evaluated by me Time of 1ST Reevaluation: 11:00 Reevaluation 1ST: Improved Patient Education/Counseling: Diagnosis, Treatment Family Education/Counseling: Diagnosis, Treatment Departure 1 Departure Time of Disposition: 11:00 Impression: Primary Impression: Deep vein thrombosis (DVT) of left lower extremity Qualified Codes: I82.412 - Acute embolism and thrombosis of left femoral vein Disposition: ADMITTED INPATIENT Admit to: Tele Condition: Serious Critical Care Note Critical Care Time?: No Stability Stability form required: Yes Unstable for transfer: Requires medication, ED Physician Assesment, Possible rapid decline Heart Score Heart Score: Heart Score Response (Comments) Value History Slightly Suspicious 0 EKG N/A 0 Age N/A 0 Risk Factors N/A 0 Troponin N/A 0 Total 0 I personally scribed for KEANU CUENCA ([email or web address]) on 10/04/24 at 10:34. Electr onically submitted by Jaden Riggs ([email or web address]). I personally scribed for KEANU CUENCA ([email or web address]) on 10/04/24 at 11:22. Electro nically submitted by Jaden Riggs ([email or web address]). KEANU CUENCA Oct 04, 2024 10:34
[2024-10-04 11:06] LABS: Basophils # (auto) 0 10 ^3/uL (0-0.2); Basophils % (auto) 0.8 % (0.0-2.0); Eosinophils # (auto) 0.1 10 ^3/uL (0-0.8); Eosinophils % (auto) 2.2 % (0.0-7.0); Hematocrit 40.7 % (41.0-53.0); Hemoglobin 13.6 g/dL (13.5-17.5); Lymphocytes # (auto) 1.6 10 ^3/uL (0.4-5.4); Lymphocytes % (auto) 26.9 % (10.0-50.0); Mean Corpuscular Hemoglobin 29.4 pg (28.0-32.0); Mean Corpuscular Hgb Conc. 33.3 g/dL (32.0-36.0); Mean Corpuscular Volume 88.1 fL (80.0-100.0); Monocytes # (auto) 0.5 10 ^3/uL (0-1.3); Monocytes % (auto) 8.5 % (0.0-12.0); Neutrophils # (auto) 3.7 10 ^3/uL (1.6-8.6); Neutrophils % (auto) 61.6 % (37.0-80.0); Platelet Count (auto) 137 10^3/uL (140-450); Red Blood Cells 4.62 10^6/uL (4.5-5.90); Red Cell Distribution Width 13.5 % (11.8-14.3)
[2024-10-04 11:18] LABS: INR 1.02 (0.9-1.15); Prothrombin Time 10.8 sec (9.3-11.8)
[2024-10-04 11:19] LABS: Alanine Aminotransferase 29 U/L (7-40); Albumin 4.3 g/dL (3.2-4.8); Anion Gap 6 (5-15); Aspartate Aminotransferase 26 U/L (13-40); BUN/Creatinine Ratio 15.8 (10.0-20.0); Bilirubin, Total 0.7 mg/dL (0.2-1.0); Blood Urea Nitrogen 19 mg/dL (9-23); Calcium 9.4 mg/dL (8.7-10.4); Carbon Dioxide 27 mmol/L (20-31); Potassium 4.2 mmol/L (3.5-5.1); Sodium 141 mmol/L (136-145); Total Protein 6.5 g/dL (5.7-8.2)
--- NOTE | 2024-10-04 11:19 | DVH ---
EXAM: US Duplex Left Lower Extremity Veins CLINICAL INDICATION: LEFT LOWER LEG SWELLING TECHNIQUE: Real-time duplex ultrasound scan of the left lower extremity veins integrating B-mode two -dimensional vascular structure, Doppler spectral analysis, color flow Doppler imaging and compressio n. COMPARISON: None FINDINGS: DEEP VEINS: Thrombus in the left common femoral vein, left posterior tibial vein, and great sapheno us vein. SUPERFICIAL VEINS: See above. SOFT TISSUES: No acute findings. No popliteal cyst. OTHER FINDINGS: . . . .. IMPRESSION: Thrombus in the left common femoral vein, left posterior tibial vein, and great saphenous vein.
[2024-10-04 11:24] LABS: Alkaline Phosphatase 45 U/L (46-116); Chloride 108 mmol/L (98-107); Glucose 112 mg/dL (74-106)
[2024-10-04] MEDS ORDERED: MORPHINE SULFATE INJ 2 MG/ml SYRG IV PRN (12:00)
[2024-10-04] MEDS ORDERED: ONDANSETRON HCL 4 MG/2 ML VIAL IV PRN (12:00)
[2024-10-04] MEDS ORDERED: NITROGLYCERIN 0.4 MG SL TAB SL PRN (12:00)
[2024-10-04] MEDS ORDERED: HYDROcodone-ACET 5/325MG TAB PO PRN (12:00)
[2024-10-04] MEDS ORDERED: ACETAMINOPHEN 325 MG TAB PO PRN (12:00)
--- NOTE | 2024-10-04 12:08 | DVHHP2 ---
History of Present Illness Reason for Visit: Left lower extremity swelling History of Present Illness Bridger Fung is a 73-year-old male with past medical history of CAD status post CABG x2 in 2020 at a [facility], hypertension, hyperlipidemia, kidney stones, BPH, [place], tonsillectomy, history of left lower extremity DVT, and TURP 1 week ago who presents to the ED for left lower extremity leg pain and swelling x5 days. Patient reports that when he walks the pain occurs. He states he was just here a week ago and having penile pain with discharge. He states there has minimal pain at this time. Patient denies chest pain, shortness of breath, fever, chills, wheezing, lightheadedness, weakness, nausea, vomiting, diarrhea and dizziness. Cardiovascular: CAD, HTN, AK, hyperipidemia Renal/: Benign prostatic enlarg. Past Medical History Kidney stones Past Surgical History: CABG, Other (TURP) Family History: Cancer, Other (Dad with bladder cancer and mom with throat cancer) Smoke: No ALCOHOL: none Drugs: None Lives: with Family Domestic Violence: Neg Review of Systems Constitutional: No: Fever, Chills, Sweats, Weakness, Malaise, Other Eyes: No: Pain, Vision change, Conjunctivae inflammation, Eyelid inflammation, Other, Redness ENT: No: Ear pain, Ear discharge, Nose pain, Nose discharge, Nose congestion, Mouth pain, Mouth swelling, Throat pain, Throat swelling, Other Respiratory: No: Cough, Dry, Shortness of breath, SOB with excertion, Wheezing, Hemoptysis, Pleuritic Pain, Sputum, Wheezing, Other Cardiovascular: No: Chest Pain, Palpitations, Orthopnea, Paroxysmal Noc. Dyspnea, Edema, Lt Headedness, Other Gastrointestinal: No: Nausea, Vomiting, Abdominal Pain, Diarrhea, Constipation, Melena, Hematochezia, Other Genitourinary: No Dysuria, No Frequency, No Incontinence, No Hematuria, No Retention, No Other Musculoskeletal: leg pain; No: other, neck pain, shoulder pain, arm pain, back pain, hand pain, foot pain Skin: Other (Left leg greater than right swelling); No: Rash, Lesions, Jaundice, Bruising Neurological: No: Weakness, Numbness, Incoordination, Change in speech, Confusion, Seizures, Other Allergies: Uncoded Allergies: Atrovastatin (Allergy, Unknown, 09/09/24) Exam Vital Signs Vital Signs Date Time Temp Pulse Resp B/P (MAP) Pulse Ox O2 Delivery O2 Flow Rate FiO2 10/04/24 10:29 66 20 99 Room Air 10/04/24 10:29 97.8 111/61 (78) 97.8 General Appearance: Alert, Oriented X3, Cooperative, No acute distress HEENT: Atraumatic, PERRLA, EOMI, Mucous membr. moist/pink Respiratory: Clear to auscultation, Normal air movement Cardiovascular: Regular rate, Normal S1, Normal S2, No murmurs Abdominal: Normal bowel sounds, Soft, No tenderness, No hepatospenomegaly, No masses Extremities: No clubbing, No cyanosis Skin: No significant lesion Neuro: Normal gait, Normal speech, Strength at 5/5 X4 ext, Normal tone, Sensation intact Psych/Mental Status: Mental status NL, Mood NL Labs/Xrays Labs Test 10/04/24 10:35 Range/Units White Blood Count 6.0 4.4-10.8 10^3/uL Red Blood Count 4.62 4.5-5.90 10^6/uL Hemoglobin 13.6 13.5-17.5 g/dL Hematocrit 40.7 L 41.0-53.0 % Mean Corpuscular Volume 88.1 80.0-100.0 fL Mean Corpuscular Hemoglobin 29.4 28.0-32.0 pg Mean Corpuscular Hemoglobin Concent 33.3 32.0-36.0 g/dL Red Cell Distribution Width 13.5 11.8-14.3 % Platelet Count 137 L 140-450 10^3/uL Mean Platelet Volume 8.5 6.9-10.8 fL Neutrophils (%) (Auto) 61.6 37.0-80.0 % Lymphocytes (%) (Auto) 26.9 10.0-50.0 % Monocytes (%) (Auto) 8.5 0.0-12.0 % Eosinophils (%) (Auto) 2.2 0.0-7.0 % Basophils (%) (Auto) 0.8 0.0-2.0 % Neutrophils # (Auto) 3.7 1.6-8.6 10 ^3/uL Lymphocytes # (Auto) 1.6 0.4-5.4 10 ^3/uL Monocytes # (Auto) 0.5 0-1.3 10 ^3/uL Eosinophils # (Auto) 0.1 0-0.8 10 ^3/uL Basophils # (Auto) 0 0-0.2 10 ^3/uL Nucleated Red Blood Cells 0.0 % Prothrombin Time 10.8 9.3-11.8 sec Prothrombin Time INR 1.02 0.9-1.15 Sodium Level 141 136-145 mmol/L Potassium Level 4.2 3.5-5.1 mmol/L Chloride Level 108 H 98-107 mmol/L Carbon Dioxide Level 27 20-31 mmol/L Anion Gap 6 5-15 Blood Urea Nitrogen 19 9-23 mg/dL Creatinine 1.20 0.700-1.30 mg/dL Glomerular Filtration Rate Calc 63 >90 mL/min BUN/Creatinine Ratio 15.8 10.0-20.0 Serum Glucose 112 H 74-106 mg/dL Calcium Level 9.4 8.7-10.4 mg/dL Total Bilirubin 0.7 0.2-1.0 mg/dL Aspartate Amino Transferase (AST) 26 13-40 U/L Alanine Aminotransferase (ALT) 29 7-40 U/L Alkaline Phosphatase 45 L 46-116 U/L Total Protein 6.5 5.7-8.2 g/dL Albumin 4.3 3.2-4.8 g/dL EXAM: US Duplex Left Lower Extremity Veins CLINICAL INDICATION: LEFT LOWER LEG SWELLING TECHNIQUE: Real-time duplex ultrasound scan of the left lower extremity veins integrating B-mode two-dimensional vascular structure, Doppler spectral analysis, color flow Doppler imaging and compression. COMPARISON: None FINDINGS: DEEP VEINS: Thrombus in the left common femoral vein, left posterior tibial vein, and great saphenous vein. SUPERFICIAL VEINS: See above. SOFT TISSUES: No acute findings. No popliteal cyst. OTHER FINDINGS: . . . .. IMPRESSION: Thrombus in the left common femoral vein, left posterior tibial vein, and great saphenous vein. Assessment/Plan Assessment/Plan Assessment/Plan: Left lower extremity DVT History of DVT of left lower extremity 5 years ago was on Eliquis no longer taking was only on for 6 months Labs Ultrasound left lower extremity duplex PT INR UA Therapeutic Lovenox A.m. labs Last echo EF 09/10/2024 60% Hx of HTN Continue home medications History of CAD status post CABG x2 in 2020 History of [place] Follow up outpatient with PCP Chronic hyperlipidemia Continue home medications History of kidney stones History of BPH Continue home medications FEN/PPX diet Hep-Lock DVT PPx - therapeutic Lovenox PUD PPx - not indicated patient has no history of GERD or GI bleed Home medications reconciled Discussed plan of care with patient, patient's and nurse Admit to med surge Plan discussed with: Patient My Orders Orders - GADIEL LIEBERMAN Procedure Category Date Status Time Enoxaparin Sodium PHA 10/04/24 Verified (Lovenox) 22:00 Admit ADMIT 10/04/24 Verified 11:47 Allergies SHAYY 10/04/24 Verified 11:47 Code Status CODE 10/04/24 Verified 11:47 Hydrocodone-Acet PHA 10/04/24 Verified 5/325mg Tab ([place] 12:00 Ondansetron Hcl PHA 10/04/24 Verified (Zofran) 12:00 Complete Blood Count LAB 10/05/24 Verified 04:00 Comprehensive LAB 10/05/24 Verified Metabolic Panel 04:00 Cardiac DIET 10/04/24 Verified Diet-2gna,Lofat,Lochol Lunch Acetaminophen Tablet PHA 10/04/24 Verified (Tylenol Tablet) 12:00 Nitroglycerin PHA 10/04/24 Verified Sublingual (Ntrostat 12:00 Morphine Sulfate PHA 10/04/24 Verified Injection 12:00 Stat Ekg For Chest SHAYY 10/04/24 Verified Pain 11:47 Notify Md Of Changes SHAYY 10/04/24 Verified From Base 11:47 Tip Out Worker For SHAYY 10/04/24 Verified 24 Hours 11:47 Emergency Dysrhythmia SHAYY 10/04/24 Verified Protocol 11:47 Rhythm Strips Once SHAYY 10/04/24 Verified Every Shift 11:47 Oxygen By Nasal RT 10/04/24 Verified Cannula 11:47 Date of Service: Oct 04, 2024 Billing Provider: GADIEL LIEBERMAN Common Visit Codes: [id number] INP/OBS CARE (HIGH) GADIEL LIEBERMAN Oct 04, 2024 12:08
[2024-10-04] MEDS: ENOXAPARIN SOD 80 MG/0.8ML SYRINGE SC ONE (13:27)
[2024-10-04 13:30] VITALS: PULSE 72; RESP 16; O2SAT 97
[2024-10-04 15:53] VITALS: BP 135/68; PULSE 73; RESP 16; TEMP 98; O2SAT 97
[2024-10-04 17:00] VITALS: BP 135/68; PULSE 73; RESP 16; TEMP 98; O2SAT 97
[2024-10-04] MEDS: TAMSULOSIN HYDROCHLORIDE 0.4 MG CAP PO SCH (17:51)
[2024-10-04] MEDS ORDERED: ASPI1TAB20 PO (18:13)
[2024-10-04 18:50] LABS: Urine Bacteria None Seen /hpf (None Seen)
[2024-10-04 19:08] LABS: Urine Blood 2+ /uL (Negative); Urine Clarity Clear (Clear); Urine Color Yellow (Yellow); Urine Mucus FEW (None Seen); Urine Protein, UAD 1+ (Negative); Urine Specific Gravity 1.027 (1.001-1.035); Urine Squamous Epithelial Cell FEW /hpf (<5); Urine Urobilinogen Normal (Negative); Urine WBC 16 /HPF (0-3); Urine pH 5.5 (5.0-9.0)
[2024-10-04 20:00] VITALS: PULSE 72; O2SAT 96
[2024-10-04] MEDS: ATORVASTATIN 20 MG TAB PO SCH (20:59)
[2024-10-04 21:00] VITALS: BP 106/60; PULSE 72; RESP 18; TEMP 97.7; O2SAT 96
[2024-10-04] MEDS: METOPROLOL TARTRATE 25 MG TAB PO SCH (21:07)
[2024-10-04] MEDS: ENOXAPARIN SOD 100 MG/1 ML SYRINGE SC SCH (21:07)
[2024-10-05] VITALS (7 sets, daily range): BP systolic 110–144; BP diastolic 59–73; PULSE 64–83; RESP 16–20; TEMP 97.5–98.1; O2SAT 91–96
[2024-10-05] MEDS ORDERED: EPINEPHrine HCL 1 MG/1 ML AMP ONE (04:27)
[2024-10-05] MEDS ORDERED: EPINEPHrine HCL 250 ML IV ONE (04:27)
[2024-10-05 07:21] LABS: Basophils # (auto) 0 10 ^3/uL (0-0.2); Basophils % (auto) 0.8 % (0.0-2.0); Eosinophils # (auto) 0.2 10 ^3/uL (0-0.8); Eosinophils % (auto) 2.7 % (0.0-7.0); Hematocrit 41.1 % (41.0-53.0); Hemoglobin 13.5 g/dL (13.5-17.5); Lymphocytes # (auto) 1.5 10 ^3/uL (0.4-5.4); Lymphocytes % (auto) 25.8 % (10.0-50.0); Mean Corpuscular Hemoglobin 28.9 pg (28.0-32.0); Mean Corpuscular Hgb Conc. 32.7 g/dL (32.0-36.0); Mean Corpuscular Volume 88.3 fL (80.0-100.0); Monocytes # (auto) 0.4 10 ^3/uL (0-1.3); Monocytes % (auto) 7.3 % (0.0-12.0); Neutrophils # (auto) 3.7 10 ^3/uL (1.6-8.6); Neutrophils % (auto) 63.4 % (37.0-80.0); Platelet Count (auto) 146 10^3/uL (140-450); Red Blood Cells 4.66 10^6/uL (4.5-5.90); Red Cell Distribution Width 13.5 % (11.8-14.3); White Blood Cell 5.8 10^3/uL (4.4-10.8)
[2024-10-05 07:40] LABS: Alanine Aminotransferase 31 U/L (7-40); Anion Gap 9 (5-15); Aspartate Aminotransferase 27 U/L (13-40); BUN/Creatinine Ratio 16.1 (10.0-20.0); Bilirubin, Total 0.7 mg/dL (0.2-1.0); Blood Urea Nitrogen 18 mg/dL (9-23); Calcium 9.3 mg/dL (8.7-10.4); Carbon Dioxide 23 mmol/L (20-31); Glucose 100 mg/dL (74-106); Potassium 3.9 mmol/L (3.5-5.1); Sodium 140 mmol/L (136-145)
[2024-10-05 07:41] LABS: Total Protein 6.2 g/dL (5.7-8.2)
[2024-10-05 08:03] LABS: Alkaline Phosphatase 42 U/L (46-116); Chloride 108 mmol/L (98-107)
[2024-10-05] MEDS: EZETIMIBE 10 MG TAB PO SCH (09:24)
[2024-10-05] MEDS: FINASTERIDE 5 MG TAB PO SCH (09:25)
[2024-10-05] MEDS: ISOSORBIDE MONONITRATE ER 60 MG TAB PO SCH (09:26)
--- NOTE | 2024-10-05 16:51 | DVHPN2 ---
Subjective 10/05 Left leg swelling is improving, patient feels better. Patient endorses that he now has hematuria since starting Lovenox. We will monitor overnight. Reviewed: H&P Changes from previous H/P or p: No Changes General: Per HPI Musculoskeletal: leg pain Skin: Other (Left leg greater than right swelling) Objective Vitals Vital Signs Date Time Temp Pulse Resp B/P (MAP) Pulse Ox O2 Delivery O2 Flow Rate FiO2 10/05/24 12:53 97.7 64 16 114/70 (85) 96 97.7 10/05/24 08:00 Room Air* 0 21 Intake/Output Intake and Output 10/05/24 07:00 Intake Total 603 ml Output Total 350 ml Balance 253 ml Intake Oral 603 ml Output Urine Total 350 ml # Bowel Movements 1 Exam GEN: Healthy appearing, well-developed, NAD. HEENT: NC/AT; MMM. CV: RRR, no m/r/g. S1-S2 present LUNGS: CTAB, no w/r/c. ABD: Soft, NT/ND, NBS, no masses or organomegaly. EXT: Right leg normal neurovascularly intact, left leg with +1 pitting edema at the shins. : No residual blood at urethral opening. NEURO: Ambulating with no limitations. No focal deficits. Medications Current Medications Medications Dose Ordered Sig/Dionte Route Start Time Stop Time Status Last Admin Dose Admin Enoxaparin Sodium 90 mg Q12HR SC 10/04/24 22:00 10/05/24 09:28 90 MG Acetaminophen/ Hydrocodone Bitart 1 tab Q4HP PRN PO 10/04/24 12:00 Ondansetron HCl 4 mg Q4HP PRN IV 10/04/24 12:00 Acetaminophen 650 mg Q6HP PRN PO 10/04/24 12:00 Nitroglycerin 0.4 mg Q5MINP PRN SL 10/04/24 12:00 Morphine Sulfate 2 mg Q30M PRN IV 10/04/24 12:00 EZETIMIBE 10 mg DAILY PO 10/05/24 10:00 10/05/24 09:24 10 MG Finasteride 5 mg DAILY PO 10/05/24 10:00 10/05/24 09:25 5 MG Metoprolol Tartrate 25 mg BID PO 10/04/24 22:00 10/05/24 09:25 25 MG Tamsulosin HCl 0.4 mg QPM PO 10/04/24 18:00 10/04/24 17:51 0.4 MG Isosorbide Mononitrate 30 mg DAILY PO 10/05/24 10:00 10/05/24 09:26 30 MG Laboratory Results Laboratory Tests 10/05/24 06:19 Chemistry Test 10/05/24 06:19 Albumin 4.0 g/dL (3.2-4.8) Calcium Level 9.3 mg/dL (8.7-10.4) Total Protein 6.2 g/dL (5.7-8.2) LFT Test 10/05/24 06:19 Alanine Aminotransferase (ALT) 31 U/L (7-40) Alkaline Phosphatase 42 U/L (46-116) L Aspartate Amino Transferase (AST) 27 U/L (13-40) Total Bilirubin 0.7 mg/dL (0.2-1.0) Urinalysis Test 10/04/24 18:43 Urine Color Yellow (Yellow) Urine Clarity Clear (Clear) Urine pH 5.5 (5.0-9.0) Urine Specific [place] 1.027 (1.001-1.035) Urine Protein 1+ (Negative) H Urine Ketones 2+ (Negative) H Urine Blood 2+ /uL (Negative) H Urine Nitrite Negative (Negative) Urine Bilirubin Negative (Negative) Urine Urobilinogen Normal mg/dL (Negative) Urine Leukocyte Esterase Trace /uL (Negative) Urine RBC 59 /hpf (0 - 3) Urine Microscopic WBC 16 /HPF (0-3) H Urine Squamous Epithelial Cells Few /hpf (<5) Urine Bacteria None seen /hpf (None Seen) Urine Mucus Few (None Seen) Urine Glucose Normal mg/dL (Normal) Microbiology Microbiology Date/Time Source Procedure Growth Status 10/04/24 18:55 Nose MRSA Screen - Final Complete Labs and/or images reviewed: Labs reviewed by me, Image(s) reviewed by me Assessment/Plan Assessment/Plan 10/05 Left leg swelling is improving, patient feels better. Patient endorses that he now has hematuria since starting Lovenox. We will monitor overnight. Left lower extremity DVT Hematuria, recurrence Status post TURP History of HTN History of CAD status post CABG x2 in 2020 History of [place] Chronic hyperlipidemia History of kidney stones History of BPH - recently discharged after treatment for kidney stones and TURP. Presenting with unilateral left-sided worsening edema - Patient has history of DVT from prior surgery when he had bypass. - Left lower extremity ultrasound DVT study showing left common femoral DVT. Size unknown - On day 2 10/05, patient noting recurrence of hematuria. -started on therapeutic Lovenox -monitor progression or hematuria, we will hold off urology consult at this point. -place on telemetry for possibility of DVT dislodgment and PE Diet - cardiac DVT PPx - therapeutic Lovenox PUD PPx - not indicated patient has no history of GERD or GI bleed Med tele Full code Plan discussed with: Patient Date of Service: Oct 05, 2024 Billing Provider: GILBERTO TAVARES MD Common Visit Codes: [id number] INP/OBS CARE(HIGH) GILBERTO TAVARES MD Oct 05, 2024 16:50
[2024-10-05] MEDS: SIMVASTATIN 20 MG PO SCH (22:30)
[2024-10-06] VITALS (8 sets, daily range): BP systolic 117–144; BP diastolic 62–77; PULSE 62–75; RESP 17–20; TEMP 97.3–98; O2SAT 93–97
[2024-10-06 13:59] LABS: Urine Bacteria None Seen /hpf (None Seen)
[2024-10-06 14:15] LABS: Urine Blood 3+ /uL (Negative); Urine Clarity Turbid (Clear); Urine Color Light-Brown (Yellow); Urine Mucus FEW (None Seen); Urine Protein, UAD 1+ (Negative); Urine Specific Gravity 1.019 (1.001-1.035); Urine Squamous Epithelial Cell FEW /hpf (<5); Urine Urobilinogen Normal (Negative); Urine WBC 36 /HPF (0-3)
--- NOTE | 2024-10-06 15:27 | DVHPN2 ---
Subjective Update 10/06 10/05 Left leg swelling is improving, patient feels better. Patient endorses that he now has hematuria since starting Lovenox. We will monitor overnight. 10/06 normal sinus rhythm on tele, however hematuria worsening. We will consult Urology. We will continue anticoagulation for DVT but okay to scale back to DVT prophylaxis if hematuria worsens overnight. Reviewed: H&P Changes from previous H/P or p: No Changes General: Per HPI Musculoskeletal: leg pain Skin: Other (Left leg greater than right swelling) Objective Vitals Vital Signs Date Time Temp Pulse Resp B/P (MAP) Pulse Ox O2 Delivery O2 Flow Rate FiO2 10/06/24 13:00 97.7 69 20 142/77 (98) 93 97.7 10/05/24 20:00 Room Air* 0 21 Intake/Output Intake and Output 10/06/24 07:00 Intake Total 2020 ml Output Total 2 ml Balance 2018 ml Intake Oral 2020 ml Stool Total 2 ml # Voids 10 Exam GEN: Healthy appearing, well-developed, NAD. HEENT: NC/AT; MMM. CV: RRR, no m/r/g. S1-S2 present LUNGS: CTAB, no w/r/c. ABD: Soft, NT/ND, NBS, no masses or organomegaly. EXT: Right leg normal neurovascularly intact, left leg with +1 pitting edema at the shins. : No residual blood at urethral opening. NEURO: Ambulating with no limitations. No focal deficits. Medications Current Medications Medications Dose Ordered Sig/Dionte Route Start Time Stop Time Status Last Admin Dose Admin Enoxaparin Sodium 90 mg Q12HR SC 10/04/24 22:00 10/06/24 11:23 90 MG Acetaminophen/ Hydrocodone Bitart 1 tab Q4HP PRN PO 10/04/24 12:00 Ondansetron HCl 4 mg Q4HP PRN IV 10/04/24 12:00 Acetaminophen 650 mg Q6HP PRN PO 10/04/24 12:00 Nitroglycerin 0.4 mg Q5MINP PRN SL 10/04/24 12:00 Morphine Sulfate 2 mg Q30M PRN IV 10/04/24 12:00 EZETIMIBE 10 mg DAILY PO 10/05/24 10:00 10/06/24 11:22 10 MG Finasteride 5 mg DAILY PO 10/05/24 10:00 10/06/24 11:21 5 MG Metoprolol Tartrate 25 mg BID PO 10/04/24 22:00 10/06/24 11:22 25 MG Tamsulosin HCl 0.4 mg QPM PO 10/04/24 18:00 10/05/24 18:14 0.4 MG Isosorbide Mononitrate 30 mg DAILY PO 10/05/24 10:00 10/06/24 11:20 30 MG Patient Own Medication 20 mg HS PO 10/05/24 22:30 Laboratory Results Laboratory Tests 10/05/24 06:19 Urinalysis Test 10/06/24 13:52 Urine Color Light-brown (Yellow) Urine Clarity Turbid (Clear) H Urine pH 6.0 (5.0-9.0) Urine Specific [place] 1.019 (1.001-1.035) Urine Protein 1+ (Negative) H Urine Ketones Negative (Negative) Urine Blood 3+ /uL (Negative) H Urine Nitrite Negative (Negative) Urine Bilirubin Negative (Negative) Urine Urobilinogen Normal mg/dL (Negative) Urine Leukocyte Esterase 1+ /uL (Negative) Urine RBC 1033 /hpf (0 - 3) Urine Microscopic WBC 36 /HPF (0-3) H Urine Squamous Epithelial Cells Few /hpf (<5) Urine Bacteria None seen /hpf (None Seen) Urine Mucus Few (None Seen) Urine Glucose Normal mg/dL (Normal) Microbiology Microbiology Date/Time Source Procedure Growth Status 10/04/24 18:55 Nose MRSA Screen - Final Complete Labs and/or images reviewed: Labs reviewed by me, Image(s) reviewed by me Assessment/Plan Assessment/Plan 10/06 normal sinus rhythm on tele, however hematuria worsening. We will consult Urology. We will continue anticoagulation for DVT but okay to scale back to DVT prophylaxis if hematuria worsens overnight. Left lower extremity DVT Hematuria, recurrence Status post TURP History of HTN History of CAD status post CABG x2 in 2020 History of [place] Chronic hyperlipidemia History of kidney stones History of BPH - recently discharged after treatment for kidney stones and TURP. Presenting with unilateral left-sided worsening edema - Patient has history of DVT from prior surgery when he had bypass. - Left lower extremity ultrasound DVT study showing left common femoral DVT. Size unknown - On day 2 10/05, patient noting recurrence of hematuria. -cont therapeutic Lovenox. okay to scale back to DVT prophylaxis if hematuria worsens overnight. -progression of hematuria, we will urology consult at this point. -place on telemetry for possibility of DVT dislodgment and risk of PE Diet - cardiac DVT PPx - therapeutic Lovenox PUD PPx - not indicated patient has no history of GERD or GI bleed Med tele Full code Plan discussed with: Patient My Orders Orders - GILBERTO TAVARES MD Procedure Category Date Status Time [employer] ORDERS 10/05/24 Transmitted 18:33 Transfer Orders XFER 10/05/24 Transmitted 18:33 Bladder US 10/06/24 Transmitted 11:11 Date of Service: Oct 06, 2024 Billing Provider: GILBERTO TAVARES MD Common Visit Codes: [id number] INP/OBS CARE(HIGH) GILBERTO TAVARES MD Oct 06, 2024 15:27
[2024-10-07] VITALS (7 sets, daily range): BP systolic 106–152; BP diastolic 51–77; PULSE 65–81; RESP 16–17; TEMP 97.5–98.1; O2SAT 92–99
[2024-10-07 05:59] LABS: Basophils # (auto) 0 10 ^3/uL (0-0.2); Basophils % (auto) 0.7 % (0.0-2.0); Eosinophils # (auto) 0.1 10 ^3/uL (0-0.8); Eosinophils % (auto) 2.5 % (0.0-7.0); Hemoglobin 14.4 g/dL (13.5-17.5); Lymphocytes # (auto) 1.4 10 ^3/uL (0.4-5.4); Mean Corpuscular Hemoglobin 29.1 pg (28.0-32.0); Mean Corpuscular Hgb Conc. 32.7 g/dL (32.0-36.0); Mean Corpuscular Volume 88.8 fL (80.0-100.0); Monocytes # (auto) 0.3 10 ^3/uL (0-1.3); Monocytes % (auto) 6.6 % (0.0-12.0); Neutrophils # (auto) 3.2 10 ^3/uL (1.6-8.6); Neutrophils % (auto) 62.2 % (37.0-80.0); Nucleated Red Blood Cells % 0.1 %; Platelet Count (auto) 196 10^3/uL (140-450); Red Blood Cells 4.95 10^6/uL (4.5-5.90); Red Cell Distribution Width 13.6 % (11.8-14.3); White Blood Cell 5.1 10^3/uL (4.4-10.8)
--- NOTE | 2024-10-07 09:54 | DVH ---
Exam: US BLADDER History: HEMATURIA Comparison: None Date: 10/07/2024 09:10 AM Technique: Grayscale and color Doppler ultrasound of the pelvis was obtained. Pre-and postvoid images of the bladder were obtained. Findings: Prevoid bladder is well distended and unremarkable. Prevoid bladder volume measures 209 cc. Prostate is enlarged measuring 7.0 x 6.5 x 7.4 cm with a volume of 179. The prostate is heterogeneous . IMPRESSION: Heterogeneous and enlarged prostate. Recommend correlation with PSA.
--- NOTE | 2024-10-07 12:19 | DVHINCON2 ---
Date of service: Oct 07, 2024 Referring Physician Hospitalist Reason for Consultation Gross hematuria History of Present Illness Patient known to me for recent urological procedure including trans urethral resection of the prostate gland and right ureteroscopic laser lithotripsy of ureteral calculus on 09/27/2024. Postoperatively he noted he has leg swelling and was diagnosed with DVT. He is on anticoagulation therapy and gross hematuria is reported. I recommended a Zhao catheter for tamponade effect and continuous bladder irrigation, but patient refused Past Medical History DVT BPH Urinary stone Past Surgical History Status post TURP and right ureteroscopic laser lithotripsy on 09/27/2024 Status post CABG Family History: FH: bladder cancer G8 FATHER, Onset:Unknown FH: throat cancer G8 MOTHER, Onset:60 years & older Pacemaker G8 FATHER Allergies: Coded Allergies: Atorvastatin (Verified Allergy, Intermediate, 10/04/24) Rash Uncoded Allergies: Atrovastatin (Allergy, Unknown, 09/09/24) Home Meds Active Scripts Hydrocodone-Acetaminophen (Hydrocodone Bitartrate/AC 5-325 mg) 1 Tab Tab, 1 TAB PO QID PRN, #30 TAB Prov:KESHA ROSENTHAL MD 09/14/24 Reported Medications Aspirin (Aspir-81) 81 Mg Tab, 1 TAB PO DAILY, #30 TAB 5 Refills 10/04/24 Finasteride (Finasteride) 5 Mg Tab, 5 MG PO DAILY, TAB 09/18/24 Tamsulosin Hcl (Tamsulosin Hcl) 0.4 Mg Cap, 0.4 MG PO QPM for 30 Days, MG 09/10/24 Isosorbide Mononitrate (Isosorbide Mononitrate Er) 30 Mg Tab, 30 MG PO DAILY for 30 Days, MG 09/10/24 Simvastatin (Simvastatin) 20 Mg Tab, 20 MG PO DAILY for dyslipidemia for 30 Days 11/19/23 Metoprolol Tartrate (Metoprolol Tartrate) 25 Mg Tab, 25 MG PO BID for htn for 30 Days, MG 11/19/23 Ezetimibe (Zetia) 10 Mg Tab, 1 TAB PO DAILY for HIGH CHOLESTEROL, #30 TAB 5 Refills 11/19/23 Review of Systems Constitutional: No: Fever, Chills, Sweats, Weakness, Malaise, Other Eyes: No: Pain, Vision change, Conjunctivae inflammation, Eyelid inflammation, Other, Redness ENT: No: Ear pain, Ear discharge, Nose pain, Nose discharge, Nose congestion, Mouth pain, Mouth swelling, Throat pain, Throat swelling, Other Respiratory: No: Cough, Dry, Shortness of breath, SOB with excertion, Wheezing, Hemoptysis, Pleuritic Pain, Sputum, Wheezing, Other Cardiovascular: No: Chest Pain, Palpitations, Orthopnea, Paroxysmal Noc. Dyspnea, Edema, Lt Headedness, Other Gastrointestinal: No: Nausea, Vomiting, Abdominal Pain, Diarrhea, Constipation, Melena, Hematochezia, Other Genitourinary: No Dysuria, No Frequency, No Incontinence, No Hematuria, No Retention, No Other Musculoskeletal: leg pain; No: other, neck pain, shoulder pain, arm pain, back pain, hand pain, foot pain Skin: Other (Left leg greater than right swelling); No: Rash, Lesions, Jaundice, Bruising Neurological: No: Weakness, Numbness, Incoordination, Change in speech, Confusion, Seizures, Other Allergies: Uncoded Allergies: Atrovastatin (Allergy, Unknown, 09/09/24) Vital Signs Vital Signs Date Time Temp Pulse Resp B/P (MAP) Pulse Ox O2 Delivery O2 Flow Rate FiO2 10/07/24 09:58 65 136/69 10/07/24 09:00 98.1 17 96 98.1 10/07/24 08:00 Room Air* 0 21 Physical Exam Vital Signs Date Time Temp Pulse Resp B/P (MAP) Pulse Ox O2 Delivery O2 Flow Rate FiO2 10/04/24 10:29 66 20 99 Room Air 10/04/24 10:29 97.8 111/61 (78) 97.8 General Appearance: Alert, Oriented X3, Cooperative, No acute distress HEENT: Atraumatic, PERRLA, EOMI, Mucous membr. moist/pink Respiratory: Clear to auscultation, Normal air movement Cardiovascular: Regular rate, Normal S1, Normal S2, No murmurs Abdominal: Normal bowel sounds, Soft, No tenderness, No hepatospenomegaly, No masses Extremities: No clubbing, No cyanosis Skin: No significant lesion Neuro: Normal gait, Normal speech, Strength at 5/5 X4 ext, Normal tone, Sensation intact Psych/Mental Status: Mental status NL, Mood NL Labs/Diagnostic Data Labs Test 10/07/24 04:48 10/06/24 13:52 10/05/24 06:19 10/04/24 10:35 Range/Units White Blood Count 5.1 4.4-10.8 10^3/uL Red Blood Count 4.95 4.5-5.90 10^6/uL Hemoglobin 14.4 13.5-17.5 g/dL Hematocrit 44.0 41.0-53.0 % Mean Corpuscular Volume 88.8 80.0-100.0 fL Mean Corpuscular Hemoglobin 29.1 28.0-32.0 pg Mean Corpuscular Hemoglobin Concent 32.7 32.0-36.0 g/dL Red Cell Distribution Width 13.6 11.8-14.3 % Platelet Count 196 140-450 10^3/uL Mean Platelet Volume 8.2 6.9-10.8 fL Neutrophils (%) (Auto) 62.2 37.0-80.0 % Lymphocytes (%) (Auto) 28.0 10.0-50.0 % Monocytes (%) (Auto) 6.6 0.0-12.0 % Eosinophils (%) (Auto) 2.5 0.0-7.0 % Basophils (%) (Auto) 0.7 0.0-2.0 % Neutrophils # (Auto) 3.2 1.6-8.6 10 ^3/uL Lymphocytes # (Auto) 1.4 0.4-5.4 10 ^3/uL Monocytes # (Auto) 0.3 0-1.3 10 ^3/uL Eosinophils # (Auto) 0.1 0-0.8 10 ^3/uL Basophils # (Auto) 0 0-0.2 10 ^3/uL Nucleated Red Blood Cells 0.1 % Urine Color Light-brown Yellow Urine Clarity Turbid H Clear Urine pH 6.0 5.0-9.0 Urine Specific [place] 1.019 1.001-1.035 Urine Protein 1+ H Negative Urine Ketones Negative Negative Urine Blood 3+ H Negative /uL Urine Nitrite Negative Negative Urine Bilirubin Negative Negative Urine Urobilinogen Normal Negative mg/dL Urine Leukocyte Esterase 1+ Negative /uL Urine RBC 1033 0 - 3 /hpf Urine Microscopic WBC 36 H 0-3 /HPF Urine Squamous Epithelial Cells Few <5 /hpf Urine Bacteria None seen None Seen /hpf Urine Mucus Few None Seen Urine Glucose Normal Normal mg/dL Sodium Level 140 136-145 mmol/L Potassium Level 3.9 3.5-5.1 mmol/L Chloride Level 108 H 98-107 mmol/L Carbon Dioxide Level 23 20-31 mmol/L Anion Gap 9 5-15 Blood Urea Nitrogen 18 9-23 mg/dL Creatinine 1.12 0.700-1.30 mg/dL Glomerular Filtration Rate Calc 69 >90 mL/min BUN/Creatinine Ratio 16.1 10.0-20.0 Serum Glucose 100 74-106 mg/dL Calcium Level 9.3 8.7-10.4 mg/dL Total Bilirubin 0.7 0.2-1.0 mg/dL Aspartate Amino Transferase (AST) 27 13-40 U/L Alanine Aminotransferase (ALT) 31 7-40 U/L Alkaline Phosphatase 42 L 46-116 U/L Total Protein 6.2 5.7-8.2 g/dL Albumin 4.0 3.2-4.8 g/dL Prothrombin Time 10.8 9.3-11.8 sec Prothrombin Time INR 1.02 0.9-1.15 Microbiology Date/Time Source Procedure Growth Status 10/04/24 18:55 Nose MRSA Screen - Final Complete PATIENT: ABBY HOLT ACCT: [id number] UNIT: [id number] : 1950 LOC: ER ROOM / BED: / AGE / SEX: 73 / M ADM STATUS: REG ER SERVICE 1030 ORDERING PHYSICIAN: KEANU CUENCA PROCEDURE(s): LLDVT - LT Lower DVT REASON: LEFT LOWER LEG SWELLING ORDER NUMBER(s): [id number], ACCESSION NUMBER(s): [id number] EXAM: US Duplex Left Lower Extremity Veins CLINICAL INDICATION: LEFT LOWER LEG SWELLING TECHNIQUE: Real-time duplex ultrasound scan of the left lower extremity veins integrating B-mode two-dimensional vascular structure, Doppler spectral analysis, color flow Doppler imaging and compression. COMPARISON: None FINDINGS: DEEP VEINS: Thrombus in the left common femoral vein, left posterior tibial vein, and great saphenous vein. SUPERFICIAL VEINS: See above. SOFT TISSUES: No acute findings. No popliteal cyst. OTHER FINDINGS: . . . .. IMPRESSION: Thrombus in the left common femoral vein, left posterior tibial vein, and great saphenous vein. ATED BY: MABLE WINTER MD DICTATED DATE/TIME: 10/04/24 111 SIGNED BY: MABLE WINTER MD SIGNED DATE/TIME: 10/04/24 111 CC: Assessment Deep venous thrombosis of left lower extremity Gross hematuria Status post recent prostatectomy and laser lithotripsy of ureteral calculus Plan/Recommendation Patient is refusing three way Zhao catheter and continuous bladder irrigation. I recommended that he undergo vena cava filter placement for the management of DVT and preventative measures for pulmonary embolus No other urological intervention is indicated at this time Plan discussed with: Patient, Spouse SUSANNAH ORONA MD Oct 07, 2024 12:19
--- NOTE | 2024-10-07 16:24 | DVHPN2 ---
Subjective Update 10/07 10/05 Left leg swelling is improving, patient feels better. Patient endorses that he now has hematuria since starting Lovenox. We will monitor overnight. 10/06 normal sinus rhythm on tele, however hematuria worsening. We will consult Urology. We will continue anticoagulation for DVT but okay to scale back to DVT prophylaxis if hematuria worsens overnight. 10/07 patient continues to have hematuria. Vital signs stable. Concern for PE is lower we will DC tele today. Urology evaluated and recommend IVC filter but patient denies. IR consulted for IVC filter but recommends thrombectomy. NPO midnight for thrombectomy tomorrow. We will hold off further Lovenox. Reviewed: H&P Changes from previous H/P or p: No Changes General: Per HPI Musculoskeletal: leg pain Skin: Other (Left leg greater than right swelling) Objective Vitals Vital Signs Date Time Temp Pulse Resp B/P (MAP) Pulse Ox O2 Delivery O2 Flow Rate FiO2 10/07/24 13:00 97.7 66 17 142/72 (95) 92 97.7 10/07/24 08:00 Room Air* 0 21 Intake/Output Intake and Output 10/07/24 07:00 Intake Total 2103 ml Output Total 575 ml Balance 1528 ml Intake Oral 2103 ml Output Urine Total 575 ml Stool Total 0 ml # Voids 8 # Bowel Movements 1 Exam GEN: Healthy appearing, well-developed, NAD. HEENT: NC/AT; MMM. CV: RRR, no m/r/g. S1-S2 present LUNGS: CTAB, no w/r/c. ABD: Soft, NT/ND, NBS, no masses or organomegaly. EXT: Right leg normal neurovascularly intact, left leg with +1 pitting edema at the shins. : No residual blood at urethral opening. NEURO: Ambulating with no limitations. No focal deficits. Medications Current Medications Medications Dose Ordered Sig/Dionte Route Start Time Stop Time Status Last Admin Dose Admin Enoxaparin Sodium 90 mg Q12HR SC 10/04/24 22:00 10/07/24 09:58 90 MG Acetaminophen/ Hydrocodone Bitart 1 tab Q4HP PRN PO 10/04/24 12:00 Ondansetron HCl 4 mg Q4HP PRN IV 10/04/24 12:00 Acetaminophen 650 mg Q6HP PRN PO 10/04/24 12:00 Nitroglycerin 0.4 mg Q5MINP PRN SL 10/04/24 12:00 Morphine Sulfate 2 mg Q30M PRN IV 10/04/24 12:00 EZETIMIBE 10 mg DAILY PO 10/05/24 10:00 10/07/24 09:58 10 MG Finasteride 5 mg DAILY PO 10/05/24 10:00 10/07/24 09:58 5 MG Metoprolol Tartrate 25 mg BID PO 10/04/24 22:00 10/07/24 09:58 25 MG Tamsulosin HCl 0.4 mg QPM PO 10/04/24 18:00 10/06/24 18:03 0.4 MG Isosorbide Mononitrate 30 mg DAILY PO 10/05/24 10:00 10/07/24 09:57 30 MG Patient Own Medication 20 mg HS PO 10/05/24 22:30 10/06/24 21:52 20 MG Laboratory Results Laboratory Tests 10/05/24 06:19 10/07/24 04:48 Urinalysis Test 10/06/24 13:52 Urine Color Light-brown (Yellow) Urine Clarity Turbid (Clear) H Urine pH 6.0 (5.0-9.0) Urine Specific [place] 1.019 (1.001-1.035) Urine Protein 1+ (Negative) H Urine Ketones Negative (Negative) Urine Blood 3+ /uL (Negative) H Urine Nitrite Negative (Negative) Urine Bilirubin Negative (Negative) Urine Urobilinogen Normal mg/dL (Negative) Urine Leukocyte Esterase 1+ /uL (Negative) Urine RBC 1033 /hpf (0 - 3) Urine Microscopic WBC 36 /HPF (0-3) H Urine Squamous Epithelial Cells Few /hpf (<5) Urine Bacteria None seen /hpf (None Seen) Urine Mucus Few (None Seen) Urine Glucose Normal mg/dL (Normal) Microbiology Microbiology Date/Time Source Procedure Growth Status 10/04/24 18:55 Nose MRSA Screen - Final Complete Labs and/or images reviewed: Labs reviewed by me, Image(s) reviewed by me Assessment/Plan Assessment/Plan 10/07 patient continues to have hematuria. Vital signs stable. Concern for PE is lower we will DC tele today. Urology evaluated and recommend IVC filter but patient denies. IR consulted for IVC filter but recommends thrombectomy. NPO midnight for thrombectomy tomorrow. We will hold off further Lovenox. Left lower extremity DVT Hematuria, recurrence Status post TURP History of HTN History of CAD status post CABG x2 in 2020 History of [place] Chronic hyperlipidemia History of kidney stones History of BPH - recently discharged after treatment for kidney stones and TURP. Presenting with unilateral left-sided worsening edema - Patient has history of DVT from prior surgery when he had bypass. - Left lower extremity ultrasound DVT study showing left common femoral DVT. Size unknown - On day 2 10/05, patient noting recurrence of hematuria. -stops therapeutic Lovenox. okay to scale back to DVT prophylaxis if hematuria worsens overnight. -urology recommends IVC filter but patient denies, IR consulted -IR evaluates case and recommends thrombectomy. Plan for thrombectomy on 10/08 -lower concern for PE,. Telemetry Diet - cardiac DVT PPx - therapeutic Lovenox PUD PPx - not indicated patient has no history of GERD or GI bleed Med surge Full code Plan discussed with: Patient My Orders Orders - GILBERTO TAVARES MD Procedure Category Date Status Time Bladder US 10/07/24 Resulted 09:04 Transfer Orders XFER 10/07/24 Transmitted 14:48 Date of Service: Oct 07, 2024 Billing Provider: GILBERTO TAVARES MD Common Visit Codes: [id number] INP/OBS CARE(HIGH) GILBERTO TAVARES MD Oct 07, 2024 16:24
[2024-10-08] VITALS (8 sets, daily range): BP systolic 109–155; BP diastolic 56–76; PULSE 65–74; RESP 11–18; TEMP 97.4–98.7; O2SAT 93–98
[2024-10-08 06:33] LABS: Potassium 3.8 mmol/L (3.5-5.1); Sodium 142 mmol/L (136-145)
[2024-10-08 06:34] LABS: Anion Gap 9 (5-15); Basophils # (auto) 0 10 ^3/uL (0-0.2); Basophils % (auto) 0.7 % (0.0-2.0); Carbon Dioxide 25 mmol/L (20-31); Eosinophils # (auto) 0.1 10 ^3/uL (0-0.8); Eosinophils % (auto) 2.6 % (0.0-7.0); Hematocrit 42.6 % (41.0-53.0); Hemoglobin 13.8 g/dL (13.5-17.5); Lymphocytes # (auto) 1.3 10 ^3/uL (0.4-5.4); Lymphocytes % (auto) 23.3 % (10.0-50.0); Mean Corpuscular Hemoglobin 28.8 pg (28.0-32.0); Mean Corpuscular Hgb Conc. 32.3 g/dL (32.0-36.0); Mean Corpuscular Volume 88.9 fL (80.0-100.0); Monocytes # (auto) 0.4 10 ^3/uL (0-1.3); Monocytes % (auto) 7.9 % (0.0-12.0); Neutrophils # (auto) 3.6 10 ^3/uL (1.6-8.6); Neutrophils % (auto) 65.5 % (37.0-80.0); Nucleated Red Blood Cells % 0.2 %; Platelet Count (auto) 186 10^3/uL (140-450); Red Blood Cells 4.79 10^6/uL (4.5-5.90); Red Cell Distribution Width 13.6 % (11.8-14.3); White Blood Cell 5.5 10^3/uL (4.4-10.8)
[2024-10-08 06:35] LABS: Calcium 9.6 mg/dL (8.7-10.4)
[2024-10-08 06:39] LABS: BUN/Creatinine Ratio 16.7 (10.0-20.0); Blood Urea Nitrogen 19 mg/dL (9-23); Glucose 99 mg/dL (74-106)
[2024-10-08 06:41] LABS: Chloride 108 mmol/L (98-107)
[2024-10-08] MEDS ORDERED: LIDOCAINE 2%HCL (LOCAL ANESTH.) INJ 20ML MDV ONE (11:41)
[2024-10-08] MEDS ORDERED: fentaNYL CITRATE 100 MCG/2 ML VL ONE (11:41)
[2024-10-08] MEDS ORDERED: MIDAZOLAM HCL 2MG/2ML 2ml VIAL (1mg/ml) ONE (11:41)
[2024-10-08] MEDS ORDERED: IODIXANOL 320MG/ML 100ML BTL IV ONE (11:42)
[2024-10-08] MEDS ORDERED: HEPARIN SODIUM (PORCINE) 5000 UNITS/ML 1ML VIAL ONE (12:43)
--- NOTE | 2024-10-08 15:00 | DVH ---
XY PERCU.VENOUS THROMBECTOMY, HISTORY: THROMBUS PROCEDURE: Informed consent was obtained. The patient was placed on the fluoroscopic table in prone p osition. The left popliteal fossa was prepped with chlorhexidine which was allowed to dry and draped in the usual sterile fashion. Time out was performed. Following administration of 1% local lidocaine, the left popliteal vein was accessed with a micropuncture set under ultrasound guidance, and an imag e documenting patency sent to PACS. Contrast injection confirms location in the popliteal vein. Over a guidewire, a 6 Fr vascular sheath was placed into the popliteal vein. A glide wire and navicross ca theter was used to cross the thrombus in the leg and the occlusion in the iliac vein. With the cathet er in the IVC, Contrast injection confirms location in the IVC. An ACT was obtained. 5000 total units of heparin was given IV. Then, the 6 Fr sheath was exchanged for a 16 Fr Inari sheath placed in the popliteal vein. The 13 Fr Inari Clot Triever device was placed at the level over the femoral head. 3 passes were performed. Clot was extracted. A completion venogram of the leg and pelvis was performed. A Flow stasis device was used to close the venotomy site and the catheters, sheath, wire was removed . No immediate complication was identified. DAP 912 FLUOROSCOPY TIME: 12.6 minutes. CONTRAST USED: 50 mL Isovue 300. SEDATION: Dr. Renny Arndt was personally responsible for the administration of moderate sedation during the procedure performed, including the use of an independent trained observer who had no other duties during the procedure. The drugs utilized were IV fentanyl and versed (see nursing log for details). The total time of supervision by the attending physician was approximately 75 minutes. FINDINGS: Left popliteal, femoral, common femoral vein thrombus with prominent collaterals in the leg . 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 Patent IVC. Mechanical thrombectomy of the left common femoral, femoral and popliteal veins with Inari Clot Triever. Improved patency of the left lower extremity veins with decreased visualization of collaterals. IMPRESSION: Left popliteal, femoral, common femoral vein thrombus with prominent collaterals in the leg. Occlusio n of the left iliac vein with large collaterals indicates a chronic venous occlusion of the left rc c vein. Mechanical thrombectomy of the left common femoral, femoral and popliteal veins with Inari Clot Triev er. Improved patency of the left lower extremity veins with decreased visualization of collaterals. PLAN: Left leg straight for 2 hours. Continue Lovenox per primary. Will remove flow stasis device in 24-48 hours.
--- NOTE | 2024-10-09 00:02 | DVHPN2 ---
Subjective Update 10/08 10/05 Left leg swelling is improving, patient feels better. Patient endorses that he now has hematuria since starting Lovenox. We will monitor overnight. 10/06 normal sinus rhythm on tele, however hematuria worsening. We will consult Urology. We will continue anticoagulation for DVT but okay to scale back to DVT prophylaxis if hematuria worsens overnight. 10/07 patient continues to have hematuria. Vital signs stable. Concern for PE is lower we will DC tele today. Urology evaluated and recommend IVC filter but patient denies. IR consulted for IVC filter but recommends thrombectomy. NPO midnight for thrombectomy tomorrow. We will hold off further Lovenox. 10/08 - plan for thrombectomy today. npo since mn. Reviewed: H&P Changes from previous H/P or p: No Changes General: Per HPI Musculoskeletal: leg pain Skin: Other (Left leg greater than right swelling) Objective Vitals Vital Signs Date Time Temp Pulse Resp B/P (MAP) Pulse Ox O2 Delivery O2 Flow Rate FiO2 10/08/24 21:14 74 131/56 10/08/24 21:00 98.7 18 96 98.7 10/08/24 19:58 Room Air* 0 21 Intake/Output Intake and Output 10/09/24 07:00 Intake Total 200 ml Balance 200 ml Intake Oral 200 ml # Voids 3 # Bowel Movements 1 Exam GEN: Healthy appearing, well-developed, NAD. HEENT: NC/AT; MMM. CV: RRR, no m/r/g. S1-S2 present LUNGS: CTAB, no w/r/c. ABD: Soft, NT/ND, NBS, no masses or organomegaly. EXT: Right leg normal neurovascularly intact, left leg with +1 pitting edema at the shins. : No residual blood at urethral opening. NEURO: Ambulating with no limitations. No focal deficits. Medications Current Medications Medications Dose Ordered Sig/Dionte Route Start Time Stop Time Status Last Admin Dose Admin Acetaminophen/ Hydrocodone Bitart 1 tab Q4HP PRN PO 10/04/24 12:00 Ondansetron HCl 4 mg Q4HP PRN IV 10/04/24 12:00 Acetaminophen 650 mg Q6HP PRN PO 10/04/24 12:00 Nitroglycerin 0.4 mg Q5MINP PRN SL 10/04/24 12:00 Morphine Sulfate 2 mg Q30M PRN IV 10/04/24 12:00 EZETIMIBE 10 mg DAILY PO 10/05/24 10:00 10/07/24 09:58 10 MG Finasteride 5 mg DAILY PO 10/05/24 10:00 10/07/24 09:58 5 MG Metoprolol Tartrate 25 mg BID PO 10/04/24 22:00 10/08/24 21:14 25 MG Tamsulosin HCl 0.4 mg QPM PO 10/04/24 18:00 10/08/24 18:04 0.4 MG Isosorbide Mononitrate 30 mg DAILY PO 10/05/24 10:00 10/07/24 09:57 30 MG Patient Own Medication 20 mg HS PO 10/05/24 22:30 10/07/24 21:44 20 MG Laboratory Results Laboratory Tests 10/08/24 05:00 Chemistry Test 10/08/24 05:00 Calcium Level 9.6 mg/dL (8.7-10.4) Urinalysis Test 10/06/24 13:52 Urine Color Light-brown (Yellow) Urine Clarity Turbid (Clear) H Urine pH 6.0 (5.0-9.0) Urine Specific [place] 1.019 (1.001-1.035) Urine Protein 1+ (Negative) H Urine Ketones Negative (Negative) Urine Blood 3+ /uL (Negative) H Urine Nitrite Negative (Negative) Urine Bilirubin Negative (Negative) Urine Urobilinogen Normal mg/dL (Negative) Urine Leukocyte Esterase 1+ /uL (Negative) Urine RBC 1033 /hpf (0 - 3) Urine Microscopic WBC 36 /HPF (0-3) H Urine Squamous Epithelial Cells Few /hpf (<5) Urine Bacteria None seen /hpf (None Seen) Urine Mucus Few (None Seen) Urine Glucose Normal mg/dL (Normal) Microbiology Microbiology Date/Time Source Procedure Growth Status 10/04/24 18:55 Nose MRSA Screen - Final Complete Labs and/or images reviewed: Labs reviewed by me, Image(s) reviewed by me Assessment/Plan Assessment/Plan 10/08 - plan for thrombectomy today. npo since mn. Left lower extremity DVT Hematuria, recurrence Status post TURP History of HTN History of CAD status post CABG x2 in 2020 History of [place] Chronic hyperlipidemia History of kidney stones History of BPH - recently discharged after treatment for kidney stones and TURP. Presenting with unilateral left-sided worsening edema - Patient has history of DVT from prior surgery when he had bypass. - Left lower extremity ultrasound DVT study showing left common femoral DVT. Size unknown - On day 2 10/05, patient noting recurrence of hematuria. -stops therapeutic Lovenox. okay to scale back to DVT prophylaxis if hematuria worsens overnight. -urology recommends IVC filter but patient denies, IR consulted -IR evaluates case and recommends thrombectomy. Plan for thrombectomy on 10/08 -lower concern for PE,. Telemetry Diet - cardiac DVT PPx - therapeutic Lovenox PUD PPx - not indicated patient has no history of GERD or GI bleed Med surge Full code NOTE FOR 10/08/24 Plan discussed with: Patient My Orders Orders - GILBERTO TAVARES MD Procedure Category Date Status Time Percu.Venous XY 10/08/24 Resulted Thrombectomy 07:40 Date of Service: Oct 08, 2024 Billing Provider: GILBERTO TAVARES MD Common Visit Codes: [id number] INP/OBS CARE(HIGH) GILBERTO TAVARES MD Oct 09, 2024 00:02
[2024-10-09 01:00] VITALS: BP 118/60; PULSE 64; RESP 18; TEMP 97.7; O2SAT 95
[2024-10-09 05:00] VITALS: BP 128/60; PULSE 72; RESP 18; TEMP 97.6; O2SAT 97
[2024-10-09 09:00] VITALS: BP 125/69; PULSE 72; RESP 18; TEMP 98.3; O2SAT 94
--- NOTE | 2024-10-09 09:59 | DVHDS2 ---
Discharge Summary Date of Admission Oct 04, 2024 at 11:47 Date of Discharge: Oct 09, 2024 Admitting Diagnosis left leg swelling Labs/Diagnostic Data: Laboratory Results Test 10/08/24 13:58 10/08/24 05:00 10/06/24 13:52 10/05/24 06:19 White Blood Count 5.5 10^3/uL (4.4-10.8) Red Blood Count 4.79 10^6/uL (4.5-5.90) Hemoglobin 13.8 g/dL (13.5-17.5) Hematocrit 42.6 % (41.0-53.0) Mean Corpuscular Volume 88.9 fL (80.0-100.0) Mean Corpuscular Hemoglobin 28.8 pg (28.0-32.0) Mean Corpuscular Hemoglobin Concent 32.3 g/dL (32.0-36.0) Red Cell Distribution Width 13.6 % (11.8-14.3) Platelet Count 186 10^3/uL (140-450) Mean Platelet Volume 8.3 fL (6.9-10.8) Neutrophils (%) (Auto) 65.5 % (37.0-80.0) Lymphocytes (%) (Auto) 23.3 % (10.0-50.0) Monocytes (%) (Auto) 7.9 % (0.0-12.0) Eosinophils (%) (Auto) 2.6 % (0.0-7.0) Basophils (%) (Auto) 0.7 % (0.0-2.0) Neutrophils # (Auto) 3.6 10 ^3/uL (1.6-8.6) Lymphocytes # (Auto) 1.3 10 ^3/uL (0.4-5.4) Monocytes # (Auto) 0.4 10 ^3/uL (0-1.3) Eosinophils # (Auto) 0.1 10 ^3/uL (0-0.8) Basophils # (Auto) 0 10 ^3/uL (0-0.2) Nucleated Red Blood Cells 0.2 % Sodium Level 142 mmol/L (136-145) Potassium Level 3.8 mmol/L (3.5-5.1) Chloride Level 108 mmol/L (98-107) Carbon Dioxide Level 25 mmol/L (20-31) Anion Gap 9 (5-15) Blood Urea Nitrogen 19 mg/dL (9-23) Creatinine 1.14 mg/dL (0.700-1.30) Glomerular Filtration Rate Calc 67 mL/min (>90) BUN/Creatinine Ratio 16.7 (10.0-20.0) Serum Glucose 99 mg/dL (74-106) Calcium Level 9.6 mg/dL (8.7-10.4) Urine Color Light-brown (Yellow) Urine Clarity Turbid (Clear) Urine pH 6.0 (5.0-9.0) Urine Specific [place] 1.019 (1.001-1.035) Urine Protein 1+ (Negative) Urine Ketones Negative (Negative) Urine Blood 3+ /uL (Negative) Urine Nitrite Negative (Negative) Urine Bilirubin Negative (Negative) Urine Urobilinogen Normal mg/dL (Negative) Urine Leukocyte Esterase 1+ /uL (Negative) Urine RBC 1033 /hpf (0 - 3) Urine Microscopic WBC 36 /HPF (0-3) Urine Squamous Epithelial Cells Few /hpf (<5) Urine Bacteria None seen /hpf (None Seen) Urine Mucus Few (None Seen) Urine Glucose Normal mg/dL (Normal) Total Bilirubin 0.7 mg/dL (0.2-1.0) Aspartate Amino Transferase (AST) 27 U/L (13-40) Alanine Aminotransferase (ALT) 31 U/L (7-40) Alkaline Phosphatase 42 U/L (46-116) Total Protein 6.2 g/dL (5.7-8.2) Albumin 4.0 g/dL (3.2-4.8) Test 10/04/24 10:35 Prothrombin Time 10.8 sec (9.3-11.8) Prothrombin Time INR 1.02 (0.9-1.15) Other Laboratory Tests 10/08/24 05:00 Brief Hx & Hospital Course: HPI: 73-year-old male with past medical history of CAD status post CABG x2 in 2020 at [facility], hypertension, hyperlipidemia, kidney stones, BPH, [place], tonsillectomy, history of left lower extremity DVT, and TURP 1 week ago who presents to the ED for left lower extremity leg pain and swelling x5 days. Patient reports that when he walks the pain occurs. He states he was just here a week ago and having penile pain with discharge. Summary: recently discharged after treatment for kidney stones and TURP. P resenting with unilateral left-sided worsening edema. Patient has history of DVT from prior surgery when he had bypass. Left lower extremity ultrasound DVT study showing left common femoral DVT. Started on full-dose Lovenox, on day2 noting some hematuria, day3 worsening hematuria and Urology consulted. Urology recommends stopping anticoagulation in insert IVC filter. I evaluated in case and recommend thrombectomy. Thrombectomy done on 10/08 with large clot burden removal. Patient symptoms resolving on 10/09. Hemostat removed on 10/09. Patient is stable to discharge thereafter with plan below. 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 Condition at Discharge: Fair Final Diagnosis/Problems List Left lower extremity DVT s/p thrombectomy 10/08/24 Hematuria, recurrence, resolving Status post TURP History of HTN History of CAD status post CABG x2 in 2020 History of [place] Chronic hyperlipidemia History of kidney stones History of BPH Discharge Disposition: Home Discharge Statement: "Patient was advised to return to the ER or call 911 if any headaches, dizziness, shortness of breath, chest pain, abdominal pain, bleeding, fevers, or worsening of medical condition. Patient was counseled about treatment plan, medications, possible side effects, patientverbalized understanding. All questions were answered to the best of my ability. This discharge took greater then 30 minutes in planning, reviewing documentation, counseling the patient, and discussing with other team members." ASSESSMENT ASSESSMENT Assessment Date of Service: Oct 09, 2024 Billing Provider: GILBERTO TAVARES MD Common Visit Codes: [id number] DISCH DAY >30min GILBERTO TAVARES MD Oct 09, 2024 09:59
[2024-10-09 13:00] VITALS: BP 127/74; PULSE 77; RESP 18; TEMP 98; O2SAT 95
[2024-10-09 14:56] VITALS: BP 125/69; PULSE 72; RESP 18; TEMP 98.3; O2SAT 94
--- NOTE | 2024-10-13 13:34 | PEER ---
Peer to Peer Review Time DATE: 10/13/24 TIME: 13:32 Review and Recommendations: Spoke with Dr. Allred approved for inpatient stay as a different / new admission from previous as DVT during this stay was unavoidable per Dr. Allred . CADENCE TSAI MD Oct 13, 2024 13:34
[2024-10-15] MEDS ORDERED: PANT40T PO (10:11)
[2024-10-23] MEDS ORDERED: APIX5TAB4 PO (14:17)
[2024-10-23] MEDS ORDERED: APIX5TAB PO (14:17)
== END 2024-10-09 15:40 | disposition home or self-care (01) | DRG 272 ==
LOC: ER 09:42 → OVERFLOW 11:47 → WEST WING 15:19 → TELE-WESTW 10-05 20:01
PROVIDERS: ADMIT Student in an Organized Health Care Education/Training Program; ATTEND Student in an Organized Health Care Education/Training Program
PROC: 04CL3ZZ Extirpation of Matter from Left Femoral Artery, Percutaneous Approach (ICD-10-PCS; principal; 2024-10-08)
PROC: 04CN3ZZ Extirpation of Matter from Left Popliteal Artery, Percutaneous Approach (ICD-10-PCS; 2024-10-08)
PROC: B51C1ZZ Fluoroscopy of Left Lower Extremity Veins using Low Osmolar Contrast (ICD-10-PCS; 2024-10-08)
DX: I82.412 Acute embolism and thrombosis of left femoral vein (principal); E78.5 Hyperlipidemia, unspecified; N40.0 Benign prostatic hyperplasia without lower urinary tract symptoms; I25.10 Atherosclerotic heart disease of native coronary artery without angina pectoris; I10 Essential (primary) hypertension; R31.0 Gross hematuria; I82.442 Acute embolism and thrombosis of left tibial vein; I82.812 Embolism and thrombosis of superficial veins of left lower extremity; Z79.01 Long term (current) use of anticoagulants; Z87.442 Personal history of urinary calculi; Z90.79 Acquired absence of other genital organ(s); Z95.1 Presence of aortocoronary bypass graft; Z80.8 Family history of malignant neoplasm of other organs or systems; Z80.52 Family history of malignant neoplasm of bladder; I25.2 Old myocardial infarction
CPT/HCPCS: 34203; 36012; 36415; 37187; 76857; 80048; 80053; 81001; 85025; 85610; 87081; 93971; 96372; 99152; C1894; G0378; J0171; J2250; Q9967

== ENCOUNTER 2024-10-18 07:00 | Inpatient (IN) | payer OTHER ==
[~2024-10-18] VITALS: Ht 182.9 cm; Wt 86.4 kg
[~2024-10-18 07:00] MED LIST changes: +ASPI1TAB20 PO; +PANT40T PO
--- NOTE | 2024-10-18 07:26 | ED.PDOC ---
Musculoskeletal HPI Comments 73-year-old male presents with a chief complaint of leg swelling x 1 week s/p thrombectomy. Patient reports that he had a recent thrombectomy on his left lower leg after developing a DVT after his CABG. Patient had the clot removed and the swelling went away, however, patient is now having 3+ pitting edema to the left leg. Patient is not on blood thinners due to having hematuria. Patient reports tingling to his left leg. No other symptoms or modifying factors present at this time. Time Seen by MD: 07:05 Primary Care Provider: Jesseek Reviewed Notes: Nurses Notes Allergies: Coded Allergies: Atorvastatin (Verified Allergy, Intermediate, 10/04/24) Rash Uncoded Allergies: Atrovastatin (Allergy, Unknown, 09/09/24) Home Meds Active Scripts Pantoprazole Sodium Sesquihydr (Pantoprazole Sodium) 40 Mg Tab, 40 MG PO DAILY for 60 Days, #60 TAB 5 Refills Prov:SHU FISH RESIDENT 10/15/24 Hydrocodone-Acetaminophen (Hydrocodone Bitartrate/AC 5-325 mg) 1 Tab Tab, 1 TAB PO QID PRN, #30 TAB Prov:KESHA ROSENTHAL MD 09/14/24 Reported Medications Aspirin (Aspir-81) 81 Mg Tab, 1 TAB PO DAILY, #30 TAB 5 Refills 10/04/24 Finasteride (Finasteride) 5 Mg Tab, 5 MG PO DAILY, TAB 09/18/24 Tamsulosin Hcl (Tamsulosin Hcl) 0.4 Mg Cap, 0.4 MG PO QPM for 30 Days, MG 09/10/24 Isosorbide Mononitrate (Isosorbide Mononitrate Er) 30 Mg Tab, 30 MG PO DAILY for 30 Days, MG 09/10/24 Simvastatin (Simvastatin) 20 Mg Tab, 20 MG PO DAILY for dyslipidemia for 30 Days 11/19/23 Metoprolol Tartrate (Metoprolol Tartrate) 25 Mg Tab, 25 MG PO BID for htn for 30 Days, MG 11/19/23 Ezetimibe (Zetia) 10 Mg Tab, 1 TAB PO DAILY for HIGH CHOLESTEROL, #30 TAB 5 Refills 11/19/23 Past Medical History PAST MEDICAL HISTORY: CAD, High Lipids, HTN, Kidney Stones, [place] Surgical History: CABG, Tonsillectomy Family History Family History: Reviewed,noncontributory to illness, Family hx of Cancer Social History Smoker: Non-Smoker Alcohol: Denies ETOH Use Drugs: Denies Drug Use Lives In: Home Constitutional: denies: chills, diaphoresis, fatigue, fever, malaise, sweats, weakness, others EENTM: denies: blurred vision, double vision, ear bleeding, ear discharge, ear drainage, ear pain, ear ringing, eye pain, eye redness, hearing loss, mouth pain, mouth swelling, nasal discharge, nose bleeding, nose congestion, nose pain, photophobia, tearing, throat pain, throat swelling, voice changes, others Respiratory: denies: cough, hemoptysis, orthopnea, SOB at rest, shortness of breath, SOB with excertion, stridor, wheezing, others Cardiovascular: reports: edema (LEFT LOWER LEG ); denies: chest pain, dizzy spells, diaphoresis, Dyspnea on exertion, irregular heart beat, left arm pain, lightheadedness, palpitations, PND, syncope, others Gastrointestinal: denies: abdomen distended, abdominal pain, blood streaked bowels, constipated, diarrhea, dysphagia, difficulty swallowing, hematemesis, melena, nausea, poor appetite, poor fluid intake, rectal bleeding, rectal pain, vomiting, others Genitourinary: denies: burning, dysuria, flank pain, frequency, hematuria, incontinence, penile discharge, penile sore, pain, testicle pain, testicle swelling, urgency, others Neurological: denies: dizziness, fainting, headache, left sided numbness, left sided weakness, numbness, paresthesia, pre-existing deficit, right sided numbness, right sided weakness, seizure, speech problems, tingling, tremors, weakness, others Musculoskeletal: denies: back pain, gout, joint pain, joint swelling, muscle pain, muscle stiffness, neck pain, others Integumetry: denies: bruises, change in color, change in hair/nails, dryness, laceration, lesions, lumps, rash, wounds, others Allergic/Immunocompromised: denies: Difficulty Healing, Frequent Infections, Hives, Itching, others Hematologic/Lymphatic: denies: anemia, blood clots, easy bleeding, easy bruising, swollen glands, others Endocrine: denies: excessive hunger, excessive sweating, excessive thirst, excessive urination, flushing, intolerance to cold, intolerance to heat, unexplained weight gain, unexplained weight loss, others Psychiatric: denies: anxiety, bipolar disorder, depression, hopeless, panic disorder, schizophrenia, sleepless, suicidal, others All Other Systems: Reviewed and Negative Physical Exam General Appearance: No Apparent Distress, Normal HEENT: Normal ENT Inspection, Pharynx Normal, TMs Normal Neck: Full Range of Motion, Non-Tender, Normal, Normal Inspection Respiratory: Chest Non-Tender, Lungs Clear, No Accessory Muscle Use, No Respiratory Distress, Normal Breath Sounds Cardiovascular: No Edema, No JVD, No Murmur, No Gallop, Normal Peripheral Pulses, Regular Rate/Rhythm Breast Exam: Deferred Gastrointestinal: No Organomegaly, Non Tender, No Pulsatile Mass, Normal Bowel Sounds, Soft Genitalia: Deferred Pelvic: Deferred Rectal: Deferred Extremities: Leg edema, No calf tenderness, Normal range of motion, Swelling, Tender Musculoskeletal : Apperance: Normal Neurologic: Alert, instructional technology coordinator II-XII nml as Tested, No Motor Deficits, Normal Affect, Normal Mood, No Sensory Deficits Cerebellar Function: Normal Reflexes: Normal Skin: Dry, Normal Color, Warm Lymphatic: No Adenopathy Was a procedure done? Was a procedure done?: No Differential Diagnosis EXT Differential Diagnosis: Deep Vein Thrombosis, Gout X-Ray, Labs, Meds, VS Vital Signs Date Time Temp Pulse Resp B/P (MAP) Pulse Ox O2 Delivery O2 Flow Rate FiO2 10/18/24 07:40 97.5 62 18 131/70 (90) 94 Lab Test 10/18/24 07:59 Range/Units White Blood Count 5.9 4.4-10.8 10^3/uL Red Blood Count 4.62 4.5-5.90 10^6/uL Hemoglobin 13.6 13.5-17.5 g/dL Hematocrit 40.8 L 41.0-53.0 % Mean Corpuscular Volume 88.2 80.0-100.0 fL Mean Corpuscular Hemoglobin 29.3 28.0-32.0 pg Mean Corpuscular Hemoglobin Concent 33.2 32.0-36.0 g/dL Red Cell Distribution Width 13.6 11.8-14.3 % Platelet Count 262 140-450 10^3/uL Mean Platelet Volume 7.7 6.9-10.8 fL Neutrophils (%) (Auto) 60.3 37.0-80.0 % Lymphocytes (%) (Auto) 29.6 10.0-50.0 % Monocytes (%) (Auto) 7.2 0.0-12.0 % Eosinophils (%) (Auto) 2.1 0.0-7.0 % Basophils (%) (Auto) 0.8 0.0-2.0 % Neutrophils # (Auto) 3.5 1.6-8.6 10 ^3/uL Lymphocytes # (Auto) 1.7 0.4-5.4 10 ^3/uL Monocytes # (Auto) 0.4 0-1.3 10 ^3/uL Eosinophils # (Auto) 0.1 0-0.8 10 ^3/uL Basophils # (Auto) 0 0-0.2 10 ^3/uL Nucleated Red Blood Cells 0.1 % Prothrombin Time 10.3 9.3-11.8 sec Prothrombin Time INR 0.97 0.9-1.15 Activated Partial Thromboplast Time 28.8 24.5-34.5 SEC Sodium Level 141 136-145 mmol/L Potassium Level 4.5 3.5-5.1 mmol/L Chloride Level 107 98-107 mmol/L Carbon Dioxide Level 27 20-31 mmol/L Anion Gap 7 5-15 Blood Urea Nitrogen 18 9-23 mg/dL Creatinine 1.35 H 0.700-1.30 mg/dL Glomerular Filtration Rate Calc 55 >90 mL/min BUN/Creatinine Ratio 13.3 10.0-20.0 Serum Glucose 111 H 74-106 mg/dL Calcium Level 9.5 8.7-10.4 mg/dL 73-year-old male presents here with left lower extremity swelling. He has a known history of DVT and a had a thrombectomy done at our facility last week. He presents again today with increased swelling of the length that began yesterday. At this time ultrasound has been repeated which continues to demonstrate evidence of DVT. This is a new DVT as the leg swelling had completely resolved status post thrombectomy. Has a history of hematuria and therefore he was not placed on blood thinners. At this time however given his complicated history, and risk of bleeding, I have admitted the patient to hospitalist team. Blood work has been done which does not does demonstrate evidence of acute kidney injury with a elevated be creatinine of 1.35. CBC otherwise unremarkable with a normal hemoglobin of 13.6. Hospitalist team has been contacted for admission. Time of 1ST Reevaluation: 07:49 Reevaluation 1ST: Unchanged Patient Education/Counseling: Diagnosis, Treatment, Prognosis Family Education/Counseling: Diagnosis, Treatment, Prognosis Departure 1 Departure Time of Disposition: 09:19 Impression: Primary Impression: Deep vein thrombosis (DVT) of left lower extremity Qualified Codes: I82.402 - Acute embolism and thrombosis of unspecified deep veins of left lower extremity Disposition: 09 ADMITTED INPATIENT Condition: Fair Critical Care Note Critical Care Time?: No Stability Stability form required: No Heart Score Heart Score: Heart Score Response (Comments) Value History N/A 0 EKG N/A 0 Age N/A 0 Risk Factors N/A 0 Troponin N/A 0 Total 0 ADALGISA CLAUDIO MD Oct 18, 2024 07:25
[2024-10-18 08:15] LABS: Basophils # (auto) 0 10 ^3/uL (0-0.2); Basophils % (auto) 0.8 % (0.0-2.0); Eosinophils # (auto) 0.1 10 ^3/uL (0-0.8); Eosinophils % (auto) 2.1 % (0.0-7.0); Hematocrit 40.8 % (41.0-53.0); Hemoglobin 13.6 g/dL (13.5-17.5); Lymphocytes # (auto) 1.7 10 ^3/uL (0.4-5.4); Lymphocytes % (auto) 29.6 % (10.0-50.0); Mean Corpuscular Hemoglobin 29.3 pg (28.0-32.0); Mean Corpuscular Hgb Conc. 33.2 g/dL (32.0-36.0); Mean Corpuscular Volume 88.2 fL (80.0-100.0); Monocytes # (auto) 0.4 10 ^3/uL (0-1.3); Monocytes % (auto) 7.2 % (0.0-12.0); Neutrophils # (auto) 3.5 10 ^3/uL (1.6-8.6); Neutrophils % (auto) 60.3 % (37.0-80.0); Nucleated Red Blood Cells % 0.1 %; Platelet Count (auto) 262 10^3/uL (140-450); Red Blood Cells 4.62 10^6/uL (4.5-5.90); Red Cell Distribution Width 13.6 % (11.8-14.3); White Blood Cell 5.9 10^3/uL (4.4-10.8)
[2024-10-18 08:21] LABS: Chloride 107 mmol/L (98-107); Potassium 4.5 mmol/L (3.5-5.1); Sodium 141 mmol/L (136-145)
[2024-10-18 08:22] LABS: Anion Gap 7 (5-15); Carbon Dioxide 27 mmol/L (20-31)
[2024-10-18 08:23] LABS: Calcium 9.5 mg/dL (8.7-10.4)
[2024-10-18 08:26] LABS: INR 0.97 (0.9-1.15); Partial Thromboplastin Time 28.8 SEC (24.5-34.5); Prothrombin Time 10.3 sec (9.3-11.8)
[2024-10-18 08:27] LABS: BUN/Creatinine Ratio 13.3 (10.0-20.0); Blood Urea Nitrogen 18 mg/dL (9-23)
[2024-10-18 08:35] LABS: Glucose 111 mg/dL (74-106)
--- NOTE | 2024-10-18 08:56 | DVH ---
EXAM: US Duplex Left Lower Extremity Veins CLINICAL INDICATION: ro dvt TECHNIQUE: Real-time duplex ultrasound scan of the left lower extremity veins integrating B-mode two -dimensional vascular structure, Doppler spectral analysis, color flow Doppler imaging and compressio n. COMPARISON: US LT LOWER DVT on DOS: 10/04/24 FINDINGS: DEEP VEINS: DVT from the left common femoral vein to posterior tibial vein. SUPERFICIAL VEINS: Unremarkable. No thrombus in the visualized great saphenous vein. SOFT TISSUES: No acute findings. No popliteal cyst. OTHER FINDINGS: . IMPRESSION: DVT from the left common femoral vein to posterior tibial vein.
[2024-10-18] MEDS ORDERED: ONDANSETRON HCL 4 MG/2 ML VIAL IV PRN (10:15)
[2024-10-18] MEDS ORDERED: HYDROcodone-ACET 5/325MG TAB PO PRN (10:15)
--- NOTE | 2024-10-18 10:19 | DVHHP2 ---
History of Present Illness Reason for Visit: Left lower extremity swelling History of Present Illness Bridger Fung is a 73-year-old male with past medical history of CAD status post CABG x2 in 2020 at a [facility], hypertension, hyperlipidemia, kidney stones, BPH, MN, tonsillectomy, history of left lower extremity DVT, and TURP who presents to the ED for left lower extremity leg pain and swelling x1 week. Patient reports that when he walks the pain occurs. Patient reports that he was not placed on Eliquis because he had hematuria. He reports that he currently does not have any bleeding when he voids. Patient denies chest pain, shortness of breath, fever, chills, wheezing, lightheadedness, weakness, nausea, vomiting, diarrhea and dizziness. Cardiovascular: CAD, HTN, MN, hyperipidemia Renal/: Benign prostatic enlarg. Past Medical History Kidney stones Left lower extremity DVT Past Surgical History: CABG, Other (TURP), Tonsillectomy Family History: Cancer, Other (Dad with bladder cancer and mom with throat cancer) Smoke: # pack years ALCOHOL: none Drugs: None Lives: with Family Domestic Violence: Neg Review of Systems Musculoskeletal: other (Left lower extremity swelling), leg pain Allergies: Coded Allergies: Atorvastatin (Verified Allergy, Intermediate, 10/04/24) Rash Uncoded Allergies: Atrovastatin (Allergy, Unknown, 09/09/24) Exam Vital Signs Vital Signs Date Time Temp Pulse Resp B/P (MAP) Pulse Ox O2 Delivery O2 Flow Rate FiO2 10/18/24 09:32 60 16 98 Room Air 10/18/24 09:32 97.3 131/60 (83) 97.3 General Appearance: Alert, Oriented X3, Cooperative, No acute distress HEENT: Atraumatic, PERRLA, EOMI, Mucous membr. moist/pink Respiratory: Clear to auscultation, Normal air movement Cardiovascular: Regular rate, Normal S1, Normal S2, No murmurs Abdominal: Normal bowel sounds, Soft, No tenderness, No hepatospenomegaly Extremities: No cyanosis Skin: No significant lesion Neuro: Normal gait, Normal speech, Strength at 5/5 X4 ext, Sensation intact Psych/Mental Status: Mental status NL, Mood NL Labs/Xrays Labs Test 10/18/24 07:59 Range/Units White Blood Count 5.9 4.4-10.8 10^3/uL Red Blood Count 4.62 4.5-5.90 10^6/uL Hemoglobin 13.6 13.5-17.5 g/dL Hematocrit 40.8 L 41.0-53.0 % Mean Corpuscular Volume 88.2 80.0-100.0 fL Mean Corpuscular Hemoglobin 29.3 28.0-32.0 pg Mean Corpuscular Hemoglobin Concent 33.2 32.0-36.0 g/dL Red Cell Distribution Width 13.6 11.8-14.3 % Platelet Count 262 140-450 10^3/uL Mean Platelet Volume 7.7 6.9-10.8 fL Neutrophils (%) (Auto) 60.3 37.0-80.0 % Lymphocytes (%) (Auto) 29.6 10.0-50.0 % Monocytes (%) (Auto) 7.2 0.0-12.0 % Eosinophils (%) (Auto) 2.1 0.0-7.0 % Basophils (%) (Auto) 0.8 0.0-2.0 % Neutrophils # (Auto) 3.5 1.6-8.6 10 ^3/uL Lymphocytes # (Auto) 1.7 0.4-5.4 10 ^3/uL Monocytes # (Auto) 0.4 0-1.3 10 ^3/uL Eosinophils # (Auto) 0.1 0-0.8 10 ^3/uL Basophils # (Auto) 0 0-0.2 10 ^3/uL Nucleated Red Blood Cells 0.1 % Prothrombin Time 10.3 9.3-11.8 sec Prothrombin Time INR 0.97 0.9-1.15 Activated Partial Thromboplast Time 28.8 24.5-34.5 SEC Sodium Level 141 136-145 mmol/L Potassium Level 4.5 3.5-5.1 mmol/L Chloride Level 107 98-107 mmol/L Carbon Dioxide Level 27 20-31 mmol/L Anion Gap 7 5-15 Blood Urea Nitrogen 18 9-23 mg/dL Creatinine 1.35 H 0.700-1.30 mg/dL Glomerular Filtration Rate Calc 55 >90 mL/min BUN/Creatinine Ratio 13.3 10.0-20.0 Serum Glucose 111 H 74-106 mg/dL Calcium Level 9.5 8.7-10.4 mg/dL EXAM: US Duplex Left Lower Extremity Veins CLINICAL INDICATION: ro dvt TECHNIQUE: Real-time duplex ultrasound scan of the left lower extremity veins integrating B-mode two-dimensional vascular structure, Doppler spectral analysis, color flow Doppler imaging and compression. COMPARISON: US LT LOWER DVT on DOS: 10/04/24 FINDINGS: DEEP VEINS: DVT from the left common femoral vein to posterior tibial vein. SUPERFICIAL VEINS: Unremarkable. No thrombus in the visualized great saphenous vein. SOFT TISSUES: No acute findings. No popliteal cyst. OTHER FINDINGS: . IMPRESSION: DVT from the left common femoral vein to posterior tibial vein. Assessment/Plan Assessment/Plan Assessment/Plan: Left lower extremity DVT History of DVT of left lower extremity 5 years ago Labs Ultrasound left lower extremity duplex PT/INR UA Therapeutic Lovenox A.m. labs Last echo EF 09/10/2024 60% Hx of HTN Continue home medications History of CAD status post CABG x2 in 2020 History of MN Follow up outpatient with PCP Chronic hyperlipidemia Continue home medications History of kidney stones History of BPH History of TURP History of penile pain with discharge Continue home medications FEN/PPX diet Hep-Lock DVT PPx - therapeutic Lovenox PUD PPx - not indicated patient has no history of GERD or GI bleed Home medications reconciled Discussed plan of care with patient, patient's and nurse Admit to med surge Plan discussed with: Patient My Orders Orders - GADIEL LIEBERMAN Procedure Category Date Status Time Enoxaparin Sodium PHA 10/18/24 Verified (Lovenox) 22:00 Admit ADMIT 10/18/24 Verified 10:04 Allergies SHAYY 10/18/24 Verified 10:04 Code Status CODE 10/18/24 Verified 10:04 Hydrocodone-Acet PHA 10/18/24 Verified 5/325mg Tab ([place] 10:15 Ondansetron Hcl PHA 10/18/24 Verified (Zofran) 10:15 Complete Blood Count LAB 10/19/24 Verified 04:00 Comprehensive LAB 10/19/24 Verified Metabolic Panel 04:00 Cardiac DIET 10/18/24 Verified Diet-2gna,Lofat,Lochol Lunch Acetaminophen Tablet PHA 10/18/24 Verified (Tylenol Tablet) 10:15 Date of Service: Oct 18, 2024 Billing Provider: GADIEL LIEBERMAN Common Visit Codes: [id number] INP/OBS CARE (HIGH) GADIEL LIEBERMAN [employer] Oct 18, 2024 10:19
[2024-10-18] MEDS: ENOXAPARIN SOD 100 MG/1 ML SYRINGE SC SCH (11:17)
[2024-10-18 12:41] VITALS: RESP 13; O2SAT 97
[2024-10-18] MEDS: TAMSULOSIN HYDROCHLORIDE 0.4 MG CAP PO SCH (18:00)
[2024-10-18 19:36] VITALS: PULSE 72; RESP 18; O2SAT 95
[2024-10-18 22:00] VITALS: BP 156/76; PULSE 80; RESP 20; TEMP 97.6; O2SAT 96
[2024-10-18] MEDS: SIMVASTATIN 20 MG PO SCH (22:00)
[2024-10-18 23:13] VITALS: PULSE 72; RESP 15
[2024-10-18 23:14] VITALS: BP 156/76; PULSE 80; RESP 20; TEMP 97.6
[2024-10-18] MEDS: METOPROLOL TARTRATE 25 MG TAB PO SCH (23:27)
[2024-10-19] VITALS (9 sets, daily range): BP systolic 123–144; BP diastolic 49–76; PULSE 58–83; RESP 18–20; TEMP 97.5–97.8; O2SAT 92–98
[2024-10-19 08:14] LABS: Basophils # (auto) 0 10 ^3/uL (0-0.2); Basophils % (auto) 0.6 % (0.0-2.0); Eosinophils # (auto) 0.1 10 ^3/uL (0-0.8); Eosinophils % (auto) 2.4 % (0.0-7.0); Hematocrit 43.2 % (41.0-53.0); Hemoglobin 14.2 g/dL (13.5-17.5); Lymphocytes # (auto) 1.6 10 ^3/uL (0.4-5.4); Lymphocytes % (auto) 32.5 % (10.0-50.0); Mean Corpuscular Hemoglobin 29.2 pg (28.0-32.0); Mean Corpuscular Hgb Conc. 32.9 g/dL (32.0-36.0); Mean Corpuscular Volume 88.9 fL (80.0-100.0); Monocytes # (auto) 0.3 10 ^3/uL (0-1.3); Monocytes % (auto) 6.9 % (0.0-12.0); Neutrophils # (auto) 2.9 10 ^3/uL (1.6-8.6); Neutrophils % (auto) 57.6 % (37.0-80.0); Nucleated Red Blood Cells % 0.1 %; Platelet Count (auto) 251 10^3/uL (140-450); Red Blood Cells 4.87 10^6/uL (4.5-5.90); Red Cell Distribution Width 13.7 % (11.8-14.3); White Blood Cell 5.1 10^3/uL (4.4-10.8)
[2024-10-19 08:50] LABS: Alanine Aminotransferase 27 U/L (7-40); Albumin 4.4 g/dL (3.2-4.8); Alkaline Phosphatase 53 U/L (46-116); Anion Gap 11 (5-15); Aspartate Aminotransferase 23 U/L (13-40); BUN/Creatinine Ratio 12.3 (10.0-20.0); Bilirubin, Total 0.7 mg/dL (0.2-1.0); Blood Urea Nitrogen 15 mg/dL (9-23); Calcium 9.9 mg/dL (8.7-10.4); Carbon Dioxide 24 mmol/L (20-31); Chloride 106 mmol/L (98-107); Glucose 100 mg/dL (74-106); Potassium 3.9 mmol/L (3.5-5.1); Sodium 141 mmol/L (136-145); Total Protein 6.9 g/dL (5.7-8.2)
[2024-10-19] MEDS: FINASTERIDE 5 MG TAB PO SCH (09:37)
[2024-10-19] MEDS: PANTOPRAZOLE 40 MG TAB PO SCH (09:38)
[2024-10-19] MEDS: EZETIMIBE 10 MG TAB PO SCH (09:38)
[2024-10-19] MEDS: ISOSORBIDE MONONITRATE ER 60 MG TAB PO SCH (11:31)
--- NOTE | 2024-10-19 17:18 | DVHINCON2 ---
Date of service: Oct 19, [address] littlejohn Reason for Consultation gross hematuria History of Present Illness History Source: Patient, RN Notes, MD Notes, Old Records Exam Limitations: No limitations HPI 73-year-old male presents with a chief complaint of leg swelling x 1 week s/p thrombectomy. Patient reports that he had a recent thrombectomy on his left lower leg after developing a DVT after his CABG. Patient had the clot removed and the swelling went away, however, patient is now having 3+ pitting edema to the left leg. Patient is not on blood thinners due to having hematuria. Patient reports tingling to his left leg. No other symptoms or modifying factors present at this time. He is status post Transurethral resection of median lobe prostate and Right ureteroscopic laser lithotripsy and stone extraction 09/27/2024. Postoperatively he noted he has leg swelling and was diagnosed with DVT and under went thrombectomy. He is readmitted for recurrence of DVT and is on Lovenox with hematuria. Home Meds Active Scripts Pantoprazole Sodium Sesquihydr (Pantoprazole Sodium) 40 Mg Tab, 40 MG PO DAILY for 60 Days, #60 TAB 5 Refills Prov:SHU FISH RESIDENT 10/15/24 Hydrocodone-Acetaminophen (Hydrocodone Bitartrate/AC 5-325 mg) 1 Tab Tab, 1 TAB PO QID PRN, #30 TAB Prov:KESHA ROSENTHAL MD 09/14/24 Reported Medications Aspirin (Aspir-81) 81 Mg Tab, 1 TAB PO DAILY, #30 TAB 5 Refills 10/04/24 Isosorbide Mononitrate (Isosorbide Mononitrate Er) 30 Mg Tab, 30 MG PO DAILY for 30 Days, MG 09/10/24 Simvastatin (Simvastatin) 20 Mg Tab, 20 MG PO DAILY for dyslipidemia for 30 Days 11/19/23 Metoprolol Tartrate (Metoprolol Tartrate) 25 Mg Tab, 25 MG PO BID for htn for 30 Days, MG 11/19/23 Ezetimibe (Zetia) 10 Mg Tab, 1 TAB PO DAILY for HIGH CHOLESTEROL, #30 TAB 5 Refills 11/19/23 Discontinued Reported Medications Finasteride (Finasteride) 5 Mg Tab, 5 MG PO DAILY, TAB 09/18/24 Tamsulosin Hcl (Tamsulosin Hcl) 0.4 Mg Cap, 0.4 MG PO QPM for 30 Days, MG 09/10/24 Past Medical History Renal/: Benign prostatic enlarg., Hematuria Patient Family History: FH: bladder cancer G8 FATHER, Onset:Unknown FH: throat cancer G8 MOTHER, Onset:60 years & older Pacemaker G8 FATHER Review of Systems Genitourinary: Hematuria H&P Exam Vital Signs Vital Signs Date Time Temp Pulse Resp B/P (MAP) Pulse Ox O2 Delivery O2 Flow Rate FiO2 10/19/24 13:00 97.8 58 20 134/57 (82) 98 97.8 10/19/24 08:05 Room Air* 0 21 General Appeara: Well developed, Well nourished, Normal Appearance Cardiovascular/Chest: Edema Abdominal Exam: Normal bowel sounds, Soft, No tenderness, No hepatospenomegaly, No masses Neuro/Mental St: Alert, Oriented Appearance: Appropriate appearance, Appropriate insight Eye contact/ Speech: Cooperative, Good eye contact, Normal speech Skin Exam: Normal inspection, Normal color, Warm/dry Labs/Xrays Labs Test 10/19/24 06:50 10/18/24 07:59 Range/Units White Blood Count 5.1 4.4-10.8 10^3/uL Red Blood Count 4.87 4.5-5.90 10^6/uL Hemoglobin 14.2 13.5-17.5 g/dL Hematocrit 43.2 41.0-53.0 % Mean Corpuscular Volume 88.9 80.0-100.0 fL Mean Corpuscular Hemoglobin 29.2 28.0-32.0 pg Mean Corpuscular Hemoglobin Concent 32.9 32.0-36.0 g/dL Red Cell Distribution Width 13.7 11.8-14.3 % Platelet Count 251 140-450 10^3/uL Mean Platelet Volume 8.0 6.9-10.8 fL Neutrophils (%) (Auto) 57.6 37.0-80.0 % Lymphocytes (%) (Auto) 32.5 10.0-50.0 % Monocytes (%) (Auto) 6.9 0.0-12.0 % Eosinophils (%) (Auto) 2.4 0.0-7.0 % Basophils (%) (Auto) 0.6 0.0-2.0 % Neutrophils # (Auto) 2.9 1.6-8.6 10 ^3/uL Lymphocytes # (Auto) 1.6 0.4-5.4 10 ^3/uL Monocytes # (Auto) 0.3 0-1.3 10 ^3/uL Eosinophils # (Auto) 0.1 0-0.8 10 ^3/uL Basophils # (Auto) 0 0-0.2 10 ^3/uL Nucleated Red Blood Cells 0.1 % Sodium Level 141 136-145 mmol/L Potassium Level 3.9 3.5-5.1 mmol/L Chloride Level 106 98-107 mmol/L Carbon Dioxide Level 24 20-31 mmol/L Anion Gap 11 5-15 Blood Urea Nitrogen 15 9-23 mg/dL Creatinine 1.22 0.700-1.30 mg/dL Glomerular Filtration Rate Calc 62 >90 mL/min BUN/Creatinine Ratio 12.3 10.0-20.0 Serum Glucose 100 74-106 mg/dL Calcium Level 9.9 8.7-10.4 mg/dL Total Bilirubin 0.7 0.2-1.0 mg/dL Aspartate Amino Transferase (AST) 23 13-40 U/L Alanine Aminotransferase (ALT) 27 7-40 U/L Alkaline Phosphatase 53 46-116 U/L Total Protein 6.9 5.7-8.2 g/dL Albumin 4.4 3.2-4.8 g/dL Prothrombin Time 10.3 9.3-11.8 sec Prothrombin Time INR 0.97 0.9-1.15 Activated Partial Thromboplast Time 28.8 24.5-34.5 SEC Microbiology Date/Time Source Procedure Growth Status 10/19/24 05:30 Nose MRSA Screen - Final Complete Assessment/Plan Problem List: (1) Hematuria (2) Deep vein thrombosis (DVT) of left lower extremity (3) BPH (benign prostatic hyperplasia) Plan [address], OSCARI IVC filter per IR Plan discussed with: Patient, Other CHARLENE REIS NP Oct 19, 2024 17:18
--- NOTE | 2024-10-19 19:34 | DVHPN2 ---
Subjective 10/19---patient is sitting at bedside, mild left foot swelling. Bedside urinal with cola colored urine. Per patient hematuria started when Lovenox was initiated. Presentation is very similar to prior visit. We will continue Lovenox for now and consult Urology, IR, hematology. Reviewed: H&P Changes from previous H/P or p: No Changes General: Per HPI Musculoskeletal: other (Left lower extremity swelling), leg pain Objective Vitals Vital Signs Date Time Temp Pulse Resp B/P (MAP) Pulse Ox O2 Delivery O2 Flow Rate FiO2 10/19/24 17:00 97.7 68 18 134/65 (88) 95 97.7 10/19/24 08:05 Room Air* 0 21 Intake/Output Intake and Output 10/19/24 07:00 Intake Total 200 ml Output Total 400 ml Balance -200 ml Intake Oral 200 ml Output Urine Total 400 ml # Voids 2 # Bowel Movements 1 Exam GEN: Healthy appearing, well-developed, NAD. HEENT: NC/AT; MMM. CV: RRR, no m/r/g. LUNGS: CTAB, no w/r/c. ABD: Soft, NT/ND, NBS, no masses or organomegaly. EXT: Left lower extremity with +1 edema at [place] NEURO: Ambulating with no limitations. No focal deficits. Medications Current Medications Medications Dose Ordered Sig/Dionte Route Start Time Stop Time Status Last Admin Dose Admin Enoxaparin Sodium 90 mg Q12HR SC 10/18/24 10:23 10/18/24 23:27 90 MG Acetaminophen/ Hydrocodone Bitart 1 tab Q4HP PRN PO 10/18/24 10:15 Ondansetron HCl 4 mg Q4HP PRN IV 10/18/24 10:15 Acetaminophen 650 mg Q6HP PRN PO 10/18/24 10:15 EZETIMIBE 10 mg DAILY PO 10/19/24 10:00 10/19/24 09:38 10 MG Finasteride 5 mg DAILY PO 10/19/24 10:00 Metoprolol Tartrate 25 mg BID PO 10/18/24 22:00 10/19/24 09:39 25 MG Pantoprazole Sodium 40 mg DAILY PO 10/19/24 10:00 10/19/24 09:38 40 MG Tamsulosin HCl 0.4 mg QPM PO 10/18/24 18:00 10/18/24 18:00 0.4 MG Patient Own Medication 20 mg HS PO 10/18/24 22:00 Isosorbide Mononitrate 30 mg DAILY PO 10/19/24 11:00 10/19/24 11:31 30 MG Laboratory Results Laboratory Tests 10/19/24 06:50 Chemistry Test 10/19/24 06:50 Albumin 4.4 g/dL (3.2-4.8) Calcium Level 9.9 mg/dL (8.7-10.4) Total Protein 6.9 g/dL (5.7-8.2) LFT Test 10/19/24 06:50 Alanine Aminotransferase (ALT) 27 U/L (7-40) Alkaline Phosphatase 53 U/L (46-116) Aspartate Amino Transferase (AST) 23 U/L (13-40) Total Bilirubin 0.7 mg/dL (0.2-1.0) Microbiology Microbiology Date/Time Source Procedure Growth Status 10/19/24 05:30 Nose MRSA Screen - Final Complete Labs and/or images reviewed: Labs reviewed by me, Image(s) reviewed by me Assessment/Plan Assessment/Plan 10/19---patient is sitting at bedside, mild left foot swelling. Bedside urinal with cola colored urine. Per patient hematuria started when Lovenox was initiated. Presentation is very similar to prior visit. We will continue Lovenox for now and consult Urology, IR, hematology. Left lower extremity DVT - We will continue Lovenox for now and consult Urology, IR, hematology. hx HI, CAD status post CABG x2- Continue home medications HTN- Continue home medications hyperipidemia- Continue home medications hx hematuria s/p anticoagulation initiation. History of kidney stones History of BPH History of TURP, History of penile pain with discharge Diet cardiac DVT prophylaxis on full-dose Lovenox GI prophylaxis tolerating diet Med tele Full code Plan discussed with: Patient My Orders Orders - GILBERTO TAVARES MD Procedure Category Date Status Time * Urology Consult CONS 10/19/24 Transmitted 15:59 * Hematology/Oncology CONS 10/19/24 Transmitted Consult 15:59 * Radiologist Consult CONS 10/19/24 Transmitted 15:59 Date of Service: Oct 19, 2024 Billing Provider: GILBERTO TAVARES MD Common Visit Codes: [id number] INP/OBS CARE(HIGH) GILBERTO TAVARES MD Oct 19, 2024 19:34
[2024-10-19] MEDS: ACETAMINOPHEN 325 MG TAB PO PRN (19:56)
[2024-10-20] VITALS (7 sets, daily range): BP systolic 100–147; BP diastolic 53–74; PULSE 63–77; RESP 16–20; TEMP 97.8–98.7; O2SAT 90–97
[2024-10-20 06:07] LABS: Basophils # (auto) 0 10 ^3/uL (0-0.2); Basophils % (auto) 0.8 % (0.0-2.0); Eosinophils # (auto) 0.1 10 ^3/uL (0-0.8); Eosinophils % (auto) 2.3 % (0.0-7.0); Hematocrit 40.4 % (41.0-53.0); Hemoglobin 13.3 g/dL (13.5-17.5); Lymphocytes # (auto) 1.6 10 ^3/uL (0.4-5.4); Lymphocytes % (auto) 29.6 % (10.0-50.0); Mean Corpuscular Volume 87.9 fL (80.0-100.0); Monocytes # (auto) 0.4 10 ^3/uL (0-1.3); Monocytes % (auto) 7.5 % (0.0-12.0); Neutrophils # (auto) 3.2 10 ^3/uL (1.6-8.6); Neutrophils % (auto) 59.8 % (37.0-80.0); Nucleated Red Blood Cells % 0.1 %; Platelet Count (auto) 249 10^3/uL (140-450); Red Blood Cells 4.59 10^6/uL (4.5-5.90); Red Cell Distribution Width 13.4 % (11.8-14.3); White Blood Cell 5.4 10^3/uL (4.4-10.8)
[2024-10-20 06:16] LABS: Alanine Aminotransferase 25 U/L (7-40); Alkaline Phosphatase 46 U/L (46-116); Anion Gap 12 (5-15); BUN/Creatinine Ratio 15.3 (10.0-20.0); Blood Urea Nitrogen 18 mg/dL (9-23); Calcium 9.6 mg/dL (8.7-10.4); Carbon Dioxide 23 mmol/L (20-31); Glucose 98 mg/dL (74-106); Potassium 3.8 mmol/L (3.5-5.1); Sodium 142 mmol/L (136-145); Total Protein 6.3 g/dL (5.7-8.2)
[2024-10-20 06:17] LABS: Aspartate Aminotransferase 20 U/L (13-40); Bilirubin, Total 0.7 mg/dL (0.2-1.0)
[2024-10-20 06:33] LABS: Chloride 107 mmol/L (98-107)
--- NOTE | 2024-10-20 08:56 | DVHINCON2 ---
Date of service: Oct 20, [address] John Espinal Reason for Consultation Recurrent left leg DVT History of Present Illness 73 years old gentleman whose is by his bedside. 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 He had CABG in 2020 followed by a provoked DVT in the left leg and took Eliquis for six months he did fine September 27 2024 the patient had TURP, right ureteroscopic laser lithotripsy and stone extraction and on 10/04/2024 the patient developed a left leg DVT with pain and swelling and had venous Doppler on 10/08/2024 which showed left popliteal, femoral, common femoral vein thrombus with prominent collaterals in the leg. 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 The patient had mechanical thrombectomy in the left common femoral, femoral and popliteal veins on 10/08/2024. No blood thinners The patient went home and he is admitted again on October 18, 2024 with swelling of the left lower extremity Venous Doppler on 10/18/2024 showed DVT in the left common femoral vein to the posterior tibial vein The patient developed hematuria also and has catheter and is still has some hematuria No pains in the legs. No chest pains or difficulty breathing The patient is on isosorbide Protonix finasteride Zetia metoprolol Flomax. He is given Lovenox 90 mg subQ twice a day and the last injection was last night and the patient is not very comfortable with the injection because of hematuria. He is taking hydrocodone and Zofran No complaints of any weight loss. No headaches nausea vomiting. No fevers night sweats no bruising. Past Medical History CABG Left leg DVT Family History: FH: bladder cancer G8 FATHER, Onset:Unknown FH: throat cancer G8 MOTHER, Onset:60 years & older Pacemaker G8 FATHER Family History Father any bladder cancer Mother had throat cancer No family history of blood clots Social History No smoking or drinking. The patient is Allergies: Coded Allergies: Atorvastatin (Verified Allergy, Intermediate, 10/04/24) Rash Uncoded Allergies: Atrovastatin (Allergy, Unknown, 09/09/24) Home Meds Active Scripts Pantoprazole Sodium Sesquihydr (Pantoprazole Sodium) 40 Mg Tab, 40 MG PO DAILY for 60 Days, #60 TAB 5 Refills Prov:SHU FISH 10/15/24 Hydrocodone-Acetaminophen (Hydrocodone Bitartrate/AC 5-325 mg) 1 Tab Tab, 1 TAB PO QID PRN, #30 TAB Prov:KESHA ROSENTHAL MD 09/14/24 Reported Medications Aspirin (Aspir-81) 81 Mg Tab, 1 TAB PO DAILY, #30 TAB 5 Refills 10/04/24 Isosorbide Mononitrate (Isosorbide Mononitrate Er) 30 Mg Tab, 30 MG PO DAILY for 30 Days, MG 09/10/24 Simvastatin (Simvastatin) 20 Mg Tab, 20 MG PO DAILY for dyslipidemia for 30 Days 11/19/23 Metoprolol Tartrate (Metoprolol Tartrate) 25 Mg Tab, 25 MG PO BID for htn for 30 Days, MG 11/19/23 Ezetimibe (Zetia) 10 Mg Tab, 1 TAB PO DAILY for HIGH CHOLESTEROL, #30 TAB 5 Refills 11/19/23 Discontinued Reported Medications Finasteride (Finasteride) 5 Mg Tab, 5 MG PO DAILY, TAB 09/18/24 Tamsulosin Hcl (Tamsulosin Hcl) 0.4 Mg Cap, 0.4 MG PO QPM for 30 Days, MG 09/10/24 Current Medications Current Medications Medications (Trade) Dose Ordered Sig/Dionte Route PRN Reason Start Time Stop Time Status Last Admin EZETIMIBE (Zetia) 10 mg DAILY PO 10/19/24 10:00 10/19/24 09:38 Finasteride (Proscar Tablet) 5 mg DAILY PO 10/19/24 10:00 Pantoprazole Sodium (Protonix Tablet) 40 mg DAILY PO 10/19/24 10:00 10/19/24 09:38 Patient Own Medication 30 mg DAILY PO 10/19/24 10:00 10/19/24 11:06 DC Isosorbide Mononitrate (Imdur Er Tablet) 30 mg DAILY PO 10/20/24 10:00 10/19/24 11:07 DC Isosorbide Mononitrate (Imdur Er Tablet) 30 mg DAILY PO 10/19/24 11:00 10/19/24 11:31 Vital Signs Vital Signs Date Time Temp Pulse Resp B/P (MAP) Pulse Ox O2 Delivery O2 Flow Rate FiO2 10/20/24 05:00 98.7 63 20 122/74 (90) 93 98.7 10/19/24 20:00 Room Air* 0 21 Physical Exam Moderately built and nourished, in no acute distress, alert and oriented. No jaundice Head and neck: Unremarkable for any masses or neck nodes. No conjunctival or mucosal hemorrhage Lungs: Clear Cardiovascular: S1-S2 heard well Abdomen: No organomegaly, tenderness or ascites. Bowel sounds are present. Extremities: No clubbing cyanosis or calf tenderness. Has some swelling of the left lower extremity without tenderness Skin: Unremarkable for petechia purpura ecchymosis Lymphadenopathy: None Neurological exam: No focal deficit Has three way catheter with some hematuria Labs/Diagnostic Data Labs Test 10/20/24 04:22 10/18/24 07:59 Range/Units White Blood Count 5.4 4.4-10.8 10^3/uL Red Blood Count 4.59 4.5-5.90 10^6/uL Hemoglobin 13.3 L 13.5-17.5 g/dL Hematocrit 40.4 L 41.0-53.0 % Mean Corpuscular Volume 87.9 80.0-100.0 fL Mean Corpuscular Hemoglobin 29.0 28.0-32.0 pg Mean Corpuscular Hemoglobin Concent 33.0 32.0-36.0 g/dL Red Cell Distribution Width 13.4 11.8-14.3 % Platelet Count 249 140-450 10^3/uL Mean Platelet Volume 8.2 6.9-10.8 fL Neutrophils (%) (Auto) 59.8 37.0-80.0 % Lymphocytes (%) (Auto) 29.6 10.0-50.0 % Monocytes (%) (Auto) 7.5 0.0-12.0 % Eosinophils (%) (Auto) 2.3 0.0-7.0 % Basophils (%) (Auto) 0.8 0.0-2.0 % Neutrophils # (Auto) 3.2 1.6-8.6 10 ^3/uL Lymphocytes # (Auto) 1.6 0.4-5.4 10 ^3/uL Monocytes # (Auto) 0.4 0-1.3 10 ^3/uL Eosinophils # (Auto) 0.1 0-0.8 10 ^3/uL Basophils # (Auto) 0 0-0.2 10 ^3/uL Nucleated Red Blood Cells 0.1 % Sodium Level 142 136-145 mmol/L Potassium Level 3.8 3.5-5.1 mmol/L Chloride Level 107 98-107 mmol/L Carbon Dioxide Level 23 20-31 mmol/L Anion Gap 12 5-15 Blood Urea Nitrogen 18 9-23 mg/dL Creatinine 1.18 0.700-1.30 mg/dL Glomerular Filtration Rate Calc 64 >90 mL/min BUN/Creatinine Ratio 15.3 10.0-20.0 Serum Glucose 98 74-106 mg/dL Calcium Level 9.6 8.7-10.4 mg/dL Total Bilirubin 0.7 0.2-1.0 mg/dL Aspartate Amino Transferase (AST) 20 13-40 U/L Alanine Aminotransferase (ALT) 25 7-40 U/L Alkaline Phosphatase 46 46-116 U/L Total Protein 6.3 5.7-8.2 g/dL Albumin 4.0 3.2-4.8 g/dL Prothrombin Time 10.3 9.3-11.8 sec Prothrombin Time INR 0.97 0.9-1.15 Activated Partial Thromboplast Time 28.8 24.5-34.5 SEC Microbiology Date/Time Source Procedure Growth Status 10/19/24 05:30 Nose MRSA Screen - Final Complete Assessment 1. Left leg and he could not DVT initially had the DVT in 2020 after CABG and took Eliquis for six months Now he had TURP on 09/27/2024 followed by a left leg DVT and had thrombectomy and no blood thinners on 10/08/2024 Now admitted again with the left leg swelling and has hematuria. Was given Lovenox last night 90 mg The patient is more prone to make blood clots 2. History of CABG in 2020 Plan/Recommendation The patient needs to stay on Eliquis for a prolonged period of time At present as the patient has hematuria, we will discuss with the radiologist see if there is a possibility of putting a removable IVC filter May check a hypercoagulable panel Plan discussed with: Patient, Spouse THIERRY JOE MD Oct 20, 2024 08:56
[2024-10-20] MEDS ORDERED: ISOSORBIDE MONONITRATE ER 60 MG TAB PO SCH (10:00)
--- NOTE | 2024-10-20 14:52 | DVHPN2 ---
Subjective Update 10/20 10/19---patient is sitting at bedside, mild left foot swelling. Bedside urinal with cola colored urine. Per patient hematuria started when Lovenox was initiated. Presentation is very similar to prior visit. We will continue Lovenox for now and consult Urology, IR, hematology. 10/20- hematology recommends umbrella IVC filter, radiology is aware and onboard with the plan. Urology has see BI Zhao 3 way draining initial blood-tinged urine but now clear in tubes. We will continue Lovenox 30 subQ b.i.d. Reviewed: H&P Changes from previous H/P or p: No Changes General: Per HPI Musculoskeletal: other (Left lower extremity swelling), leg pain Objective Vitals Vital Signs Date Time Temp Pulse Resp B/P (MAP) Pulse Ox O2 Delivery O2 Flow Rate FiO2 10/20/24 09:30 88 151/92 10/20/24 09:00 98.0 16 90 98.0 10/19/24 20:00 Room Air* 0 21 Intake/Output Intake and Output 10/20/24 07:00 Intake Total 840 ml Output Total 29115 ml Balance -15483 ml Intake Oral 840 ml Output Urine Total 75893 ml # Bowel Movements 3 Exam GEN: Healthy appearing, well-developed, NAD. HEENT: NC/AT; MMM. CV: RRR, no m/r/g. LUNGS: CTAB, no w/r/c. ABD: Soft, NT/ND, NBS, no masses or organomegaly. EXT: Left lower extremity with +1 edema at [place] NEURO: Ambulating with no limitations. No focal deficits. Medications Current Medications Medications Dose Ordered Sig/Dionte Route Start Time Stop Time Status Last Admin Dose Admin Enoxaparin Sodium 90 mg Q12HR SC 10/18/24 10:23 10/20/24 09:31 90 MG Acetaminophen/ Hydrocodone Bitart 1 tab Q4HP PRN PO 10/18/24 10:15 Ondansetron HCl 4 mg Q4HP PRN IV 10/18/24 10:15 Acetaminophen 650 mg Q6HP PRN PO 10/18/24 10:15 10/19/24 19:56 650 MG EZETIMIBE 10 mg DAILY PO 10/19/24 10:00 10/20/24 09:30 10 MG Finasteride 5 mg DAILY PO 10/19/24 10:00 Metoprolol Tartrate 25 mg BID PO 10/18/24 22:00 10/20/24 09:30 25 MG Pantoprazole Sodium 40 mg DAILY PO 10/19/24 10:00 10/20/24 09:31 40 MG Tamsulosin HCl 0.4 mg QPM PO 10/18/24 18:00 10/18/24 18:00 0.4 MG Patient Own Medication 20 mg HS PO 10/18/24 22:00 Isosorbide Mononitrate 30 mg DAILY PO 10/19/24 11:00 10/20/24 09:29 30 MG Laboratory Results Laboratory Tests 10/20/24 04:22 Chemistry Test 10/20/24 04:22 Albumin 4.0 g/dL (3.2-4.8) Calcium Level 9.6 mg/dL (8.7-10.4) Total Protein 6.3 g/dL (5.7-8.2) LFT Test 10/20/24 04:22 Alanine Aminotransferase (ALT) 25 U/L (7-40) Alkaline Phosphatase 46 U/L (46-116) Aspartate Amino Transferase (AST) 20 U/L (13-40) Total Bilirubin 0.7 mg/dL (0.2-1.0) Microbiology Microbiology Date/Time Source Procedure Growth Status 10/19/24 05:30 Nose MRSA Screen - Final Complete Labs and/or images reviewed: Labs reviewed by me, Image(s) reviewed by me Assessment/Plan Assessment/Plan 10/20- hematology recommends umbrella IVC filter, radiology is aware and onboard with the plan. Urology has see BI Zhao 3 way draining initial blood-tinged urine but now clear in tubes. We will continue Lovenox 30 subQ b.i.d. Left lower extremity DVT - We will continue Lovenox for now and consult Urology, IR, hematology. Plan for Enbrel IVC filter hx hematuria s/p anticoagulation initiation. - urology is on board and put a 3 way Zhao and CBI hx [place], CAD status post CABG x2- Continue home medications HTN- Continue home medications hyperipidemia- Continue home medications History of kidney stones History of BPH History of TURP, History of penile pain with discharge Diet cardiac DVT prophylaxis on full-dose Lovenox GI prophylaxis tolerating diet Med tele Full code Plan discussed with: Patient My Orders Orders - WANG AZIZ,FARIQ MD Procedure Category Date Status Time * Urology Consult CONS 10/19/24 Transmitted 15:59 * Hematology/Oncology CONS 10/19/24 Transmitted Consult 15:59 * Radiologist Consult CONS 10/19/24 Transmitted 15:59 Comprehensive LAB 10/21/24 Verified Metabolic Panel 04:00 Complete Blood Count LAB 10/21/24 Verified 04:00 Inferior Vena Cava XY 10/20/24 Logged Filter 11:31 Date of Service: Oct 20, 2024 Billing Provider: GILBERTO TAVARES MD Common Visit Codes: [id number] INP/OBS CARE(HIGH) GILBERTO TAVARES MD Oct 20, 2024 14:52
[2024-10-20] MEDS ORDERED: ENOXAPARIN SOD 100 MG/1 ML SYRINGE SC SCH (22:00)
[2024-10-21] VITALS (11 sets, daily range): BP systolic 106–140; BP diastolic 51–72; PULSE 64–78; RESP 12–20; TEMP 97.8–98.5; O2SAT 92–98
[2024-10-21 03:40] LABS: Urine Bacteria None Seen /hpf (None Seen)
[2024-10-21 03:52] LABS: Urine Blood 3+ /uL (Negative); Urine Clarity Turbid (Clear); Urine Color Colorless (Yellow); Urine Protein, UAD Negative (Negative); Urine Specific Gravity 1.005 (1.001-1.035); Urine Squamous Epithelial Cell None Seen /hpf (<5); Urine Urobilinogen Normal (Negative); Urine WBC 9 /HPF (0-3)
[2024-10-21 06:28] LABS: Basophils # (auto) 0 10 ^3/uL (0-0.2); Basophils % (auto) 0.7 % (0.0-2.0); Eosinophils # (auto) 0.1 10 ^3/uL (0-0.8); Eosinophils % (auto) 1.5 % (0.0-7.0); Hematocrit 40.8 % (41.0-53.0); Hemoglobin 13.6 g/dL (13.5-17.5); Lymphocytes # (auto) 1.9 10 ^3/uL (0.4-5.4); Lymphocytes % (auto) 29.7 % (10.0-50.0); Mean Corpuscular Hemoglobin 29.3 pg (28.0-32.0); Mean Corpuscular Hgb Conc. 33.4 g/dL (32.0-36.0); Mean Corpuscular Volume 87.8 fL (80.0-100.0); Monocytes # (auto) 0.5 10 ^3/uL (0-1.3); Monocytes % (auto) 7.6 % (0.0-12.0); Neutrophils # (auto) 3.9 10 ^3/uL (1.6-8.6); Neutrophils % (auto) 60.5 % (37.0-80.0); Nucleated Red Blood Cells % 0.1 %; Platelet Count (auto) 247 10^3/uL (140-450); Red Blood Cells 4.64 10^6/uL (4.5-5.90); Red Cell Distribution Width 13.3 % (11.8-14.3); White Blood Cell 6.5 10^3/uL (4.4-10.8)
[2024-10-21 06:44] LABS: INR 0.99 (0.9-1.15); Partial Thromboplastin Time 30.8 SEC (24.5-34.5); Prothrombin Time 10.5 sec (9.3-11.8)
[2024-10-21 06:52] LABS: Alanine Aminotransferase 24 U/L (7-40); Albumin 4.2 g/dL (3.2-4.8); Alkaline Phosphatase 48 U/L (46-116); Anion Gap 10 (5-15); Aspartate Aminotransferase 20 U/L (13-40); BUN/Creatinine Ratio 14.9 (10.0-20.0); Blood Urea Nitrogen 17 mg/dL (9-23); Carbon Dioxide 25 mmol/L (20-31); Chloride 107 mmol/L (98-107); Glucose 102 mg/dL (74-106); Potassium 4.1 mmol/L (3.5-5.1); Sodium 142 mmol/L (136-145); Total Protein 6.6 g/dL (5.7-8.2)
[2024-10-21 06:53] LABS: Bilirubin, Total 0.7 mg/dL (0.2-1.0)
[2024-10-21] MEDS: fentaNYL CITRATE 100 MCG/2 ML VL ONE (09:20)
[2024-10-21] MEDS: LIDOCAINE 2%HCL (LOCAL ANESTH.) INJ 20ML MDV ONE (09:21)
[2024-10-21] MEDS: MIDAZOLAM HCL 2MG/2ML 2ml VIAL (1mg/ml) ONE (09:21)
--- NOTE | 2024-10-21 09:25 | ECG ---
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
[2024-10-21] MEDS: IODIXANOL 320MG/ML 100ML BTL IV ONE (10:22)
--- NOTE | 2024-10-21 11:28 | DVH ---
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 PROCEDURE: Informed consent was obtained. The patient was placed on the fluoroscopic table in supine position. The right groin was prepped with chlorhexidine which was allowed to dry and draped in the u sual sterile fashion. Time out was performed. Following administration of 1% local lidocaine, the com mon femoral vein was accessed with a micropuncture set under ultrasound guidance, and an image docume nting patency sent to PACS. A cavogram was performed and the level of the renal veins were identifie d. The catheter was exchanged for a 9.6 Nepalese introducer sheath, and a Bard G2 Yodit IVC filter wa s deployed in an infrarenal location. The introducer sheath was removed and the venotomy closed with manual compression. Post-deployment image was obtained. No immediate complication was identified. DAP FLUOROSCOPY TIME: 2.0 minutes. CONTRAST USED: 15 mL . SEDATION: Dr. Renny Arndt was personally responsible for the administration of moderate sedation during the procedure performed, including the use of an independent trained observer who had no other duties during the procedure. The drugs utilized were IV fentanyl and versed (see nursing log for details). The total time of supervision by the attending physician was approximately 30 minutes. FINDINGS: There is a patent single IVC visualized without intraluminal filling defect. No renal venou s anomaly is noted. Post-procedure image demonstrates good positioning of the IVC filter in an infrar enal position. IMPRESSION: Retrievable IVC filter placement in the infra-renal location. PLAN: Consideration should be made for removal of this retrievable filter after and if medical necess ity for caval filtration is no longer present. If we in IR are unable to contact the patient in a kayce verito fashion, please contact our office, and we will attempt to arrange for filter retrieval at the ea rliest convenience.
--- NOTE | 2024-10-21 16:20 | DVHPN2 ---
Subjective Update 10/21 10/19---patient is sitting at bedside, mild left foot swelling. Bedside urinal with cola colored urine. Per patient hematuria started when Lovenox was initiated. Presentation is very similar to prior visit. We will continue Lovenox for now and consult Urology, IR, hematology. 10/20- hematology recommends umbrella IVC filter, radiology is aware and onboard with the plan. Urology has see BI Zhao 3 way draining initial blood-tinged urine but now clear in tubes. We will continue Lovenox 30 subQ b.i.d. 10/21 continues to be on CBI continuous for bladder irrigation. Urology following. Three taken to IR lab to have IVC filter inserted. Continuing prophylactic dose Lovenox. Follow up with multidisciplinary teams to develop plan for outpatient by tomorrow. Reviewed: H&P Changes from previous H/P or p: No Changes General: Per HPI Musculoskeletal: other (Left lower extremity swelling), leg pain Objective Vitals Vital Signs Date Time Temp Pulse Resp B/P (MAP) Pulse Ox O2 Delivery O2 Flow Rate FiO2 10/21/24 14:44 140/72 10/21/24 14:44 75 10/21/24 13:00 98.1 14 96 98.1 10/21/24 07:45 Room Air* 0 21 Intake/Output Intake and Output 10/21/24 07:00 Intake Total 925 ml Output Total 07783 ml Balance -16154 ml Intake Oral 925 ml Output Urine Total 38516 ml Exam GEN: Healthy appearing, well-developed, NAD. HEENT: NC/AT; MMM. CV: RRR, no m/r/g. LUNGS: CTAB, no w/r/c. ABD: Soft, NT/ND, NBS, no masses or organomegaly. EXT: Left lower extremity with +1 edema at [place] : Zhao inserted CBI 3 way Zhao. Draining blood-tinged urine. NEURO: Ambulating with no limitations. No focal deficits. Medications Current Medications Medications Dose Ordered Sig/Dionte Route Start Time Stop Time Status Last Admin Dose Admin Acetaminophen/ Hydrocodone Bitart 1 tab Q4HP PRN PO 10/18/24 10:15 Ondansetron HCl 4 mg Q4HP PRN IV 10/18/24 10:15 Acetaminophen 650 mg Q6HP PRN PO 10/18/24 10:15 10/19/24 19:56 650 MG EZETIMIBE 10 mg DAILY PO 10/19/24 10:00 10/21/24 14:45 10 MG Finasteride 5 mg DAILY PO 10/19/24 10:00 Metoprolol Tartrate 25 mg BID PO 10/18/24 22:00 10/21/24 14:44 25 MG Pantoprazole Sodium 40 mg DAILY PO 10/19/24 10:00 10/21/24 14:45 40 MG Tamsulosin HCl 0.4 mg QPM PO 10/18/24 18:00 10/18/24 18:00 0.4 MG Patient Own Medication 20 mg HS PO 10/18/24 22:00 10/20/24 21:49 20 MG Isosorbide Mononitrate 30 mg DAILY PO 10/19/24 11:00 10/21/24 14:44 30 MG Enoxaparin Sodium 40 mg Q12HR SC 10/20/24 22:00 Hold Laboratory Results Laboratory Tests 10/21/24 05:31 Chemistry Test 10/21/24 05:31 Albumin 4.2 g/dL (3.2-4.8) Calcium Level 10.0 mg/dL (8.7-10.4) Total Protein 6.6 g/dL (5.7-8.2) Coagulation Test 10/21/24 05:31 Prothrombin Time 10.5 sec (9.3-11.8) Prothrombin Time INR 0.99 (0.9-1.15) Activated Partial Thromboplast Time 30.8 SEC (24.5-34.5) LFT Test 10/21/24 05:31 Alanine Aminotransferase (ALT) 24 U/L (7-40) Alkaline Phosphatase 48 U/L (46-116) Aspartate Amino Transferase (AST) 20 U/L (13-40) Total Bilirubin 0.7 mg/dL (0.2-1.0) Urinalysis Test 10/21/24 03:21 Urine Color Colorless (Yellow) Urine Clarity Turbid (Clear) H Urine pH 5.0 (5.0-9.0) Urine Specific [place] 1.005 (1.001-1.035) Urine Protein Negative (Negative) Urine Ketones Negative (Negative) Urine Blood 3+ /uL (Negative) H Urine Nitrite Negative (Negative) Urine Bilirubin Negative (Negative) Urine Urobilinogen Normal mg/dL (Negative) Urine Leukocyte Esterase Negative /uL (Negative) Urine RBC 1221 /hpf (0 - 3) Urine Microscopic WBC 9 /HPF (0-3) H Urine Squamous Epithelial Cells None seen /hpf (<5) Urine Bacteria None seen /hpf (None Seen) Urine Glucose Normal mg/dL (Normal) Microbiology Microbiology Date/Time Source Procedure Growth Status 10/19/24 05:30 Nose MRSA Screen - Final Complete Labs and/or images reviewed: Labs reviewed by me, Image(s) reviewed by me Assessment/Plan Assessment/Plan 10/21 continues to be on CBI continuous for bladder irrigation. Urology following. Three taken to IR lab to have IVC filter inserted. Continuing prophylactic dose Lovenox. Follow up with multidisciplinary teams to develop plan for outpatient by tomorrow. Left lower extremity DVT - We will continue Lovenox for now and consult Urology, IR, hematology. Plan for Enbrel IVC filter, inserted 10/21/24 hx hematuria s/p anticoagulation initiation. - urology is on board and put a 3 way Zhao and CBI hx [place], CAD status post CABG x2- Continue home medications HTN- Continue home medications hyperipidemia- Continue home medications History of kidney stones History of BPH History of TURP, History of penile pain with discharge Diet cardiac DVT prophylaxis on full-dose Lovenox GI prophylaxis tolerating diet Med tele Full code Plan discussed with: Patient Date of Service: Oct 21, 2024 Billing Provider: GILBERTO TAVARES MD Common Visit Codes: [id number] INP/OBS CARE(HIGH) GILBERTO TAVARES MD Oct 21, 2024 16:20
[2024-10-22] VITALS (8 sets, daily range): BP systolic 109–159; BP diastolic 59–86; PULSE 61–90; RESP 16–20; TEMP 97.8–98.3; O2SAT 93–97
[2024-10-22 07:03] LABS: Chloride 106 mmol/L (98-107); Potassium 4.2 mmol/L (3.5-5.1); Sodium 141 mmol/L (136-145)
[2024-10-22 07:04] LABS: Anion Gap 9 (5-15); Calcium 9.9 mg/dL (8.7-10.4); Carbon Dioxide 26 mmol/L (20-31)
[2024-10-22 07:09] LABS: BUN/Creatinine Ratio 16.9 (10.0-20.0); Blood Urea Nitrogen 22 mg/dL (9-23); Glucose 107 mg/dL (74-106)
[2024-10-22 07:11] LABS: Basophils # (auto) 0 10 ^3/uL (0-0.2); Basophils % (auto) 0.5 % (0.0-2.0); Eosinophils # (auto) 0.1 10 ^3/uL (0-0.8); Eosinophils % (auto) 1.6 % (0.0-7.0); Hematocrit 38.3 % (41.0-53.0); Hemoglobin 13.1 g/dL (13.5-17.5); Lymphocytes # (auto) 1.7 10 ^3/uL (0.4-5.4); Lymphocytes % (auto) 23.6 % (10.0-50.0); Mean Corpuscular Hemoglobin 30.4 pg (28.0-32.0); Mean Corpuscular Hgb Conc. 34.2 g/dL (32.0-36.0); Mean Corpuscular Volume 88.8 fL (80.0-100.0); Monocytes # (auto) 0.6 10 ^3/uL (0-1.3); Neutrophils # (auto) 4.7 10 ^3/uL (1.6-8.6); Neutrophils % (auto) 66.3 % (37.0-80.0); Nucleated Red Blood Cells % 0.1 %; Platelet Count (auto) 211 10^3/uL (140-450); Red Blood Cells 4.31 10^6/uL (4.5-5.90); Red Cell Distribution Width 13.5 % (11.8-14.3); White Blood Cell 7.1 10^3/uL (4.4-10.8)
[2024-10-22] MEDS: ENOXAPARIN SOD 100 MG/1 ML SYRINGE SC SCH (12:01)
--- NOTE | 2024-10-22 13:54 | DVHPN2 ---
Subjective Update 10/22 10/19---patient is sitting at bedside, mild left foot swelling. Bedside urinal with cola colored urine. Per patient hematuria started when Lovenox was initiated. Presentation is very similar to prior visit. We will continue Lovenox for now and consult Urology, IR, hematology. 10/20- hematology recommends umbrella IVC filter, radiology is aware and onboard with the plan. Urology has see BI Zhao 3 way draining initial blood-tinged urine but now clear in tubes. We will continue Lovenox 30 subQ b.i.d. 10/21 continues to be on CBI continuous for bladder irrigation. Urology following. Three taken to IR lab to have IVC filter inserted. Continuing prophylactic dose Lovenox. Follow up with multidisciplinary teams to develop plan for outpatient by tomorrow. 10/22-basically patient have rales IVC filter yesterday. Continuing prophylactic dose Lovenox. Hematuria is improving. We will follow up another 24 hours to ensure resolution of hematuria. Possible discharge tomorrow after Urology clearance. Reviewed: H&P Changes from previous H/P or p: No Changes General: Per HPI Musculoskeletal: other (Left lower extremity swelling), leg pain Objective Vitals Vital Signs Date Time Temp Pulse Resp B/P (MAP) Pulse Ox O2 Delivery O2 Flow Rate FiO2 10/22/24 12:52 97.9 61 20 109/59 (76) 96 97.9 10/22/24 08:00 Room Air* 0 21 Intake/Output Intake and Output 10/22/24 07:00 Intake Total 1180 ml Output Total 65458 ml Balance -31383 ml Intake Oral 1180 ml Output Urine Total 40114 ml # Bowel Movements 1 Exam GEN: Healthy appearing, well-developed, NAD. HEENT: NC/AT; MMM. CV: RRR, no m/r/g. LUNGS: CTAB, no w/r/c. ABD: Soft, NT/ND, NBS, no masses or organomegaly. EXT: Left lower extremity with +1 edema at [place] : Zhao inserted CBI 3 way Zhao. Draining blood-tinged urine. NEURO: Ambulating with no limitations. No focal deficits. Medications Current Medications Medications Dose Ordered Sig/Dionte Route Start Time Stop Time Status Last Admin Dose Admin Acetaminophen/ Hydrocodone Bitart 1 tab Q4HP PRN PO 10/18/24 10:15 Ondansetron HCl 4 mg Q4HP PRN IV 10/18/24 10:15 Acetaminophen 650 mg Q6HP PRN PO 10/18/24 10:15 10/19/24 19:56 650 MG EZETIMIBE 10 mg DAILY PO 10/19/24 10:00 10/22/24 08:28 10 MG Finasteride 5 mg DAILY PO 10/19/24 10:00 Metoprolol Tartrate 25 mg BID PO 10/18/24 22:00 10/22/24 08:28 25 MG Pantoprazole Sodium 40 mg DAILY PO 10/19/24 10:00 10/22/24 08:28 40 MG Tamsulosin HCl 0.4 mg QPM PO 10/18/24 18:00 10/18/24 18:00 0.4 MG Patient Own Medication 20 mg HS PO 10/18/24 22:00 10/21/24 21:26 20 MG Isosorbide Mononitrate 30 mg DAILY PO 10/19/24 11:00 10/22/24 08:28 30 MG Enoxaparin Sodium 40 mg DAILY SC 10/22/24 10:45 10/22/24 12:01 40 MG Laboratory Results Laboratory Tests 10/22/24 06:11 Chemistry Test 10/22/24 06:11 Calcium Level 9.9 mg/dL (8.7-10.4) Urinalysis Test 10/21/24 03:21 Urine Color Colorless (Yellow) Urine Clarity Turbid (Clear) H Urine pH 5.0 (5.0-9.0) Urine Specific [place] 1.005 (1.001-1.035) Urine Protein Negative (Negative) Urine Ketones Negative (Negative) Urine Blood 3+ /uL (Negative) H Urine Nitrite Negative (Negative) Urine Bilirubin Negative (Negative) Urine Urobilinogen Normal mg/dL (Negative) Urine Leukocyte Esterase Negative /uL (Negative) Urine RBC 1221 /hpf (0 - 3) Urine Microscopic WBC 9 /HPF (0-3) H Urine Squamous Epithelial Cells None seen /hpf (<5) Urine Bacteria None seen /hpf (None Seen) Urine Glucose Normal mg/dL (Normal) Microbiology Microbiology Date/Time Source Procedure Growth Status 10/19/24 05:30 Nose MRSA Screen - Final Complete Labs and/or images reviewed: Labs reviewed by me, Image(s) reviewed by me Assessment/Plan Assessment/Plan 10/22-basically patient have rales IVC filter yesterday. Continuing prophylactic dose Lovenox. Hematuria is improving. We will follow up another 24 hours to ensure resolution of hematuria. Possible discharge tomorrow after Urology clearance. Left lower extremity DVT - We will continue Lovenox prophylactic dose. consult Urology, IR, hematology. Plan for Enbrel IVC filter, inserted 10/21/24 hx hematuria s/p anticoagulation initiation. - urology is on board and put a 3 way Zhao and CBI. Hematuria improving. Urology following up. hx [place], CAD status post CABG x2- Continue home medications HTN- Continue home medications hyperipidemia- Continue home medications History of kidney stones History of BPH History of TURP, History of penile pain with discharge Diet cardiac DVT prophylaxis on full-dose Lovenox GI prophylaxis tolerating diet Med tele Full code Plan discussed with: Patient My Orders Orders - GILBERTO TAVARES MD Procedure Category Date Status Time Enoxaparin Sodium PHA 10/22/24 In Process (Lovenox) 10:45 Date of Service: Oct 22, 2024 Billing Provider: GILBERTO TAVARES MD Common Visit Codes: [id number] INP/OBS CARE(HIGH) GILBERTO TAVARES MD Oct 22, 2024 13:54
[2024-10-23 01:00] VITALS: BP 121/73; PULSE 68; RESP 20; TEMP 98.2; O2SAT 96
[2024-10-23 05:00] VITALS: BP 119/70; PULSE 91; RESP 18; TEMP 98.8; O2SAT 97
[2024-10-23 08:00] VITALS: PULSE 69; RESP 16; O2SAT 97
[2024-10-23 09:00] VITALS: BP 123/68; PULSE 69; RESP 16; TEMP 97.6; O2SAT 97
--- NOTE | 2024-10-23 09:00 | DVHPN2 ---
Progress Note - Dictate Date Seen: Oct 23, 2024 Has the PT tested + for MRSA If YES, has PT been informed?: Yes Medical Necessity Reason Pt with a Central, PICC or Fol: No Subjective Patient is feeling well. He has IVC filter No more urinary bleeding vital signs Vital Sign Date Time Temp Pulse Resp B/P (MAP) Pulse Ox O2 Delivery O2 Flow Rate FiO2 10/23/24 05:00 98.8 91 18 119/70 (86) 97 98.8 10/22/24 20:00 Room Air* 0 21 Total Intake and Output 10/22/24 10/22/24 10/23/24 15:00 23:00 07:00 Intake Total 400 ml Output Total 975 ml 1800 ml Balance -975 ml -1400 ml medications Current Medications Medications Dose Ordered Sig/Dionte Route Start Time Stop Time Status Last Admin Dose Admin Acetaminophen/ Hydrocodone Bitart 1 tab Q4HP PRN PO 10/18/24 10:15 Ondansetron HCl 4 mg Q4HP PRN IV 10/18/24 10:15 Acetaminophen 650 mg Q6HP PRN PO 10/18/24 10:15 10/19/24 19:56 650 MG EZETIMIBE 10 mg DAILY PO 10/19/24 10:00 10/22/24 08:28 10 MG Finasteride 5 mg DAILY PO 10/19/24 10:00 Metoprolol Tartrate 25 mg BID PO 10/18/24 22:00 10/22/24 21:38 25 MG Pantoprazole Sodium 40 mg DAILY PO 10/19/24 10:00 10/22/24 08:28 40 MG Tamsulosin HCl 0.4 mg QPM PO 10/18/24 18:00 10/18/24 18:00 0.4 MG Patient Own Medication 20 mg HS PO 10/18/24 22:00 10/22/24 21:39 20 MG Isosorbide Mononitrate 30 mg DAILY PO 10/19/24 11:00 10/22/24 08:28 30 MG Enoxaparin Sodium 40 mg DAILY SC 10/22/24 10:45 10/22/24 12:01 40 MG objective Head and neck: Unremarkable for any masses or neck nodes. Lungs: Clear Cardiovascular: Regular sinus rhythm Abdomen: No organomegaly, tenderness or ascites. Bowel sounds are present. No more blood in the catheter Extremities: No clubbing edema cyanosis or calf tenderness. Skin: Unremarkable for petechia purpura ecchymosis Lymphadenopathy: None laboratory and microbiology Laboratory Tests 10/22/24 06:11 Test 10/22/24 06:11 Range/Units Serum Glucose 107 H 74-106 mg/dL Assessment/Plan 1. Left leg and he could not DVT initially had the DVT in 2020 after CABG and took Eliquis for six months Now he had TURP on 09/27/2024 followed by a left leg DVT and had thrombectomy and no blood thinners on 10/08/2024 Now admitted again with the left leg swelling and has hematuria. Patient on Lovenox Had an IVC filter and hematuria has stopped The patient is more prone to make blood clots 2. History of CABG in 2020 Plan: We will DC the Lovenox Start on the Eliquis Patient is advised to follow up with me in the next couple of weeks in the office and once stable then may arrange for the IVC filter to be removed Plan discussed with: Patient THIERRY JOE MD Oct 23, 2024 09:00
[2024-10-23] MEDS: APIXABAN 5 MG TAB PO SCH (09:34)
[2024-10-23] MEDS ORDERED: APIX5TAB PO ×2 (14:17→15:31)
[2024-10-23] MEDS ORDERED: TAMS-35 PO (14:17)
[2024-10-23] MEDS ORDERED: APIX5TAB4 PO ×2 (14:17→15:31)
[2024-10-23 14:23] VITALS: BP 121/66; PULSE 65; RESP 16; TEMP 97.5; O2SAT 97
--- NOTE | 2024-10-23 14:29 | DVHDS2 ---
Discharge Summary Date of Admission Oct 18, 2024 at 10:04 Date of Discharge: Oct 23, 2024 Labs/Diagnostic Data: Laboratory Results Test 10/22/24 06:11 10/21/24 05:31 10/21/24 03:21 White Blood Count 7.1 10^3/uL (4.4-10.8) Red Blood Count 4.31 10^6/uL (4.5-5.90) Hemoglobin 13.1 g/dL (13.5-17.5) Hematocrit 38.3 % (41.0-53.0) Mean Corpuscular Volume 88.8 fL (80.0-100.0) Mean Corpuscular Hemoglobin 30.4 pg (28.0-32.0) Mean Corpuscular Hemoglobin Concent 34.2 g/dL (32.0-36.0) Red Cell Distribution Width 13.5 % (11.8-14.3) Platelet Count 211 10^3/uL (140-450) Mean Platelet Volume 8.0 fL (6.9-10.8) Neutrophils (%) (Auto) 66.3 % (37.0-80.0) Lymphocytes (%) (Auto) 23.6 % (10.0-50.0) Monocytes (%) (Auto) 8.0 % (0.0-12.0) Eosinophils (%) (Auto) 1.6 % (0.0-7.0) Basophils (%) (Auto) 0.5 % (0.0-2.0) Neutrophils # (Auto) 4.7 10 ^3/uL (1.6-8.6) Lymphocytes # (Auto) 1.7 10 ^3/uL (0.4-5.4) Monocytes # (Auto) 0.6 10 ^3/uL (0-1.3) Eosinophils # (Auto) 0.1 10 ^3/uL (0-0.8) Basophils # (Auto) 0 10 ^3/uL (0-0.2) Nucleated Red Blood Cells 0.1 % Sodium Level 141 mmol/L (136-145) Potassium Level 4.2 mmol/L (3.5-5.1) Chloride Level 106 mmol/L (98-107) Carbon Dioxide Level 26 mmol/L (20-31) Anion Gap 9 (5-15) Blood Urea Nitrogen 22 mg/dL (9-23) Creatinine 1.30 mg/dL (0.700-1.30) Glomerular Filtration Rate Calc 57 mL/min (>90) BUN/Creatinine Ratio 16.9 (10.0-20.0) Serum Glucose 107 mg/dL (74-106) Calcium Level 9.9 mg/dL (8.7-10.4) Prothrombin Time 10.5 sec (9.3-11.8) Prothrombin Time INR 0.99 (0.9-1.15) Activated Partial Thromboplast Time 30.8 SEC (24.5-34.5) Total Bilirubin 0.7 mg/dL (0.2-1.0) Aspartate Amino Transferase (AST) 20 U/L (13-40) Alanine Aminotransferase (ALT) 24 U/L (7-40) Alkaline Phosphatase 48 U/L (46-116) Total Protein 6.6 g/dL (5.7-8.2) Albumin 4.2 g/dL (3.2-4.8) Urine Color Colorless (Yellow) Urine Clarity Turbid (Clear) Urine pH 5.0 (5.0-9.0) Urine Specific [place] 1.005 (1.001-1.035) Urine Protein Negative (Negative) Urine Ketones Negative (Negative) Urine Blood 3+ /uL (Negative) Urine Nitrite Negative (Negative) Urine Bilirubin Negative (Negative) Urine Urobilinogen Normal mg/dL (Negative) Urine Leukocyte Esterase Negative /uL (Negative) Urine RBC 1221 /hpf (0 - 3) Urine Microscopic WBC 9 /HPF (0-3) Urine Squamous Epithelial Cells None seen /hpf (<5) Urine Bacteria None seen /hpf (None Seen) Urine Glucose Normal mg/dL (Normal) Other Laboratory Tests 10/22/24 06:11 Brief Hx & Hospital Course: HPI: 73-year-old male with past medical history of CAD status post CABG x2 in 2020 at [facility], hypertension, hyperlipidemia, kidney stones, BPH, PA, tonsillectomy, history of left lower extremity DVT, and TURP who presents to the ED for left lower extremity leg pain and swelling x1 week. Patient reports that when he walks the pain occurs. Patient reports that he was not placed on Eliquis because he had hematuria. He reports that he currently does not have any bleeding when he voids. Patient denies chest pain, shortness of breath, fever, chills, wheezing, lightheadedness, weakness, nausea, vomiting, diarrhea and dizziness. Summary: Patient recently admitted for left common femoral DVT status post thrombectomy elected due to complication of hematuria with anticoagulation. Patient was discharged without anticoagulation and presents again with left lower extremity swelling and again has DVT as found on ultrasound. Patient restarted on Lovenox and hematuria returns. Consulted Urology, Hematology, IR. Plan made with Hematology to insert IVC filter and starting anticoagulation prophylactic dose initially. Urology inserted [address] way Zhao with CBI. Hematuria continues to lessen and improve. On 10/23 Zhao removed as hematuria improved and patient doing well, bladder ultrasound negative for bladder retention. Oncology wants to continue full dose and we will follow up outpatient. See complete plan as below, ready for discharge and stable for discharge. Diagnosis: Left lower extremity DVT s/p Enbrel IVC filter on Anticoagulation hx hematuria s/p anticoagulation initiation, expected outcome of anticoagulation hx PA, CAD status post CABG x2 HTN- Continue home medications hyperipidemia- History of kidney stones History of BPH History of TURP, History of penile pain with discharge Discharge plan: -Start Flomax 0.4 mg daily - For 1st month do the Eliquis starter pack, for the next 2 months do Eliquis 5 mg twice daily, -Follow up with Urology -follow up with Hematology -Follow up with PCP to review discharge -Continue other home medications Condition at Discharge: Stable Final Diagnosis/Problems List Left lower extremity DVT s/p Enbrel IVC filter on Anticoagulation hx hematuria s/p anticoagulation initiation, expected outcome of anticoagulation hx PA, CAD status post CABG x2 HTN- Continue home medications hyperipidemia- History of kidney stones History of BPH History of TURP, History of penile pain with discharge Discharge Disposition: Home Discharge Instruct/Medications Diet: Cardiac 2g Na,low cholest Activity: No Restrictions, As Tolerated Follow Up/Referral: PCP, Hematology, Urology Medications: As below Discharge Statement: "Patient was advised to return to the ER or call 911 if any headaches, dizziness, shortness of breath, chest pain, abdominal pain, bleeding, fevers, or worsening of medical condition. Patient was counseled about treatment plan, medications, possible side effects, patientverbalized understanding. All questions were answered to the best of my ability. This discharge took greater then 30 minutes in planning, reviewing documentation, counseling the patient, and discussing with other team members." Date of Service: Oct 23, 2024 Billing Provider: GILBERTO TAVARES MD Common Visit Codes: 69823-FZR/OBS DISCH DAY >30min GILBERTO TAVARES MD Oct 23, 2024 14:29
== END 2024-10-23 15:01 | disposition home or self-care (01) | DRG 301 ==
LOC: ER 07:00 → OVERFLOW 10:04 → WEST WING 22:00
PROVIDERS: ADMIT Student in an Organized Health Care Education/Training Program; ATTEND Student in an Organized Health Care Education/Training Program
PROC: 06PY3DZ Removal of Intraluminal Device from Lower Vein, Percutaneous Approach (ICD-10-PCS; principal; 2024-10-21)
PROC: 06H03DZ Insertion of Intraluminal Device into Inferior Vena Cava, Percutaneous Approach (ICD-10-PCS; 2024-10-21)
PROC: B5191ZZ Fluoroscopy of Inferior Vena Cava using Low Osmolar Contrast (ICD-10-PCS; 2024-10-21)
DX: I82.412 Acute embolism and thrombosis of left femoral vein (principal); I25.10 Atherosclerotic heart disease of native coronary artery without angina pectoris; I10 Essential (primary) hypertension; E78.5 Hyperlipidemia, unspecified; N40.0 Benign prostatic hyperplasia without lower urinary tract symptoms; Z95.1 Presence of aortocoronary bypass graft; Z88.8 Allergy status to other drugs, medicaments and biological substances; Z79.899 Other long term (current) drug therapy; Z79.82 Long term (current) use of aspirin; Z79.891 Long term (current) use of opiate analgesic; Z87.442 Personal history of urinary calculi; Z80.8 Family history of malignant neoplasm of other organs or systems; Z80.52 Family history of malignant neoplasm of bladder; Z86.718 Personal history of other venous thrombosis and embolism; I25.2 Old myocardial infarction; Z85.51 Personal history of malignant neoplasm of bladder; Z85.819 Personal history of malignant neoplasm of unspecified site of lip, oral cavity, and pharynx; Z79.1 Long term (current) use of non-steroidal anti-inflammatories (NSAID); Z90.79 Acquired absence of other genital organ(s); Z79.01 Long term (current) use of anticoagulants; Z95.828 Presence of other vascular implants and grafts
CPT/HCPCS: 36415; 37619; 76937; 80048; 80053; 81001; 85025; 85610; 85730; 86850; 86900; 86901; 87081; 93005; 93971; 99152; C1894; G0378; J2250; Q9967

== ENCOUNTER 2024-10-26 07:18 | Inpatient (IN) | payer OTHER ==
[~2024-10-26] VITALS: Ht 182.9 cm; Wt 85.0 kg
[~2024-10-26 07:18] MED LIST changes: +APIX5TAB PO; +APIX5TAB4 PO; -FINA5TAB4 PO; +TAMS-35 PO; -TAMS0.4C39 PO
[2024-10-26 07:39] LABS: Urine Bacteria None Seen /hpf (None Seen)
[2024-10-26 07:49] LABS: Urine Blood 3+ /uL (Negative); Urine Color Red (Yellow); Urine Protein, UAD 1+ (Negative); Urine Specific Gravity 1.014 (1.001-1.035); Urine Squamous Epithelial Cell None Seen /hpf (<5); Urine Urobilinogen Normal (Negative); Urine WBC 1047 /HPF (0-3); Urine WBC Clumps PRESENT /hpf (None Seen); Urine pH 5.5 (5.0-9.0)
--- NOTE | 2024-10-26 07:49 | ED.PDOC ---
General HPI Comments 73 y.o male with PMHx of kidney stones, HTN, hyperlipidemia, [place], presents to the ED for a chief complaint of hematuria associated with urgency and frequency that started 1 day ago. Patient has been seen for these symptoms multiple times in the past and had been diagnosed with kidney stones. At this time, patient denies any pain, fever, chills, nausea, vomiting, dysuria, chest pain or SOB. Chief Complaint: Urinary Time Seen by MD: 07:30 Primary Care Provider: DAVID Reviewed notes: Nurses Notes, Medications, Allergies Allergies: Coded Allergies: Atorvastatin (Verified Allergy, Intermediate, 10/04/24) Rash Uncoded Allergies: Atrovastatin (Allergy, Unknown, 09/09/24) Home Meds Active Scripts Apixaban Base (Eliquis Starter Pack) 5 Mg Tab, 5 MG PO BID for 30 Days, #60 TAB 0 Refills Prov:GILBERTO TAVARES MD 10/23/24 Apixaban Base (ELIQUIS) 5 Mg Tab, 5 MG PO BID for 30 Days, #60 TAB 1 Refill Prov:GILBERTO TAVARES MD 10/23/24 Tamsulosin Hcl (Flomax) 0.4 Mg Cap, 1 CAP PO DAILY, #30 CAP 1 Refill Prov:GILBERTO TAVARES MD 10/23/24 Pantoprazole Sodium Sesquihydr (Pantoprazole Sodium) 40 Mg Tab, 40 MG PO DAILY for 60 Days, #60 TAB 5 Refills Prov:SHU FISH RESIDENT 10/15/24 Hydrocodone-Acetaminophen (Hydrocodone Bitartrate/AC 5-325 mg) 1 Tab Tab, 1 TAB PO QID PRN, #30 TAB Prov:KESHA ROSENTHAL MD 09/14/24 Reported Medications Aspirin (Aspir-81) 81 Mg Tab, 1 TAB PO DAILY, #30 TAB 5 Refills 10/04/24 Isosorbide Mononitrate (Isosorbide Mononitrate Er) 30 Mg Tab, 30 MG PO DAILY for 30 Days, MG 09/10/24 Simvastatin (Simvastatin) 20 Mg Tab, 20 MG PO DAILY for dyslipidemia for 30 Days 11/19/23 Metoprolol Tartrate (Metoprolol Tartrate) 25 Mg Tab, 25 MG PO BID for htn for 30 Days, MG 11/19/23 Ezetimibe (Zetia) 10 Mg Tab, 1 TAB PO DAILY for HIGH CHOLESTEROL, #30 TAB 5 Refills 11/19/23 Discontinued Reported Medications Finasteride (Finasteride) 5 Mg Tab, 5 MG PO DAILY, TAB 09/18/24 Tamsulosin Hcl (Tamsulosin Hcl) 0.4 Mg Cap, 0.4 MG PO QPM for 30 Days, MG 09/10/24 Information Source: Patient Mode of Arrival: Ambulatory Severity: Moderate Timing: Days (1) Duration: Since onset Onset: Spontaneous Symptoms: Frequency, Urgency, Hematuria History of: Kidney stone Location: None Modifying factors: None associated signs and symptoms: Frequency, Urgency, Hematuria Past Medical History PAST MEDICAL HISTORY: CAD, High Lipids, HTN, Kidney Stones, [place] Surgical History: CABG, Tonsillectomy Surgical History (Other): TURP Family History Family History: Reviewed,noncontributory to illness, Family hx of Cancer Social History Smoker: Non-Smoker Alcohol: Denies ETOH Use Drugs: Denies Drug Use Lives In: Home Constitutional: denies: chills, diaphoresis, fatigue, fever, malaise, sweats, weakness, others EENTM: denies: blurred vision, double vision, ear bleeding, ear discharge, ear drainage, ear pain, ear ringing, eye pain, eye redness, hearing loss, mouth pain, mouth swelling, nasal discharge, nose bleeding, nose congestion, nose pain, photophobia, tearing, throat pain, throat swelling, voice changes, others Respiratory: denies: cough, hemoptysis, orthopnea, SOB at rest, shortness of breath, SOB with excertion, stridor, wheezing, others Cardiovascular: denies: chest pain, dizzy spells, diaphoresis, Dyspnea on exertion, edema, irregular heart beat, left arm pain, lightheadedness, palpitations, PND, syncope, others Gastrointestinal: denies: abdomen distended, abdominal pain, blood streaked bowels, constipated, diarrhea, dysphagia, difficulty swallowing, hematemesis, melena, nausea, poor appetite, poor fluid intake, rectal bleeding, rectal pain, vomiting, others Genitourinary: reports: frequency, hematuria, urgency; denies: burning, dysuria, flank pain, incontinence, penile discharge, penile sore, pain, testicle pain, testicle swelling, others Neurological: denies: dizziness, fainting, headache, left sided numbness, left sided weakness, numbness, paresthesia, pre-existing deficit, right sided numbness, right sided weakness, seizure, speech problems, tingling, tremors, weakness, others Musculoskeletal: denies: back pain, gout, joint pain, joint swelling, muscle pain, muscle stiffness, neck pain, others Integumetry: denies: bruises, change in color, change in hair/nails, dryness, laceration, lesions, lumps, rash, wounds, others Allergic/Immunocompromised: denies: Difficulty Healing, Frequent Infections, Hives, Itching, others Hematologic/Lymphatic: denies: anemia, blood clots, easy bleeding, easy bruisin g, swollen glands, others Endocrine: denies: excessive hunger, excessive sweating, excessive thirst, excessive urination, flushing, intolerance to cold, intolerance to heat, unexplained weight gain, unexplained weight loss, others Psychiatric: denies: anxiety, bipolar disorder, depression, hopeless, panic disorder, schizophrenia, sleepless, suicidal, others All Other Systems: Reviewed and Negative Physical Exam General Appearance: No Apparent Distress, Normal HEENT: Normal ENT Inspection, Pharynx Normal, TMs Normal Neck: Full Range of Motion, Non-Tender, Normal, Normal Inspection Respiratory: Chest Non-Tender, Lungs Clear, No Accessory Muscle Use, No Respiratory Distress, Normal Breath Sounds Cardiovascular: No Edema, No JVD, No Murmur, No Gallop, Normal Peripheral Pulses, Regular Rate/Rhythm Breast Exam: Deferred Gastrointestinal: No Organomegaly, Non Tender, No Pulsatile Mass, Normal Bowel Sounds, Soft Genitalia: Deferred Pelvic: Deferred Rectal: Deferred Extremities: No calf tenderness, Normal capillary refill, Normal inspection, Normal range of motion, Non-tender, No pedal edema Musculoskeletal : Apperance: Normal Neurologic: Alert, estate manager II-XII nml as Tested, No Motor Deficits, Normal Affect, Normal Mood, No Sensory Deficits Cerebellar Function: Normal Reflexes: Normal Skin: Dry, Normal Color, Warm Lymphatic: No Adenopathy Was a procedure done? Was a procedure done?: No Differential Diagnosis Kidney stone (Female): N/A Kidney stone (Male): HNP, Renal failure, Strain, Urinary obstruction, Urolithiasis, Renal infarction, Urinary tract infection Urinary Problem (Male): Epididymitis, Prostatitis, Plelonephritis, Renal Failure, Urethritis, Urolithiasis, UTI X-Ray, Labs, Meds, VS Vital Signs Date Time Temp Pulse Resp B/P (MAP) Pulse Ox O2 Delivery O2 Flow Rate FiO2 10/26/24 08:35 63 17 94 Room Air* 0 21 10/26/24 08:35 97.9 63 17 101/58 (72) 94 97.9 10/26/24 07:33 97.8 73 18 123/62 (82) 98 Lab Test 10/26/24 07:39 10/26/24 07:30 Range/Units White Blood Count 5.8 4.4-10.8 10^3/uL Red Blood Count 4.42 L 4.5-5.90 10^6/uL Hemoglobin 13.0 L 13.5-17.5 g/dL Hematocrit 39.1 L 41.0-53.0 % Mean Corpuscular Volume 88.5 80.0-100.0 fL Mean Corpuscular Hemoglobin 29.4 28.0-32.0 pg Mean Corpuscular Hemoglobin Concent 33.3 32.0-36.0 g/dL Red Cell Distribution Width 13.4 11.8-14.3 % Platelet Count 184 140-450 10^3/uL Mean Platelet Volume 8.3 6.9-10.8 fL Neutrophils (%) (Auto) 61.8 37.0-80.0 % Lymphocytes (%) (Auto) 28.8 10.0-50.0 % Monocytes (%) (Auto) 6.8 0.0-12.0 % Eosinophils (%) (Auto) 2.0 0.0-7.0 % Basophils (%) (Auto) 0.6 0.0-2.0 % Neutrophils # (Auto) 3.6 1.6-8.6 10 ^3/uL Lymphocytes # (Auto) 1.7 0.4-5.4 10 ^3/uL Monocytes # (Auto) 0.4 0-1.3 10 ^3/uL Eosinophils # (Auto) 0.1 0-0.8 10 ^3/uL Basophils # (Auto) 0 0-0.2 10 ^3/uL Nucleated Red Blood Cells 0.1 % Sodium Level 140 136-145 mmol/L Potassium Level 4.1 3.5-5.1 mmol/L Chloride Level 107 98-107 mmol/L Carbon Dioxide Level 27 20-31 mmol/L Anion Gap 6 5-15 Blood Urea Nitrogen 16 9-23 mg/dL Creatinine 1.28 0.700-1.30 mg/dL Glomerular Filtration Rate Calc 58 >90 mL/min BUN/Creatinine Ratio 12.5 10.0-20.0 Serum Glucose 127 H 74-106 mg/dL Calcium Level 9.9 8.7-10.4 mg/dL Urine Color Red H Yellow Urine Clarity Cloudy H Clear Urine pH 5.5 5.0-9.0 Urine Specific [place] 1.014 1.001-1.035 Urine Protein 1+ H Negative Urine Ketones Negative Negative Urine Blood 3+ H Negative /uL Urine Nitrite Negative Negative Urine Bilirubin Negative Negative Urine Urobilinogen Normal Negative mg/dL Urine Leukocyte Esterase 3+ Negative /uL Urine RBC 1858 0 - 3 /hpf Urine WBC Clumps Present None Seen /hpf Urine Microscopic WBC 1047 H 0-3 /HPF Urine Squamous Epithelial Cells None seen <5 /hpf Urine Bacteria None seen None Seen /hpf Urine Glucose Normal Normal mg/dL Time of 1ST Reevaluation: 07:36 Reevaluation 1ST: Unchanged Patient Education/Counseling: Diagnosis, Treatment, Prognosis, Need For Follow Up Family Education/Counseling: No Family Present Additional Information - I reviewed the following notes from patient's past medical encounters: 10/18/24 left lower extremity DVT 10/04/24 left lower extremity DVT 09/26/24 kidney stones - The following tests were ordered, and results were reviewed by me: UA, CT abdomen/pelvis, CMP and CBC - Additional information was gathered from interviewing the following independent Historian: None - I reviewed and agreed with the following test results read by other provider: CT abdomen pelvis - I discussed treatments and results with medical personnel and: None pt is on blood thinner for history of DVTs. he now has hemorrhagic cystitis and a bladder hematoma. he will need to be admitted for bleeding monitoring and treatment of the complicated uti Departure 1 Departure Time of Disposition: 09:38 Impression: Primary Impression: Hemorrhagic cystitis Additional Impressions: Complicated urinary tract infection Hematoma of bladder wall Qualified Codes: S37.22XA - Contusion of bladder, initial encounter Disposition: ADMITTED INPATIENT Admit to: Med Surg Condition: Stable Critical Care Note Critical Care Time?: Yes (55 min-critical care time only) Critical care comment: due to concerns for deterioration of patient's condition, the care required my highest level of attention and readiness. i assessed the patient's condition, reviewed relevant documents, communicated with medical personnel, ordered the p duane tests and treatments, reassessed for results and response to treatments, spoke to family and consultants and formulated a plan of care Stability Stability form required: No Heart Score Heart Score: Heart Score Response (Comments) Value History N/A 0 EKG N/A 0 Age N/A 0 Risk Factors N/A 0 Troponin N/A 0 Total 0 I personally scribed for HANK FELTON MD ([email or web address]) on 10/26/24 at 07:49. Electronically submitted by Nikki Andrew ([facility]). HANK FELTON MD Oct 26, 2024 07:49
[2024-10-26 07:50] LABS: Urine Clarity Cloudy (Clear)
[2024-10-26 08:00] LABS: Basophils # (auto) 0 10 ^3/uL (0-0.2); Basophils % (auto) 0.6 % (0.0-2.0); Eosinophils # (auto) 0.1 10 ^3/uL (0-0.8); Hematocrit 39.1 % (41.0-53.0); Lymphocytes # (auto) 1.7 10 ^3/uL (0.4-5.4); Lymphocytes % (auto) 28.8 % (10.0-50.0); Mean Corpuscular Hemoglobin 29.4 pg (28.0-32.0); Mean Corpuscular Hgb Conc. 33.3 g/dL (32.0-36.0); Mean Corpuscular Volume 88.5 fL (80.0-100.0); Monocytes # (auto) 0.4 10 ^3/uL (0-1.3); Monocytes % (auto) 6.8 % (0.0-12.0); Neutrophils # (auto) 3.6 10 ^3/uL (1.6-8.6); Neutrophils % (auto) 61.8 % (37.0-80.0); Nucleated Red Blood Cells % 0.1 %; Platelet Count (auto) 184 10^3/uL (140-450); Red Blood Cells 4.42 10^6/uL (4.5-5.90); Red Cell Distribution Width 13.4 % (11.8-14.3); White Blood Cell 5.8 10^3/uL (4.4-10.8)
[2024-10-26 08:09] LABS: Chloride 107 mmol/L (98-107); Potassium 4.1 mmol/L (3.5-5.1); Sodium 140 mmol/L (136-145)
[2024-10-26 08:10] LABS: Anion Gap 6 (5-15); Calcium 9.9 mg/dL (8.7-10.4); Carbon Dioxide 27 mmol/L (20-31)
[2024-10-26 08:15] LABS: BUN/Creatinine Ratio 12.5 (10.0-20.0); Blood Urea Nitrogen 16 mg/dL (9-23); Glucose 127 mg/dL (74-106)
[2024-10-26 08:35] VITALS: PULSE 63; RESP 17; O2SAT 94
--- NOTE | 2024-10-26 08:44 | DVH ---
Exam: CT CT AB PEL WO CON-NO ORAL OR IV History: Hematuria, history of kidney stones Comparison Study: CT of the abdomen pelvis performed on 09/26/2024. Technique: Multidetector spiral CT of the abdomen and pelvis was performed from lung bases to pubic s ymphysis. Imaging was performed without intravenous contrast. Coronal and sagittal multiplanar reform ats were obtained from the axial data set by the technologist. Radiation Dose : 1. Abdomen/Pelvis: CTDIvol 12.66 mGy, DLP 770.74 mGy*cm. Findings: Evaluation of vasculature and solid organs is limited due to lack of intravenous contrast use. Lung Bases: Lung bases are clear. Visualized portions of the heart and pericardium are unremarkable. Liver: The liver is normal in size. No focal lesions. Gallbladder and Biliary Tree: The gallbladder is unremarkable. No intrahepatic or extrahepatic bilia ry ductal dilatation. Spleen: Unremarkable Pancreas: The pancreas is grossly unremarkable. Adrenal Glands: Unremarkable Kidneys: Kidneys demonstrates no hydronephrosis or intrarenal calculi. Previously demonstrated right nephrostomy tube has been removed. There is a 2.5 cm hypodense mass in the right kidney compatible wi th a cyst. GI tract: Hiatal hernia. No evidence of small bowel wall thickening or abnormal dilatation to suggest bowel obstruction. Sigmoid diverticulosis without acute diverticulitis. The appendix is visualized a nd is normal. Peritoneum/mesentery/retroperitoneum. No evidence of free intraperitoneal air. No ascites. No evidenc e of suspicious lymphadenopathy. Abdominal Wall: Unremarkable. Vasculature: The visualized abdominal aorta is normal in size and caliber. Evaluation of abdominal a nd pelvic vessels is limited due to lack of intravenous contrast. IVC filter noted. Urinary Bladder: There is a Zhao catheter present. Non dependent hyperdensity noted in the urinary b ladder suspicious for hematoma. Urinary bladder wall thickening and fat stranding. Pelvic Organs: Prostate is enlarged measuring 6.2 cm. Musculoskeletal: No aggressive focal bony lesions, acute fractures or dislocation. Soft tissues: Bilateral inguinal hernia. IMPRESSION: 1. Urinary bladder demonstrates intraluminal hyperdensity most suggestive of hematoma. There is urin ulises bladder wall thickening and fat stranding suspicious for cystitis. 2. Enlarged prostate. 3. No intrarenal calculi no hydronephrosis. Removal of the right nephrostomy catheter. 4. Sigmoid diverticulosis without acute diverticulitis
[2024-10-26] MEDS: cefTRIAXone 1GM/50ML D5W 50 ML IV ONE (10:01)
[2024-10-26] MEDS ORDERED: HYDROcodone-ACET 5/325MG TAB PO PRN (13:30)
[2024-10-26] MEDS ORDERED: ONDANSETRON HCL 4 MG/2 ML VIAL IV PRN (13:30)
[2024-10-26] MEDS ORDERED: ACETAMINOPHEN 325 MG TAB PO PRN (13:30)
--- NOTE | 2024-10-26 13:42 | DVHHP2 ---
History of Present Illness Reason for Visit: Hematuria History of Present Illness Bridger Boykin is a 73-year-old male with past medical history of CAD status post CABG x2 in 2020 at a [facility], hypertension, hyperlipidemia, kidney stones, BPH, UT, tonsillectomy, history of left lower extremity DVT, and TURP who presents to the ED for hematuria with blood clots x1 day. Patient reports that he is currently on Eliquis for the left lower extremity DVT and had stopped it last night due to the bleeding and clots. He states that there was numerous clots when he was voiding. Patient reports that he was just discharged this and on Sunday developed a blood clots with the hematuria when voiding. Patient denies chest pain, shortness of breath, fever, chills, wheezing, lightheadedness, weakness, nausea, vomiting, diarrhea and dizziness. Cardiovascular: CAD, HTN, UT, hyperipidemia Past Medical History BPH Kidney stones Left lower extremity DVT Past Surgical History: CABG, Other ( right nephrostomy), TURP Smoke: No ALCOHOL: none Drugs: None Lives: with Family Domestic Violence: Neg Review of Systems Genitourinary: Hematuria Allergies: Coded Allergies: Atorvastatin (Verified Allergy, Intermediate, 10/04/24) Rash Uncoded Allergies: Atrovastatin (Allergy, Unknown, 09/09/24) Exam Vital Signs Vital Signs Date Time Temp Pulse Resp B/P (MAP) Pulse Ox O2 Delivery O2 Flow Rate FiO2 10/26/24 13:16 98.9 65 16 132/68 (89) 96 98.9 10/26/24 08:35 Room Air* 0 21 General Appearance: Alert, Oriented X3, Cooperative, No acute distress HEENT: Atraumatic, PERRLA, EOMI, Mucous membr. moist/pink Respiratory: Clear to auscultation, Normal air movement Cardiovascular: Regular rate, Normal S1, Normal S2, No murmurs Abdominal: Normal bowel sounds, Soft, No tenderness, No hepatospenomegaly, No masses Extremities: No clubbing, No cyanosis, No edema, Normal pulses, No tenderness/swelling Skin: No significant lesion Neuro: Normal gait, Normal speech, Strength at 5/5 X4 ext, Normal tone, Sensation intact Psych/Mental Status: Mental status NL, Mood NL Labs/Xrays Labs Test 10/26/24 07:39 10/26/24 07:30 Range/Units White Blood Count 5.8 4.4-10.8 10^3/uL Red Blood Count 4.42 L 4.5-5.90 10^6/uL Hemoglobin 13.0 L 13.5-17.5 g/dL Hematocrit 39.1 L 41.0-53.0 % Mean Corpuscular Volume 88.5 80.0-100.0 fL Mean Corpuscular Hemoglobin 29.4 28.0-32.0 pg Mean Corpuscular Hemoglobin Concent 33.3 32.0-36.0 g/dL Red Cell Distribution Width 13.4 11.8-14.3 % Platelet Count 184 140-450 10^3/uL Mean Platelet Volume 8.3 6.9-10.8 fL Neutrophils (%) (Auto) 61.8 37.0-80.0 % Lymphocytes (%) (Auto) 28.8 10.0-50.0 % Monocytes (%) (Auto) 6.8 0.0-12.0 % Eosinophils (%) (Auto) 2.0 0.0-7.0 % Basophils (%) (Auto) 0.6 0.0-2.0 % Neutrophils # (Auto) 3.6 1.6-8.6 10 ^3/uL Lymphocytes # (Auto) 1.7 0.4-5.4 10 ^3/uL Monocytes # (Auto) 0.4 0-1.3 10 ^3/uL Eosinophils # (Auto) 0.1 0-0.8 10 ^3/uL Basophils # (Auto) 0 0-0.2 10 ^3/uL Nucleated Red Blood Cells 0.1 % Sodium Level 140 136-145 mmol/L Potassium Level 4.1 3.5-5.1 mmol/L Chloride Level 107 98-107 mmol/L Carbon Dioxide Level 27 20-31 mmol/L Anion Gap 6 5-15 Blood Urea Nitrogen 16 9-23 mg/dL Creatinine 1.28 0.700-1.30 mg/dL Glomerular Filtration Rate Calc 58 >90 mL/min BUN/Creatinine Ratio 12.5 10.0-20.0 Serum Glucose 127 H 74-106 mg/dL Calcium Level 9.9 8.7-10.4 mg/dL Urine Color Red H Yellow Urine Clarity Cloudy H Clear Urine pH 5.5 5.0-9.0 Urine Specific [place] 1.014 1.001-1.035 Urine Protein 1+ H Negative Urine Ketones Negative Negative Urine Blood 3+ H Negative /uL Urine Nitrite Negative Negative Urine Bilirubin Negative Negative Urine Urobilinogen Normal Negative mg/dL Urine Leukocyte Esterase 3+ Negative /uL Urine RBC 1858 0 - 3 /hpf Urine WBC Clumps Present None Seen /hpf Urine Microscopic WBC 1047 H 0-3 /HPF Urine Squamous Epithelial Cells None seen <5 /hpf Urine Bacteria None seen None Seen /hpf Urine Glucose Normal Normal mg/dL Exam: CT CT AB PEL WO CON-NO ORAL OR IV History: Hematuria, history of kidney stones Comparison Study: CT of the abdomen pelvis performed on 09/26/2024. Technique: Multidetector spiral CT of the abdomen and pelvis was performed from lung bases to pubic symphysis. Imaging was performed without intravenous contrast. Coronal and sagittal multiplanar reformats were obtained from the axial data set by the technologist. Radiation Dose : 1. Abdomen/Pelvis: CTDIvol 12.66 mGy, DLP 770.74 mGy*cm. Findings: Evaluation of vasculature and solid organs is limited due to lack of intravenous contrast use. Lung Bases: Lung bases are clear. Visualized portions of the heart and pericard ium are unremarkable. Liver: The liver is normal in size. No focal lesions. Gallbladder and Biliary Tree: The gallbladder is unremarkable. No intrahepatic or extrahepatic biliary ductal dilatation. Spleen: Unremarkable Pancreas: The pancreas is grossly unremarkable. Adrenal Glands: Unremarkable Kidneys: Kidneys demonstrates no hydronephrosis or intrarenal calculi. Prev iously demonstrated right nephrostomy tube has been removed. There is a 2.5 cm hypodense mass in the right kidney compatible with a cyst. GI tract: Hiatal hernia. No evidence of small bowel wall thickening or abnormal dilatation to suggest bowel obstruction. Sigmoid diverticulosis without acute diverticulitis. The appendix is visualized and is normal. Peritoneum/mesentery/retroperitoneum. No evidence of free intraperitoneal air. No ascites. No evidence of suspicious lymphadenopathy. Abdominal Wall: Unremarkable. Vasculature: The visualized abdominal aorta is normal in size and caliber. Evaluation of abdominal and pelvic vessels is limited due to lack of intravenous contrast. IVC filter noted. Urinary Bladder: There is a Zhao catheter present. Non dependent hyperdensity noted in the urinary bladder suspicious for hematoma. Urinary bladder wall thickening and fat stranding. Pelvic Organs: Prostate is enlarged measuring 6.2 cm. Musculoskeletal: No aggressive focal bony lesions, acute fractures or dislo cation. Soft tissues: Bilateral inguinal hernia. IMPRESSION: 1. Urinary bladder demonstrates intraluminal hyperdensity most suggestive of hematoma. There is urinary bladder wall thickening and fat stranding suspicious for cystitis. 2. Enlarged prostate. 3. No intrarenal calculi no hydronephrosis. Removal of the right nephrostomy catheter. 4. Sigmoid diverticulosis without acute diverticulitis Assessment/Plan Assessment/Plan Assessment Acute cystitis Gross hematuria Enlarged prostate Sigmoid diverticulosis History of CAD status post CABG x2 History of hypertension History of hyperlipidemia History of kidney stones History of UT History of BPH History of right nephrostomy History of tonsillectomy History of left lower extremity DVT on Eliquis History of TURP Plan Admit to [facility] surge PSA IV antibiotics-ceftriaxone UA CT abdomen and pelvis Three way Zhao ordered CBI Urology consult Diet Hold anticoagulants until hematuria resolves - discuss with rounding team on when to resume Home medications reconciled Discussed plan of care with patient and nurse Plan discussed with: Patient My Orders Orders - GADIEL LIEBERMAN [employer] Procedure Category Date Status Time Psa Total+% Free LAB 10/26/24 In Process 11:36 Ceftriaxone Ivpb PHA 10/27/24 Transmitted Rocephin 09:00 Finasteride Tablet PHA 10/27/24 Transmitted (Proscar Tablet) 10:00 Finasteride Tablet PHA 10/26/24 Transmitted (Proscar Tablet) 13:30 * Urology Consult CONS 10/26/24 Transmitted 13:26 Continous Bladder ORDERS 10/26/24 Transmitted Irrigation 13:[address] Zhao SHAYY 10/26/24 Transmitted 13:26 Admit ADMIT 10/26/24 Transmitted 13:26 Allergies SHAYY 10/26/24 Transmitted 13:26 Code Status CODE 10/26/24 Transmitted 13:26 Hydrocodone-Acet PHA 10/26/24 Transmitted 5/325mg Tab ([place] 13:30 Ondansetron Hcl PHA 10/26/24 Transmitted (Zofran) 13:30 Complete Blood Count LAB 10/27/24 Verified 04:00 Comprehensive LAB 10/27/24 Verified Metabolic Panel 04:00 Acetaminophen Tablet PHA 10/26/24 Transmitted (Tylenol Tablet) 13:30 Date of Service: Oct 26, 2024 Billing Provider: GADIEL LIEBERMAN Common Visit Codes: [id number] INP/OBS CARE (HIGH) GADIEL LIEBERMAN Oct 26, 2024 13:42
[2024-10-26] MEDS: FINASTERIDE 5 MG TAB PO ONE (13:44)
[2024-10-26] MEDS: CHOLECALCIFEROL (VITD3) 1,000UNIT=25mCg TAB PO ONE (14:36)
[2024-10-26 15:00] VITALS: BP 136/93; PULSE 78; RESP 16; TEMP 97.5; O2SAT 99
[2024-10-26 16:30] VITALS: BP 130/68; PULSE 68; RESP 16; TEMP 97.3; O2SAT 98
[2024-10-26 21:00] VITALS: BP 129/64; PULSE 66; RESP 18; TEMP 98; O2SAT 95
[2024-10-26] MEDS: METOPROLOL TARTRATE 25 MG TAB PO SCH (21:25)
[2024-10-27 05:00] VITALS: BP 131/69; PULSE 69; RESP 18; TEMP 97.5; O2SAT 98
[2024-10-27 06:44] LABS: Basophils # (auto) 0 10 ^3/uL (0-0.2); Basophils % (auto) 0.6 % (0.0-2.0); Eosinophils # (auto) 0.1 10 ^3/uL (0-0.8); Eosinophils % (auto) 2.6 % (0.0-7.0); Hematocrit 37.5 % (41.0-53.0); Hemoglobin 12.6 g/dL (13.5-17.5); Lymphocytes # (auto) 1.4 10 ^3/uL (0.4-5.4); Lymphocytes % (auto) 27.9 % (10.0-50.0); Mean Corpuscular Hemoglobin 29.7 pg (28.0-32.0); Mean Corpuscular Hgb Conc. 33.6 g/dL (32.0-36.0); Mean Corpuscular Volume 88.3 fL (80.0-100.0); Monocytes # (auto) 0.4 10 ^3/uL (0-1.3); Neutrophils % (auto) 60.9 % (37.0-80.0); Nucleated Red Blood Cells % 0.1 %; Platelet Count (auto) 172 10^3/uL (140-450); Red Blood Cells 4.25 10^6/uL (4.5-5.90); Red Cell Distribution Width 13.3 % (11.8-14.3); White Blood Cell 4.9 10^3/uL (4.4-10.8)
[2024-10-27 06:53] LABS: Alanine Aminotransferase 17 U/L (7-40); Albumin 4.1 g/dL (3.2-4.8); Alkaline Phosphatase 46 U/L (46-116); Anion Gap 7 (5-15); Aspartate Aminotransferase 16 U/L (13-40); BUN/Creatinine Ratio 12.2 (10.0-20.0); Blood Urea Nitrogen 17 mg/dL (9-23); Calcium 9.9 mg/dL (8.7-10.4); Carbon Dioxide 28 mmol/L (20-31); Chloride 106 mmol/L (98-107); Glucose 104 mg/dL (74-106); Potassium 4.2 mmol/L (3.5-5.1); Sodium 141 mmol/L (136-145); Total Protein 6.4 g/dL (5.7-8.2)
[2024-10-27 06:54] LABS: Bilirubin, Total 0.6 mg/dL (0.2-1.0)
[2024-10-27 08:00] VITALS: PULSE 66; RESP 16
[2024-10-27 08:30] VITALS: BP 134/73; PULSE 66; RESP 16; TEMP 97.5; O2SAT 98
--- NOTE | 2024-10-27 09:26 | DVHINCON2 ---
Date of service: Oct 27, 2024 Referring Physician Hospitalist - Jyoti Kenyon NP Reason for Consultation "hematuria with clots" History of Present Illness History Source: Patient, RN Notes, MD Notes, Old Records Exam Limitations: No limitations HPI 73-year-old male with past medical history of CAD status post CABG x2 in 2020 at [facility], hypertension, hyperlipidemia, kidney stones, BPH, [place], tonsillectomy, history of left lower extremity DVT x 2 post IVC filter last admission, and TURP who presents to the ED for hematuria with blood clots x1 day. Patient reports that he is currently on Eliquis for the left lower extremity DVT and had stopped it last night due to the bleeding and clots. He states that there was numerous clots when he was voiding. Patient reports that he was just discharged this and on Sunday developed a blood clots with the hematuria when voiding. Patient denies chest pain, shortness of breath, fever, chills, wheezing, lightheadedness, weakness, nausea, vomiting, diarrhea and dizziness. Cardiovascular: CAD, HTN, [place], hyperipidemia Past Medical History BPH Kidney stones Left lower extremity DVT Past Surgical History: CABG, Other ( right nephrostomy), TURP Smoke: No ALCOHOL: none Drugs: None Lives: with Family Domestic Violence: Neg Home Meds Active Scripts Apixaban Base (Eliquis Starter Pack) 5 Mg Tab, 5 MG PO BID for 30 Days, #60 TAB 0 Refills Prov:GILBERTO TAVARES MD 10/23/24 Apixaban Base (ELIQUIS) 5 Mg Tab, 5 MG PO BID for 30 Days, #60 TAB 1 Refill Prov:GILBERTO TAVARES MD 10/23/24 Tamsulosin Hcl (Flomax) 0.4 Mg Cap, 1 CAP PO DAILY, #30 CAP 1 Refill Prov:GILBERTO TAVARES MD 10/23/24 Pantoprazole Sodium Sesquihydr (Pantoprazole Sodium) 40 Mg Tab, 40 MG PO DAILY for 60 Days, #60 TAB 5 Refills Prov:SHU FISH 10/15/24 Hydrocodone-Acetaminophen (Hydrocodone Bitartrate/AC 5-325 mg) 1 Tab Tab, 1 TAB PO QID PRN, #30 TAB Prov:KESHA ROSENTHAL MD 09/14/24 Reported Medications Aspirin (Aspir-81) 81 Mg Tab, 1 TAB PO DAILY, #30 TAB 5 Refills 10/04/24 Isosorbide Mononitrate (Isosorbide Mononitrate Er) 30 Mg Tab, 30 MG PO DAILY for 30 Days, MG 09/10/24 Simvastatin (Simvastatin) 20 Mg Tab, 20 MG PO DAILY for dyslipidemia for 30 Days 11/19/23 Metoprolol Tartrate (Metoprolol Tartrate) 25 Mg Tab, 25 MG PO BID for htn for 30 Days, MG 11/19/23 Ezetimibe (Zetia) 10 Mg Tab, 1 TAB PO DAILY for HIGH CHOLESTEROL, #30 TAB 5 Refills 11/19/23 Past Medical History Renal/: Benign prostatic enlarg., Hematuria Patient Family History: FH: bladder cancer G8 FATHER, Onset:Unknown FH: throat cancer G8 MOTHER, Onset:60 years & older Pacemaker G8 FATHER Review of Systems Constitutional: No symptom reported Ears, Nose, & Throat: No symptom reported Eyes: No symptom reported Pulmonary/Respiratory: No symptom reported Cardiovascular: No symptom reported Gastrointestinal: No symptom reported Genitourinary: Hematuria Musculoskeletal: No symptom reported Skin: No symptom reported Psychiatric: No symptom reported Endocrine: No symptom reported Hemotologic/Lymphatic: No symptom reported H&P Exam Vital Signs Vital Signs Date Time Temp Pulse Resp B/P (MAP) Pulse Ox O2 Delivery O2 Flow Rate FiO2 10/27/24 05:00 97.5 69 18 131/69 (89) 98 97.5 10/26/24 20:00 Room Air* 0 21 General Appeara: Well developed, Well nourished, Normal Appearance Male Genital Exam: Not done Neuro/Mental St: Alert, Oriented Appearance: Appropriate appearance, Appropriate insight Eye contact/ Speech: Cooperative, Good eye contact, Normal speech Skin Exam: Normal inspection, Normal color, Warm/dry Labs/Xrays [place] [id number] Ph: [phone] DIAGNOSTIC IMAGING Diagnostic Imaging Report : [id number] Signed PATIENT: ABBY HOLT ACCT: [id number] UNIT: [id number] : 1950 LOC: ER ROOM / BED: / AGE / SEX: 73 / M ADM STATUS: REG ER SERVICE 0730 ORDERING PHYSICIAN: HANK FELTON MD PROCEDURE(s): ABPL - CT AB PEL WO CON-NO ORAL OR IV REASON: hematuria, history of kidney stones ORDER NUMBER(s): [id number], ACCESSION NUMBER(s): [id number] Exam: CT CT AB PEL WO CON-NO ORAL OR IV History: Hematuria, history of kidney stones Comparison Study: CT of the abdomen pelvis performed on 09/26/2024. Technique: Multidetector spiral CT of the abdomen and pelvis was performed from lung bases to pubic symphysis. Imaging was performed without intravenous contrast. Coronal and sagittal multiplanar reformats were obtained from the axial data set by the technologist. Radiation Dose : 1. Abdomen/Pelvis: CTDIvol 12.66 mGy, DLP 770.74 mGy*cm. Findings: Evaluation of vasculature and solid organs is limited due to lack of intravenous contrast use. Lung Bases: Lung bases are clear. Visualized portions of the heart and pericardium are unremarkable. Liver: The liver is normal in size. No focal lesions. Gallbladder and Biliary Tree: The gallbladder is unremarkable. No intrahepatic or extrahepatic biliary ductal dilatation. Spleen: Unremarkable Pancreas: The pancreas is grossly unremarkable. Adrenal Glands: Unremarkable Kidneys: Kidneys demonstrates no hydronephrosis or intrarenal calculi. Previously demonstrated right nephrostomy tube has been removed. There is a 2.5 cm hypodense mass in the right kidney compatible with a cyst. GI tract: Hiatal hernia. No evidence of small bowel wall thickening or abnormal dilatation to suggest bowel obstruction. Sigmoid diverticulosis without acute diverticulitis. The appendix is visualized and is normal. Peritoneum/mesentery/retroperitoneum. No evidence of free intraperitoneal air. No ascites. No evidence of suspicious lymphadenopathy. Abdominal Wall: Unremarkable. Vasculature: The visualized abdominal aorta is normal in size and caliber. Evaluation of abdominal and pelvic vessels is limited due to lack of intravenous contrast. IVC filter noted. Urinary Bladder: There is a Zhao catheter present. Non dependent hyperdensity noted in the urinary bladder suspicious for hematoma. Urinary bladder wall thickening and fat stranding. Pelvic Organs: Prostate is enlarged measuring 6.2 cm. Musculoskeletal: No aggressive focal bony lesions, acute fractures or dislocation. Soft tissues: Bilateral inguinal hernia. IMPRESSION: 1. Urinary bladder demonstrates intraluminal hyperdensity most suggestive of hematoma. There is urinary bladder wall thickening and fat stranding suspicious for cystitis. 2. Enlarged prostate. 3. No intrarenal calculi no hydronephrosis. Removal of the right nephrostomy catheter. 4. Sigmoid diverticulosis without acute diverticulitis ATED BY: DEE ROBERTS MD DICTATED DATE/TIME: 10/26/24841 SIGNED BY: DEE ROBERTS MD SIGNED DATE/TIME: 10/26/24841 CC: Labs Test 10/27/24 05:57 10/26/24 07:39 10/26/24 07:30 Range/Units White Blood Count 4.9 4.4-10.8 10^3/uL Red Blood Count 4.25 L 4.5-5.90 10^6/uL Hemoglobin 12.6 L 13.5-17.5 g/dL Hematocrit 37.5 L 41.0-53.0 % Mean Corpuscular Volume 88.3 80.0-100.0 fL Mean Corpuscular Hemoglobin 29.7 28.0-32.0 pg Mean Corpuscular Hemoglobin Concent 33.6 32.0-36.0 g/dL Red Cell Distribution Width 13.3 11.8-14.3 % Platelet Count 172 140-450 10^3/uL Mean Platelet Volume 8.2 6.9-10.8 fL Neutrophils (%) (Auto) 60.9 37.0-80.0 % Lymphocytes (%) (Auto) 27.9 10.0-50.0 % Monocytes (%) (Auto) 8.0 0.0-12.0 % Eosinophils (%) (Auto) 2.6 0.0-7.0 % Basophils (%) (Auto) 0.6 0.0-2.0 % Neutrophils # (Auto) 3.0 1.6-8.6 10 ^3/uL Lymphocytes # (Auto) 1.4 0.4-5.4 10 ^3/uL Monocytes # (Auto) 0.4 0-1.3 10 ^3/uL Eosinophils # (Auto) 0.1 0-0.8 10 ^3/uL Basophils # (Auto) 0 0-0.2 10 ^3/uL Nucleated Red Blood Cells 0.1 % Sodium Level 141 136-145 mmol/L Potassium Level 4.2 3.5-5.1 mmol/L Chloride Level 106 98-107 mmol/L Carbon Dioxide Level 28 20-31 mmol/L Anion Gap 7 5-15 Blood Urea Nitrogen 17 9-23 mg/dL Creatinine 1.39 H 0.700-1.30 mg/dL Glomerular Filtration Rate Calc 53 >90 mL/min BUN/Creatinine Ratio 12.2 10.0-20.0 Serum Glucose 104 74-106 mg/dL Calcium Level 9.9 8.7-10.4 mg/dL Total Bilirubin 0.6 0.2-1.0 mg/dL Aspartate Amino Transferase (AST) 16 13-40 U/L Alanine Aminotransferase (ALT) 17 7-40 U/L Alkaline Phosphatase 46 46-116 U/L Total Protein 6.4 5.7-8.2 g/dL Albumin 4.1 3.2-4.8 g/dL Urine Color Red H Yellow Urine Clarity Cloudy H Clear Urine pH 5.5 5.0-9.0 Urine Specific [place] 1.014 1.001-1.035 Urine Protein 1+ H Negative Urine Ketones Negative Negative Urine Blood 3+ H Negative /uL Urine Nitrite Negative Negative Urine Bilirubin Negative Negative Urine Urobilinogen Normal Negative mg/dL Urine Leukocyte Esterase 3+ Negative /uL Urine RBC 1858 0 - 3 /hpf Urine WBC Clumps Present None Seen /hpf Urine Microscopic WBC 1047 H 0-3 /HPF Urine Squamous Epithelial Cells None seen <5 /hpf Urine Bacteria None seen None Seen /hpf Urine Glucose Normal Normal mg/dL Assessment/Plan Problem List: (1) Presence of IVC filter (2) Hematuria (3) BPH (benign prostatic hyperplasia) (4) Deep vein thrombosis (DVT) of left lower extremity Plan outpt urology f/u - urine has cleared cleared for discharge when medically stabilized Plan discussed with: Patient, Other CHARLENE REIS NP Oct 27, 2024 09:26
[2024-10-27] MEDS: cefTRIAXone 1GM/50ML D5W 50 ML IV SCH (10:19)
[2024-10-27] MEDS: PANTOPRAZOLE 40 MG TAB PO SCH (10:19)
[2024-10-27] MEDS: FINASTERIDE 5 MG TAB PO SCH (10:20)
[2024-10-27] MEDS: CHOLECALCIFEROL (VITD3) 1,000UNIT=25mCg TAB PO SCH (10:21)
[2024-10-27] MEDS: ISOSORBIDE MONONITRATE ER 60 MG TAB PO SCH (10:22)
[2024-10-27] MEDS: TAMSULOSIN HYDROCHLORIDE 0.4 MG CAP PO SCH (10:23)
[2024-10-27] MEDS: EZETIMIBE 10 MG TAB PO SCH (10:23)
--- NOTE | 2024-10-27 12:08 | DVHPNRES ---
Progress Note Date Seen: Oct 27, 2024 Resident Creating Document: MAVERICK JIMENEZ RESIDENT Has the PT tested + for MRSA If YES, has PT been informed?: No Medical Necessity Reason Pt with a Central, PICC or Fol: No Subjective Review of Systems 73-year-old male with past medical history of CAD status post CABG x2, hypertension, hyperlipidemia, kidney stones, BPH, tonsillectomy, history of left lower extremity DVT x 2 post IVC filter last admission, and TURP who presents to the ED for hematuria with blood clots x1 day. Patient reports that he was on Eliquis for the left lower extremity DVT and had stopped it on sunday. He states that there was numerous clots when he was voiding. Patient reports that he was just discharged this and on Sunday developed a blood clots with the hematuria when voiding. Patient denies chest pain, shortness of breath, fever, chills, wheezing, lightheadedness, weakness, nausea, vomiting, diarrhea and dizziness. Objective vital signs Vital Sign Date Time Temp Pulse Resp B/P (MAP) Pulse Ox O2 Delivery O2 Flow Rate FiO2 10/27/24 10:22 134/73 10/27/24 10:22 66 10/27/24 08:30 97.5 16 98 97.5 10/26/24 20:00 Room Air* 0 21 Total Intake and Output 10/26/24 10/26/24 10/27/24 15:00 23:00 07:00 Intake Total 50 ml 500 ml 300 ml Output Total 600 ml Balance 50 ml 500 ml -300 ml medications Current Medications Medications Dose Ordered Sig/Dionte Route Start Time Stop Time Status Last Admin Dose Admin Ceftriaxone Sodium 50 ml @ 100 mls/hr DAILY@09 IV 10/27/24 09:00 10/27/24 10:19 100 MLS/HR Finasteride 5 mg DAILY PO 10/27/24 10:00 10/27/24 10:20 5 MG Acetaminophen/ Hydrocodone Bitart 1 tab Q4HP PRN PO 10/26/24 13:30 Ondansetron HCl 4 mg Q4HP PRN IV 10/26/24 13:30 Acetaminophen 650 mg Q6HP PRN PO 10/26/24 13:30 Cholecalciferol 2,000 unit DAILY PO 10/27/24 10:00 10/27/24 10:21 2,000 UNIT EZETIMIBE 10 mg DAILY PO 10/27/24 10:00 10/27/24 10:23 10 MG Metoprolol Tartrate 25 mg BID PO 10/26/24 22:00 10/27/24 10:22 25 MG Pantoprazole Sodium 40 mg DAILY PO 10/27/24 10:00 10/27/24 10:19 40 MG Tamsulosin HCl 0.4 mg DAILY PO 10/27/24 10:00 10/27/24 10:23 0.4 MG Isosorbide Mononitrate 30 mg DAILY PO 10/27/24 10:00 10/27/24 10:22 30 MG Patient Own Medication 20 mg HS PO 10/27/24 22:00 Examination General Appeara: Well developed, Well nourished, Normal Appearance Male Genital Exam: Not done Neuro/Mental St: Alert, Oriented Appearance: Appropriate appearance, Appropriate insight Eye contact/ Speech: Cooperative, Good eye contact, Normal speech Skin Exam: Normal inspection, Normal color, Warm/dry laboratory and microbiology Laboratory Tests 10/27/24 05:57 Test 10/27/24 05:57 Range/Units Serum Glucose 104 74-106 mg/dL Problem List/Assessment/Plan Problem List/Assessment/Plan #Hematuria #Hematoma bladder #ALEXUS due to possible obstruction of the urethra #Acute cystitis #BPH #s/p TURP Sep 27 #s/p cystoscopy Sep 25 #s/p IVC filter #s/p right nephrostomy #Sigmoid diverticulosis #History of CAD #status post CABG x2 #History of hypertension #History of hyperlipidemia #History of kidney stones #History of left lower extremity DVT on Eliquis Cardiac diet Case discussed with Althea [employer] ORTHOTIST: stevens [address] with irrigation When the stevens is on place we are going to start fluids Hold on anticoagulation for now Ceftriaxone IV Tamsulosin PO Finasteride PO Metoprolol PO Case discussed with Dr Driver Plan discussed with: Patient, Other My Orders My Orders Orders - MAVERICK JIMENEZ RESIDENT Procedure Category Date Status Time Urine Bacterial MARINA 10/27/24 Uncollected Culture 08:56 Date of Service: Oct 27, 2024 Billing Provider: KIMBERLY DRIVER MD Common Visit Codes: [id number] INP/OBS CARE(HIGH) MAVERICK JIMENEZ RESIDENT Oct 27, 2024 12:08 KIMBERLY DRIVER MD Oct 28, 2024 01:53
[2024-10-27 12:30] VITALS: BP 111/60; PULSE 58; RESP 16; TEMP 97.5; O2SAT 97
--- NOTE | 2024-10-27 13:33 | DVHDSRES ---
Discharge Summary Date of Admission Resident Creating Document: MAVERICK JIMENEZ RESIDENT Oct 26, 2024 at 13:26 Date of Discharge: Oct 27, 2024 Admitting Diagnosis hematuria Labs/Diagnostic Data: Laboratory Results Test 10/27/24 05:57 10/26/24 07:39 10/26/24 07:30 White Blood Count 4.9 10^3/uL (4.4-10.8) Red Blood Count 4.25 10^6/uL (4.5-5.90) Hemoglobin 12.6 g/dL (13.5-17.5) Hematocrit 37.5 % (41.0-53.0) Mean Corpuscular Volume 88.3 fL (80.0-100.0) Mean Corpuscular Hemoglobin 29.7 pg (28.0-32.0) Mean Corpuscular Hemoglobin Concent 33.6 g/dL (32.0-36.0) Red Cell Distribution Width 13.3 % (11.8-14.3) Platelet Count 172 10^3/uL (140-450) Mean Platelet Volume 8.2 fL (6.9-10.8) Neutrophils (%) (Auto) 60.9 % (37.0-80.0) Lymphocytes (%) (Auto) 27.9 % (10.0-50.0) Monocytes (%) (Auto) 8.0 % (0.0-12.0) Eosinophils (%) (Auto) 2.6 % (0.0-7.0) Basophils (%) (Auto) 0.6 % (0.0-2.0) Neutrophils # (Auto) 3.0 10 ^3/uL (1.6-8.6) Lymphocytes # (Auto) 1.4 10 ^3/uL (0.4-5.4) Monocytes # (Auto) 0.4 10 ^3/uL (0-1.3) Eosinophils # (Auto) 0.1 10 ^3/uL (0-0.8) Basophils # (Auto) 0 10 ^3/uL (0-0.2) Nucleated Red Blood Cells 0.1 % Sodium Level 141 mmol/L (136-145) Potassium Level 4.2 mmol/L (3.5-5.1) Chloride Level 106 mmol/L (98-107) Carbon Dioxide Level 28 mmol/L (20-31) Anion Gap 7 (5-15) Blood Urea Nitrogen 17 mg/dL (9-23) Creatinine 1.39 mg/dL (0.700-1.30) Glomerular Filtration Rate Calc 53 mL/min (>90) BUN/Creatinine Ratio 12.2 (10.0-20.0) Serum Glucose 104 mg/dL (74-106) Calcium Level 9.9 mg/dL (8.7-10.4) Total Bilirubin 0.6 mg/dL (0.2-1.0) Aspartate Amino Transferase (AST) 16 U/L (13-40) Alanine Aminotransferase (ALT) 17 U/L (7-40) Alkaline Phosphatase 46 U/L (46-116) Total Protein 6.4 g/dL (5.7-8.2) Albumin 4.1 g/dL (3.2-4.8) Urine Color Red (Yellow) Urine Clarity Cloudy (Clear) Urine pH 5.5 (5.0-9.0) Urine Specific [place] 1.014 (1.001-1.035) Urine Protein 1+ (Negative) Urine Ketones Negative (Negative) Urine Blood 3+ /uL (Negative) Urine Nitrite Negative (Negative) Urine Bilirubin Negative (Negative) Urine Urobilinogen Normal mg/dL (Negative) Urine Leukocyte Esterase 3+ /uL (Negative) Urine RBC 1858 /hpf (0 - 3) Urine WBC Clumps Present /hpf (None Seen) Urine Microscopic WBC 1047 /HPF (0-3) Urine Squamous Epithelial Cells None seen /hpf (<5) Urine Bacteria None seen /hpf (None Seen) Urine Glucose Normal mg/dL (Normal) Other Laboratory Tests 10/27/24 05:57 Brief Hx & Hospital Course: A 73-year-old male with a history of CAD post-CABG x2, hypertension, hyperlipidemia, BPH, and prior left lower extremity DVT on [facility] [place] was admitted for hematuria with large clots. The patient had recently undergone TURP on September 27 and cystoscopy on September 25, with a history of an IVC filter placement. During hospitalization, he developed acute kidney injury likely due to urethral obstruction, and urology was consulted. A three-way Stevens catheter with irrigation was intended to place to manage ongoing clot retention but the patient expelled the clot, The patient was evaluated by urology, who recommended not need of the 3 way stevens, outpatient follow-up for further assessment, with a possible cystoscopy for ongoing hematuria. . The patient was started on ceftriaxone for suspected acute cystitis and was managed conservatively with close monitoring. He was advised to follow up with Dr. Whitt regarding the resumption of anticoagulation. At discharge, the patient was hemodynamically stable, tolerating a cardiac diet, and instructed to monitor for worsening urinary symptoms. Medications include tamsulosin, finasteride, metoprolol, and ciprofloxacin, with plans to reassess his anticoagulation therapy once hematuria resolves. Consults/Reason for consult urology due to hematuria Operations or Procedures Exam: CT CT AB PEL WO CON-NO ORAL OR IV History: Hematuria, history of kidney stones Comparison Study: CT of the abdomen pelvis performed on 09/26/2024. Technique: Multidetector spiral CT of the abdomen and pelvis was performed from lung bases to pubic symphysis. Imaging was performed without intravenous contrast. Coronal and sagittal multiplanar reformats were obtained from the axial data set by the technologist. Radiation Dose : 1. Abdomen/Pelvis: CTDIvol 12.66 mGy, DLP 770.74 mGy*cm. Findings: Evaluation of vasculature and solid organs is limited due to lack of intravenous contrast use. Lung Bases: Lung bases are clear. Visualized portions of the heart and pericardium are unremarkable. Liver: The liver is normal in size. No focal lesions. Gallbladder and Biliary Tree: The gallbladder is unremarkable. No intrahepatic or extrahepatic biliary ductal dilatation. Spleen: Unremarkable Pancreas: The pancreas is grossly unremarkable. Adrenal Glands: Unremarkable Kidneys: Kidneys demonstrates no hydronephrosis or intrarenal calculi. Previously demonstrated right nephrostomy tube has been removed. There is a 2.5 cm hypodense mass in the right kidney compatible with a cyst. GI tract: Hiatal hernia. No evidence of small bowel wall thickening or abnormal dilatation to suggest bowel obstruction. Sigmoid diverticulosis without acute diverticulitis. The appendix is visualized and is normal. Peritoneum/mesentery/retroperitoneum. No evidence of free intraperitoneal air. No ascites. No evidence of suspicious lymphadenopathy. Abdominal Wall: Unremarkable. Vasculature: The visualized abdominal aorta is normal in size and caliber. Evaluation of abdominal and pelvic vessels is limited due to lack of intravenous contrast. IVC filter noted. Urinary Bladder: There is a Stevens catheter present. Non dependent hyperdensity noted in the urinary bladder suspicious for hematoma. Urinary bladder wall thickening and fat stranding. Pelvic Organs: Prostate is enlarged measuring 6.2 cm. Musculoskeletal: No aggressive focal bony lesions, acute fractures or dislocation. Soft tissues: Bilateral inguinal hernia. IMPRESSION: 1. Urinary bladder demonstrates intraluminal hyperdensity most suggestive of hematoma. There is urinary bladder wall thickening and fat stranding suspicious for cystitis. 2. Enlarged prostate. 3. No intrarenal calculi no hydronephrosis. Removal of the right nephrostomy catheter. 4. Sigmoid diverticulosis without acute diverticulitis Condition at Discharge: Stable Final Diagnosis/Problems List #Hematuria #Hematoma in the bladder #ALEXUS due to possible obstruction of the urethra #Acute cystitis #BPH #s/p TURP Sep 8 #s/p cystoscopy Sep 6 #s/p IVC filter #s/p right nephrostomy #Sigmoid diverticulosis #History of CAD #status post CABG x2 #History of hypertension #History of hyperlipidemia #History of kidney stones #History of left lower extremity DVT on Eliquis Discharge Disposition: Home Discharge Instruct/Medications Diet: Cardiac 2g Na,low cholest Activity: See Comment Follow Up/Referral: f/u dr Whitt regarding anticoagulation, fu dr Vanegas regarding hematuria Medications: resume home meds expect anticoagulation Discharge Statement: "Patient was advised to return to the ER or call 911 if any headaches, dizziness, shortness of breath, chest pain, abdominal pain, bleeding, fevers, or worsening of medical condition. Patient was counseled about treatment plan, medications, possible side effects, patientverbalized understanding. All questions were answered to the best of my ability. This discharge took greater then 30 minutes in planning, reviewing documentation, counseling the patient, and discussing with other team members." ASSESSMENT ASSESSMENT Assessment hematuria Date of Service: Oct 27, 2024 Billing Provider: KIMBERLY DRIVER MD Common Visit Codes: 36267-HDB/OBS DISCH DAY >30min MAVERICK JIMENEZ RESIDENT Oct 27, 2024 13:33 KIMBERLY DRIVER MD Oct 28, 2024 01:54
[2024-10-27] MEDS ORDERED: CIPR250T3 PO (14:51)
[2024-10-27 16:19] VITALS: BP 111/60; PULSE 58
[2024-10-27 16:52] VITALS: BP 150/77; PULSE 66; RESP 16; TEMP 97.5; O2SAT 98
== END 2024-10-27 17:10 | disposition home or self-care (01) | DRG 690 ==
LOC: ER 07:18 → OVERFLOW 13:26 → CENTRAL 15:07
PROVIDERS: ADMIT Internal Medicine; ATTEND Internal Medicine
DX: N30.01 Acute cystitis with hematuria (principal); S37.22XA Contusion of bladder, initial encounter; N17.9 Acute kidney failure, unspecified; K57.30 Diverticulosis of large intestine without perforation or abscess without bleeding; N40.0 Benign prostatic hyperplasia without lower urinary tract symptoms; I10 Essential (primary) hypertension; E78.5 Hyperlipidemia, unspecified; I25.10 Atherosclerotic heart disease of native coronary artery without angina pectoris; N13.8 Other obstructive and reflux uropathy; I25.2 Old myocardial infarction; Z79.899 Other long term (current) drug therapy; Z87.442 Personal history of urinary calculi; Z88.8 Allergy status to other drugs, medicaments and biological substances; Z79.01 Long term (current) use of anticoagulants; Z79.82 Long term (current) use of aspirin; Z79.891 Long term (current) use of opiate analgesic; Z79.811 Long term (current) use of aromatase inhibitors; Z95.1 Presence of aortocoronary bypass graft; Z85.51 Personal history of malignant neoplasm of bladder; Z90.79 Acquired absence of other genital organ(s); Z86.718 Personal history of other venous thrombosis and embolism; Z93.6 Other artificial openings of urinary tract status; X58.XXXA Exposure to other specified factors, initial encounter; Y93.89 Activity, other specified; Y92.89 Other specified places as the place of occurrence of the external cause; Y99.8 Other external cause status
CPT/HCPCS: 36415; 74176; 80048; 80053; 81001; 84154; 85025; 96365; 99291; G0378

== ENCOUNTER → 2024-11-17 | Outpatient (CLI) | payer OTHER ==
[~2024-11-17] MED LIST changes: -APIX5TAB PO; -APIX5TAB4 PO; -ASPI1TAB20 PO; +CIPR250T3 PO
[2024-11-17 06:48] LABS: Urine Blood 2+ /uL (Negative); Urine Clarity Turbid (Clear); Urine Color Dark-Yellow (Yellow); Urine Protein, UAD 2+ (Negative); Urine Specific Gravity 1.026 (1.001-1.035); Urine Urobilinogen 2 mg/dL (Negative); Urine pH 5.5 (5.0-9.0)
[2024-11-17 07:04] LABS: Basophils # (auto) 0 10 ^3/uL (0-0.2); Basophils % (auto) 0.7 % (0.0-2.0); Eosinophils # (auto) 0.1 10 ^3/uL (0-0.8); Eosinophils % (auto) 2.1 % (0.0-7.0); Hematocrit 40.9 % (41.0-53.0); Hemoglobin 13.4 g/dL (13.5-17.5); Lymphocytes # (auto) 1.5 10 ^3/uL (0.4-5.4); Lymphocytes % (auto) 33.4 % (10.0-50.0); Mean Corpuscular Hemoglobin 29.2 pg (28.0-32.0); Mean Corpuscular Hgb Conc. 32.8 g/dL (32.0-36.0); Mean Corpuscular Volume 88.9 fL (80.0-100.0); Monocytes # (auto) 0.4 10 ^3/uL (0-1.3); Monocytes % (auto) 7.8 % (0.0-12.0); Neutrophils # (auto) 2.6 10 ^3/uL (1.6-8.6); Nucleated Red Blood Cells % 0.1 %; Platelet Count (auto) 183 10^3/uL (140-450); Red Cell Distribution Width 14.1 % (11.8-14.3); White Blood Cell 4.6 10^3/uL (4.4-10.8)
[2024-11-17 07:14] LABS: Alanine Aminotransferase 31 U/L (7-40); Alkaline Phosphatase 54 U/L (46-116); Anion Gap 6 (5-15); BUN/Creatinine Ratio 20.3 (10.0-20.0); Blood Urea Nitrogen 30 mg/dL (9-23); Calcium 9.6 mg/dL (8.7-10.4); Carbon Dioxide 25 mmol/L (20-31); Chloride 111 mmol/L (98-107); Glucose 116 mg/dL (74-106); Potassium 4.1 mmol/L (3.5-5.1); Sodium 142 mmol/L (136-145); Total Protein 6.9 g/dL (5.7-8.2)
[2024-11-17 07:15] LABS: Albumin 4.5 g/dL (3.2-4.8)
[2024-11-17 07:16] LABS: Aspartate Aminotransferase 22 U/L (13-40); Bilirubin, Total 0.6 mg/dL (0.2-1.0)
== END | disposition home or self-care (01) ==
LOC: LAB 06:04
PROVIDERS: ATTEND Internal Medicine
DX: Z51.81 Encounter for therapeutic drug level monitoring (principal); I10 Essential (primary) hypertension; I82.509 Chronic embolism and thrombosis of unspecified deep veins of unspecified lower extremity; I42.9 Cardiomyopathy, unspecified; Z79.01 Long term (current) use of anticoagulants
CPT/HCPCS: 36415; 80053; 81003; 85025

== ENCOUNTER → 2024-12-01 | Outpatient (CLI) | payer OTHER ==
[2024-12-01 07:41] LABS: Basophils # (auto) 0 10 ^3/uL (0-0.2); Basophils % (auto) 0.5 % (0.0-2.0); Eosinophils # (auto) 0.1 10 ^3/uL (0-0.8); Eosinophils % (auto) 1.5 % (0.0-7.0); Hematocrit 42.4 % (41.0-53.0); Hemoglobin 13.9 g/dL (13.5-17.5); Lymphocytes # (auto) 1.7 10 ^3/uL (0.4-5.4); Mean Corpuscular Hemoglobin 29.2 pg (28.0-32.0); Mean Corpuscular Hgb Conc. 32.9 g/dL (32.0-36.0); Mean Corpuscular Volume 88.9 fL (80.0-100.0); Monocytes # (auto) 0.4 10 ^3/uL (0-1.3); Monocytes % (auto) 7.4 % (0.0-12.0); Neutrophils # (auto) 2.8 10 ^3/uL (1.6-8.6); Neutrophils % (auto) 55.6 % (37.0-80.0); Nucleated Red Blood Cells % 0.1 %; Platelet Count (auto) 177 10^3/uL (140-450); Red Blood Cells 4.77 10^6/uL (4.5-5.90); Red Cell Distribution Width 13.9 % (11.8-14.3)
[2024-12-01 07:54] LABS: Urine Bacteria FEW /hpf (None Seen); Urine Blood 1+ /uL (Negative); Urine Clarity Turbid (Clear); Urine Color Yellow (Yellow); Urine Mucus FEW (None Seen); Urine Protein, UAD 1+ (Negative); Urine Specific Gravity 1.025 (1.001-1.035); Urine Squamous Epithelial Cell FEW /hpf (<5); Urine Urobilinogen Normal (Negative); Urine WBC 389 /HPF (0-3); Urine pH 5.5 (5.0-9.0)
[2024-12-01 07:57] LABS: Anion Gap 9 (5-15); Carbon Dioxide 26 mmol/L (20-31); Potassium 4.1 mmol/L (3.5-5.1); Sodium 143 mmol/L (136-145)
[2024-12-01 07:58] LABS: Calcium 9.8 mg/dL (8.7-10.4)
[2024-12-01 08:03] LABS: BUN/Creatinine Ratio 15.7 (10.0-20.0); Blood Urea Nitrogen 22 mg/dL (9-23)
[2024-12-01 08:04] LABS: Chloride 108 mmol/L (98-107); Glucose 110 mg/dL (74-106)
[2024-12-01 08:13] LABS: Creatinine, Urine 229.22 mg/dL (30.0-125.0)
== END | disposition home or self-care (01) ==
LOC: LAB 06:07
PROVIDERS: ATTEND Internal Medicine
DX: N40.0 Benign prostatic hyperplasia without lower urinary tract symptoms (principal); I10 Essential (primary) hypertension; R73.03 Prediabetes
CPT/HCPCS: 36415; 80048; 81001; 82043; 82570; 83036; 85025

== ENCOUNTER 2025-01-26 06:08 | Outpatient (CLI) | payer OTHER ==
[2025-01-26 07:29] LABS: Basophils # (auto) 0 10 ^3/uL (0-0.2); Basophils % (auto) 0.2 % (0.0-2.0); Eosinophils # (auto) 0 10 ^3/uL (0-0.8); Eosinophils % (auto) 0.2 % (0.0-7.0); Hematocrit 47.8 % (41.0-53.0); Hemoglobin 15.8 g/dL (13.5-17.5); Lymphocytes # (auto) 2.5 10 ^3/uL (0.4-5.4); Lymphocytes % (auto) 23.4 % (10.0-50.0); Mean Corpuscular Hemoglobin 28.3 pg (28.0-32.0); Mean Corpuscular Volume 85.8 fL (80.0-100.0); Monocytes # (auto) 0.6 10 ^3/uL (0-1.3); Monocytes % (auto) 5.9 % (0.0-12.0); Neutrophils # (auto) 7.5 10 ^3/uL (1.6-8.6); Neutrophils % (auto) 70.3 % (37.0-80.0); Nucleated Red Blood Cells % 0.1 %; Platelet Count (auto) 169 10^3/uL (140-450); Red Blood Cells 5.57 10^6/uL (4.5-5.90); Red Cell Distribution Width 14.3 % (11.8-14.3); White Blood Cell 10.7 10^3/uL (4.4-10.8)
[2025-01-26 07:59] LABS: Alanine Aminotransferase 17 U/L (7-40); Albumin 4.5 g/dL (3.2-4.8); Alkaline Phosphatase 53 U/L (46-116); Anion Gap 10 (5-15); Aspartate Aminotransferase 15 U/L (13-40); BUN/Creatinine Ratio 11.1 (10.0-20.0); Blood Urea Nitrogen 16 mg/dL (9-23); Total Protein 7.1 g/dL (5.7-8.2)
[2025-01-26 08:00] LABS: Bilirubin, Total 1.2 mg/dL (0.2-1.0); Carbon Dioxide 27 mmol/L (20-31); Chloride 107 mmol/L (98-107); Glucose 110 mg/dL (74-106); Potassium 3.8 mmol/L (3.5-5.1); Sodium 144 mmol/L (136-145)
== END 2025-01-26 17:00 | disposition home or self-care (01) ==
LOC: LAB 06:08
PROVIDERS: ATTEND Internal Medicine
DX: I10 Essential (primary) hypertension (principal); I42.9 Cardiomyopathy, unspecified; I82.509 Chronic embolism and thrombosis of unspecified deep veins of unspecified lower extremity; Z51.81 Encounter for therapeutic drug level monitoring; Z79.01 Long term (current) use of anticoagulants
CPT/HCPCS: 36415; 80053; 85025

== ENCOUNTER → 2025-02-16 | Outpatient (CLI) | payer OTHER ==
[2025-02-16 06:25] LABS: Urine Bacteria None Seen /hpf (None Seen)
[2025-02-16 07:50] LABS: Urine Blood TRACE /uL (Negative); Urine Clarity Clear (Clear); Urine Color Yellow (Yellow); Urine Mucus FEW (None Seen); Urine Protein, UAD TRACE (Negative); Urine Specific Gravity 1.026 (1.001-1.035); Urine Squamous Epithelial Cell FEW /hpf (<5); Urine Urobilinogen Normal (Negative); Urine WBC 44 /HPF (0-3)
[2025-02-16 08:25] LABS: Alanine Aminotransferase 22 U/L (7-40); Albumin 4.5 g/dL (3.2-4.8); Alkaline Phosphatase 54 U/L (46-116); Anion Gap 11 (5-15); Aspartate Aminotransferase 22 U/L (<34); BUN/Creatinine Ratio 16.7 (10.0-20.0); Bilirubin, Total 0.6 mg/dL (0.2-1.0); Calcium 10.1 mg/dL (8.7-10.4); Carbon Dioxide 25 mmol/L (20-31); Glucose 98 mg/dL (74-106); Potassium 4.2 mmol/L (3.5-5.1); Sodium 144 mmol/L (136-145); Total Protein 6.7 g/dL (5.7-8.2)
[2025-02-16 08:26] LABS: Blood Urea Nitrogen 24 mg/dL (9-23); Chloride 108 mmol/L (98-107)
[2025-02-17 08:07] LABS: PSA Free 1.58 ng/mL; Prostate Specific Antigen 7.2 ng/mL (0.0-4.0)
== END | disposition home or self-care (01) ==
LOC: LAB 06:12
PROVIDERS: ATTEND Internal Medicine
DX: Z12.5 Encounter for screening for malignant neoplasm of prostate (principal); I12.9 Hypertensive chronic kidney disease with stage 1 through stage 4 chronic kidney disease, or unspecified chronic kidney disease; N18.32 Chronic kidney disease, stage 3b; Z12.11 Encounter for screening for malignant neoplasm of colon; Z79.899 Other long term (current) drug therapy
CPT/HCPCS: 36415; 80053; 81001; 84153; 84154

== ENCOUNTER → 2025-02-18 | Outpatient (CLI) | payer OTHER | END | disposition home or self-care (01) | LOC: LAB 15:38 | PROVIDERS: ATTEND Internal Medicine | DX: Z12.11 Encounter for screening for malignant neoplasm of colon (principal); I12.9 Hypertensive chronic kidney disease with stage 1 through stage 4 chronic kidney disease, or unspecified chronic kidney disease; N18.31 Chronic kidney disease, stage 3a; N40.0 Benign prostatic hyperplasia without lower urinary tract symptoms; Z12.5 Encounter for screening for malignant neoplasm of prostate | CPT/HCPCS: 82270 ==

== ENCOUNTER 2025-06-25 06:04 | Outpatient (CLI) | payer OTHER ==
[2025-06-25 08:04] LABS: Anion Gap 9 (5-15); Carbon Dioxide 27 mmol/L (20-31); Potassium 4.1 mmol/L (3.5-5.1); Sodium 145 mmol/L (136-145)
[2025-06-25 08:05] LABS: Calcium 9.5 mg/dL (8.7-10.4)
[2025-06-25 08:10] LABS: BUN/Creatinine Ratio 9.0 (10.0-20.0); Blood Urea Nitrogen 14 mg/dL (9-23)
[2025-06-25 08:12] LABS: Cholesterol 147 mg/dL (< 200); HDL Cholesterol 50 mg/dL (40-59)
[2025-06-25 08:14] LABS: Microalb/Creat Ratio, Urine 41.0
[2025-06-25 08:24] LABS: Chloride 109 mmol/L (98-107); Glucose 107 mg/dL (74-106); Triglycerides 158 mg/dL (< 150)
== END 2025-06-25 17:00 | disposition home or self-care (01) ==
LOC: LAB 06:04
PROVIDERS: ATTEND Internal Medicine
DX: I12.9 Hypertensive chronic kidney disease with stage 1 through stage 4 chronic kidney disease, or unspecified chronic kidney disease (principal); N18.31 Chronic kidney disease, stage 3a; I74.5 Embolism and thrombosis of iliac artery; R73.03 Prediabetes
CPT/HCPCS: 36415; 80048; 80061; 82043; 82306; 82570; 82607